=== PATIENT | female | born 1955 | race Caucasian/White ===

== ENCOUNTER 2017-06-20 11:37 | Inpatient (IN) | payer MEDICARE ==
[2017-06-20 12:04] LABS: ADD MAN DIFF? NO
[2017-06-20] MEDS: IPRATRPIUM/ALBUTEROL 0.5/2.5MG 3 ML NEBU. NEB ×3 (12:04→19:29)
[2017-06-20 12:08] LABS: BASO % 0 % (0-3); EOS # 0.1 x10^3/uL (0.0-0.7); EOS % 1 % (0-3); HEMATOCRIT 50.3 % (36.0-47.0); HEMOGLOBIN 17.3 g/dL (12.0-15.5); LYMPH # 1.6 x10^3/uL (1.0-4.8); LYMPH % 15 % (24-48); MEAN CORPUSCULAR HEMOGLOBIN 33 pg (25-35); MEAN CORPUSCULAR HGB CONC 35 g/dL (31-37); MEAN CORPUSCULAR VOLUME 95 fL (79-100); MONO # 0.4 x10^3/uL (0.0-1.1); MONO % 3 % (0-9); NEUT # 9.1 x10^3uL (1.8-7.7); NEUT % 81 % (31-73); PLATELET COUNT 303 x10^3/uL (140-400); RED BLOOD COUNT 5.32 x10^6/uL (3.50-5.40); RED CELL DISTRIBUTION WIDTH 13.4 % (11.5-14.5); WHITE BLOOD COUNT 11.2 x10^3/uL (4.0-11.0)
[2017-06-20 12:16] LABS: INR 1.1 (0.8-1.1); PROTHROMBIN TIME PATIENT 13.2 SEC (11.7-14.0)
[2017-06-20 12:18] LABS: ANION GAP 14 (6-14); BLOOD UREA NITROGEN 18 mg/dL (7-20); CALCIUM 9.8 mg/dL (8.5-10.1); CARBON DIOXIDE 23 mmol/L (21-32); CHLORIDE 98 mmol/L (98-107); CREATININE 0.9 mg/dL (0.6-1.0); GFR 63.9; GLUCOSE 394 mg/dL (70-99); POTASSIUM 4.7 mmol/L (3.5-5.1); SODIUM 135 mmol/L (136-145)
[2017-06-20 12:24] LABS: TROPONINI < 0.017 ng/mL (0.000-0.055)
[2017-06-20 12:32] LABS: ALK PHOS 90 U/L (46-116); ALT (SGPT) 21 U/L (14-59); AST (SGOT) 18 U/L (15-37); DIRECT BILIRUBIN 0.2 mg/dL (0.0-0.2); LIPASE 76 U/L (73-393); MAGNESIUM 1.4 mg/dL (1.8-2.4); TOTAL BILIRUBIN 0.6 mg/dL (0.2-1.0)
[2017-06-20 12:35] LABS: CKMB MASS 1.2 ng/mL (0.0-3.6); CREATINE KINASE 36 U/L (26-192)
[2017-06-20 12:35] LABS: NT-PRO BNP 3966 pg/mL (0-124)
[2017-06-20 12:41] LABS: LACTIC ACID 2.3 mmol/L (0.4-2.0)
[2017-06-20 12:55] LABS: BASE EXCESS ABG -6 mmol/L (-3-3); HCO3 ABG 17 mmol/L (21-28); PCO2 ABG 30 mmHg (35-46); PH ABG 7.38 (7.35-7.45); PO2 ABG 91 mmHg (65-108); SAT O2 ABG 97 % (92-99)
[2017-06-20 13:04] LABS: FIO2 ABG 40
[2017-06-20] MEDS: FUROSEMIDE 40 MG/4 ML VIAL. IVP (13:40)
[2017-06-20] MEDS ORDERED: CONTRAST GIVEN MC (13:45)
[2017-06-20] MEDS: IOHEXOL 300 MG/ML 100ML VIAL. IV (13:51)
[2017-06-20] MEDS ORDERED: ONDANSETRON PF 4 MG/2 ML VIAL. IV (14:30)
[2017-06-20 14:32] LABS: BILIRUBIN,URINE NEGATIVE (NEG); CLARITY,URINE CLEAR; COLOR,URINE YELLOW; GLUCOSE,URINE >=1000 mg/dL (NEG); NITRITE,URINE NEGATIVE (NEG); PH,URINE 5.5; PROTEIN,URINE NEGATIVE (NEG-TRACE); UROBILINOGEN,URINE 0.2 mg/dL (0.2 mg/dL)
[2017-06-20 14:35] LABS: BARBITURATES NEG (NEG); BENZODIAZEPINES NEG (NEG); CANNABINOIDS NEG (NEG); COCAINE NEG (NEG); METHADONE NEG (NEG); OPIATES NEG (NEG); PHENCYCLIDINE NEG (NEG)
[2017-06-20 14:37] LABS: AMPHETAMINE/METHAMPHETAMINE NEG (NEG); ETHANOL, URINE NEG (NEG)
[2017-06-20 14:58] LABS: BACTERIA,URINE 0 /HPF (0-FEW); RBC,URINE 0 /HPF (0-2)
[2017-06-20 14:59] LABS: HYALINE CASTS, URINE OCCASIONAL /HPF; SQUAMOUS EPITHELIAL CELL,UR OCC /LPF
[2017-06-20] MEDS: ALBUTEROL SULFATE 2.5 MG/3 ML NEBU. NEB (14:59)
[2017-06-20] MEDS ORDERED: hydrALAZINE 20 MG/ML VIAL. IVP (16:45)
[2017-06-20] MEDS: FUROSEMIDE 20 MG/2 ML VIAL. IVP (17:40)
[2017-06-20] MEDS: MAGNESIUM SULFATE 2GM 50 ML IV (17:41)
[2017-06-20] MEDS: CARVEDILOL 3.125 MG TABLET. PO (17:41)
[2017-06-20] MEDS ORDERED: DEXTROSE 50% 25 GM / 50ML DISP.SYRIN. IV (20:00)
[2017-06-20 20:25] LABS: POC GLUCOSE 243 mg/dL (70-99)
[2017-06-20] MEDS: ATORVASTATIN CALCIUM 40 MG TABLET. PO (20:33)
[2017-06-20] MEDS: RANOLAZINE 500 MG TAB.ER.12H PO (20:33)
[2017-06-20] MEDS: oxyCODONE/APAP 5/325 1 TAB TABLET PO (20:33)
[2017-06-20] MEDS: ZOLPIDEM 5 MG TABLET. PO (21:27)
[2017-06-20 21:44] LABS: TROPONINI 3.043 ng/mL (0.000-0.055)
[2017-06-21 03:00] LABS: ADD MAN DIFF? NO
[2017-06-21 03:04] LABS: BASO % 1 % (0-3); EOS # 0.1 x10^3/uL (0.0-0.7); EOS % 2 % (0-3); HEMATOCRIT 45.6 % (36.0-47.0); HEMOGLOBIN 15.9 g/dL (12.0-15.5); LYMPH # 2.9 x10^3/uL (1.0-4.8); LYMPH % 36 % (24-48); MEAN CORPUSCULAR HEMOGLOBIN 32 pg (25-35); MEAN CORPUSCULAR HGB CONC 35 g/dL (31-37); MEAN CORPUSCULAR VOLUME 93 fL (79-100); MONO # 0.6 x10^3/uL (0.0-1.1); MONO % 8 % (0-9); NEUT # 4.3 x10^3uL (1.8-7.7); NEUT % 54 % (31-73); PLATELET COUNT 265 x10^3/uL (140-400); RED BLOOD COUNT 4.91 x10^6/uL (3.50-5.40)
[2017-06-21 03:36] LABS: ANION GAP 8 (6-14); BLOOD UREA NITROGEN 19 mg/dL (7-20); CALCIUM 9.9 mg/dL (8.5-10.1); CARBON DIOXIDE 29 mmol/L (21-32); CHLORIDE 101 mmol/L (98-107); CHOLESTEROL 143 mg/dL (0-200); CREATININE 0.9 mg/dL (0.6-1.0); GFR 63.9; GLUCOSE 293 mg/dL (70-99); HDLC 38 mg/dL (40-60); LDLC 54 mg/dL (0-100); MAGNESIUM 1.8 mg/dL (1.8-2.4); NON-HDL CHOLESTEROL 105 mg/dL (0-129); POTASSIUM 3.7 mmol/L (3.5-5.1); SODIUM 138 mmol/L (136-145); TRIGLYCERIDES 253 mg/dL (0-150); VLDLC 51 mg/dL (0-40)
[2017-06-21 03:40] LABS: TROPONINI 2.577 ng/mL (0.000-0.055)
[2017-06-21 03:45] LABS: CHOLESTEROL/HDL RATIO 3.8
[2017-06-21 07:59] LABS: POC GLUCOSE 280 mg/dL (70-99)
[2017-06-21] MEDS ORDERED: FUROSEMIDE 40 MG/4 ML VIAL. IVP (09:00)
[2017-06-21] MEDS: INSULIN ASPART 300 UNITS/3 ML INSULN.PEN SQ ×3 (09:04→17:15)
[2017-06-21] MEDS: IPRATRPIUM/ALBUTEROL 0.5/2.5MG 3 ML NEBU. NEB ×4 (09:16→19:51)
[2017-06-21 11:42] LABS: POC GLUCOSE 246 mg/dL (70-99)
[2017-06-21] MEDS: RANOLAZINE 500 MG TAB.ER.12H PO ×2 (12:08→20:36)
[2017-06-21] MEDS: FUROSEMIDE 40 MG TABLET. PO (12:08)
[2017-06-21] MEDS: ASPIRIN ENTERIC COATED 325 MG TABLET.DR. PO (12:08)
[2017-06-21] MEDS: LISINOPRIL 5 MG TABLET. PO (12:09)
[2017-06-21] MEDS: POTASSIUM CHLORIDE 20 MEQ TABLET.ER. PO (12:09)
[2017-06-21] MEDS: CARVEDILOL 3.125 MG TABLET. PO ×2 (12:09→17:07)
[2017-06-21 17:34] LABS: POC GLUCOSE 268 mg/dL (70-99)
[2017-06-21] MEDS: ATORVASTATIN CALCIUM 40 MG TABLET. PO (20:36)
[2017-06-21] MEDS: oxyCODONE/APAP 5/325 1 TAB TABLET PO (20:38)
[2017-06-21 20:52] LABS: POC GLUCOSE 296 mg/dL (70-99)
[2017-06-21] MEDS: ZOLPIDEM 5 MG TABLET. PO (23:46)
[2017-06-22] MEDS: IPRATRPIUM/ALBUTEROL 0.5/2.5MG 3 ML NEBU. NEB ×4 (08:00→21:03)
[2017-06-22] MEDS: ASPIRIN ENTERIC COATED 325 MG TABLET.DR. PO (08:47)
[2017-06-22] MEDS: LISINOPRIL 5 MG TABLET. PO (08:47)
[2017-06-22] MEDS: POTASSIUM CHLORIDE 20 MEQ TABLET.ER. PO (08:47)
[2017-06-22] MEDS: RANOLAZINE 500 MG TAB.ER.12H PO ×2 (08:48→20:19)
[2017-06-22] MEDS: CARVEDILOL 3.125 MG TABLET. PO ×2 (08:48→18:04)
[2017-06-22] MEDS: FUROSEMIDE 40 MG TABLET. PO (08:48)
[2017-06-22] MEDS: INSULIN ASPART 300 UNITS/3 ML INSULN.PEN SQ ×6 (08:53→18:10)
[2017-06-22 11:30] LABS: POC GLUCOSE 368 mg/dL (70-99)
[2017-06-22 17:18] LABS: POC GLUCOSE 152 mg/dL (70-99)
[2017-06-22] MEDS: MULTIVITAMIN with MINERAL TABLET. PO (18:03)
[2017-06-22] MEDS: ASCORBIC ACID 500 MG TABLET PO (18:03)
[2017-06-22] MEDS: ZOLPIDEM 5 MG TABLET. PO (20:19)
[2017-06-22] MEDS: ATORVASTATIN CALCIUM 40 MG TABLET. PO (20:19)
[2017-06-22] MEDS: INSULIN DETEMIR 300 UNITS/3 ML INSULN.PEN. SQ (20:25)
[2017-06-22 20:26] LABS: POC GLUCOSE 245 mg/dL (70-99)
[2017-06-22 21:08] LABS: POC GLUCOSE 256 mg/dL (70-99)
[2017-06-23 05:18] LABS: ADD MAN DIFF? NO
[2017-06-23 05:46] LABS: BASO % 0 % (0-3); EOS # 0.2 x10^3/uL (0.0-0.7); EOS % 2 % (0-3); HEMATOCRIT 48.4 % (36.0-47.0); HEMOGLOBIN 16.9 g/dL (12.0-15.5); LYMPH # 3.1 x10^3/uL (1.0-4.8); LYMPH % 36 % (24-48); MEAN CORPUSCULAR HEMOGLOBIN 33 pg (25-35); MEAN CORPUSCULAR HGB CONC 35 g/dL (31-37); MEAN CORPUSCULAR VOLUME 94 fL (79-100); MONO # 0.7 x10^3/uL (0.0-1.1); MONO % 8 % (0-9); NEUT # 4.5 x10^3uL (1.8-7.7); NEUT % 53 % (31-73); PLATELET COUNT 269 x10^3/uL (140-400); RED BLOOD COUNT 5.15 x10^6/uL (3.50-5.40); RED CELL DISTRIBUTION WIDTH 13.1 % (11.5-14.5); WHITE BLOOD COUNT 8.4 x10^3/uL (4.0-11.0)
[2017-06-23 06:20] LABS: ALBUMIN 3.6 g/dL (3.4-5.0); ALK PHOS 74 U/L (46-116); ALT (SGPT) 16 U/L (14-59); ANION GAP 9 (6-14); AST (SGOT) 14 U/L (15-37); BLOOD UREA NITROGEN 26 mg/dL (7-20); BUN/CREATININE RATIO 29 (6-20); CALCIUM 9.6 mg/dL (8.5-10.1); CARBON DIOXIDE 29 mmol/L (21-32); CHLORIDE 100 mmol/L (98-107); CREATININE 0.9 mg/dL (0.6-1.0); GFR 63.9; GLUCOSE 185 mg/dL (70-99); SODIUM 138 mmol/L (136-145); TOTAL BILIRUBIN 0.5 mg/dL (0.2-1.0); TOTAL PROTEIN 7.1 g/dL (6.4-8.2)
[2017-06-23] MEDS: IPRATRPIUM/ALBUTEROL 0.5/2.5MG 3 ML NEBU. NEB ×3 (07:50→16:01)
[2017-06-23 08:15] LABS: POC GLUCOSE 220 mg/dL (70-99)
[2017-06-23] MEDS: ASCORBIC ACID 500 MG TABLET PO (08:47)
[2017-06-23] MEDS: POTASSIUM CHLORIDE 20 MEQ TABLET.ER. PO (08:47)
[2017-06-23] MEDS: MULTIVITAMIN with MINERAL TABLET. PO (08:47)
[2017-06-23] MEDS: ASPIRIN ENTERIC COATED 325 MG TABLET.DR. PO (08:47)
[2017-06-23] MEDS: FUROSEMIDE 40 MG TABLET. PO (08:48)
[2017-06-23] MEDS: RANOLAZINE 500 MG TAB.ER.12H PO (08:48)
[2017-06-23] MEDS: LISINOPRIL 5 MG TABLET. PO (08:48)
[2017-06-23] MEDS: CARVEDILOL 3.125 MG TABLET. PO (08:49)
[2017-06-23] MEDS: INSULIN ASPART 300 UNITS/3 ML INSULN.PEN SQ ×4 (08:55→12:37)
[2017-06-23 14:37] LABS: POC GLUCOSE 282 mg/dL (70-99)
== END 2017-06-23 16:31 | disposition home or self-care (01) | DRG 291 ==
LOC: ER 11:37 → 2 SOUTH 13:45
PROC: 5A09357 Assistance with Respiratory Ventilation, Less than 24 Consecutive Hours, Continuous Positive Airway Pressure (ICD-10-PCS; principal; 2017-06-20)
DX: I11.0 Hypertensive heart disease with heart failure (principal); J96.01 Acute respiratory failure with hypoxia; E11.51 Type 2 diabetes mellitus with diabetic peripheral angiopathy without gangrene; E83.42 Hypomagnesemia; I25.82 Chronic total occlusion of coronary artery; E11.621 Type 2 diabetes mellitus with foot ulcer; I50.33 Acute on chronic diastolic (congestive) heart failure; I42.9 Cardiomyopathy, unspecified; E78.00 Pure hypercholesterolemia, unspecified; E78.5 Hyperlipidemia, unspecified; I25.118 Atherosclerotic heart disease of native coronary artery with other forms of angina pectoris; I35.1 Nonrheumatic aortic (valve) insufficiency; J44.9 Chronic obstructive pulmonary disease, unspecified; K21.9 Gastro-esophageal reflux disease without esophagitis; F32.9 Major depressive disorder, single episode, unspecified; Z79.84 Long term (current) use of oral hypoglycemic drugs; Z82.49 Family history of ischemic heart disease and other diseases of the circulatory system; Z86.711 Personal history of pulmonary embolism; Z86.73 Personal history of transient ischemic attack (TIA), and cerebral infarction without residual deficits; Z87.891 Personal history of nicotine dependence; Z90.49 Acquired absence of other specified parts of digestive tract; Z90.710 Acquired absence of both cervix and uterus; Z95.1 Presence of aortocoronary bypass graft; Z89.421 Acquired absence of other right toe(s); Z88.8 Allergy status to other drugs, medicaments and biological substances
CPT/HCPCS: 36415; 36600; 71045; 71275; 80048; 80053; 80061; 80076; 80307; 81001; 82553; 82805; 82962; 83605; 83690; 83735; 83880; 84484; 85025; 85610; 87040; 87086; 87186; 93005; 93306; 94640; 94660; 94760; 96374; 99285; 99285-25; J1815; J1940; J7060; J7613; J7620; Q9967

== ENCOUNTER 2017-12-25 10:15 | Inpatient (IN) | payer MEDICARE ==
[~2017-12-25] VITALS: Ht 167.6 cm; Wt 66.7 kg
[~2017-12-25 10:15] MED LIST changes: -ASPI-612 PO; -BIOT5000 PO; -CARV3.122 PO; -GABA-585 PO
--- NOTE | 2017-12-25 11:25 | PDOC1 ---
History and Physical Date of Admission Date of Admission DATE: 12/25/17 TIME: 11:24 Identification/Chief Complaint Chief Complaint LEFT DIABETIC FOOT WOUND History of Present Illness History of Present Illness s/p rt 5th toe and left 1st toe amputation ssen in wound clinic today with cellulitis involving left distal, lateral foot, direct admit this AM Past Medical History Past Medical History Past Medical History Cardiovascular: CAD, HTN, Hyperlipidemia Pulmonary: Pulmonary embolus CENTRAL NERVOUS SYSTEM: CVA, Periperal neuropathy GI: GERD Hepatobiliary: No pertinent hx Psych: Depression Renal/: UTI Endocrine: Diabetes Past Surgical History Past Surgical History: CABG, Tonsillectomy, Hysterectomy, Other Family History Family History: Coronary Artery Disease Social History Smoke: No ALCOHOL: none Drugs: None Cardiovascular: CAD, HTN, Hyperlipidemia Pulmonary: Pulmonary embolus CENTRAL NERVOUS SYSTEM: CVA, Periperal neuropathy GI: GERD Hepatobiliary: No pertinent hx Psych: Depression Musculoskeletal: low back pain, Osteoarthritis Renal/: UTI Endocrine: Diabetes Past Surgical History Past Surgical History: CABG, Tonsillectomy, Hysterectomy, Other (RIGHT FEM-POP BYPASS REMOTE) Family History Family History: Coronary Artery Disease Social History Smoke: Quit ALCOHOL: none Drugs: None Current Medications Current Medications Active Scripts Active Hydrocodone-Apap 5-325 (Hydrocodone Bit/Acetaminophen) 1 Each Tablet 1 Tab PO PRN Q4HRS PRN Amoxicillin 875 Mg Tablet 875 Mg PO BID Lasix (Furosemide) 40 Mg Tablet 1 Tab PO DAILY Ranexa (Ranolazine) 500 Mg Tab.er.12h 1 Tab PO BID Coreg (Carvedilol) 3.125 Mg Tablet 1 Tab PO BID Levemir Flextouch (Insulin Detemir) 100 Unit/1 Ml Insuln.pen 15 Units SQ QHS Lipitor (Atorvastatin Calcium) 40 Mg Tablet 40 Mg PO QHS Ecotrin (Aspirin) 325 Mg Tablet. 325 Mg PO DAILYWBKFT Reported Oxycodone-Acetaminophen 5-325 (Oxycodone Hcl/Acetaminophen) 1 Each Tablet 1 Tab PO PRN DAILY PRN Omeprazole 40 Mg Capsule.dr 40 Mg PO PRN DAILY PRN Fenofibrate (Fenofibrate,Micronized) 134 Mg Capsule 134 Mg PO HS Multivitamins (Multivitamin) 1 Each Tablet 1 Tab PO DAILY Lisinopril 5 Mg Tablet 1 Tab PO HS Potassium Chloride 20 Meq Tablet.er 20 Meq PO DAILY Zolpidem Tartrate 5 Mg Tablet 5 Mg PO PRN QHS PRN Vitamin D (Cholecalciferol (Vitamin D3)) 1,000 Unit Capsule 1,000 Unit PO Metformin Hcl 1,000 Mg Tablet 1 Tab PO BID Fish Oil 1,000 Mg Softgel ([place]-3/Dha/Epa/Fish Oil) 1 Each Capsule 1 Each PO BID Gabapentin 300 Mg Capsule 600 Mg PO TID Next dose: 12/06 at bedtime Allergies Allergies: Coded Allergies: propoxyphene (Verified Allergy, Intermediate, Anxiety, 08/14/17) I S O L A T I O N *CONTACT* (Verified Allergy, Unknown, 08/14/17) mrsa ROS Review of System 14 PT ROS OTHERWISE NEG General: No: Chills, Night Sweats, Fatigue, Malaise, Appetite, Other PSYCHOLOGICAL ROS: No: Anxiety, Behavioral Disorder, Concentration difficultie , Decreased libido, Depression, Disorientation, Hallucinations, Hostility, Irritablity, Memory difficulties, Mood Swings, Obsessive thoughts, Physical abuse, Sexual abuse, Sleep disturbances, Suicidal ideation, Other HEENT: No: Heacaches, Visual Changes, Hearing change, Nasal congestion, Nasal discharge, Oral lesions, Sinus pain, Sore Throat, Epistaxis, Sneezing, Snoring, Tinnitus, Vertigo, Vocal changes, Other Hematological and Lymphatic: No: Bleeding Problems, Blood Clots, Blood Transfusions, Brusing, Night Sweats, Pallor, Swollen Lymph Nodes, Other ENDOCRINE: No: Breast Changes, Galactorrhea, Hair Pattern Changes, Hot Flashes , Malaise/lethargy, Mood Swings, Palpitations, Polydipsia/polyuria, Skin Changes , Temperature Intolerance, Unexpected Weight Changes, Other Cardiovascular: No Chest Pain, No Palpitations, No Orthopnea, No Paroxysmal Noc. Dyspnea, No Edema, No Lt Headedness, No Other Musculoskeletal: Yes Joint Swelling Skin: Yes Skin Lesion Changes Physical Exam Physical Exam Physical Exam GEN.: No apparent distress. Alert and oriented. HEENT: Head is normocephalic, atraumatic NECK: Supple. LUNGS: Clear to auscultation. HEART: RRR, S1, S2 present. Peripheral pulses intact ABDOMEN: Soft, nontender. Positive bowel sounds. EXTREMITIES: Without any cyanosis. NEUROLOGIC: Normal speech, normal tone PSYCHIATRIC: Normal affect, normal mood. SKIN: rt sole has a 2cm non healing ulcer with some drainage left 4th toe mild swelling, tip is black , no obvious discharge. General: Alert, Oriented X3 Extremities: No clubbing, No cyanosis Neuro: Normal speech, Cranial nerves 3-12 NL Psych/Mental Status: Mental status NL, Mood NL VTE Prophylaxis Ordered VTE Prophylaxis Devices: No VTE Pharmacological Prophylaxi: Yes Assessment/Plan Assessment/Plan left 4th toe osteo SUSPECTED h/o CAD s/p CABG stable diastolic CHF with EF 65% htn hld dm2 h/o CVA PAD s/p bl fem pop bypass s/p rt 5th toe and left 1st toe amputation HLD rt foot chronic non healing sole ulcer plan vasc surgery consult ID CONSULT ESR WOUND CARE NURSE TO SEE SQ LOVENOX DVT PROPHYLAXIS IV VANC PHARMACY TO DOSE JUANA MOTT MD Dec 25, 2017 11:25
[2017-12-25] MEDS ORDERED: BIOT5000 PO (12:09)
[2017-12-25] MEDS ORDERED: ASPI-612 PO (12:09)
[2017-12-25] MEDS ORDERED: GABA-585 PO (12:09)
[2017-12-25] MEDS ORDERED: VANCOMYCIN 1GM IVPB FOR OMNI 250 ML IV ONE (13:30)
[2017-12-25] MEDS: HYDROcodone/APAP 5/325MG 1 TAB TABLET PO PRN ×2 (13:38→20:41)
[2017-12-25] MEDS ORDERED: CARV3.122 PO (14:06)
[2017-12-25 14:18] LABS: BASO # 0.2 x10^3/uL (0.0-0.2); BASO % 1 % (0-3); EOS # 0.1 x10^3/uL (0.0-0.7); EOS % 0 % (0-3); HEMATOCRIT 33.9 % (36.0-47.0); HEMOGLOBIN 11.8 g/dL (12.0-15.5); LYMPH # 1.7 x10^3/uL (1.0-4.8); LYMPH % 11 % (24-48); MEAN CORPUSCULAR HEMOGLOBIN 31 pg (25-35); MEAN CORPUSCULAR HGB CONC 35 g/dL (31-37); MEAN CORPUSCULAR VOLUME 89 fL (79-100); MONO # 0.8 x10^3/uL (0.0-1.1); MONO % 5 % (0-9); NEUT # 13.2 x10^3uL (1.8-7.7); NEUT % 83 % (31-73); PLATELET COUNT 593 x10^3/uL (140-400); RED BLOOD COUNT 3.83 x10^6/uL (3.50-5.40); RED CELL DISTRIBUTION WIDTH 12.2 % (11.5-14.5); WHITE BLOOD COUNT 15.9 x10^3/uL (4.0-11.0)
[2017-12-25 14:29] LABS: ALBUMIN 2.8 g/dL (3.4-5.0); ALBUMIN/GLOBULIN RATIO 0.5 (1.0-1.7); CALCIUM 10.2 mg/dL (8.5-10.1); CREATININE 0.9 mg/dL (0.6-1.0); GFR 63.7; POTASSIUM 4.7 mmol/L (3.5-5.1); TOTAL BILIRUBIN 0.5 mg/dL (0.2-1.0); TOTAL PROTEIN 8.8 g/dL (6.4-8.2)
[2017-12-25 15:00] VITALS: BP 136/65
[2017-12-25] MEDS ORDERED: VANCOMYCIN 1.75 GM in IV NORMAL SALINE 500ML BAG 500 ML IV ONE (15:00)
[2017-12-25] MEDS ORDERED: DEXTROSE 50% 25 GM / 50ML DISP.SYRIN. IV PRN (15:00)
[2017-12-25 15:14] LABS: % BANDS 2 % (0-9); % LYMPHS 19 % (24-48); % METAS 1 % (0-0); % MONOS 2 % (0-10); % SEGS 76 % (35-66); PLT ESTIMATE INCREASED (ADEQUATE)
[2017-12-25 15:15] LABS: TOXIC GRANULATION SLIGHT
[2017-12-25] MEDS: ASPIRIN ENTERIC COATED 81 MG TABLET.DR. PO SCH (15:33)
[2017-12-25] MEDS: VANCOMYCIN PER PHARMACY MC PRN (15:53)
[2017-12-25] MEDS: CHOLECALCIFEROL (VITAMIN D3) 1,000 UNIT TABLET PO SCH (16:00)
[2017-12-25] MEDS: FUROSEMIDE 40 MG TABLET. PO SCH (16:00)
[2017-12-25] MEDS ORDERED: INSULIN LISPRO 300 UNITS/3 ML INSULN.PEN. SQ ONE ×2 (16:00→21:30)
--- NOTE | 2017-12-25 16:40 | RAD ---
EXAM: AP and lateral views of the left foot DATE: 12/25/2017 1:05 PM INDICATION: OPEN WOUND
HX OF DIABETES COMPARISON: 07/14/2015, 08/12/2017 FINDINGS: Marked soft tissue irregularity is seen about the proximal phalanx of the second toe at the site of amputation. Associated focal osteopenia and periostitis of the proximal phalanx with small erosions is seen. Changes of transverse first metatarsal amputation are again seen. Chronic/healed fracture of the second metatarsal shaft is also stable with apex plantar angulation resulting in a prominent spicule projecting into the plantar soft tissues. IMPRESSION: 1. Soft tissue irregularity at the site of fourth toe amputation with subjacent osseous erosive change with osteopenia and mild periostitis, radiographically represents osteomyelitis. 2. Chronic/healed fracture of the second metatarsal shaft is also stable with apex plantar angulation resulting in a prominent spicule projecting into the plantar soft tissues. Electronically signed by: Elmer Haas MD (12/25/2017 4:35 PM) [facility]
[2017-12-25] MEDS: CARVEDILOL 3.125 MG TABLET. PO SCH (17:04)
[2017-12-25] MEDS: INSULIN LISPRO 300 UNITS/3 ML INSULN.PEN. SQ SCH (17:07)
[2017-12-25 19:00] VITALS: BP 163/61
[2017-12-25] MEDS: RANOLAZINE 500 MG TAB.ER.12H PO SCH (20:39)
[2017-12-25] MEDS: LISINOPRIL 5 MG TABLET. PO SCH (20:40)
[2017-12-25] MEDS: ATORVASTATIN CALCIUM 40 MG TABLET. PO SCH (20:40)
[2017-12-25] MEDS: ZOLPIDEM 5 MG TABLET. PO PRN (20:40)
[2017-12-25] MEDS: GABAPENTIN 300 MG CAPSULE. PO SCH (20:40)
[2017-12-25 23:00] VITALS: BP 101/75
[2017-12-25] MEDS ORDERED: INSU100I13 SQ (23:08)
[2017-12-26] VITALS (12 sets, daily range): BP systolic 106–140; BP diastolic 66–79
[2017-12-26 01:17] LABS: HEMOGLOBIN A1C 10.7 % (4.8-5.6)
[2017-12-26] MEDS: VANCOMYCIN 1 GM in IV NORMAL SALINE 250ML 250 ML IV SCH ×2 (03:51→16:15)
[2017-12-26] MEDS: HYDROcodone/APAP 5/325MG 1 TAB TABLET PO PRN ×5 (03:52→20:28)
[2017-12-26 04:22] LABS: BASO # 0.1 x10^3/uL (0.0-0.2); BASO % 1 % (0-3); EOS # 0.2 x10^3/uL (0.0-0.7); EOS % 2 % (0-3); HEMATOCRIT 28.9 % (36.0-47.0); HEMOGLOBIN 10.3 g/dL (12.0-15.5); LYMPH # 2.3 x10^3/uL (1.0-4.8); LYMPH % 18 % (24-48); MEAN CORPUSCULAR HEMOGLOBIN 32 pg (25-35); MEAN CORPUSCULAR HGB CONC 36 g/dL (31-37); MEAN CORPUSCULAR VOLUME 89 fL (79-100); MONO # 1.1 x10^3/uL (0.0-1.1); MONO % 8 % (0-9); NEUT # 9.6 x10^3uL (1.8-7.7); NEUT % 72 % (31-73); PLATELET COUNT 521 x10^3/uL (140-400); RED BLOOD COUNT 3.25 x10^6/uL (3.50-5.40); RED CELL DISTRIBUTION WIDTH 12.2 % (11.5-14.5); WHITE BLOOD COUNT 13.3 x10^3/uL (4.0-11.0)
[2017-12-26 04:34] LABS: CALCIUM 9.3 mg/dL (8.5-10.1); CREATININE 0.8 mg/dL (0.6-1.0); GFR 72.9; POTASSIUM 3.9 mmol/L (3.5-5.1)
[2017-12-26] MEDS: CARVEDILOL 3.125 MG TABLET. PO SCH ×2 (07:30→16:15)
[2017-12-26] MEDS ORDERED: PANTOPRAZOLE 40 MG TABLET.DR. PO PRN (07:30)
[2017-12-26] MEDS: ASPIRIN ENTERIC COATED 81 MG TABLET.DR. PO SCH (07:36)
[2017-12-26] MEDS: OMEGA-3 FATTY ACIDS/FISH OIL 1,000 MG CAPSULE. PO SCH (07:36)
[2017-12-26] MEDS: GABAPENTIN 300 MG CAPSULE. PO SCH ×3 (08:18→20:30)
[2017-12-26] MEDS: CHOLECALCIFEROL (VITAMIN D3) 1,000 UNIT TABLET PO SCH (08:18)
[2017-12-26] MEDS: FUROSEMIDE 40 MG TABLET. PO SCH (08:21)
[2017-12-26] MEDS: RANOLAZINE 500 MG TAB.ER.12H PO SCH ×2 (08:22→20:26)
[2017-12-26] MEDS: INSULIN LISPRO 300 UNITS/3 ML INSULN.PEN. SQ SCH ×3 (08:36→17:22)
[2017-12-26] MEDS ORDERED: NON FORMULARY ITEM (Biotin 5,000 MCG) PO SCH (09:00)
[2017-12-26] MEDS ORDERED: SURGICEL FIBRILLAR 1X2 EACH. ONE (09:16)
[2017-12-26] MEDS ORDERED: LIDOCAINE 1% PF 30 ML VIAL. ONE (09:16)
[2017-12-26] MEDS ORDERED: IV RINGERS,LACTATED 1000ML 1,000 ML IV SCH (09:57)
[2017-12-26] MEDS ORDERED: LIDOCAINE 1% PF 2 ML VIAL. ID PRN (10:00)
[2017-12-26] MEDS ORDERED: ONDANSETRON PF 4 MG/2 ML VIAL. IV PRN (10:00)
[2017-12-26] MEDS ORDERED: fentaNYL PF VIAL 100 MCG/2 ML VIAL IV PRN ×2 (10:00)
[2017-12-26] MEDS ORDERED: INSULIN ASPART 100 UNIT/ML 10ML VIAL. SQ ONE (10:00)
[2017-12-26] MEDS ORDERED: MORPHINE SULFATE 2 MG/ML VIAL. IV PRN ×2 (10:00→11:15)
[2017-12-26] MEDS ORDERED: PROCHLORPERAZINE 10 MG/2 ML VIAL. IV PRN (10:00)
[2017-12-26] MEDS ORDERED: PROPOFOL 0 ML IV ONE (10:00)
[2017-12-26] MEDS ORDERED: DEXAMETHASONE SOD PHOS 20 MG/5 ML VIAL. ONE (10:01)
[2017-12-26] MEDS ORDERED: PROPOFOL 20 ML IV ONE (10:01)
[2017-12-26] MEDS ORDERED: LIDOCAINE 2% PF Vial for OR 5 ML VIAL. ONE (10:01)
[2017-12-26] MEDS ORDERED: FAMOTIDINE 20 MG/2 ML VIAL ONE (10:01)
[2017-12-26] MEDS ORDERED: SUCCINYLCHOLINE 200 MG/10 ML VIAL. ONE (10:02)
[2017-12-26] MEDS ORDERED: fentaNYL PF VIAL 100 MCG/2 ML VIAL ONE (10:05)
[2017-12-26] MEDS ORDERED: ONDANSETRON PF 4 MG/2 ML VIAL. ONE (10:06)
[2017-12-26] MEDS ORDERED: ePHEDrine PF IN SALINE 50 MG/5 ML DISP.SYRIN IV ONE (10:41)
--- NOTE | 2017-12-26 11:06 | PDOC4 ---
Operative Note Operative Note Operative Report Dictated Pre-op: left 4th residual toe and 5th toe severe infected gangrene with purulent drainage and cellulitis Post-op: same Operation: Left 4th and 5th toe open amputation Surgeon: Dr. Anna Young Anesthesia: general Blood loss: 5ml ANNA YOUNG MD Dec 26, 2017 11:06
[2017-12-26] MEDS ORDERED: hydrALAZINE 20 MG/ML VIAL. IVP PRN (11:15)
--- NOTE | 2017-12-26 12:03 | PDOC ---
Infectious Disease Note Vital Sign Vital Signs Vital Signs Date Time Temp Pulse Resp B/P (MAP) Pulse Ox O2 Delivery O2 Flow Rate FiO2 12/26/17 11:47 76 20 124/87 97 Room Air 12/26/17 11:02 10 12/26/17 11:02 97.4 97.4 Labs Lab Laboratory Tests Test 12/25/17 13:55 12/25/17 14:00 12/25/17 15:48 12/25/17 16:00 Erythrocyte Sedimentation Rate 127 (0-25) Sodium Level 129 mmol/L (136-145) Potassium Level 4.7 mmol/L (3.5-5.1) Chloride Level 92 mmol/L (98-107) Carbon Dioxide Level 30 mmol/L (21-32) Anion Gap 7 (6-14) Blood Urea Nitrogen 16 mg/dL (7-20) Creatinine 0.9 mg/dL (0.6-1.0) Estimated GFR (Cockcroft-Gault) 63.7 BUN/Creatinine Ratio 18 (6-20) Glucose Level 411 mg/dL (70-99) Calcium Level 10.2 mg/dL (8.5-10.1) Total Bilirubin 0.5 mg/dL (0.2-1.0) Aspartate Amino Transf (AST/SGOT) 11 U/L (15-37) Alanine Aminotransferase (ALT/SGPT) 15 U/L (14-59) Alkaline Phosphatase 90 U/L (46-116) Total Protein 8.8 g/dL (6.4-8.2) Albumin 2.8 g/dL (3.4-5.0) Albumin/Globulin Ratio 0.5 (1.0-1.7) White Blood Count 15.9 x10^3/uL (4.0-11.0) Red Blood Count 3.83 x10^6/uL (3.50-5.40) Hemoglobin 11.8 g/dL (12.0-15.5) Hematocrit 33.9 % (36.0-47.0) Mean Corpuscular Volume 89 fL (79-100) Mean Corpuscular Hemoglobin 31 pg (25-35) Mean Corpuscular Hemoglobin Concent 35 g/dL (31-37) Red Cell Distribution Width 12.2 % (11.5-14.5) Platelet Count 593 x10^3/uL (140-400) Neutrophils (%) (Auto) 83 % (31-73) Lymphocytes (%) (Auto) 11 % (24-48) Monocytes (%) (Auto) 5 % (0-9) Eosinophils (%) (Auto) 0 % (0-3) Basophils (%) (Auto) 1 % (0-3) Neutrophils # (Auto) 13.2 x10^3uL (1.8-7.7) Lymphocytes # (Auto) 1.7 x10^3/uL (1.0-4.8) Monocytes # (Auto) 0.8 x10^3/uL (0.0-1.1) Eosinophils # (Auto) 0.1 x10^3/uL (0.0-0.7) Basophils # (Auto) 0.2 x10^3/uL (0.0-0.2) Segmented Neutrophils % 76 % (35-66) Band Neutrophils % 2 % (0-9) Lymphocytes % 19 % (24-48) Monocytes % 2 % (0-10) Metamyelocytes % 1 % (0-0) Toxic Granulation Slight Platelet Estimate Increased (ADEQUATE) Hemoglobin A1c 10.7 % (4.8-5.6) Glucose (Fingerstick) 457 mg/dL (70-99) Lactic Acid Level 1.2 mmol/L (0.4-2.0) Test 12/25/17 21:02 12/26/17 03:35 12/26/17 07:25 12/26/17 09:33 Glucose (Fingerstick) 320 mg/dL (70-99) 339 mg/dL (70-99) 333 mg/dL (70-99) White Blood Count 13.3 x10^3/uL (4.0-11.0) Red Blood Count 3.25 x10^6/uL (3.50-5.40) Hemoglobin 10.3 g/dL (12.0-15.5) Hematocrit 28.9 % (36.0-47.0) Mean Corpuscular Volume 89 fL (79-100) Mean Corpuscular Hemoglobin 32 pg (25-35) Mean Corpuscular Hemoglobin Concent 36 g/dL (31-37) Red Cell Distribution Width 12.2 % (11.5-14.5) Platelet Count 521 x10^3/uL (140-400) Neutrophils (%) (Auto) 72 % (31-73) Lymphocytes (%) (Auto) 18 % (24-48) Monocytes (%) (Auto) 8 % (0-9) Eosinophils (%) (Auto) 2 % (0-3) Basophils (%) (Auto) 1 % (0-3) Neutrophils # (Auto) 9.6 x10^3uL (1.8-7.7) Lymphocytes # (Auto) 2.3 x10^3/uL (1.0-4.8) Monocytes # (Auto) 1.1 x10^3/uL (0.0-1.1) Eosinophils # (Auto) 0.2 x10^3/uL (0.0-0.7) Basophils # (Auto) 0.1 x10^3/uL (0.0-0.2) Sodium Level 132 mmol/L (136-145) Potassium Level 3.9 mmol/L (3.5-5.1) Chloride Level 97 mmol/L (98-107) Carbon Dioxide Level 30 mmol/L (21-32) Anion Gap 5 (6-14) Blood Urea Nitrogen 16 mg/dL (7-20) Creatinine 0.8 mg/dL (0.6-1.0) Estimated GFR (Cockcroft-Gault) 72.9 Glucose Level 327 mg/dL (70-99) Calcium Level 9.3 mg/dL (8.5-10.1) Test 12/26/17 11:09 Glucose (Fingerstick) 232 mg/dL (70-99) Objective Assessment Left foot gangrene with infection s/p amputation of 4 th or 5 th toe DM Non compliance HTN Fever Leukocytosis Plan Plan of Care corinna and zosyn d/w Dr Young will check cultures supportive care MICH MARK MD Dec 26, 2017 12:03
[2017-12-26 12:18] LABS: PROTHROMBIN TIME PATIENT 15.5 SEC (11.7-14.0)
[2017-12-26] MEDS: PIPERACILLIN/TAZOBACTAM 3.375 GM in IV NORMAL SALINE 50ML 50 ML IV SCH ×2 (12:24→17:24)
--- NOTE | 2017-12-26 12:42 | PDOC ---
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 She only has about 6 digits left total in her feet Blood sugars are 300s ESR is elevated at 127 WBC 13, no fevers Duplex is pending but there plans of aortogram with runoff of bilateral lower ext by vascular surgery tomorrow Plan: Insulin, diabetes education and compliance emphasized today Could not be over emphasized with this patient, lots of target organ damage from uncontrolled diabetes Adjust sliding scale insulin, high-dose, Start glyburide 5 by mouth twice a day with meals Start Lantus or Levemir 30 units daily at bedtime Hemoglobin A1c still pending Local wound care Appreciate vasc surgery and ID Aortogram with Runoff tomorrow, nothing by mouth post midnight for the above tests.? Vitals Vitals Vital Signs Date Time Temp Pulse Resp B/P (MAP) Pulse Ox O2 Delivery O2 Flow Rate FiO2 12/26/17 11:47 76 20 124/87 97 Room Air 12/26/17 11:02 10 12/26/17 11:02 97.4 97.4 Physical Exam General: Alert, Oriented X3 Heart: Regular rate, Normal S1, Normal S2 Lungs: Clear Abdomen: Normal bowel sounds, Soft Extremities: No clubbing, No cyanosis, Other (dressing on bilateral feet) Labs LABS Laboratory Tests Test 12/25/17 13:55 12/25/17 14:00 12/25/17 15:48 12/25/17 16:00 Erythrocyte Sedimentation Rate 127 (0-25) Sodium Level 129 mmol/L (136-145) Potassium Level 4.7 mmol/L (3.5-5.1) Chloride Level 92 mmol/L (98-107) Carbon Dioxide Level 30 mmol/L (21-32) Anion Gap 7 (6-14) Blood Urea Nitrogen 16 mg/dL (7-20) Creatinine 0.9 mg/dL (0.6-1.0) Estimated GFR (Cockcroft-Gault) 63.7 BUN/Creatinine Ratio 18 (6-20) Glucose Level 411 mg/dL (70-99) Calcium Level 10.2 mg/dL (8.5-10.1) Total Bilirubin 0.5 mg/dL (0.2-1.0) Aspartate Amino Transf (AST/SGOT) 11 U/L (15-37) Alanine Aminotransferase (ALT/SGPT) 15 U/L (14-59) Alkaline Phosphatase 90 U/L (46-116) Total Protein 8.8 g/dL (6.4-8.2) Albumin 2.8 g/dL (3.4-5.0) Albumin/Globulin Ratio 0.5 (1.0-1.7) White Blood Count 15.9 x10^3/uL (4.0-11.0) Red Blood Count 3.83 x10^6/uL (3.50-5.40) Hemoglobin 11.8 g/dL (12.0-15.5) Hematocrit 33.9 % (36.0-47.0) Mean Corpuscular Volume 89 fL (79-100) Mean Corpuscular Hemoglobin 31 pg (25-35) Mean Corpuscular Hemoglobin Concent 35 g/dL (31-37) Red Cell Distribution Width 12.2 % (11.5-14.5) Platelet Count 593 x10^3/uL (140-400) Neutrophils (%) (Auto) 83 % (31-73) Lymphocytes (%) (Auto) 11 % (24-48) Monocytes (%) (Auto) 5 % (0-9) Eosinophils (%) (Auto) 0 % (0-3) Basophils (%) (Auto) 1 % (0-3) Neutrophils # (Auto) 13.2 x10^3uL (1.8-7.7) Lymphocytes # (Auto) 1.7 x10^3/uL (1.0-4.8) Monocytes # (Auto) 0.8 x10^3/uL (0.0-1.1) Eosinophils # (Auto) 0.1 x10^3/uL (0.0-0.7) Basophils # (Auto) 0.2 x10^3/uL (0.0-0.2) Segmented Neutrophils % 76 % (35-66) Band Neutrophils % 2 % (0-9) Lymphocytes % 19 % (24-48) Monocytes % 2 % (0-10) Metamyelocytes % 1 % (0-0) Toxic Granulation Slight Platelet Estimate Increased (ADEQUATE) Hemoglobin A1c 10.7 % (4.8-5.6) Glucose (Fingerstick) 457 mg/dL (70-99) Lactic Acid Level 1.2 mmol/L (0.4-2.0) Test 12/25/17 21:02 12/26/17 03:35 12/26/17 07:25 12/26/17 09:33 Glucose (Fingerstick) 320 mg/dL (70-99) 339 mg/dL (70-99) 333 mg/dL (70-99) White Blood Count 13.3 x10^3/uL (4.0-11.0) Red Blood Count 3.25 x10^6/uL (3.50-5.40) Hemoglobin 10.3 g/dL (12.0-15.5) Hematocrit 28.9 % (36.0-47.0) Mean Corpuscular Volume 89 fL (79-100) Mean Corpuscular Hemoglobin 32 pg (25-35) Mean Corpuscular Hemoglobin Concent 36 g/dL (31-37) Red Cell Distribution Width 12.2 % (11.5-14.5) Platelet Count 521 x10^3/uL (140-400) Neutrophils (%) (Auto) 72 % (31-73) Lymphocytes (%) (Auto) 18 % (24-48) Monocytes (%) (Auto) 8 % (0-9) Eosinophils (%) (Auto) 2 % (0-3) Basophils (%) (Auto) 1 % (0-3) Neutrophils # (Auto) 9.6 x10^3uL (1.8-7.7) Lymphocytes # (Auto) 2.3 x10^3/uL (1.0-4.8) Monocytes # (Auto) 1.1 x10^3/uL (0.0-1.1) Eosinophils # (Auto) 0.2 x10^3/uL (0.0-0.7) Basophils # (Auto) 0.1 x10^3/uL (0.0-0.2) Sodium Level 132 mmol/L (136-145) Potassium Level 3.9 mmol/L (3.5-5.1) Chloride Level 97 mmol/L (98-107) Carbon Dioxide Level 30 mmol/L (21-32) Anion Gap 5 (6-14) Blood Urea Nitrogen 16 mg/dL (7-20) Creatinine 0.8 mg/dL (0.6-1.0) Estimated GFR (Cockcroft-Gault) 72.9 Glucose Level 327 mg/dL (70-99) Calcium Level 9.3 mg/dL (8.5-10.1) Test 12/26/17 11:09 12/26/17 11:50 Glucose (Fingerstick) 232 mg/dL (70-99) Prothrombin Time 15.5 SEC (11.7-14.0) Prothromb Time International Ratio 1.3 (0.8-1.1) Activated Partial Thromboplast Time 31 SEC (24-38) Review of Systems Review of Systems A 14 point ROS was completed with the following noted as positive: Other systems reviewed and negative. \CONSTITUTIONAL: No fever or chills EYES: No recent changes SKIN: No rash or itching CARDIOVASCULAR: No chest pain, syncope, palpitations, or edema RESPIRATORY: No SOB or cough GASTROINTESTINAL: No nausea, vomiting or abdominal pain NEUROLOGICAL: No headaches or weakness ENDOCRINE: No cold or heat intolerance GENITOURINARY: No urgency or frequency of urination MUSCULOSKELETAL: No back pain or joint pain LYMPHATICS: No enlarged lymph nodes PSYCHIATRIC: No anxiety or depression Comment Review of Relevant I have reviewed the following items johan (where applicable) has been applied. Labs Laboratory Tests Test 12/25/17 13:55 12/25/17 14:00 12/25/17 15:48 12/25/17 16:00 Erythrocyte Sedimentation Rate 127 (0-25) Sodium Level 129 mmol/L (136-145) Potassium Level 4.7 mmol/L (3.5-5.1) Chloride Level 92 mmol/L (98-107) Carbon Dioxide Level 30 mmol/L (21-32) Anion Gap 7 (6-14) Blood Urea Nitrogen 16 mg/dL (7-20) Creatinine 0.9 mg/dL (0.6-1.0) Estimated GFR (Cockcroft-Gault) 63.7 BUN/Creatinine Ratio 18 (6-20) Glucose Level 411 mg/dL (70-99) Calcium Level 10.2 mg/dL (8.5-10.1) Total Bilirubin 0.5 mg/dL (0.2-1.0) Aspartate Amino Transf (AST/SGOT) 11 U/L (15-37) Alanine Aminotransferase (ALT/SGPT) 15 U/L (14-59) Alkaline Phosphatase 90 U/L (46-116) Total Protein 8.8 g/dL (6.4-8.2) Albumin 2.8 g/dL (3.4-5.0) Albumin/Globulin Ratio 0.5 (1.0-1.7) White Blood Count 15.9 x10^3/uL (4.0-11.0) Red Blood Count 3.83 x10^6/uL (3.50-5.40) Hemoglobin 11.8 g/dL (12.0-15.5) Hematocrit 33.9 % (36.0-47.0) Mean Corpuscular Volume 89 fL (79-100) Mean Corpuscular Hemoglobin 31 pg (25-35) Mean Corpuscular Hemoglobin Concent 35 g/dL (31-37) Red Cell Distribution Width 12.2 % (11.5-14.5) Platelet Count 593 x10^3/uL (140-400) Neutrophils (%) (Auto) 83 % (31-73) Lymphocytes (%) (Auto) 11 % (24-48) Monocytes (%) (Auto) 5 % (0-9) Eosinophils (%) (Auto) 0 % (0-3) Basophils (%) (Auto) 1 % (0-3) Neutrophils # (Auto) 13.2 x10^3uL (1.8-7.7) Lymphocytes # (Auto) 1.7 x10^3/uL (1.0-4.8) Monocytes # (Auto) 0.8 x10^3/uL (0.0-1.1) Eosinophils # (Auto) 0.1 x10^3/uL (0.0-0.7) Basophils # (Auto) 0.2 x10^3/uL (0.0-0.2) Segmented Neutrophils % 76 % (35-66) Band Neutrophils % 2 % (0-9) Lymphocytes % 19 % (24-48) Monocytes % 2 % (0-10) Metamyelocytes % 1 % (0-0) Toxic Granulation Slight Platelet Estimate Increased (ADEQUATE) Hemoglobin A1c 10.7 % (4.8-5.6) Glucose (Fingerstick) 457 mg/dL (70-99) Lactic Acid Level 1.2 mmol/L (0.4-2.0) Test 12/25/17 21:02 12/26/17 03:35 12/26/17 07:25 12/26/17 09:33 Glucose (Fingerstick) 320 mg/dL (70-99) 339 mg/dL (70-99) 333 mg/dL (70-99) White Blood Count 13.3 x10^3/uL (4.0-11.0) Red Blood Count 3.25 x10^6/uL (3.50-5.40) Hemoglobin 10.3 g/dL (12.0-15.5) Hematocrit 28.9 % (36.0-47.0) Mean Corpuscular Volume 89 fL (79-100) Mean Corpuscular Hemoglobin 32 pg (25-35) Mean Corpuscular Hemoglobin Concent 36 g/dL (31-37) Red Cell Distribution Width 12.2 % (11.5-14.5) Platelet Count 521 x10^3/uL (140-400) Neutrophils (%) (Auto) 72 % (31-73) Lymphocytes (%) (Auto) 18 % (24-48) Monocytes (%) (Auto) 8 % (0-9) Eosinophils (%) (Auto) 2 % (0-3) Basophils (%) (Auto) 1 % (0-3) Neutrophils # (Auto) 9.6 x10^3uL (1.8-7.7) Lymphocytes # (Auto) 2.3 x10^3/uL (1.0-4.8) Monocytes # (Auto) 1.1 x10^3/uL (0.0-1.1) Eosinophils # (Auto) 0.2 x10^3/uL (0.0-0.7) Basophils # (Auto) 0.1 x10^3/uL (0.0-0.2) Sodium Level 132 mmol/L (136-145) Potassium Level 3.9 mmol/L (3.5-5.1) Chloride Level 97 mmol/L (98-107) Carbon Dioxide Level 30 mmol/L (21-32) Anion Gap 5 (6-14) Blood Urea Nitrogen 16 mg/dL (7-20) Creatinine 0.8 mg/dL (0.6-1.0) Estimated GFR (Cockcroft-Gault) 72.9 Glucose Level 327 mg/dL (70-99) Calcium Level 9.3 mg/dL (8.5-10.1) Test 12/26/17 11:09 12/26/17 11:50 Glucose (Fingerstick) 232 mg/dL (70-99) Prothrombin Time 15.5 SEC (11.7-14.0) Prothromb Time International Ratio 1.3 (0.8-1.1) Activated Partial Thromboplast Time 31 SEC (24-38) Laboratory Tests Test 12/25/17 13:55 12/25/17 14:00 12/25/17 15:48 12/25/17 16:00 Erythrocyte Sedimentation Rate 127 (0-25) Sodium Level 129 mmol/L (136-145) Potassium Level 4.7 mmol/L (3.5-5.1) Chloride Level 92 mmol/L (98-107) Carbon Dioxide Level 30 mmol/L (21-32) Anion Gap 7 (6-14) Blood Urea Nitrogen 16 mg/dL (7-20) Creatinine 0.9 mg/dL (0.6-1.0) Estimated GFR (Cockcroft-Gault) 63.7 BUN/Creatinine Ratio 18 (6-20) Glucose Level 411 mg/dL (70-99) Calcium Level 10.2 mg/dL (8.5-10.1) Total Bilirubin 0.5 mg/dL (0.2-1.0) Aspartate Amino Transf (AST/SGOT) 11 U/L (15-37) Alanine Aminotransferase (ALT/SGPT) 15 U/L (14-59) Alkaline Phosphatase 90 U/L (46-116) Total Protein 8.8 g/dL (6.4-8.2) Albumin 2.8 g/dL (3.4-5.0) Albumin/Globulin Ratio 0.5 (1.0-1.7) White Blood Count 15.9 x10^3/uL (4.0-11.0) Red Blood Count 3.83 x10^6/uL (3.50-5.40) Hemoglobin 11.8 g/dL (12.0-15.5) Hematocrit 33.9 % (36.0-47.0) Mean Corpuscular Volume 89 fL (79-100) Mean Corpuscular Hemoglobin 31 pg (25-35) Mean Corpuscular Hemoglobin Concent 35 g/dL (31-37) Red Cell Distribution Width 12.2 % (11.5-14.5) Platelet Count 593 x10^3/uL (140-400) Neutrophils (%) (Auto) 83 % (31-73) Lymphocytes (%) (Auto) 11 % (24-48) Monocytes (%) (Auto) 5 % (0-9) Eosinophils (%) (Auto) 0 % (0-3) Basophils (%) (Auto) 1 % (0-3) Neutrophils # (Auto) 13.2 x10^3uL (1.8-7.7) Lymphocytes # (Auto) 1.7 x10^3/uL (1.0-4.8) Monocytes # (Auto) 0.8 x10^3/uL (0.0-1.1) Eosinophils # (Auto) 0.1 x10^3/uL (0.0-0.7) Basophils # (Auto) 0.2 x10^3/uL (0.0-0.2) Segmented Neutrophils % 76 % (35-66) Band Neutrophils % 2 % (0-9) Lymphocytes % 19 % (24-48) Monocytes % 2 % (0-10) Metamyelocytes % 1 % (0-0) Toxic Granulation Slight Platelet Estimate Increased (ADEQUATE) Hemoglobin A1c 10.7 % (4.8-5.6) Glucose (Fingerstick) 457 mg/dL (70-99) Lactic Acid Level 1.2 mmol/L (0.4-2.0) Test 12/25/17 21:02 12/26/17 03:35 12/26/17 07:25 12/26/17 09:33 Glucose (Fingerstick) 320 mg/dL (70-99) 339 mg/dL (70-99) 333 mg/dL (70-99) White Blood Count 13.3 x10^3/uL (4.0-11.0) Red Blood Count 3.25 x10^6/uL (3.50-5.40) Hemoglobin 10.3 g/dL (12.0-15.5) Hematocrit 28.9 % (36.0-47.0) Mean Corpuscular Volume 89 fL (79-100) Mean Corpuscular Hemoglobin 32 pg (25-35) Mean Corpuscular Hemoglobin Concent 36 g/dL (31-37) Red Cell Distribution Width 12.2 % (11.5-14.5) Platelet Count 521 x10^3/uL (140-400) Neutrophils (%) (Auto) 72 % (31-73) Lymphocytes (%) (Auto) 18 % (24-48) Monocytes (%) (Auto) 8 % (0-9) Eosinophils (%) (Auto) 2 % (0-3) Basophils (%) (Auto) 1 % (0-3) Neutrophils # (Auto) 9.6 x10^3uL (1.8-7.7) Lymphocytes # (Auto) 2.3 x10^3/uL (1.0-4.8) Monocytes # (Auto) 1.1 x10^3/uL (0.0-1.1) Eosinophils # (Auto) 0.2 x10^3/uL (0.0-0.7) Basophils # (Auto) 0.1 x10^3/uL (0.0-0.2) Sodium Level 132 mmol/L (136-145) Potassium Level 3.9 mmol/L (3.5-5.1) Chloride Level 97 mmol/L (98-107) Carbon Dioxide Level 30 mmol/L (21-32) Anion Gap 5 (6-14) Blood Urea Nitrogen 16 mg/dL (7-20) Creatinine 0.8 mg/dL (0.6-1.0) Estimated GFR (Cockcroft-Gault) 72.9 Glucose Level 327 mg/dL (70-99) Calcium Level 9.3 mg/dL (8.5-10.1) Test 12/26/17 11:09 12/26/17 11:50 Glucose (Fingerstick) 232 mg/dL (70-99) Prothrombin Time 15.5 SEC (11.7-14.0) Prothromb Time International Ratio 1.3 (0.8-1.1) Activated Partial Thromboplast Time 31 SEC (24-38) Medications Current Medications Acetaminophen/ Hydrocodone Bitart (Lortab 5/325) 1 tab PRN Q4HRS PRN PO PAIN Last administered on 12/26/17 08:21; Start 12/25/17 at 13:15; Stop 12/26/17 at 10:01; Status DC Vancomycin HCl (Vanco Per Pharmacy) 1 each PRN DAILY PRN MC SEE COMMENTS Last administered on 12/25/17at 15:53; Start 12/25/17 at 13:30 Vancomycin HCl 250 ml @ 250 mls/hr 1X ONCE IV ; Start 12/25/17 at 13:30; Stop 12/25/17 at 14:29; Status UNV Vancomycin HCl 1.75 gm/Sodium Chloride 500 ml @ 250 mls/hr 1X ONCE IV Last administered on 12/25/17at 15:28; Start 12/25/17 at 15:00; Stop 12/25/17 at 16:59 ; Status DC Aspirin (Ecotrin) 81 mg DAILY PO ; Start 12/25/17 at 16:00 Atorvastatin Calcium (Lipitor) 40 mg QHS PO Last administered on 12/25/17 20: 40; Start 12/25/17 at 21:00 Carvedilol (Coreg) 3.125 mg BIDAC PO Last administered on 12/25/17at 17:04; Start 12/25/17 at 16:30 Furosemide (Lasix) 40 mg DAILY PO Last administered on 12/26/17 08:21; Start 12/25/17 at 16:00 Gabapentin (Neurontin) 600 mg TID PO Last administered on 12/26/17at 12:24; Start 12/25/17 at 21:00 Acetaminophen/ Hydrocodone Bitart (Lortab 5/325) 1 tab PRN Q4HRS PRN PO MODERATE PAIN Last administered on 12/26/17at 12:24; Start 12/25/17 at 15:00 Ranolazine (Ranexa) 500 mg BID PO Last administered on 12/26/17at 08:22; Start 12/25/17 at 21:00 Zolpidem Tartrate (Ambien) 5 mg PRN QHS PRN PO INSOMNIA Last administered on at 20:40; Start 12/25/17 at 15:00 Non-Formulary Medication (Biotin ) 5,000 mcg DAILY PO ; Start 12/26/17 at 09:00 ; Status UNV Fenofibrate (Lofibra) 134 mg QHS PO ; Start 12/26/17 at 21:00 Lisinopril (Prinivil) 5 mg QHS PO Last administered on 12/25/17at 20:40; Start 12/25/17 at 21:00 Metformin HCl (Glucophage) 1,000 mg BIDWMEALS PO Last administered on at 08:21; Start 12/25/17 at 17:00 Fish Oil (Fish Oil) 1,000 mg DAILY PO ; Start 12/26/17 at 09:00 Pantoprazole Sodium (Protonix) 40 mg PRN DAILY PRN PO HEARTBURN / GAS; Start at 07:30 Vitamin D (Vitamin D3) 1,000 unit DAILY PO ; Start 12/25/17 at 16:00 Insulin Human Lispro (HumaLOG) 0-5 UNITS TIDWMEALS SQ Last administered on 12/26at 12:32; Start 12/25/17 at 17:00 Dextrose (Dextrose 50%-Water Syringe) 12.5 gm PRN Q15MIN PRN IV SEE COMMENTS; Start 12/25/17 at 15:00 Vancomycin HCl 1 gm/Sodium Chloride 250 ml @ 250 mls/hr Q12H IV Last administered on 12/26/17at 03:51; Start 12/26/17 at 03:30 Vancomycin HCl (Vancomycin Trough Level) 1 each 1X ONCE MC ; Start 12/27/17 at 03:00; Stop 12/27/17 at 03:01 Insulin Human Lispro (HumaLOG) 5 units 1X ONCE SQ Last administered on at 17:07; Start 12/25/17 at 16:00; Stop 12/25/17 at 16:03; Status DC Insulin Human Lispro (HumaLOG) 3 units 1X ONCE SQ Last administered on at 21:39; Start 12/25/17 at 21:30; Stop 12/25/17 at 21:31; Status DC Acetaminophen (Tylenol) 650 mg PRN Q6HRS PRN PO FEVER; Start 12/25/17 at 23:00 Enoxaparin Sodium (Lovenox 40mg Syringe) 40 mg Q24H SQ ; Start 12/26/17 at 17:00 Cefazolin Sodium 1 gm/Sodium Chloride 500 ml @ 500 mls/hr 1X ONCE IRR Last administered on 12/26/17at 11:11; Start 12/26/17 at 10:00; Stop 12/26/17 at 10:59 ; Status DC Insulin Aspart (NovoLOG VIAL) 5 unit 1X ONCE SQ Last administered on at 10:08; Start 12/26/17 at 10:00; Stop 12/26/17 at 10:06; Status DC Ondansetron HCl (Zofran) 4 mg PRN Q6HRS PRN IV NAUSEA/VOMITING; Start 12/26/17 at 10:00; Stop 12/27/17 at 09:59 Fentanyl Citrate (Fentanyl 2ml Vial) 25 mcg PRN Q5MIN PRN IV MILD PAIN; Start 12/26/17 at 10:00; Stop 12/27/17 at 09:59 Fentanyl Citrate (Fentanyl 2ml Vial) 50 mcg PRN Q5MIN PRN IV MODERATE TO SEVERE PAIN; Start 12/26/17 at 10:00; Stop 12/27/17 at 09:59 Morphine Sulfate (Morphine Sulfate) 1 mg PRN Q10MIN PRN IV SEVERE PAIN; Start 12/26/17 at 10:00; Stop 12/27/17 at 09:59 Ringer's Solution 1,000 ml @ 30 mls/hr Q24H IV Last administered on 12/26/17at 10:01; Start 12/26/17 at 09:57; Stop 12/26/17 at 21:56 Lidocaine HCl (Xylocaine-Mpf 1% 2ml Vial) 2 ml PRN 1X PRN ID PRIOR TO IV START ; Start 12/26/17 at 10:00; Stop 12/27/17 at 09:59 Prochlorperazine Edisylate (Compazine) 5 mg PACU PRN PRN IV NAUSEA, MRX1; Start 12/26/17 at 10:00; Stop 12/27/17 at 09:59 Propofol 0 ml @ As Directed STK-MED ONCE IV ; Start 12/26/17 at 10:00; Stop at 10:01; Status DC Famotidine (Pepcid Vial) 20 mg STK-MED ONCE .ROUTE ; Start 12/26/17 at 10:01; Stop 12/26/17 at 10:02; Status DC Dexamethasone Sodium Phosphate (Decadron) 20 mg STK-MED ONCE .ROUTE ; Start at 10:01; Stop 12/26/17 at 10:02; Status DC Propofol 20 ml @ As Directed STK-MED ONCE IV ; Start 12/26/17 at 10:01; Stop at 10:02; Status DC Lidocaine HCl (Lidocaine Pf 2% Vial) 5 ml STK-MED ONCE .ROUTE ; Start 12/26/17 at 10:01; Stop 12/26/17 at 10:03; Status DC Succinylcholine Chloride (Anectine) 200 mg STK-MED ONCE .ROUTE ; Start 12/26/17 at 10:02; Stop 12/26/17 at 10:04; Status DC Fentanyl Citrate (Fentanyl 2ml Vial) 100 mcg STK-MED ONCE .ROUTE ; Start at 10:05; Stop 12/26/17 at 10:06; Status DC Ondansetron HCl (Zofran) 4 mg STK-MED ONCE .ROUTE ; Start 12/26/17 at 10:06; Stop 12/26/17 at 10:07; Status DC Cellulose (Surgicel Fibrillar 1x2) 1 each STK-MED ONCE .ROUTE ; Start 12/26/17 at 09:16; Stop 12/26/17 at 10:18; Status DC Lidocaine HCl (Xylocaine 1% Pf 30ml Vial) 30 ml STK-MED ONCE .ROUTE ; Start at 09:16; Stop 12/26/17 at 10:18; Status DC Ephedrine Sulfate (ePHEDrine PF IN SALINE SYRINGE) 50 mg STK-MED ONCE IV ; Start 12/26/17 at 10:41; Stop 12/26/17 at 10:42; Status DC Hydralazine HCl (Apresoline Inj) 10 mg PRN Q4HRS PRN IVP ELEVATED BP, SEE COMMENTS; Start 12/26/17 at 11:15 Morphine Sulfate (Morphine Sulfate) 2 mg PRN Q2HR PRN IV PAIN; Start 12/26/17 at 11:15 Piperacillin Sod/ Tazobactam Sod 3.375 gm/Sodium Chloride 50 ml @ 100 mls/hr Q6HRS IV Last administered on 12/26/17at 12:24; Start 12/26/17 at 13:00 Active Scripts Active Hydrocodone-Apap 5-325 (Hydrocodone Bit/Acetaminophen) 1 Each Tablet 1 Tab PO PRN Q4HRS PRN Amoxicillin 875 Mg Tablet 875 Mg PO BID Lasix (Furosemide) 40 Mg Tablet 1 Tab PO DAILY Ranexa (Ranolazine) 500 Mg Tab.er.12h 1 Tab PO BID Lipitor (Atorvastatin Calcium) 40 Mg Tablet 40 Mg PO QHS Reported Lantus Solostar (Insulin Glargine,Hum.rec.anlog) 100 Unit/1 Ml Insuln.pen 25 Unit SQ QHS Carvedilol 3.125 Mg Tablet 1 Tab PO BID Gabapentin 100 Mg Capsule 180 Mg PO TID Aspirin Ec (Aspirin) 81 Mg Tablet.dr 1 Tab PO DAILY Biotin 5,000 Mcg Tab.rapdis 5,000 Mcg PO DAILY Omeprazole 40 Mg Capsule.dr 40 Mg PO PRN DAILY PRN Fenofibrate (Fenofibrate,Micronized) 134 Mg Capsule 134 Mg PO HS Lisinopril 5 Mg Tablet 1 Tab PO HS Zolpidem Tartrate 5 Mg Tablet 5 Mg PO PRN QHS PRN Vitamin D (Cholecalciferol (Vitamin D3)) 1,000 Unit Capsule 1,000 Unit PO Metformin Hcl 1,000 Mg Tablet 1 Tab PO BID Fish Oil 1,000 Mg Softgel ([place]-3/Dha/Epa/Fish Oil) 1 Each Capsule 1 Each PO DAILY Vitals/I & O Vital Sign - Last 24 Hours 12/25/17 12/25/17 12/25/17 12/25/17 13:38 15:00 17:04 19:00 Temp 98.8 99.5 98.8 99.5 Pulse 78 78 86 Resp 20 16 B/P (MAP) 136/65 (88) 136/65 163/61 (95) Pulse Ox 98 99 O2 Delivery Room Air 12/25/17 12/25/17 12/25/17 12/25/17 20:00 20:39 20:40 20:41 Pulse 86 86 B/P (MAP) 163/61 163/61 Pulse Ox 99 O2 Delivery Room Air Room Air 12/25/17 12/26/17 12/26/17 12/26/17 23:00 03:00 03:52 04:52 Temp 100.4 98.1 100.4 98.1 Pulse 89 88 Resp 16 16 B/P (MAP) 101/75 (84) 122/77 (92) Pulse Ox 97 97 O2 Delivery Room Air Room Air 12/26/17 12/26/17 12/26/17 12/26/17 07:15 07:30 08:00 08:22 Temp 98.5 98.5 Pulse 81 81 81 Resp 18 B/P (MAP) 131/79 (96) 115/73 115/73 Pulse Ox 97 O2 Delivery Room Air 12/26/17 12/26/17 12/26/17 12/26/17 09:41 11:02 11:02 11:17 Temp 97.4 97.4 97.4 97.4 Pulse 71 67 68 Resp 20 20 20 B/P (MAP) 165/74 159/75 152/69 Pulse Ox 98 100 100 O2 Delivery Room Air Simple Mask Mask Room Air O2 Flow Rate 10 10 12/26/17 12/26/17 11:32 11:47 Pulse 72 76 Resp 20 20 B/P (MAP) 139/68 124/87 Pulse Ox 99 97 O2 Delivery Room Air Room Air Intake and Output 12/25/17 12/25/17 12/26/17 15:00 23:00 07:00 Intake Total 500 ml Balance 500 ml DOLLY SALAMANCA MD Dec 26, 2017 12:42
[2017-12-26] MEDS ORDERED: DEXTROSE 50% 25 GM / 50ML DISP.SYRIN. IV PRN (12:45)
--- NOTE | 2017-12-26 13:06 | OP ---
DATE OF SURGERY: 12/26/2017 SURGEON: Gris Young M.D. ANESTHESIA USED: General anesthesia. PREOPERATIVE DIAGNOSES: Severe left residual fourth toe and fifth toe infection with infected gangrene, open wound with purulent drainage and severe cellulitis. POSTOPERATIVE DIAGNOSES: Severe left residual fourth toe and fifth toe infection with infected gangrene, open wound with purulent drainage and severe cellulitis. OPERATION PERFORMED: Left fourth and fifth open ray amputation. ESTIMATED BLOOD LOSS: Approximately 5-10 mL. INDICATIONS: The patient is a 62-year-old female with a history of diabetes mellitus and peripheral arterial disease, who has previously undergone a left fourth toe amputation. She states she injured her left foot and since that time, has had breakdown of the skin over the fourth toe amputation, which has progressed to drainage with foul odor, gangrene of the area and redness of the foot. She was admitted to the hospital with IV antibiotics. On examination, she has a large open wound between the left residual fourth toe and fifth toe with wet gangrene, purulent drainage and exposed fifth metatarsal bone. X-rays also show osteomyelitis of the residual fourth toe bone. I recommended open amputation of the residual fourth and fifth toe, removing the metatarsal heads and leaving the wound open. She will need long-term wound care with the wound VAC. She may need further surgical debridements or further amputation in the future if this severe infection does not clear. DESCRIPTION OF PROCEDURE: The patient was brought to the operating room and placed on the table in supine position. She received general anesthesia and monitored throughout the case by the anesthesiologist. Her left leg was prepped and draped by normal sterile fashion. I began by making an elliptical incision around the base of the residual fourth toe, extending it on to the lateral foot around the fifth toe. There was copious amounts of gangrenous tissue and purulent drainage which was sent for culture. I continued dissection down, transecting the necrotic tissue down to the bone and transected the fifth metatarsal bone below the metatarsal head and removed the metatarsal head from the fourth toe bone. I brought the bones back within the wound with a rongeur. I excised further necrotic subcutaneous tissue and tendon throughout the wound bed. The debridement was continued until there was no further residual necrotic tissue. There was no protruding bone. It was brought back within the wound and all tendons were removed. This infection is very close to her third metatarsal bone. It was not involving the third toe at this point. Therefore, I did not amputate the third toe at this point, but if it does not clear infection, she may need further amputation in the future. We irrigated the open wound with copious amounts of antibiotic solution. Hemostasis was gained with electrocautery. I packed the wound with antibiotic-soaked gauze, covered it with ABD gauze and ABD pad and wrapped with a Kerlix and an Efe bandage. She tolerated the surgery well, with no immediate complications. GRIS YOUNG MD DR: [email or web address] JOB#: [id number] / [id number]
[2017-12-26] MEDS: VANCOMYCIN PER PHARMACY MC PRN (13:12)
[2017-12-26] MEDS: glyBURIDE 5 MG TABLET PO SCH (16:15)
[2017-12-26] MEDS: ENOXAPARIN 40 MG/0.4 ML SYRINGE. SQ SCH (16:15)
[2017-12-26] MEDS ORDERED: INSULIN LISPRO 300 UNITS/3 ML INSULN.PEN. SQ ONE ×2 (17:15→20:30)
--- NOTE | 2017-12-26 17:43 | RAD ---
Examination: Ultrasound bilateral lower extremity arterial system HISTORY: History of bilateral nonhealing wound left greater than right COMPARISON: 08/20/2015 TECHNIQUE: Grayscale, color Doppler 2-D, spectral waveforms of the bilateral lower extremity arterial system were performed FINDINGS: Right lower extremity: The right common femoral artery velocities 136 cm/s, triphasic. The right deep femoral artery velocity is 164 cm/s, biphasic. The velocity in the right proximal superficial femoral artery is 140 cm/s, mid superficial femoral artery 115 cm/s, distal superficial femoral artery 155 cm/s, biphasic. The right popliteal artery is occluded. The proximal [employer] REMOV[employer] SUPERVISOR on the right is a 95 cm/s, triphasic Distal [employer]OV[employer] SUPERVISOR 90 cm/s, triphasic Peroneal artery 58 cm/s, biphasic Anterior tibialis artery 90 cm/s Dorsalis pedis artery 101 cm/s, monophasic. The right lower extremity graft from distal superficial femoral artery to posterior tibialis artery appears patent. Left lower extremity: Left M[employer]SE OPERATOR 75 cm/s, triphasic Left DFA 87 cm/s, triphasic Proximal SFA 138 cm/s Mid SFA 122 cm/s The distal SFA, popliteal artery are occluded. Proximal SN[employer] REMOVAL SUPERVISOR is 231 cm/s, monophasic. Distal SN[employer] REMOVAL SUPERVISOR 185 cm/s,monophasic. Peroneal artery 36 cm/s, monophasic. Anterior tibialis artery 282 cm/s, monophasic. Dorsal pedis artery 71 cm/s, monophasic. Graft identified from left proximal thigh to distal SN[employer] REMOVAL SUPERVISOR is patent. IMPRESSION: 1. Bilateral lower extremity grafts are patent which bypass the occluded arteries as described above. Consider bilateral lower extremity CTA runoff study. 2. Mild velocities in the left lower extremity distal arteries. Electronically signed by: Zev Ricketts MD (12/26/2017 5:39 PM) [id number]
[2017-12-26] MEDS: ATORVASTATIN CALCIUM 40 MG TABLET. PO SCH (20:26)
[2017-12-26] MEDS: LISINOPRIL 5 MG TABLET. PO SCH (20:26)
[2017-12-26] MEDS: ZOLPIDEM 5 MG TABLET. PO PRN (20:26)
[2017-12-26] MEDS: FENOFIBRATE,MICRONIZED 134 MG CAPSULE PO SCH (20:27)
[2017-12-26] MEDS: INSULIN GLARGINE 300 UNITS/3 ML INSULN.PEN. SQ SCH (20:36)
[2017-12-27] VITALS (13 sets, daily range): BP systolic 113–155; BP diastolic 57–76
[2017-12-27] MEDS: HYDROcodone/APAP 5/325MG 1 TAB TABLET PO PRN ×4 (00:30→21:43)
[2017-12-27] MEDS: PIPERACILLIN/TAZOBACTAM 3.375 GM in IV NORMAL SALINE 50ML 50 ML IV SCH ×5 (00:31→23:38)
--- NOTE | 2017-12-27 03:51 | CONS ---
DATE OF CONSULTATION: 12/26/2017 REQUESTING PHYSICIAN: Dr. Jose Hilton. REASON FOR CONSULTATION: Extensive diabetic foot infection. HISTORY OF PRESENT ILLNESS: This is a 62-year-old female with a history of diabetes, peripheral neuropathy, hypertension who has been struggling with foot infection and some amputations in the past. The patient has had fifth toe and first ray amputation done in the past. [facility] with extensive gangrene and infection. The patient was admitted for further management. The patient did have fever. The patient had leukocytosis. The patient was taken to the OR and amputation of the fifth toe and residual fourth toe amputation done with open amputation. There is still extensive infection as my communication with Dr. Young. The patient is on vancomycin. I have added vancomycin and Zosyn. The patient denies any nausea, vomiting, diarrhea, chest pain, shortness of breath, abdominal pain, urinary symptoms or bowel symptoms. PAST MEDICAL HISTORY: Positive for diabetes, hypertension, coronary artery disease, neuropathy, pulmonary embolism, hyperlipidemia, CVA, gastroesophageal reflux disease, coronary artery bypass grafting, tonsillectomy, hysterectomy and noncompliance. SOCIAL HISTORY: Negative for smoking, alcohol, illicit drug use. ALLERGIES: No known drug allergies. CURRENT MEDICATIONS: Reviewed. The patient is on vancomycin. REVIEW OF SYSTEMS: As per HPI, all other systems reviewed are negative. PHYSICAL EXAMINATION: GENERAL: Alert and oriented female, not in distress. VITAL SIGNS: Stable with a T-max 100.4. HEENT: anicteric. NECK: Supple, no JVP, no lymphadenopathy. LUNGS: Clear. HEART: S1, S2 regular. ABDOMEN: Benign. EXTREMITIES: The patient has post-surgical dressing on, still not open. Rt foot with ulcer on plantar surface with some callous NEUROLOGIC: Intact. LABORATORY DATA: White count is 13.3, BUN and creatinine is normal. X-ray showed osteomyelitis of the fourth toe amputated site. IMPRESSION: 1. Extensive diabetic foot infection with gangrenous changes and osteomyelitis, status post open amputation of the remaining fourth toe and the fifth toe . 2. Fever. 3. Leukocytosis. 4. Diabetes. 5. Hypertension. 6. Coronary artery disease. 7. Noncompliance, hemoglobin A1c 10.7. PLAN: Recommend continuing vancomycin, add Zosyn. Supportive care. We will check the culture and adjust. The patient is going to need long-term antibiotics. Discussion with Dr. Young done. BC control discussed. Off load discussed. Thank you very much, Dr. Hilton, for giving me the opportunity to participate in this patient's care. MICH MARK MD DR: KAYE/jamin JOB#: [id number] / [id number] FELICITY
[2017-12-27 04:07] LABS: BASO % 0 % (0-3); EOS % 0 % (0-3); HEMATOCRIT 30.3 % (36.0-47.0); HEMOGLOBIN 10.6 g/dL (12.0-15.5); LYMPH # 1.6 x10^3/uL (1.0-4.8); LYMPH % 13 % (24-48); MEAN CORPUSCULAR HEMOGLOBIN 31 pg (25-35); MEAN CORPUSCULAR HGB CONC 35 g/dL (31-37); MEAN CORPUSCULAR VOLUME 89 fL (79-100); MONO # 0.7 x10^3/uL (0.0-1.1); MONO % 5 % (0-9); NEUT # 10.3 x10^3uL (1.8-7.7); NEUT % 82 % (31-73); PLATELET COUNT 543 x10^3/uL (140-400); RED BLOOD COUNT 3.39 x10^6/uL (3.50-5.40); RED CELL DISTRIBUTION WIDTH 12.4 % (11.5-14.5); WHITE BLOOD COUNT 12.6 x10^3/uL (4.0-11.0)
--- NOTE | 2017-12-27 04:14 | CONS ---
DATE OF CONSULTATION: 12/26/2017 CHIEF COMPLAINT: Left foot severe infection. HISTORY OF PRESENT ILLNESS: The patient is a 62-year-old female who has a history of diabetes mellitus and peripheral arterial disease. She has previously undergone a left fourth toe amputation. She injured her foot and after that started developing breakdown of the wound, eventual redness and purulent drainage from the fourth toe. She reports some pain in her left foot. She has also in the past undergone left first toe amputation and right fifth toe amputation. She has open wound on the plantar surface of her right foot, which is clean and it has been followed weekly at [facility]. She has been admitted to the hospital and she is currently being treated with IV antibiotics. She does have a history of peripheral arterial disease with a left leg bypass and arterial duplex scan is pending. REVIEW OF SYSTEMS: A 10-point review of systems was performed, which was otherwise negative besides what is mentioned in the history of present illness. PAST MEDICAL HISTORY: Includes: 1. Diabetes mellitus. 2. Coronary artery disease. 3. Hypertension. 4. Hyperlipidemia. 5. Pulmonary embolus. 6. History of stroke. 7. Peripheral neuropathy. 8. Depression. PAST SURGICAL HISTORY: Includes: 1. Coronary artery bypass graft. 2. Tonsillectomy. 3. Hysterectomy. 4. Left fourth and first toe amputation along with right fifth toe amputation in the past. 5. Bilateral lower extremity bypass surgeries. SOCIAL HISTORY: The patient does not smoke or drink alcohol. FAMILY HISTORY: Significant for coronary artery disease. PHYSICAL EXAMINATION: GENERAL: The patient is awake and alert, currently in no apparent distress. VITAL SIGNS: She is afebrile. Her blood pressure is 165/74, pulse of 71, respirations 20. She is 98% on room air. NECK: Supple with no carotid bruits. HEART: Regular rate and rhythm with no murmurs. ABDOMEN: Soft, nondistended, nontender. LUNGS: She has bilateral breath sounds to auscultation. EXTREMITIES: Her bilateral upper extremities are warm without edema. Her left lower extremity is warm with no edema. She has erythema of the forefoot. Her fourth toe amputation incision is breaking down. There is an open wound between the stump of the fourth toe and the fifth toe with exposed fifth toe and fourth toe bone and purulent drainage along with wet gangrene. There are no other areas of breakdown in her left foot. She has a palpable left bypass graft pulse. I do not palpate a pulse in her left foot. Her right lower extremity is warm without edema. There is no erythema of the right foot. There is an open plantar wound on the base of her foot with good pink granulation tissue and no necrotic tissue or breakdown. Her amputation site of her toe is healed. NEUROLOGIC: She is awake and alert, oriented x 3, moving all 4 extremities with normal strength, normal speech. No gross neurologic deficits. LABORATORY STUDIES: Her white blood cell count when she came in was 15.9, it is now 13. Creatinine is 0.8. IMPRESSION: 1. Severe infection of the left fourth toe amputation site and fifth toe with an open wound between the toes, wet gangrene, purulent drainage and exposed residual fourth and fifth toe bone. 2. Diabetes mellitus. 3. Peripheral arterial disease. 4. Right plantar foot ulcer. PLAN: For the severe infection in her left foot, I recommend open amputation of the left fifth toe and further amputation of the fourth toe, removing the metatarsal head bone. The wound will need to be left open because of the severe infection and she will need to be treated with a wound VAC for long-term wound care. She is currently on IV antibiotics. An arterial duplex scan of the left leg has been performed and results are pending. She will be taken to surgery today for surgical debridement and amputation. ANNA GUZMAN MD DR: JORGE/jamin JOB#: [id number] / [id number]
[2017-12-27 04:22] LABS: CALCIUM 9.9 mg/dL (8.5-10.1); CREATININE 0.9 mg/dL (0.6-1.0); GFR 63.7; POTASSIUM 4.7 mmol/L (3.5-5.1)
[2017-12-27 04:26] LABS: VANC TR 14.2 mcg/mL (10.0-20.0)
[2017-12-27] MEDS: VANCOMYCIN PER PHARMACY MC PRN ×2 (04:50→15:19)
[2017-12-27] MEDS: VANCOMYCIN 1.25 GM in IV NORMAL SALINE 250ML 250 ML IV SCH ×2 (04:53→16:48)
[2017-12-27] MEDS: glyBURIDE 5 MG TABLET PO SCH (07:53)
[2017-12-27] MEDS: CARVEDILOL 3.125 MG TABLET. PO SCH ×2 (07:54→17:26)
[2017-12-27] MEDS: INSULIN LISPRO 300 UNITS/3 ML INSULN.PEN. SQ SCH ×5 (08:00→17:00)
[2017-12-27] MEDS: GABAPENTIN 300 MG CAPSULE. PO SCH ×3 (09:00→21:42)
[2017-12-27] MEDS: ASPIRIN ENTERIC COATED 81 MG TABLET.DR. PO SCH (09:00)
[2017-12-27] MEDS ORDERED: IODIXANOL 320 MG/ML 100 ML VIAL. ONE (09:21)
[2017-12-27] MEDS ORDERED: LIDOCAINE WITH 8.4% SOD BICARB 3 ML DISP.SYRIN. ONE ×2 (09:22→09:29)
[2017-12-27] MEDS ORDERED: MIDAZOLAM HCL/PF 2 MG/2 ML VIAL. ONE ×2 (09:22→10:25)
[2017-12-27] MEDS ORDERED: IODIXANOL 320MG/ML 50ML VIAL. ONE (09:22)
[2017-12-27] MEDS ORDERED: HEPARIN for IV BOLUS 10,000 UNIT/10 ML VIAL. ONE (09:22)
[2017-12-27] MEDS ORDERED: fentaNYL PF VIAL 100 MCG/2 ML VIAL ONE ×2 (09:22→11:05)
--- NOTE | 2017-12-27 09:39 | PDOC ---
Infectious Disease Note Subjective Subjective feeling ok ROS ROS no n/v/d/fever/sob/pain Vital Sign Vital Signs Vital Signs Date Time Temp Pulse Resp B/P (MAP) Pulse Ox O2 Delivery O2 Flow Rate FiO2 12/27/17 07:54 66 151/74 12/27/17 07:15 97.6 18 97 Room Air 97.6 12/26/17 11:02 10 Physical Exam PHYSICAL EXAM GENERAL: Alert and oriented female, not in distress. VITAL SIGNS: Stable with a T-max 100.4. HEENT: anicteric. NECK: Supple, no JVP, no lymphadenopathy. LUNGS: Clear. HEART: S1, S2 regular. ABDOMEN: Benign. EXTREMITIES: the left foot wound seen, no healthy tissue yet NEUROLOGIC: Intact. Labs Lab Laboratory Tests Test 12/26/17 11:09 12/26/17 11:50 12/26/17 12:20 12/26/17 16:50 Glucose (Fingerstick) 232 mg/dL (70-99) 352 mg/dL (70-99) Prothrombin Time 15.5 SEC (11.7-14.0) Prothromb Time International Ratio 1.3 (0.8-1.1) Activated Partial Thromboplast Time 31 SEC (24-38) Nasal Screen MRSA (PCR) Negative (Negative) Test 12/26/17 19:57 12/27/17 03:05 12/27/17 07:35 Glucose (Fingerstick) 299 mg/dL (70-99) 215 mg/dL (70-99) White Blood Count 12.6 x10^3/uL (4.0-11.0) Red Blood Count 3.39 x10^6/uL (3.50-5.40) Hemoglobin 10.6 g/dL (12.0-15.5) Hematocrit 30.3 % (36.0-47.0) Mean Corpuscular Volume 89 fL (79-100) Mean Corpuscular Hemoglobin 31 pg (25-35) Mean Corpuscular Hemoglobin Concent 35 g/dL (31-37) Red Cell Distribution Width 12.4 % (11.5-14.5) Platelet Count 543 x10^3/uL (140-400) Neutrophils (%) (Auto) 82 % (31-73) Lymphocytes (%) (Auto) 13 % (24-48) Monocytes (%) (Auto) 5 % (0-9) Eosinophils (%) (Auto) 0 % (0-3) Basophils (%) (Auto) 0 % (0-3) Neutrophils # (Auto) 10.3 x10^3uL (1.8-7.7) Lymphocytes # (Auto) 1.6 x10^3/uL (1.0-4.8) Monocytes # (Auto) 0.7 x10^3/uL (0.0-1.1) Eosinophils # (Auto) 0.0 x10^3/uL (0.0-0.7) Basophils # (Auto) 0.0 x10^3/uL (0.0-0.2) Sodium Level 135 mmol/L (136-145) Potassium Level 4.7 mmol/L (3.5-5.1) Chloride Level 99 mmol/L (98-107) Carbon Dioxide Level 32 mmol/L (21-32) Anion Gap 4 (6-14) Blood Urea Nitrogen 15 mg/dL (7-20) Creatinine 0.9 mg/dL (0.6-1.0) Estimated GFR (Cockcroft-Gault) 63.7 Glucose Level 253 mg/dL (70-99) Calcium Level 9.9 mg/dL (8.5-10.1) Vancomycin Level Trough 14.2 mcg/mL (10.0-20.0) Vancomycin Last Dose Date 12/26/17 Vancomycin Last Dose Time 1530 Micro culture pending Objective Assessment Left foot gangrene with infection s/p amputation of 4 th or 5 th toe DM Non compliance HTN Fever Leukocytosis Plan Plan of Care vanc and zosyn will check cultures supportive care angio today MICH MARK MD Dec 27, 2017 09:39
[2017-12-27] MEDS ORDERED: fentaNYL PF VIAL 100 MCG/2 ML VIAL IV ONE (09:45)
[2017-12-27] MEDS ORDERED: IODIXANOL 320 MG/ML 100 ML VIAL. IART ONE (09:45)
[2017-12-27] MEDS ORDERED: MIDAZOLAM HCL/PF 2 MG/2 ML VIAL. IV ONE (09:45)
[2017-12-27] MEDS ORDERED: LIDOCAINE WITH 8.4% SOD BICARB 3 ML DISP.SYRIN. IJ ONE (09:45)
[2017-12-27] MEDS ORDERED: CONTRAST GIVEN. MC PRN (09:45)
--- NOTE | 2017-12-27 10:28 | PDOC ---
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 -blood sugars are high, I do not think OHA will touch her blood sugars Start NovoLog 10 3 times a day with meals Keep sliding-scale insulin Keep long-acting at night Local wound care DM education done again today Abd aortogram today IV abx per ID Vitals Vitals Vital Signs Date Time Temp Pulse Resp B/P (MAP) Pulse Ox O2 Delivery O2 Flow Rate FiO2 12/27/17 07:54 66 151/74 12/27/17 07:15 97.6 18 97 Room Air 97.6 12/26/17 11:02 10 Physical Exam Physical Exam GENERAL: Alert and oriented female, not in distress. VITAL SIGNS: Stable with a T-max 100.4. HEENT: anicteric. NECK: Supple, no JVP, no lymphadenopathy. LUNGS: Clear. HEART: S1, S2 regular. ABDOMEN: Benign. EXTREMITIES: the left foot wound seen, no healthy tissue yet NEUROLOGIC: Intact. General: Alert, Oriented X3 Heart: Regular rate, Normal S1, Normal S2 Lungs: Clear Abdomen: Normal bowel sounds, Soft Extremities: No clubbing, No cyanosis, Other (dressing on bilateral feet) Labs LABS Laboratory Tests Test 12/26/17 11:09 12/26/17 11:50 12/26/17 12:20 12/26/17 16:50 Glucose (Fingerstick) 232 mg/dL (70-99) 352 mg/dL (70-99) Prothrombin Time 15.5 SEC (11.7-14.0) Prothromb Time International Ratio 1.3 (0.8-1.1) Activated Partial Thromboplast Time 31 SEC (24-38) Nasal Screen MRSA (PCR) Negative (Negative) Test 12/26/17 19:57 12/27/17 03:05 12/27/17 07:35 Glucose (Fingerstick) 299 mg/dL (70-99) 215 mg/dL (70-99) White Blood Count 12.6 x10^3/uL (4.0-11.0) Red Blood Count 3.39 x10^6/uL (3.50-5.40) Hemoglobin 10.6 g/dL (12.0-15.5) Hematocrit 30.3 % (36.0-47.0) Mean Corpuscular Volume 89 fL (79-100) Mean Corpuscular Hemoglobin 31 pg (25-35) Mean Corpuscular Hemoglobin Concent 35 g/dL (31-37) Red Cell Distribution Width 12.4 % (11.5-14.5) Platelet Count 543 x10^3/uL (140-400) Neutrophils (%) (Auto) 82 % (31-73) Lymphocytes (%) (Auto) 13 % (24-48) Monocytes (%) (Auto) 5 % (0-9) Eosinophils (%) (Auto) 0 % (0-3) Basophils (%) (Auto) 0 % (0-3) Neutrophils # (Auto) 10.3 x10^3uL (1.8-7.7) Lymphocytes # (Auto) 1.6 x10^3/uL (1.0-4.8) Monocytes # (Auto) 0.7 x10^3/uL (0.0-1.1) Eosinophils # (Auto) 0.0 x10^3/uL (0.0-0.7) Basophils # (Auto) 0.0 x10^3/uL (0.0-0.2) Sodium Level 135 mmol/L (136-145) Potassium Level 4.7 mmol/L (3.5-5.1) Chloride Level 99 mmol/L (98-107) Carbon Dioxide Level 32 mmol/L (21-32) Anion Gap 4 (6-14) Blood Urea Nitrogen 15 mg/dL (7-20) Creatinine 0.9 mg/dL (0.6-1.0) Estimated GFR (Cockcroft-Gault) 63.7 Glucose Level 253 mg/dL (70-99) Calcium Level 9.9 mg/dL (8.5-10.1) Vancomycin Level Trough 14.2 mcg/mL (10.0-20.0) Vancomycin Last Dose Date 12/26/17 Vancomycin Last Dose Time 1530 Review of Systems Review of Systems A 14 point ROS was completed with the following noted as positive: Other systems reviewed and negative. \CONSTITUTIONAL: No fever or chills EYES: No recent changes SKIN: No rash or itching CARDIOVASCULAR: No chest pain, syncope, palpitations, or edema RESPIRATORY: No SOB or cough GASTROINTESTINAL: No nausea, vomiting or abdominal pain NEUROLOGICAL: No headaches or weakness ENDOCRINE: No cold or heat intolerance GENITOURINARY: No urgency or frequency of urination MUSCULOSKELETAL: No back pain or joint pain LYMPHATICS: No enlarged lymph nodes PSYCHIATRIC: No anxiety or depression Comment Review of Relevant I have reviewed the following items johan (where applicable) has been applied. Labs Laboratory Tests Test 12/25/17 13:55 12/25/17 14:00 12/25/17 15:48 12/25/17 16:00 Erythrocyte Sedimentation Rate 127 (0-25) Sodium Level 129 mmol/L (136-145) Potassium Level 4.7 mmol/L (3.5-5.1) Chloride Level 92 mmol/L (98-107) Carbon Dioxide Level 30 mmol/L (21-32) Anion Gap 7 (6-14) Blood Urea Nitrogen 16 mg/dL (7-20) Creatinine 0.9 mg/dL (0.6-1.0) Estimated GFR (Cockcroft-Gault) 63.7 BUN/Creatinine Ratio 18 (6-20) Glucose Level 411 mg/dL (70-99) Calcium Level 10.2 mg/dL (8.5-10.1) Total Bilirubin 0.5 mg/dL (0.2-1.0) Aspartate Amino Transf (AST/SGOT) 11 U/L (15-37) Alanine Aminotransferase (ALT/SGPT) 15 U/L (14-59) Alkaline Phosphatase 90 U/L (46-116) Total Protein 8.8 g/dL (6.4-8.2) Albumin 2.8 g/dL (3.4-5.0) Albumin/Globulin Ratio 0.5 (1.0-1.7) White Blood Count 15.9 x10^3/uL (4.0-11.0) Red Blood Count 3.83 x10^6/uL (3.50-5.40) Hemoglobin 11.8 g/dL (12.0-15.5) Hematocrit 33.9 % (36.0-47.0) Mean Corpuscular Volume 89 fL (79-100) Mean Corpuscular Hemoglobin 31 pg (25-35) Mean Corpuscular Hemoglobin Concent 35 g/dL (31-37) Red Cell Distribution Width 12.2 % (11.5-14.5) Platelet Count 593 x10^3/uL (140-400) Neutrophils (%) (Auto) 83 % (31-73) Lymphocytes (%) (Auto) 11 % (24-48) Monocytes (%) (Auto) 5 % (0-9) Eosinophils (%) (Auto) 0 % (0-3) Basophils (%) (Auto) 1 % (0-3) Neutrophils # (Auto) 13.2 x10^3uL (1.8-7.7) Lymphocytes # (Auto) 1.7 x10^3/uL (1.0-4.8) Monocytes # (Auto) 0.8 x10^3/uL (0.0-1.1) Eosinophils # (Auto) 0.1 x10^3/uL (0.0-0.7) Basophils # (Auto) 0.2 x10^3/uL (0.0-0.2) Segmented Neutrophils % 76 % (35-66) Band Neutrophils % 2 % (0-9) Lymphocytes % 19 % (24-48) Monocytes % 2 % (0-10) Metamyelocytes % 1 % (0-0) Toxic Granulation Slight Platelet Estimate Increased (ADEQUATE) Hemoglobin A1c 10.7 % (4.8-5.6) Glucose (Fingerstick) 457 mg/dL (70-99) Lactic Acid Level 1.2 mmol/L (0.4-2.0) Test 12/25/17 21:02 12/26/17 03:35 12/26/17 07:25 12/26/17 09:33 Glucose (Fingerstick) 320 mg/dL (70-99) 339 mg/dL (70-99) 333 mg/dL (70-99) White Blood Count 13.3 x10^3/uL (4.0-11.0) Red Blood Count 3.25 x10^6/uL (3.50-5.40) Hemoglobin 10.3 g/dL (12.0-15.5) Hematocrit 28.9 % (36.0-47.0) Mean Corpuscular Volume 89 fL (79-100) Mean Corpuscular Hemoglobin 32 pg (25-35) Mean Corpuscular Hemoglobin Concent 36 g/dL (31-37) Red Cell Distribution Width 12.2 % (11.5-14.5) Platelet Count 521 x10^3/uL (140-400) Neutrophils (%) (Auto) 72 % (31-73) Lymphocytes (%) (Auto) 18 % (24-48) Monocytes (%) (Auto) 8 % (0-9) Eosinophils (%) (Auto) 2 % (0-3) Basophils (%) (Auto) 1 % (0-3) Neutrophils # (Auto) 9.6 x10^3uL (1.8-7.7) Lymphocytes # (Auto) 2.3 x10^3/uL (1.0-4.8) Monocytes # (Auto) 1.1 x10^3/uL (0.0-1.1) Eosinophils # (Auto) 0.2 x10^3/uL (0.0-0.7) Basophils # (Auto) 0.1 x10^3/uL (0.0-0.2) Sodium Level 132 mmol/L (136-145) Potassium Level 3.9 mmol/L (3.5-5.1) Chloride Level 97 mmol/L (98-107) Carbon Dioxide Level 30 mmol/L (21-32) Anion Gap 5 (6-14) Blood Urea Nitrogen 16 mg/dL (7-20) Creatinine 0.8 mg/dL (0.6-1.0) Estimated GFR (Cockcroft-Gault) 72.9 Glucose Level 327 mg/dL (70-99) Calcium Level 9.3 mg/dL (8.5-10.1) Test 12/26/17 11:09 12/26/17 11:50 12/26/17 12:20 12/26/17 16:50 Glucose (Fingerstick) 232 mg/dL (70-99) 352 mg/dL (70-99) Prothrombin Time 15.5 SEC (11.7-14.0) Prothromb Time International Ratio 1.3 (0.8-1.1) Activated Partial Thromboplast Time 31 SEC (24-38) Nasal Screen MRSA (PCR) Negative (Negative) Test 12/26/17 19:57 12/27/17 03:05 12/27/17 07:35 Glucose (Fingerstick) 299 mg/dL (70-99) 215 mg/dL (70-99) White Blood Count 12.6 x10^3/uL (4.0-11.0) Red Blood Count 3.39 x10^6/uL (3.50-5.40) Hemoglobin 10.6 g/dL (12.0-15.5) Hematocrit 30.3 % (36.0-47.0) Mean Corpuscular Volume 89 fL (79-100) Mean Corpuscular Hemoglobin 31 pg (25-35) Mean Corpuscular Hemoglobin Concent 35 g/dL (31-37) Red Cell Distribution Width 12.4 % (11.5-14.5) Platelet Count 543 x10^3/uL (140-400) Neutrophils (%) (Auto) 82 % (31-73) Lymphocytes (%) (Auto) 13 % (24-48) Monocytes (%) (Auto) 5 % (0-9) Eosinophils (%) (Auto) 0 % (0-3) Basophils (%) (Auto) 0 % (0-3) Neutrophils # (Auto) 10.3 x10^3uL (1.8-7.7) Lymphocytes # (Auto) 1.6 x10^3/uL (1.0-4.8) Monocytes # (Auto) 0.7 x10^3/uL (0.0-1.1) Eosinophils # (Auto) 0.0 x10^3/uL (0.0-0.7) Basophils # (Auto) 0.0 x10^3/uL (0.0-0.2) Sodium Level 135 mmol/L (136-145) Potassium Level 4.7 mmol/L (3.5-5.1) Chloride Level 99 mmol/L (98-107) Carbon Dioxide Level 32 mmol/L (21-32) Anion Gap 4 (6-14) Blood Urea Nitrogen 15 mg/dL (7-20) Creatinine 0.9 mg/dL (0.6-1.0) Estimated GFR (Cockcroft-Gault) 63.7 Glucose Level 253 mg/dL (70-99) Calcium Level 9.9 mg/dL (8.5-10.1) Vancomycin Level Trough 14.2 mcg/mL (10.0-20.0) Vancomycin Last Dose Date 12/26/17 Vancomycin Last Dose Time 1530 Laboratory Tests Test 12/26/17 11:09 12/26/17 11:50 12/26/17 12:20 12/26/17 16:50 Glucose (Fingerstick) 232 mg/dL (70-99) 352 mg/dL (70-99) Prothrombin Time 15.5 SEC (11.7-14.0) Prothromb Time International Ratio 1.3 (0.8-1.1) Activated Partial Thromboplast Time 31 SEC (24-38) Nasal Screen MRSA (PCR) Negative (Negative) Test 12/26/17 19:57 12/27/17 03:05 12/27/17 07:35 Glucose (Fingerstick) 299 mg/dL (70-99) 215 mg/dL (70-99) White Blood Count 12.6 x10^3/uL (4.0-11.0) Red Blood Count 3.39 x10^6/uL (3.50-5.40) Hemoglobin 10.6 g/dL (12.0-15.5) Hematocrit 30.3 % (36.0-47.0) Mean Corpuscular Volume 89 fL (79-100) Mean Corpuscular Hemoglobin 31 pg (25-35) Mean Corpuscular Hemoglobin Concent 35 g/dL (31-37) Red Cell Distribution Width 12.4 % (11.5-14.5) Platelet Count 543 x10^3/uL (140-400) Neutrophils (%) (Auto) 82 % (31-73) Lymphocytes (%) (Auto) 13 % (24-48) Monocytes (%) (Auto) 5 % (0-9) Eosinophils (%) (Auto) 0 % (0-3) Basophils (%) (Auto) 0 % (0-3) Neutrophils # (Auto) 10.3 x10^3uL (1.8-7.7) Lymphocytes # (Auto) 1.6 x10^3/uL (1.0-4.8) Monocytes # (Auto) 0.7 x10^3/uL (0.0-1.1) Eosinophils # (Auto) 0.0 x10^3/uL (0.0-0.7) Basophils # (Auto) 0.0 x10^3/uL (0.0-0.2) Sodium Level 135 mmol/L (136-145) Potassium Level 4.7 mmol/L (3.5-5.1) Chloride Level 99 mmol/L (98-107) Carbon Dioxide Level 32 mmol/L (21-32) Anion Gap 4 (6-14) Blood Urea Nitrogen 15 mg/dL (7-20) Creatinine 0.9 mg/dL (0.6-1.0) Estimated GFR (Cockcroft-Gault) 63.7 Glucose Level 253 mg/dL (70-99) Calcium Level 9.9 mg/dL (8.5-10.1) Vancomycin Level Trough 14.2 mcg/mL (10.0-20.0) Vancomycin Last Dose Date 12/26/17 Vancomycin Last Dose Time 1530 Medications Current Medications Acetaminophen/ Hydrocodone Bitart (Lortab 5/325) 1 tab PRN Q4HRS PRN PO PAIN Last administered on 12/26/17at 08:21; Start 12/25/17 at 13:15; Stop 12/26/17 at 10:01; Status DC Vancomycin HCl (Vanco Per Pharmacy) 1 each PRN DAILY PRN MC SEE COMMENTS Last administered on 12/27/17at 04:50; Start 12/25/17 at 13:30 Vancomycin HCl 250 ml @ 250 mls/hr 1X ONCE IV ; Start 12/25/17 at 13:30; Stop 12/25/17 at 14:29; Status UNV Vancomycin HCl 1.75 gm/Sodium Chloride 500 ml @ 250 mls/hr 1X ONCE IV Last administered on 12/25/17at 15:28; Start 12/25/17 at 15:00; Stop 12/25/17 at 16:59 ; Status DC Aspirin (Ecotrin) 81 mg DAILY PO ; Start 12/25/17 at 16:00 Atorvastatin Calcium (Lipitor) 40 mg QHS PO Last administered on 12/26/17at 20: 26; Start 12/25/17 at 21:00 Carvedilol (Coreg) 3.125 mg BIDAC PO Last administered on 12/27/17 07:54; Start 12/25/17 at 16:30 Furosemide (Lasix) 40 mg DAILY PO Last administered on 12/26/17 08:21; Start 12/25/17 at 16:00 Gabapentin (Neurontin) 600 mg TID PO Last administered on 12/26/17 20:30; Start 12/25/17 at 21:00 Acetaminophen/ Hydrocodone Bitart (Lortab 5/325) 1 tab PRN Q4HRS PRN PO MODERATE-SEVERE PAIN Last administered on 12/27/17 00:30; Start 12/25/17 at 15: 00 Ranolazine (Ranexa) 500 mg BID PO Last administered on 12/26/17 20:26; Start 12/25/17 at 21:00 Zolpidem Tartrate (Ambien) 5 mg PRN QHS PRN PO INSOMNIA Last administered on 20:26; Start 12/25/17 at 15:00 Non-Formulary Medication (Biotin ) 5,000 mcg DAILY PO ; Start 12/26/17 at 09:00 ; Status UNV Fenofibrate (Lofibra) 134 mg QHS PO Last administered on 12/26/17 20:27; Start 12/26/17 at 21:00 Lisinopril (Prinivil) 5 mg QHS PO Last administered on 12/26/17 20:26; Start 12/25/17 at 21:00 Metformin HCl (Glucophage) 1,000 mg BIDWMEALS PO Last administered on 07:53; Start 12/25/17 at 17:00 Fish Oil (Fish Oil) 1,000 mg DAILY PO ; Start 12/26/17 at 09:00 Pantoprazole Sodium (Protonix) 40 mg PRN DAILY PRN PO HEARTBURN / GAS Last administered on 12/27/17 03:35; Start 12/26/17 at 07:30 Vitamin D (Vitamin D3) 1,000 unit DAILY PO ; Start 12/25/17 at 16:00 Insulin Human Lispro (HumaLOG) 0-5 UNITS TIDWMEALS SQ Last administered on 8/14 /18at 12:32; Start 12/25/17 at 17:00; Stop 12/26/17 at 12:42; Status DC Dextrose (Dextrose 50%-Water Syringe) 12.5 gm PRN Q15MIN PRN IV SEE COMMENTS; Start 12/25/17 at 15:00; Stop 12/26/17 at 12:50; Status DC Vancomycin HCl 1 gm/Sodium Chloride 250 ml @ 250 mls/hr Q12H IV Last administered on 12/26/17at 16:15; Start 12/26/17 at 03:30; Stop 12/27/17 at 04:42 ; Status DC Vancomycin HCl (Vancomycin Trough Level) 1 each 1X ONCE MC Last administered on 12/27/17at 03:00; Start 12/27/17 at 03:00; Stop 12/27/17 at 03:01; Status DC Insulin Human Lispro (HumaLOG) 5 units 1X ONCE SQ Last administered on at 17:07; Start 12/25/17 at 16:00; Stop 12/25/17 at 16:03; Status DC Insulin Human Lispro (HumaLOG) 3 units 1X ONCE SQ Last administered on at 21:39; Start 12/25/17 at 21:30; Stop 12/25/17 at 21:31; Status DC Acetaminophen (Tylenol) 650 mg PRN Q6HRS PRN PO FEVER; Start 12/25/17 at 23:00 Enoxaparin Sodium (Lovenox 40mg Syringe) 40 mg Q24H SQ ; Start 12/26/17 at 17:00 Cefazolin Sodium 1 gm/Sodium Chloride 500 ml @ 500 mls/hr 1X ONCE IRR Last administered on 12/26/17at 11:11; Start 12/26/17 at 10:00; Stop 12/26/17 at 10:59 ; Status DC Insulin Aspart (NovoLOG VIAL) 5 unit 1X ONCE SQ Last administered on at 10:08; Start 12/26/17 at 10:00; Stop 12/26/17 at 10:06; Status DC Ondansetron HCl (Zofran) 4 mg PRN Q6HRS PRN IV NAUSEA/VOMITING; Start 12/26/17 at 10:00; Stop 12/27/17 at 09:59; Status DC Fentanyl Citrate (Fentanyl 2ml Vial) 25 mcg PRN Q5MIN PRN IV MILD PAIN; Start 12/26/17 at 10:00; Stop 12/27/17 at 09:59; Status DC Fentanyl Citrate (Fentanyl 2ml Vial) 50 mcg PRN Q5MIN PRN IV MODERATE TO SEVERE PAIN; Start 12/26/17 at 10:00; Stop 12/27/17 at 09:59; Status DC Morphine Sulfate (Morphine Sulfate) 1 mg PRN Q10MIN PRN IV SEVERE PAIN; Start 12/26/17 at 10:00; Stop 12/27/17 at 09:59; Status DC Ringer's Solution 1,000 ml @ 30 mls/hr Q24H IV Last administered on 12/26/17at 10:01; Start 12/26/17 at 09:57; Stop 12/26/17 at 21:56; Status DC Lidocaine HCl (Xylocaine-Mpf 1% 2ml Vial) 2 ml PRN 1X PRN ID PRIOR TO IV START ; Start 12/26/17 at 10:00; Stop 12/27/17 at 09:59; Status DC Prochlorperazine Edisylate (Compazine) 5 mg PACU PRN PRN IV NAUSEA, MRX1; Start 12/26/17 at 10:00; Stop 12/27/17 at 09:59; Status DC Propofol 0 ml @ As Directed STK-MED ONCE IV ; Start 12/26/17 at 10:00; Stop at 10:01; Status DC Famotidine (Pepcid Vial) 20 mg STK-MED ONCE .ROUTE ; Start 12/26/17 at 10:01; Stop 12/26/17 at 10:02; Status DC Dexamethasone Sodium Phosphate (Decadron) 20 mg STK-MED ONCE .ROUTE ; Start at 10:01; Stop 12/26/17 at 10:02; Status DC Propofol 20 ml @ As Directed STK-MED ONCE IV ; Start 12/26/17 at 10:01; Stop at 10:02; Status DC Lidocaine HCl (Lidocaine Pf 2% Vial) 5 ml STK-MED ONCE .ROUTE ; Start 12/26/17 at 10:01; Stop 12/26/17 at 10:03; Status DC Succinylcholine Chloride (Anectine) 200 mg STK-MED ONCE .ROUTE ; Start 12/26/17 at 10:02; Stop 12/26/17 at 10:04; Status DC Fentanyl Citrate (Fentanyl 2ml Vial) 100 mcg STK-MED ONCE .ROUTE ; Start at 10:05; Stop 12/26/17 at 10:06; Status DC Ondansetron HCl (Zofran) 4 mg STK-MED ONCE .ROUTE ; Start 12/26/17 at 10:06; Stop 12/26/17 at 10:07; Status DC Cellulose (Surgicel Fibrillar 1x2) 1 each STK-MED ONCE .ROUTE ; Start 12/26/17 at 09:16; Stop 12/26/17 at 10:18; Status DC Lidocaine HCl (Xylocaine 1% Pf 30ml Vial) 30 ml STK-MED ONCE .ROUTE ; Start at 09:16; Stop 12/26/17 at 10:18; Status DC Ephedrine Sulfate (ePHEDrine PF IN SALINE SYRINGE) 50 mg STK-MED ONCE IV ; Start 12/26/17 at 10:41; Stop 12/26/17 at 10:42; Status DC Hydralazine HCl (Apresoline Inj) 10 mg PRN Q4HRS PRN IVP ELEVATED BP, SEE COMMENTS; Start 12/26/17 at 11:15 Morphine Sulfate (Morphine Sulfate) 2 mg PRN Q2HR PRN IV PAIN; Start 12/26/17 at 11:15 Piperacillin Sod/ Tazobactam Sod 3.375 gm/Sodium Chloride 50 ml @ 100 mls/hr Q6HRS IV Last administered on 12/27/17at 06:28; Start 12/26/17 at 13:00 Insulin Human Lispro (HumaLOG) 0-9 UNITS TIDWMEALS SQ Last administered on 12/26at 17:22; Start 12/26/17 at 17:00 Dextrose (Dextrose 50%-Water Syringe) 12.5 gm PRN Q15MIN PRN IV SEE COMMENTS; Start 12/26/17 at 12:45 Glyburide (Diabeta) 5 mg BIDWMEALS PO Last administered on 12/27/17at 07:53; Start 12/26/17 at 17:00; Stop 12/27/17 at 08:48; Status DC Insulin Glargine (Lantus) 30 units QHS SQ Last administered on 12/26/17at 20:36 ; Start 12/26/17 at 21:00 Insulin Human Lispro (HumaLOG) 3 units 1X ONCE SQ ; Start 12/26/17 at 17:15; Stop 12/26/17 at 17:27; Status DC Insulin Human Lispro (HumaLOG) 4 units 1X ONCE SQ Last administered on at 20:36; Start 12/26/17 at 20:30; Stop 12/26/17 at 20:31; Status DC Vancomycin HCl 1.25 gm/Sodium Chloride 250 ml @ 167 mls/hr Q12H IV Last administered on 12/27/17at 04:53; Start 12/27/17 at 05:00 Vancomycin HCl (Vancomycin Trough Level) 1 each 1X ONCE MC ; Start 12/28/17 at 16:30; Stop 12/28/17 at 16:31 Insulin Human Lispro (HumaLOG) 10 units TIDWMEALS SQ ; Start 12/27/17 at 12:00 Iodixanol (Visipaque 320) 100 ml STK-MED ONCE .ROUTE ; Start 12/27/17 at 09:21; Stop 12/27/17 at 09:22; Status DC Lidocaine/Sodium Bicarbonate (Buffered Lidocaine 1%) 3 ml STK-MED ONCE .ROUTE ; Start 12/27/17 at 09:22; Stop 12/27/17 at 09:23; Status DC Midazolam HCl (Versed) 2 mg STK-MED ONCE .ROUTE ; Start 12/27/17 at 09:22; Stop 12/27/17 at 09:23; Status DC Fentanyl Citrate (Fentanyl 2ml Vial) 100 mcg STK-MED ONCE .ROUTE ; Start at 09:22; Stop 12/27/17 at 09:24; Status DC Heparin Sodium (Porcine) (Heparin Sodium) 10,000 unit STK-MED ONCE .ROUTE ; Start 12/27/17 at 09:22; Stop 12/27/17 at 09:24; Status DC Iodixanol (Visipaque 320) 50 ml STK-MED ONCE .ROUTE ; Start 12/27/17 at 09:22; Stop 12/27/17 at 09:24; Status DC Heparin Sodium/ Sodium Chloride 500 ml @ As Directed STK-MED ONCE .ROUTE ; Start 12/27/17 at 09:23; Stop 12/27/17 at 09:24; Status DC Heparin Sodium/ Sodium Chloride 1,000 ml @ As Directed STK-MED ONCE .ROUTE ; Start 12/27/17 at 09:23; Stop 12/27/17 at 09:25; Status DC Lidocaine/Sodium Bicarbonate (Buffered Lidocaine 1%) 3 ml STK-MED ONCE .ROUTE ; Start 12/27/17 at 09:29; Stop 12/27/17 at 09:30; Status DC Heparin Sodium/ Sodium Chloride (HEPARIN for ARTERIAL LINE FLUSH) 1,000 unit 1X ONCE IART ; Start 12/27/17 at 09:45; Stop 12/27/17 at 09:46; Status DC Heparin Sodium/ Sodium Chloride (HEPARIN for ARTERIAL LINE FLUSH) 1,000 unit 1X ONCE IART ; Start 12/27/17 at 09:45; Stop 12/27/17 at 09:46; Status DC Lidocaine/Sodium Bicarbonate (Buffered Lidocaine 1%) 3 ml 1X ONCE IJ ; Start at 09:45; Stop 12/27/17 at 09:46; Status DC Midazolam HCl (Versed) 2 mg 1X ONCE IV ; Start 12/27/17 at 09:45; Stop at 09:46; Status DC Fentanyl Citrate (Fentanyl 2ml Vial) 100 mcg 1X ONCE IV ; Start 12/27/17 at 09: 45; Stop 12/27/17 at 09:46; Status DC Iodixanol (Visipaque 320) 100 ml 1X ONCE IART ; Start 12/27/17 at 09:45; Stop 12/27/17 at 09:46; Status DC Info (CONTRAST GIVEN -- Rx MONITORING) 1 each PRN DAILY PRN MC SEE COMMENTS; Start 12/27/17 at 09:45; Stop 12/29/17 at 09:44 Active Scripts Active Hydrocodone-Apap 5-325 (Hydrocodone Bit/Acetaminophen) 1 Each Tablet 1 Tab PO PRN Q4HRS PRN Amoxicillin 875 Mg Tablet 875 Mg PO BID Lasix (Furosemide) 40 Mg Tablet 1 Tab PO DAILY Ranexa (Ranolazine) 500 Mg Tab.er.12h 1 Tab PO BID Lipitor (Atorvastatin Calcium) 40 Mg Tablet 40 Mg PO QHS Reported Lantus Solostar (Insulin Glargine,Hum.rec.anlog) 100 Unit/1 Ml Insuln.pen 25 Unit SQ QHS Carvedilol 3.125 Mg Tablet 1 Tab PO BID Gabapentin 100 Mg Capsule 180 Mg PO TID Aspirin Ec (Aspirin) 81 Mg Tablet.dr 1 Tab PO DAILY Biotin 5,000 Mcg Tab.rapdis 5,000 Mcg PO DAILY Omeprazole 40 Mg Capsule.dr 40 Mg PO PRN DAILY PRN Fenofibrate (Fenofibrate,Micronized) 134 Mg Capsule 134 Mg PO HS Lisinopril 5 Mg Tablet 1 Tab PO HS Zolpidem Tartrate 5 Mg Tablet 5 Mg PO PRN QHS PRN Vitamin D (Cholecalciferol (Vitamin D3)) 1,000 Unit Capsule 1,000 Unit PO Metformin Hcl 1,000 Mg Tablet 1 Tab PO BID Fish Oil 1,000 Mg Softgel ([place]-3/Dha/Epa/Fish Oil) 1 Each Capsule 1 Each PO DAILY Vitals/I & O Vital Sign - Last 24 Hours 12/26/17 12/26/17 12/26/17 12/26/17 11:02 11:02 11:17 11:32 Temp 97.4 97.4 Pulse 67 68 72 Resp 20 20 20 B/P (MAP) 159/75 152/69 139/68 Pulse Ox 100 100 99 O2 Delivery Simple Mask Mask Room Air Room Air O2 Flow Rate 10 10 12/26/17 12/26/17 12/26/17 12/26/17 11:47 12:00 12:15 12:30 Temp 97.3 97.3 Pulse 76 77 Resp 20 20 B/P (MAP) 124/87 140/75 (96) 136/71 (92) 140/70 (93) Pulse Ox 97 98 O2 Delivery Room Air Room Air 12/26/17 12/26/17 12/26/17 12/26/17 12:45 13:15 13:45 14:15 Temp 98.0 98.0 98.0 98.0 Pulse 81 77 66 Resp 18 18 B/P (MAP) 136/73 (94) 133/71 (91) 140/66 (90) 130/71 (90) Pulse Ox 98 97 O2 Delivery Room Air Room Air Room Air 12/26/17 12/26/17 12/26/17 12/26/17 15:15 16:15 19:00 20:00 Temp 97.3 98.2 97.3 98.2 Pulse 71 71 79 Resp 18 18 B/P (MAP) 128/76 (93) 128/76 136/70 (92) Pulse Ox 97 99 O2 Delivery Room Air Room Air Room Air 12/26/17 12/26/17 12/26/17 12/26/17 20:26 20:26 20:28 23:00 Temp 97.5 97.5 Pulse 79 79 73 Resp 18 B/P (MAP) 136/70 136/70 106/70 (82) Pulse Ox 100 O2 Delivery Room Air Room Air 12/27/17 12/27/17 12/27/17 12/27/17 00:30 01:30 02:57 07:15 Temp 98.3 97.6 98.3 97.6 Pulse 73 66 Resp 16 18 B/P (MAP) 141/76 (97) 151/74 (99) Pulse Ox 97 97 O2 Delivery Room Air Room Air Room Air Room Air 12/27/17 07:54 Pulse 66 B/P (MAP) 151/74 Intake and Output 12/26/17 12/26/17 12/27/17 15:00 23:00 07:00 Intake Total 1310 ml Output Total 105 ml 200 ml Balance 1205 ml -200 ml DOLLY SALAMANCA MD Dec 27, 2017 10:28
[2017-12-27] MEDS ORDERED: hydrALAZINE 20 MG/ML VIAL. ONE (10:44)
[2017-12-27] MEDS ORDERED: HEPARIN for IV BOLUS 10,000 UNIT/10 ML VIAL. IV ONE (11:15)
[2017-12-27] MEDS ORDERED: hydrALAZINE 20 MG/ML VIAL. IVP ONE (11:15)
--- NOTE | 2017-12-27 11:55 | PDOC ---
MODERATE SEDATION ASSESSMENT RISKS/ALTERNATIVES Risks/Alternatives Risks and alternatives of this type of sedation and procedure discussed with: RISK/ALTERNATIVES: Patient H & P ON CHART H & P H & P on chart and reviewed for co-morbid conditions and appropriate labs. H&P ON CHART: Yes STATUS PREG STATUS ASSESSED: Yes MEDS/ALLERGIES REVIEWED Meds/Allergies Reviewed Medications and Allergies including time and route of recently administered narcotics and sedatives. MEDS/ALLERGIES REVIEWED: Yes ASA RATING ASA RATING: II AIRWAY ASSESSMENT Airway Assessment Airway patency, oral function limitations, presence of caps, crowns, dentures, partials, and ability to extend neck assessed. AIRWAY ASSESSMENT: Yes MALLAMPATI SCORE MALLAMPATI SCORE: II PRE-SEDATION ASSESSMENT PRE-SEDATION ASSESSMENT: Yes GRAYSON JOSÉ MD Dec 27, 2017 11:55
[2017-12-27] MEDS: OMEGA-3 FATTY ACIDS/FISH OIL 1,000 MG CAPSULE. PO SCH (12:13)
[2017-12-27] MEDS: RANOLAZINE 500 MG TAB.ER.12H PO SCH ×2 (12:15→21:42)
[2017-12-27] MEDS: CHOLECALCIFEROL (VITAMIN D3) 1,000 UNIT TABLET PO SCH (12:15)
[2017-12-27] MEDS: FUROSEMIDE 40 MG TABLET. PO SCH (12:26)
--- NOTE | 2017-12-27 15:15 | PDOC ---
Provider Note Provider Note Vascular S: Patient resting in bed, AARO complete, wound care team present O: Alert VSS, afebrile Right groin dressing dry and intact Left foot with Biphasic Doppler PT, palpable bypass graft, dressing removed wound bed clean. A/P: Severe left residual fourth toe and fifth toe infection with infected gangrene, open wound with purulent drainage and severe cellulitis. POD #1 Left fourth and fifth open ray amputation. Patient is s/p AARO with left leg PT angioplasty, bypass graft patent without stenosis. Recommend wound vac and antibiotic therapy. Recommend dual antiplatelet therapy with ASA and Plavix. Patient will need f/u KRISTEN/office visit. 01/18/2018 9:10 MALA JAMISON STRAW BALER Dec 27, 2017 15:15
[2017-12-27] MEDS: ENOXAPARIN 40 MG/0.4 ML SYRINGE. SQ SCH (17:27)
[2017-12-27] MEDS: LACTOBACILLUS RHAMNOSUS GG 1 CAPSULE. PO SCH (21:41)
[2017-12-27] MEDS: FENOFIBRATE,MICRONIZED 134 MG CAPSULE PO SCH (21:42)
[2017-12-27] MEDS: LISINOPRIL 5 MG TABLET. PO SCH (21:42)
[2017-12-27] MEDS: ATORVASTATIN CALCIUM 40 MG TABLET. PO SCH (21:42)
[2017-12-27] MEDS: ZOLPIDEM 5 MG TABLET. PO PRN (21:42)
[2017-12-27] MEDS: INSULIN GLARGINE 300 UNITS/3 ML INSULN.PEN. SQ SCH (21:45)
[2017-12-28] VITALS (7 sets, daily range): BP systolic 112–162; BP diastolic 60–78
[2017-12-28] MEDS: VANCOMYCIN 1.25 GM in IV NORMAL SALINE 250ML 250 ML IV SCH (04:56)
[2017-12-28] MEDS: PIPERACILLIN/TAZOBACTAM 3.375 GM in IV NORMAL SALINE 50ML 50 ML IV SCH ×4 (04:57→23:47)
[2017-12-28] MEDS: HYDROcodone/APAP 5/325MG 1 TAB TABLET PO PRN ×3 (05:17→20:55)
[2017-12-28] MEDS: CLOPIDOGREL BISULFATE 75 MG TABLET PO SCH (08:13)
[2017-12-28] MEDS: CARVEDILOL 3.125 MG TABLET. PO SCH ×2 (08:14→17:05)
[2017-12-28] MEDS: INSULIN LISPRO 300 UNITS/3 ML INSULN.PEN. SQ SCH ×4 (08:15→17:13)
--- NOTE | 2017-12-28 09:12 | PDOC ---
Infectious Disease Note Subjective Subjective feeling ok ROS ROS no n/v/d/sob Vital Sign Vital Signs Vital Signs Date Time Temp Pulse Resp B/P (MAP) Pulse Ox O2 Delivery O2 Flow Rate FiO2 12/28/17 08:14 84 131/70 12/28/17 07:00 97.8 20 100 Room Air 97.8 Physical Exam PHYSICAL EXAM GENERAL: Alert and oriented female, not in distress. VITAL SIGNS: Stable with a T-max 100.4. HEENT: anicteric. NECK: Supple, no JVP, no lymphadenopathy. LUNGS: Clear. HEART: S1, S2 regular. ABDOMEN: Benign. EXTREMITIES: the left foot wound seen, no healthy tissue yet, vac in place NEUROLOGIC: Intact. Labs Lab Laboratory Tests Test 12/27/17 12:06 12/27/17 16:47 12/27/17 17:22 12/27/17 18:30 Glucose (Fingerstick) 157 mg/dL (70-99) 68 mg/dL (70-99) 73 mg/dL (70-99) 77 mg/dL (70-99) Test 12/27/17 20:26 12/27/17 21:18 12/27/17 21:37 12/28/17 05:12 Glucose (Fingerstick) 75 mg/dL (70-99) 77 mg/dL (70-99) 128 mg/dL (70-99) 82 mg/dL (70-99) Test 12/28/17 06:01 12/28/17 08:11 Glucose (Fingerstick) 98 mg/dL (70-99) 128 mg/dL (70-99) Micro ANAEROBIC-AEROBIC CULTURE PENDING ANAEROBIC RES 1 PENDING AEROBIC CULT PENDING AEROBIC RES 1 PENDING GRAM STAIN Final Final report GRAM STAIN RES 1 Final Comment Rare white blood cells. GRAM STAIN RES 2 Final Comment Many gram negative rods. 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
[2017-12-28] MEDS: LACTOBACILLUS RHAMNOSUS GG 1 CAPSULE. PO SCH ×2 (09:35→20:01)
[2017-12-28] MEDS: OMEGA-3 FATTY ACIDS/FISH OIL 1,000 MG CAPSULE. PO SCH (09:35)
[2017-12-28] MEDS: GABAPENTIN 300 MG CAPSULE. PO SCH ×3 (09:35→19:59)
[2017-12-28] MEDS: MULTIVITAMIN with MINERAL TABLET. PO SCH (09:36)
[2017-12-28] MEDS: ASCORBIC ACID 500 MG TABLET PO SCH (09:36)
[2017-12-28] MEDS: CHOLECALCIFEROL (VITAMIN D3) 1,000 UNIT TABLET PO SCH (09:36)
[2017-12-28] MEDS: FUROSEMIDE 40 MG TABLET. PO SCH (09:38)
[2017-12-28] MEDS: RANOLAZINE 500 MG TAB.ER.12H PO SCH ×2 (09:38→20:01)
[2017-12-28] MEDS: ASPIRIN ENTERIC COATED 81 MG TABLET.DR. PO SCH (09:39)
--- NOTE | 2017-12-28 09:42 | RAD ---
12/27/2017 1. Abdominal aortogram 2. Pelvic angiography 3. Left lower extremity angiography 4. Angioplasty of the left posterior tibial artery 5. Right lower extremity angiography 6. Right upper extremity PICC line placement Indication: Right foot osteomyelitis, status post amputation with poorly healing wound, and soft tissue infection. Discussion: The risks and benefits of the procedure were discussed the patient. Informed consent was obtained. Timeout procedure was performed. The patient was placed in the supine position. PICC line placement: The right upper extremity was prepped and draped using sterile barrier technique. All elements of maximal sterile barrier technique including the use of a cap, mask, sterile gown, sterile gloves, large sterile sheet, appropriate hand hygiene, and 2% chlorhexidine for cutaneous antisepsis (or acceptable alternative antiseptic per current guidelines) were followed for this procedure. Real-time ultrasound demonstrated a patent right basilic vein which was prepped and draped in usual sterile fashion. 1% lidocaine used for local anesthesia. Using real-time ultrasound guidance the access needle percutaneously punctured the selected right basilic vein. Reference ultrasound images were saved to the medical record. A guidewire was advanced through the needle to the cavoatrial junction, and a peel-away sheath placed. The catheter was cut to length and inserted through the peel-away sheath such that its tip is at the cavoatrial junction. The wire and sheath were removed, and the catheter secured in place, and a sterile dressing was applied. Catheter was found to flush and aspirate normally. No immediate complications are identified. Angiography and intervention: The right groin was prepped and draped using sterile barrier technique. All elements of maximal sterile barrier technique including the use of a cap, mask, sterile gown, sterile gloves, large sterile sheet, appropriate hand hygiene, and 2% chlorhexidine for cutaneous antisepsis (or acceptable alternative antiseptic per current guidelines) were followed for this procedure. Ultrasound evaluation demonstrates the right common femoral artery be patent. Reference ultrasound images were saved the medical record. Ultrasound and fluoroscopic guidance were used to access the right common femoral artery using micropuncture technique. A 5 Maltese vascular sheath was placed. A guidewire was advanced of the abdominal aorta. An Omni flush catheter was advanced into the abdominal aorta. Abdominal aortogram was obtained demonstrating no evidence of aneurysm or dissection. Visualized abdominal aortic major vessels appear to be grossly patent. Tortuosity of the distal abdominal aorta is seen. Pelvic angiography was then performed demonstrating patent common and external iliac arteries. The right internal iliac artery is patent. Mild narrowing of the proximal left internal iliac artery is seen, likely not clinically relevant. The common femoral arteries are patent. The aortic bifurcation was crossed and an Omni flush catheter advanced into the left common femoral artery. Angiography of the left lower extremity was performed. The left profunda artery is patent. Proximal left SFA is patent. There is a bypass graft originating in the mid thigh. Just beyond this the pala superficial femoral artery is completely occluded. A bypass graft is widely patent and extends to the anastomosis below the knee with the posterior tibial artery. The anastomosis appears to be widely patent. Multiple collaterals are seen distally on the bypass retrograde filling and anterior tibial artery which extends to the mid leg were numerous other collaterals arise ultimately supplying blood to the foot. The posterior tibial artery is patent proximally but then is occluded in the mid leg. There is reconstituted by numerous collaterals. Posterior tibial artery is patent to several centimeters above the ankle where it terminates in multiple small collateral vessels. No significant target for recanalization below the ankle was identified from a posterior tibial approach. The lateral plantar artery is not visualized. The dorsalis pedis artery is not visualized. Multiple collateral vessels are seen in the midfoot. Given in-line flow from the bypass graft to the proximal posterior tibial artery, the mid posterior tibial artery occlusion was crossed and angioplasty performed throughout the visualized posterior tibial artery, and a host this with increased blood flow to the more distal foot via the aforementioned collaterals.. Angioplasty significantly improved morphology and flow through the prior occlusion. The sheath was retracted and right lower extremity angiography was performed. The right profunda artery is patent. The right superficial femoral artery demonstrates diffuse irregularity with multiple nonflow limiting mild stenoses. There is vein bypass graft extending from the distal right SFA to the tibial origin of the anterior tibial artery and tibial peroneal trunk.. The proximal anterior tibial artery is patent approximately 5 cm above the ankle the continuation of the anterior tibial artery becomes significantly tortuous suggesting possible occlusion with collateral formation. The posterior tibial artery appears to remain patent to the level of the ankle. Lateral plantar artery is not visualized on the right. Reconstitution of the proximal dorsalis pedis artery appears to be present. The procedures performed under conscious sedation including continuous cardiopulmonary monitoring via a dedicated sedation nurse. [id number] sedation time: 60 minutes Fluoroscopy time: 17.7 Minutes Dose area product: 159 Gycm2 Impression: 1. No significant aortoiliac stenosis 2. Patent left femoral to posterior tibial bypass. Occlusion of the posterior tibial artery in the mid leg was successfully treated with balloon angioplasty. The distal posterior tibial artery however is occluded. Lateral plantar artery is not visualized. Distal anterior tibial artery is occluded, with nonvisualization of the dorsalis pedis artery. Flow beyond the ankle is comprised of multiple small collateral vessels. 3. Multiple irregular nonflow limiting stenoses of the proximal right SFA. Distal right SFA to tibial peroneal trunk bypass is patent. Similar occlusions of the distal posterior tibial and anterior to the arteries is seen on the right.
[2017-12-28] MEDS: glyBURIDE 5 MG TABLET PO SCH ×2 (09:58→17:04)
--- NOTE | 2017-12-28 11:08 | PDOC ---
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 DM Non compliance HTN Fever Leukocytosis History of Present Illness History of Present Illness Hypoglycemia last night Right groin inspected, no hematoma post abdominal aortogram Patient relays to me s/p balloon or revascularizion of lef arteries?-We'll await vasc surgery note ESR 127, no fevers Now has right indwelling PICC Plan for outpatient antibiotics or antibiotics care of [facility] on discharge with home health possibly because of the wound VAC Plan: Decrease lantus 25 units daily at bedtime DC NovoLog altogether and restart glyburide 5 by mouth twice a day because of the hypoglycemia Plan for discharge tomorrow, home health with wound VAC and [facility] antibiotics per ID. Social work on board. Discussed with patient, agrees with plan of care Await vasc surgery operative note Vitals Vitals Vital Signs Date Time Temp Pulse Resp B/P (MAP) Pulse Ox O2 Delivery O2 Flow Rate FiO2 12/28/17 09:38 72 131/70 12/28/17 07:00 97.8 20 100 Room Air 97.8 Physical Exam Physical Exam GENERAL: Alert and oriented female, not in distress. VITAL SIGNS: Stable with a T-max 100.4. HEENT: anicteric. NECK: Supple, no JVP, no lymphadenopathy. LUNGS: Clear. HEART: S1, S2 regular. ABDOMEN: Benign. EXTREMITIES: the left foot wound seen, no healthy tissue yet, vac in place NEUROLOGIC: Intact. General: Alert, Oriented X3 Heart: Regular rate, Normal S1, Normal S2 Lungs: Clear Abdomen: Normal bowel sounds, Soft Extremities: No clubbing, No cyanosis, Other (dressing on bilateral feet) Labs LABS Laboratory Tests Test 12/27/17 12:06 12/27/17 16:47 12/27/17 17:22 12/27/17 18:30 Glucose (Fingerstick) 157 mg/dL (70-99) 68 mg/dL (70-99) 73 mg/dL (70-99) 77 mg/dL (70-99) Test 12/27/17 20:26 12/27/17 21:18 12/27/17 21:37 12/28/17 05:12 Glucose (Fingerstick) 75 mg/dL (70-99) 77 mg/dL (70-99) 128 mg/dL (70-99) 82 mg/dL (70-99) Test 12/28/17 06:01 12/28/17 08:11 Glucose (Fingerstick) 98 mg/dL (70-99) 128 mg/dL (70-99) Review of Systems Review of Systems A 14 point ROS was completed with the following noted as positive: Other systems reviewed and negative. \CONSTITUTIONAL: No fever or chills EYES: No recent changes SKIN: No rash or itching CARDIOVASCULAR: No chest pain, syncope, palpitations, or edema RESPIRATORY: No SOB or cough GASTROINTESTINAL: No nausea, vomiting or abdominal pain NEUROLOGICAL: No headaches or weakness ENDOCRINE: No cold or heat intolerance GENITOURINARY: No urgency or frequency of urination MUSCULOSKELETAL: No back pain or joint pain LYMPHATICS: No enlarged lymph nodes PSYCHIATRIC: No anxiety or depression Comment Review of Relevant I have reviewed the following items johan (where applicable) has been applied. Labs Laboratory Tests Test 12/26/17 11:09 12/26/17 11:50 12/26/17 12:20 12/26/17 16:50 Glucose (Fingerstick) 232 mg/dL (70-99) 352 mg/dL (70-99) Prothrombin Time 15.5 SEC (11.7-14.0) Prothromb Time International Ratio 1.3 (0.8-1.1) Activated Partial Thromboplast Time 31 SEC (24-38) Nasal Screen MRSA (PCR) Negative (Negative) Test 12/26/17 19:57 12/27/17 03:05 12/27/17 07:35 12/27/17 12:06 Glucose (Fingerstick) 299 mg/dL (70-99) 215 mg/dL (70-99) 157 mg/dL (70-99) White Blood Count 12.6 x10^3/uL (4.0-11.0) Red Blood Count 3.39 x10^6/uL (3.50-5.40) Hemoglobin 10.6 g/dL (12.0-15.5) Hematocrit 30.3 % (36.0-47.0) Mean Corpuscular Volume 89 fL (79-100) Mean Corpuscular Hemoglobin 31 pg (25-35) Mean Corpuscular Hemoglobin Concent 35 g/dL (31-37) Red Cell Distribution Width 12.4 % (11.5-14.5) Platelet Count 543 x10^3/uL (140-400) Neutrophils (%) (Auto) 82 % (31-73) Lymphocytes (%) (Auto) 13 % (24-48) Monocytes (%) (Auto) 5 % (0-9) Eosinophils (%) (Auto) 0 % (0-3) Basophils (%) (Auto) 0 % (0-3) Neutrophils # (Auto) 10.3 x10^3uL (1.8-7.7) Lymphocytes # (Auto) 1.6 x10^3/uL (1.0-4.8) Monocytes # (Auto) 0.7 x10^3/uL (0.0-1.1) Eosinophils # (Auto) 0.0 x10^3/uL (0.0-0.7) Basophils # (Auto) 0.0 x10^3/uL (0.0-0.2) Sodium Level 135 mmol/L (136-145) Potassium Level 4.7 mmol/L (3.5-5.1) Chloride Level 99 mmol/L (98-107) Carbon Dioxide Level 32 mmol/L (21-32) Anion Gap 4 (6-14) Blood Urea Nitrogen 15 mg/dL (7-20) Creatinine 0.9 mg/dL (0.6-1.0) Estimated GFR (Cockcroft-Gault) 63.7 Glucose Level 253 mg/dL (70-99) Calcium Level 9.9 mg/dL (8.5-10.1) Vancomycin Level Trough 14.2 mcg/mL (10.0-20.0) Vancomycin Last Dose Date 12/26/17 Vancomycin Last Dose Time 1530 Test 12/27/17 16:47 12/27/17 17:22 12/27/17 18:30 12/27/17 20:26 Glucose (Fingerstick) 68 mg/dL (70-99) 73 mg/dL (70-99) 77 mg/dL (70-99) 75 mg/dL (70-99) Test 12/27/17 21:18 12/27/17 21:37 12/28/17 05:12 12/28/17 06:01 Glucose (Fingerstick) 77 mg/dL (70-99) 128 mg/dL (70-99) 82 mg/dL (70-99) 98 mg/dL (70-99) Test 12/28/17 08:11 Glucose (Fingerstick) 128 mg/dL (70-99) Laboratory Tests Test 12/27/17 12:06 12/27/17 16:47 12/27/17 17:22 12/27/17 18:30 Glucose (Fingerstick) 157 mg/dL (70-99) 68 mg/dL (70-99) 73 mg/dL (70-99) 77 mg/dL (70-99) Test 12/27/17 20:26 12/27/17 21:18 12/27/17 21:37 12/28/17 05:12 Glucose (Fingerstick) 75 mg/dL (70-99) 77 mg/dL (70-99) 128 mg/dL (70-99) 82 mg/dL (70-99) Test 12/28/17 06:01 12/28/17 08:11 Glucose (Fingerstick) 98 mg/dL (70-99) 128 mg/dL (70-99) Microbiology 12/26/17 Anaerobic/Aerobic Culture, Resulted Pending 12/26/17 Anaerobic Culture Result 1 (JUANA), Resulted Pending 12/26/17 Aerobic Culture, Resulted Pending 12/26/17 Aerobic Culture Result 1 (JUANA), Resulted Pending 12/26/17 Gram Stain - Final, Resulted 12/26/17 Gram Stain Result 1 (JUANA) - Final, Resulted 12/26/17 Gram Stain Result 2 (JUANA) - Final, Resulted 12/26/17 Gram Stain Result 3 (JUANA) - Final, Resulted Medications Current Medications Acetaminophen/ Hydrocodone Bitart (Lortab 5/325) 1 tab PRN Q4HRS PRN PO PAIN Last administered on 12/26/17at 08:21; Start 12/25/17 at 13:15; Stop 12/26/17 at 10:01; Status DC Vancomycin HCl (Vanco Per Pharmacy) 1 each PRN DAILY PRN MC SEE COMMENTS Last administered on 12/27/17at 15:19; Start 12/25/17 at 13:30 Vancomycin HCl 250 ml @ 250 mls/hr 1X ONCE IV ; Start 12/25/17 at 13:30; Stop 12/25/17 at 14:29; Status UNV Vancomycin HCl 1.75 gm/Sodium Chloride 500 ml @ 250 mls/hr 1X ONCE IV Last administered on 12/25/17 15:28; Start 12/25/17 at 15:00; Stop 12/25/17 at 16:59 ; Status DC Aspirin (Ecotrin) 81 mg DAILY PO Last administered on 12/28/17 09:39; Start at 16:00 Atorvastatin Calcium (Lipitor) 40 mg QHS PO Last administered on 12/27/17 21: 42; Start 12/25/17 at 21:00 Carvedilol (Coreg) 3.125 mg BIDAC PO Last administered on 12/28/17 08:14; Start 12/25/17 at 16:30 Furosemide (Lasix) 40 mg DAILY PO Last administered on 12/28/17 09:38; Start 12/25/17 at 16:00 Gabapentin (Neurontin) 600 mg TID PO Last administered on 12/28/17 09:35; Start 12/25/17 at 21:00 Acetaminophen/ Hydrocodone Bitart (Lortab 5/325) 1 tab PRN Q4HRS PRN PO MODERATE-SEVERE PAIN Last administered on 12/28/17 05:17; Start 12/25/17 at 15: 00 Ranolazine (Ranexa) 500 mg BID PO Last administered on 12/28/17 09:38; Start 12/25/17 at 21:00 Zolpidem Tartrate (Ambien) 5 mg PRN QHS PRN PO INSOMNIA Last administered on 21:42; Start 12/25/17 at 15:00 Non-Formulary Medication (Biotin ) 5,000 mcg DAILY PO ; Start 12/26/17 at 09:00 ; Status UNV Fenofibrate (Lofibra) 134 mg QHS PO Last administered on 12/27/17 21:42; Start 12/26/17 at 21:00 Lisinopril (Prinivil) 5 mg QHS PO Last administered on 12/27/17 21:42; Start 12/25/17 at 21:00 Metformin HCl (Glucophage) 1,000 mg BIDWMEALS PO Last administered on 08:13; Start 12/25/17 at 17:00 Fish Oil (Fish Oil) 1,000 mg DAILY PO Last administered on 12/28/17at 09:35; Start 12/26/17 at 09:00 Pantoprazole Sodium (Protonix) 40 mg PRN DAILY PRN PO HEARTBURN / GAS Last administered on 12/27/17at 03:35; Start 12/26/17 at 07:30 Vitamin D (Vitamin D3) 1,000 unit DAILY PO Last administered on 12/28/17at 09:36 ; Start 12/25/17 at 16:00 Insulin Human Lispro (HumaLOG) 0-5 UNITS TIDWMEALS SQ Last administered on 12/26at 12:32; Start 12/25/17 at 17:00; Stop 12/26/17 at 12:42; Status DC Dextrose (Dextrose 50%-Water Syringe) 12.5 gm PRN Q15MIN PRN IV SEE COMMENTS; Start 12/25/17 at 15:00; Stop 12/26/17 at 12:50; Status DC Vancomycin HCl 1 gm/Sodium Chloride 250 ml @ 250 mls/hr Q12H IV Last administered on 12/26/17at 16:15; Start 12/26/17 at 03:30; Stop 12/27/17 at 04:42 ; Status DC Vancomycin HCl (Vancomycin Trough Level) 1 each 1X ONCE MC Last administered on 12/27/17at 03:00; Start 12/27/17 at 03:00; Stop 12/27/17 at 03:01; Status DC Insulin Human Lispro (HumaLOG) 5 units 1X ONCE SQ Last administered on at 17:07; Start 12/25/17 at 16:00; Stop 12/25/17 at 16:03; Status DC Insulin Human Lispro (HumaLOG) 3 units 1X ONCE SQ Last administered on at 21:39; Start 12/25/17 at 21:30; Stop 12/25/17 at 21:31; Status DC Acetaminophen (Tylenol) 650 mg PRN Q6HRS PRN PO FEVER; Start 12/25/17 at 23:00 Enoxaparin Sodium (Lovenox 40mg Syringe) 40 mg Q24H SQ Last administered on at 17:27; Start 12/26/17 at 17:00 Cefazolin Sodium 1 gm/Sodium Chloride 500 ml @ 500 mls/hr 1X ONCE IRR Last administered on 12/26/17at 11:11; Start 12/26/17 at 10:00; Stop 12/26/17 at 10:59 ; Status DC Insulin Aspart (NovoLOG VIAL) 5 unit 1X ONCE SQ Last administered on at 10:08; Start 12/26/17 at 10:00; Stop 12/26/17 at 10:06; Status DC Ondansetron HCl (Zofran) 4 mg PRN Q6HRS PRN IV NAUSEA/VOMITING; Start 12/26/17 at 10:00; Stop 12/27/17 at 09:59; Status DC Fentanyl Citrate (Fentanyl 2ml Vial) 25 mcg PRN Q5MIN PRN IV MILD PAIN; Start 12/26/17 at 10:00; Stop 12/27/17 at 09:59; Status DC Fentanyl Citrate (Fentanyl 2ml Vial) 50 mcg PRN Q5MIN PRN IV MODERATE TO SEVERE PAIN; Start 12/26/17 at 10:00; Stop 12/27/17 at 09:59; Status DC Morphine Sulfate (Morphine Sulfate) 1 mg PRN Q10MIN PRN IV SEVERE PAIN; Start 12/26/17 at 10:00; Stop 12/27/17 at 09:59; Status DC Ringer's Solution 1,000 ml @ 30 mls/hr Q24H IV Last administered on 12/26/17at 10:01; Start 12/26/17 at 09:57; Stop 12/26/17 at 21:56; Status DC Lidocaine HCl (Xylocaine-Mpf 1% 2ml Vial) 2 ml PRN 1X PRN ID PRIOR TO IV START ; Start 12/26/17 at 10:00; Stop 12/27/17 at 09:59; Status DC Prochlorperazine Edisylate (Compazine) 5 mg PACU PRN PRN IV NAUSEA, MRX1; Start 12/26/17 at 10:00; Stop 12/27/17 at 09:59; Status DC Propofol 0 ml @ As Directed STK-MED ONCE IV ; Start 12/26/17 at 10:00; Stop at 10:01; Status DC Famotidine (Pepcid Vial) 20 mg STK-MED ONCE .ROUTE ; Start 12/26/17 at 10:01; Stop 12/26/17 at 10:02; Status DC Dexamethasone Sodium Phosphate (Decadron) 20 mg STK-MED ONCE .ROUTE ; Start at 10:01; Stop 12/26/17 at 10:02; Status DC Propofol 20 ml @ As Directed STK-MED ONCE IV ; Start 12/26/17 at 10:01; Stop at 10:02; Status DC Lidocaine HCl (Lidocaine Pf 2% Vial) 5 ml STK-MED ONCE .ROUTE ; Start 12/26/17 at 10:01; Stop 12/26/17 at 10:03; Status DC Succinylcholine Chloride (Anectine) 200 mg STK-MED ONCE .ROUTE ; Start 12/26/17 at 10:02; Stop 12/26/17 at 10:04; Status DC Fentanyl Citrate (Fentanyl 2ml Vial) 100 mcg STK-MED ONCE .ROUTE ; Start at 10:05; Stop 12/26/17 at 10:06; Status DC Ondansetron HCl (Zofran) 4 mg STK-MED ONCE .ROUTE ; Start 12/26/17 at 10:06; Stop 12/26/17 at 10:07; Status DC Cellulose (Surgicel Fibrillar 1x2) 1 each STK-MED ONCE .ROUTE ; Start 12/26/17 at 09:16; Stop 12/26/17 at 10:18; Status DC Lidocaine HCl (Xylocaine 1% Pf 30ml Vial) 30 ml STK-MED ONCE .ROUTE ; Start at 09:16; Stop 12/26/17 at 10:18; Status DC Ephedrine Sulfate (ePHEDrine PF IN SALINE SYRINGE) 50 mg STK-MED ONCE IV ; Start 12/26/17 at 10:41; Stop 12/26/17 at 10:42; Status DC Hydralazine HCl (Apresoline Inj) 10 mg PRN Q4HRS PRN IVP ELEVATED BP, SEE COMMENTS; Start 12/26/17 at 11:15 Morphine Sulfate (Morphine Sulfate) 2 mg PRN Q2HR PRN IV PAIN; Start 12/26/17 at 11:15 Piperacillin Sod/ Tazobactam Sod 3.375 gm/Sodium Chloride 50 ml @ 100 mls/hr Q6HRS IV Last administered on 12/28/17at 04:57; Start 12/26/17 at 13:00 Insulin Human Lispro (HumaLOG) 0-9 UNITS TIDWMEALS SQ Last administered on 12/27at 12:24; Start 12/26/17 at 17:00 Dextrose (Dextrose 50%-Water Syringe) 12.5 gm PRN Q15MIN PRN IV SEE COMMENTS Last administered on 12/27/17at 21:22; Start 12/26/17 at 12:45 Glyburide (Diabeta) 5 mg BIDWMEALS PO Last administered on 12/27/17at 07:53; Start 12/26/17 at 17:00; Stop 12/27/17 at 08:48; Status DC Insulin Glargine (Lantus) 30 units QHS SQ Last administered on 12/26/17at 20:36 ; Start 12/26/17 at 21:00; Stop 12/28/17 at 08:47; Status DC Insulin Human Lispro (HumaLOG) 3 units 1X ONCE SQ ; Start 12/26/17 at 17:15; Stop 12/26/17 at 17:27; Status DC Insulin Human Lispro (HumaLOG) 4 units 1X ONCE SQ Last administered on at 20:36; Start 12/26/17 at 20:30; Stop 12/26/17 at 20:31; Status DC Vancomycin HCl 1.25 gm/Sodium Chloride 250 ml @ 167 mls/hr Q12H IV Last administered on 12/28/17at 04:56; Start 12/27/17 at 05:00 Vancomycin HCl (Vancomycin Trough Level) 1 each 1X ONCE MC ; Start 12/28/17 at 16:30; Stop 12/28/17 at 16:31 Insulin Human Lispro (HumaLOG) 10 units TIDWMEALS SQ Last administered on at 12:23; Start 12/27/17 at 12:00; Stop 12/28/17 at 08:47; Status DC Iodixanol (Visipaque 320) 100 ml STK-MED ONCE .ROUTE ; Start 12/27/17 at 09:21; Stop 12/27/17 at 09:22; Status DC Lidocaine/Sodium Bicarbonate (Buffered Lidocaine 1%) 3 ml STK-MED ONCE .ROUTE ; Start 12/27/17 at 09:22; Stop 12/27/17 at 09:23; Status DC Midazolam HCl (Versed) 2 mg STK-MED ONCE .ROUTE ; Start 12/27/17 at 09:22; Stop 12/27/17 at 09:23; Status DC Fentanyl Citrate (Fentanyl 2ml Vial) 100 mcg STK-MED ONCE .ROUTE ; Start at 09:22; Stop 12/27/17 at 09:24; Status DC Heparin Sodium (Porcine) (Heparin Sodium) 10,000 unit STK-MED ONCE .ROUTE ; Start 12/27/17 at 09:22; Stop 12/27/17 at 09:24; Status DC Iodixanol (Visipaque 320) 50 ml STK-MED ONCE .ROUTE ; Start 12/27/17 at 09:22; Stop 12/27/17 at 09:24; Status DC Heparin Sodium/ Sodium Chloride 500 ml @ As Directed STK-MED ONCE .ROUTE ; Start 12/27/17 at 09:23; Stop 12/27/17 at 09:24; Status DC Heparin Sodium/ Sodium Chloride 1,000 ml @ As Directed STK-MED ONCE .ROUTE ; Start 12/27/17 at 09:23; Stop 12/27/17 at 09:25; Status DC Lidocaine/Sodium Bicarbonate (Buffered Lidocaine 1%) 3 ml STK-MED ONCE .ROUTE ; Start 12/27/17 at 09:29; Stop 12/27/17 at 09:30; Status DC Heparin Sodium/ Sodium Chloride (HEPARIN for ARTERIAL LINE FLUSH) 1,000 unit 1X ONCE IART Last administered on 12/27/17at 09:45; Start 12/27/17 at 09:45; Stop 12/27/17 at 09:46; Status DC Heparin Sodium/ Sodium Chloride (HEPARIN for ARTERIAL LINE FLUSH) 1,000 unit 1X ONCE IART Last administered on 12/27/17at 09:45; Start 12/27/17 at 09:45; Stop 12/27/17 at 09:46; Status DC Lidocaine/Sodium Bicarbonate (Buffered Lidocaine 1%) 3 ml 1X ONCE IJ Last administered on 12/27/17at 09:45; Start 12/27/17 at 09:45; Stop 12/27/17 at 09:46 ; Status DC Midazolam HCl (Versed) 2 mg 1X ONCE IV Last administered on 12/27/17at 09:45; Start 12/27/17 at 09:45; Stop 12/27/17 at 09:46; Status DC Fentanyl Citrate (Fentanyl 2ml Vial) 100 mcg 1X ONCE IV Last administered on at 09:45; Start 12/27/17 at 09:45; Stop 12/27/17 at 09:46; Status DC Iodixanol (Visipaque 320) 100 ml 1X ONCE IART Last administered on 12/27/17at 09:45; Start 12/27/17 at 09:45; Stop 12/27/17 at 09:46; Status DC Info (CONTRAST GIVEN -- Rx MONITORING) 1 each PRN DAILY PRN MC SEE COMMENTS; Start 12/27/17 at 09:45; Stop 12/29/17 at 09:44 Midazolam HCl (Versed) 2 mg STK-MED ONCE .ROUTE ; Start 12/27/17 at 10:25; Stop 12/27/17 at 10:27; Status DC Hydralazine HCl (Apresoline Inj) 20 mg STK-MED ONCE .ROUTE ; Start 12/27/17 at 10:44; Stop 12/27/17 at 10:45; Status DC Fentanyl Citrate (Fentanyl 2ml Vial) 100 mcg STK-MED ONCE .ROUTE ; Start at 11:05; Stop 12/27/17 at 11:06; Status DC Heparin Sodium (Porcine) (Heparin Sodium) 4,000 unit 1X ONCE IV Last administered on 12/27/17at 11:15; Start 12/27/17 at 11:15; Stop 12/27/17 at 11:16 ; Status DC Hydralazine HCl (Apresoline Inj) 5 mg 1X ONCE IVP Last administered on at 11:15; Start 12/27/17 at 11:15; Stop 12/27/17 at 11:16; Status DC Clopidogrel Bisulfate (Plavix) 75 mg DAILYWBKFT PO Last administered on at 08:13; Start 12/28/17 at 08:00 Multivitamins (Thera M Plus) 1 tab DAILY PO Last administered on 12/28/17at 09: 36; Start 12/28/17 at 09:00 Ascorbic Acid (Vitamin C) 500 mg DAILY PO Last administered on 12/28/17at 09:36 ; Start 12/28/17 at 09:00 Lactobacillus Rhamnosus (Culturelle) 1 cap BID PO Last administered on at 09:35; Start 12/27/17 at 21:00 Insulin Glargine (Lantus) 25 units QHS SQ ; Start 12/28/17 at 21:00 Glyburide (Diabeta) 5 mg BIDWMEALS PO Last administered on 12/28/17at 09:58; Start 12/28/17 at 09:00 Active Scripts Active Hydrocodone-Apap 5-325 (Hydrocodone Bit/Acetaminophen) 1 Each Tablet 1 Tab PO PRN Q4HRS PRN Amoxicillin 875 Mg Tablet 875 Mg PO BID Lasix (Furosemide) 40 Mg Tablet 1 Tab PO DAILY Ranexa (Ranolazine) 500 Mg Tab.er.12h 1 Tab PO BID Lipitor (Atorvastatin Calcium) 40 Mg Tablet 40 Mg PO QHS Reported Lantus Solostar (Insulin Glargine,Hum.rec.anlog) 100 Unit/1 Ml Insuln.pen 25 Unit SQ QHS Carvedilol 3.125 Mg Tablet 1 Tab PO BID Gabapentin 100 Mg Capsule 180 Mg PO TID Aspirin Ec (Aspirin) 81 Mg Tablet.dr 1 Tab PO DAILY Biotin 5,000 Mcg Tab.rapdis 5,000 Mcg PO DAILY Omeprazole 40 Mg Capsule.dr 40 Mg PO PRN DAILY PRN Fenofibrate (Fenofibrate,Micronized) 134 Mg Capsule 134 Mg PO HS Lisinopril 5 Mg Tablet 1 Tab PO HS Zolpidem Tartrate 5 Mg Tablet 5 Mg PO PRN QHS PRN Vitamin D (Cholecalciferol (Vitamin D3)) 1,000 Unit Capsule 1,000 Unit PO Metformin Hcl 1,000 Mg Tablet 1 Tab PO BID Fish Oil 1,000 Mg Softgel ([place]-3/Dha/Epa/Fish Oil) 1 Each Capsule 1 Each PO DAILY Vitals/I & O Vital Sign - Last 24 Hours 12/27/17 12/27/17 12/27/17 12/27/17 11:03 11:15 11:50 12:15 Temp 97.8 97.8 Pulse 65 73 73 70 Resp 20 22 B/P (MAP) 117/68 (84) 117/41 Pulse Ox 96 95 O2 Delivery Room Air Room Air 12/27/17 12/27/17 12/27/17 12/27/17 12:15 12:27 12:30 12:45 Temp 98.5 98.5 Pulse 75 Resp 18 18 B/P (MAP) 142/67 (92) 132/57 (82) 113/61 (78) Pulse Ox 96 O2 Delivery Room Air Room Air 12/27/17 12/27/17 12/27/17 12/27/17 13:00 13:30 14:00 14:30 Temp 97.3 97.6 97.3 97.6 Pulse 72 73 Resp 18 20 B/P (MAP) 119/63 (81) 114/70 (85) 124/72 (89) 117/63 (81) Pulse Ox 97 96 O2 Delivery Room Air Room Air 12/27/17 12/27/17 12/27/17 12/27/17 17:26 17:49 18:50 19:00 Temp 98.1 98.1 Pulse 73 75 Resp 18 16 20 B/P (MAP) 117/63 118/64 (82) Pulse Ox 92 O2 Delivery Room Air Room Air 12/27/17 12/27/17 12/27/17 12/27/17 19:33 20:00 21:42 21:42 Pulse 75 75 B/P (MAP) 118/64 118/64 Pulse Ox 96 O2 Delivery Room Air Room Air 12/27/17 12/27/17 12/27/17 12/28/17 21:43 22:43 23:00 03:00 Temp 98.6 98.2 98.6 98.2 Pulse 81 73 Resp 20 20 B/P (MAP) 118/63 (81) 162/73 (102) Pulse Ox 96 96 98 97 O2 Delivery Room Air Room Air Room Air 12/28/17 12/28/17 12/28/17 12/28/17 03:48 05:17 06:18 07:00 Temp 97.8 97.8 Pulse 78 88 Resp 20 B/P (MAP) 145/60 (88) 131/70 (90) Pulse Ox 97 100 O2 Delivery Room Air Room Air Room Air 12/28/17 12/28/17 08:14 09:38 Pulse 84 72 B/P (MAP) 131/70 131/70 Intake and Output 12/27/17 12/27/17 12/28/17 15:00 23:00 07:00 Intake Total 240 ml 300 ml 340 ml Output Total 400 ml 500 ml Balance 240 ml -100 ml -160 ml DOLLY SALAMANCA MD Dec 28, 2017 11:08
[2017-12-28] MEDS: VANCOMYCIN PER PHARMACY MC PRN ×2 (13:07→18:26)
[2017-12-28] MEDS: ENOXAPARIN 40 MG/0.4 ML SYRINGE. SQ SCH (17:06)
[2017-12-28 17:30] LABS: VANC TR 20.4 mcg/mL (10.0-20.0)
[2017-12-28] MEDS: ATORVASTATIN CALCIUM 40 MG TABLET. PO SCH (19:58)
[2017-12-28] MEDS: FENOFIBRATE,MICRONIZED 134 MG CAPSULE PO SCH (19:59)
[2017-12-28] MEDS: ZOLPIDEM 5 MG TABLET. PO PRN (20:55)
[2017-12-28] MEDS: INSULIN GLARGINE 300 UNITS/3 ML INSULN.PEN. SQ SCH (21:00)
[2017-12-28] MEDS: LISINOPRIL 5 MG TABLET. PO SCH (21:00)
[2017-12-29 03:00] VITALS: BP 117/58
[2017-12-29] MEDS ORDERED: VANCOMYCIN 1 GM in IV NORMAL SALINE 250ML 250 ML IV SCH (05:00)
[2017-12-29] MEDS: CARVEDILOL 3.125 MG TABLET. PO SCH ×2 (06:17→08:38)
[2017-12-29 06:34] LABS: BASO # 0.1 x10^3/uL (0.0-0.2); BASO % 1 % (0-3); EOS # 0.2 x10^3/uL (0.0-0.7); EOS % 3 % (0-3); HEMATOCRIT 30.1 % (36.0-47.0); HEMOGLOBIN 10.6 g/dL (12.0-15.5); LYMPH # 2.2 x10^3/uL (1.0-4.8); LYMPH % 24 % (24-48); MEAN CORPUSCULAR HEMOGLOBIN 31 pg (25-35); MEAN CORPUSCULAR HGB CONC 35 g/dL (31-37); MEAN CORPUSCULAR VOLUME 89 fL (79-100); MONO # 0.7 x10^3/uL (0.0-1.1); MONO % 8 % (0-9); NEUT # 5.8 x10^3uL (1.8-7.7); NEUT % 65 % (31-73); PLATELET COUNT 502 x10^3/uL (140-400); RED BLOOD COUNT 3.38 x10^6/uL (3.50-5.40); RED CELL DISTRIBUTION WIDTH 12.5 % (11.5-14.5)
[2017-12-29 06:38] LABS: CALCIUM 9.4 mg/dL (8.5-10.1); CREATININE 0.9 mg/dL (0.6-1.0); GFR 63.7; POTASSIUM 3.7 mmol/L (3.5-5.1)
[2017-12-29 07:00] VITALS: BP 113/61
[2017-12-29] MEDS: PIPERACILLIN/TAZOBACTAM 3.375 GM in IV NORMAL SALINE 50ML 50 ML IV SCH ×3 (07:21→18:40)
[2017-12-29] MEDS: INSULIN LISPRO 300 UNITS/3 ML INSULN.PEN. SQ SCH ×3 (08:00→17:08)
--- NOTE | 2017-12-29 08:26 | PDOC ---
Infectious Disease Note Subjective Subjective feeling ok still having low blood sugar ROS ROS no n/v/d/sob Vital Sign Vital Signs Vital Signs Date Time Temp Pulse Resp B/P (MAP) Pulse Ox O2 Delivery O2 Flow Rate FiO2 12/29/17 06:17 133/77 12/29/17 03:00 98.6 79 18 96 Room Air 98.6 Physical Exam PHYSICAL EXAM GENERAL: Alert and oriented female, not in distress. VITAL SIGNS: Stable with a T-max 100.4. HEENT: anicteric. NECK: Supple, no JVP, no lymphadenopathy. LUNGS: Clear. HEART: S1, S2 regular. ABDOMEN: Benign. EXTREMITIES: the left foot wound seen, no healthy tissue yet, vac in place NEUROLOGIC: Intact. Labs Lab Laboratory Tests Test 12/28/17 11:24 12/28/17 16:24 12/28/17 16:50 12/28/17 20:32 Glucose (Fingerstick) 273 mg/dL (70-99) 151 mg/dL (70-99) 232 mg/dL (70-99) Vancomycin Level Trough 20.4 mcg/mL (10.0-20.0) Vancomycin Last Dose Date Unknown Vancomycin Last Dose Time Unknown Test 12/29/17 06:15 White Blood Count 9.0 x10^3/uL (4.0-11.0) Red Blood Count 3.38 x10^6/uL (3.50-5.40) Hemoglobin 10.6 g/dL (12.0-15.5) Hematocrit 30.1 % (36.0-47.0) Mean Corpuscular Volume 89 fL (79-100) Mean Corpuscular Hemoglobin 31 pg (25-35) Mean Corpuscular Hemoglobin Concent 35 g/dL (31-37) Red Cell Distribution Width 12.5 % (11.5-14.5) Platelet Count 502 x10^3/uL (140-400) Neutrophils (%) (Auto) 65 % (31-73) Lymphocytes (%) (Auto) 24 % (24-48) Monocytes (%) (Auto) 8 % (0-9) Eosinophils (%) (Auto) 3 % (0-3) Basophils (%) (Auto) 1 % (0-3) Neutrophils # (Auto) 5.8 x10^3uL (1.8-7.7) Lymphocytes # (Auto) 2.2 x10^3/uL (1.0-4.8) Monocytes # (Auto) 0.7 x10^3/uL (0.0-1.1) Eosinophils # (Auto) 0.2 x10^3/uL (0.0-0.7) Basophils # (Auto) 0.1 x10^3/uL (0.0-0.2) Erythrocyte Sedimentation Rate 104 (0-25) Sodium Level 139 mmol/L (136-145) Potassium Level 3.7 mmol/L (3.5-5.1) Chloride Level 104 mmol/L (98-107) Carbon Dioxide Level 30 mmol/L (21-32) Anion Gap 5 (6-14) Blood Urea Nitrogen 18 mg/dL (7-20) Creatinine 0.9 mg/dL (0.6-1.0) Estimated GFR (Cockcroft-Gault) 63.7 Glucose Level 75 mg/dL (70-99) Calcium Level 9.4 mg/dL (8.5-10.1) Micro ANAEROBIC-AEROBIC CULTURE PENDING ANAEROBIC RES 1 PENDING AEROBIC CULT PENDING AEROBIC RES 1 PENDING GRAM STAIN Final Final report GRAM STAIN RES 1 Final Comment Rare white blood cells. GRAM STAIN RES 2 Final Comment Many gram negative rods. 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
[2017-12-29] MEDS: CLOPIDOGREL BISULFATE 75 MG TABLET PO SCH (08:37)
[2017-12-29] MEDS: GABAPENTIN 300 MG CAPSULE. PO SCH ×3 (08:37→21:28)
[2017-12-29] MEDS: ASPIRIN ENTERIC COATED 81 MG TABLET.DR. PO SCH (08:37)
[2017-12-29] MEDS: ASCORBIC ACID 500 MG TABLET PO SCH (08:37)
[2017-12-29] MEDS: CHOLECALCIFEROL (VITAMIN D3) 1,000 UNIT TABLET PO SCH (08:37)
[2017-12-29] MEDS: OMEGA-3 FATTY ACIDS/FISH OIL 1,000 MG CAPSULE. PO SCH (08:37)
[2017-12-29] MEDS: glyBURIDE 5 MG TABLET PO SCH ×2 (08:38→17:03)
[2017-12-29] MEDS: MULTIVITAMIN with MINERAL TABLET. PO SCH (08:38)
[2017-12-29] MEDS: FUROSEMIDE 40 MG TABLET. PO SCH (08:39)
[2017-12-29] MEDS: RANOLAZINE 500 MG TAB.ER.12H PO SCH ×2 (08:39→21:28)
[2017-12-29] MEDS: LACTOBACILLUS RHAMNOSUS GG 1 CAPSULE. PO SCH ×2 (10:51→21:28)
[2017-12-29 11:00] VITALS: BP 130/78
--- NOTE | 2017-12-29 12:04 | PDOC ---
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 DM Non compliance HTN Fever Leukocytosis History of Present Illness History of Present Illness pt seen and examined wound vac intact pt states she is feeling better today VSS Vitals Vitals Vital Signs Date Time Temp Pulse Resp B/P (MAP) Pulse Ox O2 Delivery O2 Flow Rate FiO2 12/29/17 08:39 80 113/61 12/29/17 08:00 Room Air 12/29/17 07:00 98.7 20 98 98.7 Physical Exam General: Alert, Oriented X3 Heart: Regular rate, Normal S1, Normal S2 Lungs: Clear Abdomen: Normal bowel sounds, Soft Extremities: No clubbing, No cyanosis, Other (dressing on bilateral feet) Skin: No rashes Labs LABS Laboratory Tests Test 12/28/17 16:24 12/28/17 16:50 12/28/17 20:32 12/29/17 06:15 Glucose (Fingerstick) 151 mg/dL (70-99) 232 mg/dL (70-99) Vancomycin Level Trough 20.4 mcg/mL (10.0-20.0) Vancomycin Last Dose Date Unknown Vancomycin Last Dose Time Unknown White Blood Count 9.0 x10^3/uL (4.0-11.0) Red Blood Count 3.38 x10^6/uL (3.50-5.40) Hemoglobin 10.6 g/dL (12.0-15.5) Hematocrit 30.1 % (36.0-47.0) Mean Corpuscular Volume 89 fL (79-100) Mean Corpuscular Hemoglobin 31 pg (25-35) Mean Corpuscular Hemoglobin Concent 35 g/dL (31-37) Red Cell Distribution Width 12.5 % (11.5-14.5) Platelet Count 502 x10^3/uL (140-400) Neutrophils (%) (Auto) 65 % (31-73) Lymphocytes (%) (Auto) 24 % (24-48) Monocytes (%) (Auto) 8 % (0-9) Eosinophils (%) (Auto) 3 % (0-3) Basophils (%) (Auto) 1 % (0-3) Neutrophils # (Auto) 5.8 x10^3uL (1.8-7.7) Lymphocytes # (Auto) 2.2 x10^3/uL (1.0-4.8) Monocytes # (Auto) 0.7 x10^3/uL (0.0-1.1) Eosinophils # (Auto) 0.2 x10^3/uL (0.0-0.7) Basophils # (Auto) 0.1 x10^3/uL (0.0-0.2) Erythrocyte Sedimentation Rate 104 (0-25) Sodium Level 139 mmol/L (136-145) Potassium Level 3.7 mmol/L (3.5-5.1) Chloride Level 104 mmol/L (98-107) Carbon Dioxide Level 30 mmol/L (21-32) Anion Gap 5 (6-14) Blood Urea Nitrogen 18 mg/dL (7-20) Creatinine 0.9 mg/dL (0.6-1.0) Estimated GFR (Cockcroft-Gault) 63.7 Glucose Level 75 mg/dL (70-99) Calcium Level 9.4 mg/dL (8.5-10.1) Test 12/29/17 07:58 Glucose (Fingerstick) 79 mg/dL (70-99) Review of Systems Review of Systems co b/l foot pain no co nausea no co SOW Assessment and Plan Assessmemt and Plan Assessment: Left foot gangrene with infection s/p 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 Labs Laboratory Tests Test 12/27/17 12:06 12/27/17 16:47 12/27/17 17:22 12/27/17 18:30 Glucose (Fingerstick) 157 mg/dL (70-99) 68 mg/dL (70-99) 73 mg/dL (70-99) 77 mg/dL (70-99) Test 12/27/17 20:26 12/27/17 21:18 12/27/17 21:37 12/28/17 05:12 Glucose (Fingerstick) 75 mg/dL (70-99) 77 mg/dL (70-99) 128 mg/dL (70-99) 82 mg/dL (70-99) Test 12/28/17 06:01 12/28/17 08:11 12/28/17 11:24 12/28/17 16:24 Glucose (Fingerstick) 98 mg/dL (70-99) 128 mg/dL (70-99) 273 mg/dL (70-99) 151 mg/dL (70-99) Test 12/28/17 16:50 12/28/17 20:32 12/29/17 06:15 12/29/17 07:58 Vancomycin Level Trough 20.4 mcg/mL (10.0-20.0) Vancomycin Last Dose Date Unknown Vancomycin Last Dose Time Unknown Glucose (Fingerstick) 232 mg/dL (70-99) 79 mg/dL (70-99) White Blood Count 9.0 x10^3/uL (4.0-11.0) Red Blood Count 3.38 x10^6/uL (3.50-5.40) Hemoglobin 10.6 g/dL (12.0-15.5) Hematocrit 30.1 % (36.0-47.0) Mean Corpuscular Volume 89 fL (79-100) Mean Corpuscular Hemoglobin 31 pg (25-35) Mean Corpuscular Hemoglobin Concent 35 g/dL (31-37) Red Cell Distribution Width 12.5 % (11.5-14.5) Platelet Count 502 x10^3/uL (140-400) Neutrophils (%) (Auto) 65 % (31-73) Lymphocytes (%) (Auto) 24 % (24-48) Monocytes (%) (Auto) 8 % (0-9) Eosinophils (%) (Auto) 3 % (0-3) Basophils (%) (Auto) 1 % (0-3) Neutrophils # (Auto) 5.8 x10^3uL (1.8-7.7) Lymphocytes # (Auto) 2.2 x10^3/uL (1.0-4.8) Monocytes # (Auto) 0.7 x10^3/uL (0.0-1.1) Eosinophils # (Auto) 0.2 x10^3/uL (0.0-0.7) Basophils # (Auto) 0.1 x10^3/uL (0.0-0.2) Erythrocyte Sedimentation Rate 104 (0-25) Sodium Level 139 mmol/L (136-145) Potassium Level 3.7 mmol/L (3.5-5.1) Chloride Level 104 mmol/L (98-107) Carbon Dioxide Level 30 mmol/L (21-32) Anion Gap 5 (6-14) Blood Urea Nitrogen 18 mg/dL (7-20) Creatinine 0.9 mg/dL (0.6-1.0) Estimated GFR (Cockcroft-Gault) 63.7 Glucose Level 75 mg/dL (70-99) Calcium Level 9.4 mg/dL (8.5-10.1) Laboratory Tests Test 12/28/17 16:24 12/28/17 16:50 12/28/17 20:32 12/29/17 06:15 Glucose (Fingerstick) 151 mg/dL (70-99) 232 mg/dL (70-99) Vancomycin Level Trough 20.4 mcg/mL (10.0-20.0) Vancomycin Last Dose Date Unknown Vancomycin Last Dose Time Unknown White Blood Count 9.0 x10^3/uL (4.0-11.0) Red Blood Count 3.38 x10^6/uL (3.50-5.40) Hemoglobin 10.6 g/dL (12.0-15.5) Hematocrit 30.1 % (36.0-47.0) Mean Corpuscular Volume 89 fL (79-100) Mean Corpuscular Hemoglobin 31 pg (25-35) Mean Corpuscular Hemoglobin Concent 35 g/dL (31-37) Red Cell Distribution Width 12.5 % (11.5-14.5) Platelet Count 502 x10^3/uL (140-400) Neutrophils (%) (Auto) 65 % (31-73) Lymphocytes (%) (Auto) 24 % (24-48) Monocytes (%) (Auto) 8 % (0-9) Eosinophils (%) (Auto) 3 % (0-3) Basophils (%) (Auto) 1 % (0-3) Neutrophils # (Auto) 5.8 x10^3uL (1.8-7.7) Lymphocytes # (Auto) 2.2 x10^3/uL (1.0-4.8) Monocytes # (Auto) 0.7 x10^3/uL (0.0-1.1) Eosinophils # (Auto) 0.2 x10^3/uL (0.0-0.7) Basophils # (Auto) 0.1 x10^3/uL (0.0-0.2) Erythrocyte Sedimentation Rate 104 (0-25) Sodium Level 139 mmol/L (136-145) Potassium Level 3.7 mmol/L (3.5-5.1) Chloride Level 104 mmol/L (98-107) Carbon Dioxide Level 30 mmol/L (21-32) Anion Gap 5 (6-14) Blood Urea Nitrogen 18 mg/dL (7-20) Creatinine 0.9 mg/dL (0.6-1.0) Estimated GFR (Cockcroft-Gault) 63.7 Glucose Level 75 mg/dL (70-99) Calcium Level 9.4 mg/dL (8.5-10.1) Test 12/29/17 07:58 Glucose (Fingerstick) 79 mg/dL (70-99) Microbiology 12/26/17 Anaerobic/Aerobic Culture - Preliminary, Resulted 12/26/17 Anaerobic Culture Result 1 (JUANA) - Preliminary, Resulted 12/26/17 Aerobic Culture - Preliminary, Resulted 12/26/17 Aerobic Culture Result 1 (JUANA) - Preliminary, Resulted 12/26/17 Aerobic Culture Result 2 (JUANA) - Preliminary, Resulted 12/26/17 Gram Stain - Final, Resulted 12/26/17 Gram Stain Result 1 (JUANA) - Final, Resulted 12/26/17 Gram Stain Result 2 (JUANA) - Final, Resulted 12/26/17 Gram Stain Result 3 (JUANA) - Final, Resulted Medications Current Medications Acetaminophen/ Hydrocodone Bitart (Lortab 5/325) 1 tab PRN Q4HRS PRN PO PAIN Last administered on 12/26/17at 08:21; Start 12/25/17 at 13:15; Stop 12/26/17 at 10:01; Status DC Vancomycin HCl (Vanco Per Pharmacy) 1 each PRN DAILY PRN MC SEE COMMENTS Last administered on 12/28/17at 18:26; Start 12/25/17 at 13:30; Stop 12/29/17 at 10:48 ; Status DC Vancomycin HCl 250 ml @ 250 mls/hr 1X ONCE IV ; Start 12/25/17 at 13:30; Stop 12/25/17 at 14:29; Status UNV Vancomycin HCl 1.75 gm/Sodium Chloride 500 ml @ 250 mls/hr 1X ONCE IV Last administered on 12/25/17 15:28; Start 12/25/17 at 15:00; Stop 12/25/17 at 16:59 ; Status DC Aspirin (Ecotrin) 81 mg DAILY PO Last administered on 12/29/17 08:37; Start at 16:00 Atorvastatin Calcium (Lipitor) 40 mg QHS PO Last administered on 12/28/17 19: 58; Start 12/25/17 at 21:00 Carvedilol (Coreg) 3.125 mg BIDAC PO Last administered on 12/29/17 08:38; Start 12/25/17 at 16:30 Furosemide (Lasix) 40 mg DAILY PO Last administered on 12/29/17 08:39; Start 12/25/17 at 16:00 Gabapentin (Neurontin) 600 mg TID PO Last administered on 12/29/17 08:37; Start 12/25/17 at 21:00 Acetaminophen/ Hydrocodone Bitart (Lortab 5/325) 1 tab PRN Q4HRS PRN PO MODERATE-SEVERE PAIN Last administered on 12/28/17 20:55; Start 12/25/17 at 15: 00 Ranolazine (Ranexa) 500 mg BID PO Last administered on 12/29/17 08:39; Start 12/25/17 at 21:00 Zolpidem Tartrate (Ambien) 5 mg PRN QHS PRN PO INSOMNIA Last administered on 20:55; Start 12/25/17 at 15:00 Non-Formulary Medication (Biotin ) 5,000 mcg DAILY PO ; Start 12/26/17 at 09:00 ; Status UNV Fenofibrate (Lofibra) 134 mg QHS PO Last administered on 12/28/17 19:59; Start 12/26/17 at 21:00 Lisinopril (Prinivil) 5 mg QHS PO Last administered on 12/27/17 21:42; Start 12/25/17 at 21:00 Metformin HCl (Glucophage) 1,000 mg BIDWMEALS PO Last administered on 08:37; Start 12/25/17 at 17:00 Fish Oil (Fish Oil) 1,000 mg DAILY PO Last administered on 12/29/17at 08:37; Start 12/26/17 at 09:00 Pantoprazole Sodium (Protonix) 40 mg PRN DAILY PRN PO HEARTBURN / GAS Last administered on 12/27/17at 03:35; Start 12/26/17 at 07:30 Vitamin D (Vitamin D3) 1,000 unit DAILY PO Last administered on 12/29/17at 08:37 ; Start 12/25/17 at 16:00 Insulin Human Lispro (HumaLOG) 0-5 UNITS TIDWMEALS SQ Last administered on 12/26at 12:32; Start 12/25/17 at 17:00; Stop 12/26/17 at 12:42; Status DC Dextrose (Dextrose 50%-Water Syringe) 12.5 gm PRN Q15MIN PRN IV SEE COMMENTS; Start 12/25/17 at 15:00; Stop 12/26/17 at 12:50; Status DC Vancomycin HCl 1 gm/Sodium Chloride 250 ml @ 250 mls/hr Q12H IV Last administered on 12/26/17at 16:15; Start 12/26/17 at 03:30; Stop 12/27/17 at 04:42 ; Status DC Vancomycin HCl (Vancomycin Trough Level) 1 each 1X ONCE MC Last administered on 12/27/17at 03:00; Start 12/27/17 at 03:00; Stop 12/27/17 at 03:01; Status DC Insulin Human Lispro (HumaLOG) 5 units 1X ONCE SQ Last administered on at 17:07; Start 12/25/17 at 16:00; Stop 12/25/17 at 16:03; Status DC Insulin Human Lispro (HumaLOG) 3 units 1X ONCE SQ Last administered on at 21:39; Start 12/25/17 at 21:30; Stop 12/25/17 at 21:31; Status DC Acetaminophen (Tylenol) 650 mg PRN Q6HRS PRN PO FEVER; Start 12/25/17 at 23:00 Enoxaparin Sodium (Lovenox 40mg Syringe) 40 mg Q24H SQ Last administered on at 17:06; Start 12/26/17 at 17:00 Cefazolin Sodium 1 gm/Sodium Chloride 500 ml @ 500 mls/hr 1X ONCE IRR Last administered on 12/26/17at 11:11; Start 12/26/17 at 10:00; Stop 12/26/17 at 10:59 ; Status DC Insulin Aspart (NovoLOG VIAL) 5 unit 1X ONCE SQ Last administered on at 10:08; Start 12/26/17 at 10:00; Stop 12/26/17 at 10:06; Status DC Ondansetron HCl (Zofran) 4 mg PRN Q6HRS PRN IV NAUSEA/VOMITING; Start 12/26/17 at 10:00; Stop 12/27/17 at 09:59; Status DC Fentanyl Citrate (Fentanyl 2ml Vial) 25 mcg PRN Q5MIN PRN IV MILD PAIN; Start 12/26/17 at 10:00; Stop 12/27/17 at 09:59; Status DC Fentanyl Citrate (Fentanyl 2ml Vial) 50 mcg PRN Q5MIN PRN IV MODERATE TO SEVERE PAIN; Start 12/26/17 at 10:00; Stop 12/27/17 at 09:59; Status DC Morphine Sulfate (Morphine Sulfate) 1 mg PRN Q10MIN PRN IV SEVERE PAIN; Start 12/26/17 at 10:00; Stop 12/27/17 at 09:59; Status DC Ringer's Solution 1,000 ml @ 30 mls/hr Q24H IV Last administered on 12/26/17at 10:01; Start 12/26/17 at 09:57; Stop 12/26/17 at 21:56; Status DC Lidocaine HCl (Xylocaine-Mpf 1% 2ml Vial) 2 ml PRN 1X PRN ID PRIOR TO IV START ; Start 12/26/17 at 10:00; Stop 12/27/17 at 09:59; Status DC Prochlorperazine Edisylate (Compazine) 5 mg PACU PRN PRN IV NAUSEA, MRX1; Start 12/26/17 at 10:00; Stop 12/27/17 at 09:59; Status DC Propofol 0 ml @ As Directed STK-MED ONCE IV ; Start 12/26/17 at 10:00; Stop at 10:01; Status DC Famotidine (Pepcid Vial) 20 mg STK-MED ONCE .ROUTE ; Start 12/26/17 at 10:01; Stop 12/26/17 at 10:02; Status DC Dexamethasone Sodium Phosphate (Decadron) 20 mg STK-MED ONCE .ROUTE ; Start at 10:01; Stop 12/26/17 at 10:02; Status DC Propofol 20 ml @ As Directed STK-MED ONCE IV ; Start 12/26/17 at 10:01; Stop at 10:02; Status DC Lidocaine HCl (Lidocaine Pf 2% Vial) 5 ml STK-MED ONCE .ROUTE ; Start 12/26/17 at 10:01; Stop 12/26/17 at 10:03; Status DC Succinylcholine Chloride (Anectine) 200 mg STK-MED ONCE .ROUTE ; Start 12/26/17 at 10:02; Stop 12/26/17 at 10:04; Status DC Fentanyl Citrate (Fentanyl 2ml Vial) 100 mcg STK-MED ONCE .ROUTE ; Start at 10:05; Stop 12/26/17 at 10:06; Status DC Ondansetron HCl (Zofran) 4 mg STK-MED ONCE .ROUTE ; Start 12/26/17 at 10:06; Stop 12/26/17 at 10:07; Status DC Cellulose (Surgicel Fibrillar 1x2) 1 each STK-MED ONCE .ROUTE ; Start 12/26/17 at 09:16; Stop 12/26/17 at 10:18; Status DC Lidocaine HCl (Xylocaine 1% Pf 30ml Vial) 30 ml STK-MED ONCE .ROUTE ; Start at 09:16; Stop 12/26/17 at 10:18; Status DC Ephedrine Sulfate (ePHEDrine PF IN SALINE SYRINGE) 50 mg STK-MED ONCE IV ; Start 12/26/17 at 10:41; Stop 12/26/17 at 10:42; Status DC Hydralazine HCl (Apresoline Inj) 10 mg PRN Q4HRS PRN IVP ELEVATED BP, SEE COMMENTS; Start 12/26/17 at 11:15 Morphine Sulfate (Morphine Sulfate) 2 mg PRN Q2HR PRN IV PAIN; Start 12/26/17 at 11:15 Piperacillin Sod/ Tazobactam Sod 3.375 gm/Sodium Chloride 50 ml @ 100 mls/hr Q6HRS IV Last administered on 12/29/17at 07:21; Start 12/26/17 at 13:00 Insulin Human Lispro (HumaLOG) 0-9 UNITS TIDWMEALS SQ Last administered on 12/28at 17:13; Start 12/26/17 at 17:00 Dextrose (Dextrose 50%-Water Syringe) 12.5 gm PRN Q15MIN PRN IV SEE COMMENTS Last administered on 12/27/17at 21:22; Start 12/26/17 at 12:45 Glyburide (Diabeta) 5 mg BIDWMEALS PO Last administered on 12/27/17at 07:53; Start 12/26/17 at 17:00; Stop 12/27/17 at 08:48; Status DC Insulin Glargine (Lantus) 30 units QHS SQ Last administered on 12/26/17at 20:36 ; Start 12/26/17 at 21:00; Stop 12/28/17 at 08:47; Status DC Insulin Human Lispro (HumaLOG) 3 units 1X ONCE SQ ; Start 12/26/17 at 17:15; Stop 12/26/17 at 17:27; Status DC Insulin Human Lispro (HumaLOG) 4 units 1X ONCE SQ Last administered on at 20:36; Start 12/26/17 at 20:30; Stop 12/26/17 at 20:31; Status DC Vancomycin HCl 1.25 gm/Sodium Chloride 250 ml @ 167 mls/hr Q12H IV Last administered on 12/28/17at 04:56; Start 12/27/17 at 05:00; Stop 12/28/17 at 17:34 ; Status DC Vancomycin HCl (Vancomycin Trough Level) 1 each 1X ONCE MC Last administered on 12/28/17at 16:30; Start 12/28/17 at 16:30; Stop 12/28/17 at 16:31; Status DC Insulin Human Lispro (HumaLOG) 10 units TIDWMEALS SQ Last administered on at 12:23; Start 12/27/17 at 12:00; Stop 12/28/17 at 08:47; Status DC Iodixanol (Visipaque 320) 100 ml STK-MED ONCE .ROUTE ; Start 12/27/17 at 09:21; Stop 12/27/17 at 09:22; Status DC Lidocaine/Sodium Bicarbonate (Buffered Lidocaine 1%) 3 ml STK-MED ONCE .ROUTE ; Start 12/27/17 at 09:22; Stop 12/27/17 at 09:23; Status DC Midazolam HCl (Versed) 2 mg STK-MED ONCE .ROUTE ; Start 12/27/17 at 09:22; Stop 12/27/17 at 09:23; Status DC Fentanyl Citrate (Fentanyl 2ml Vial) 100 mcg STK-MED ONCE .ROUTE ; Start at 09:22; Stop 12/27/17 at 09:24; Status DC Heparin Sodium (Porcine) (Heparin Sodium) 10,000 unit STK-MED ONCE .ROUTE ; Start 12/27/17 at 09:22; Stop 12/27/17 at 09:24; Status DC Iodixanol (Visipaque 320) 50 ml STK-MED ONCE .ROUTE ; Start 12/27/17 at 09:22; Stop 12/27/17 at 09:24; Status DC Heparin Sodium/ Sodium Chloride 500 ml @ As Directed STK-MED ONCE .ROUTE ; Start 12/27/17 at 09:23; Stop 12/27/17 at 09:24; Status DC Heparin Sodium/ Sodium Chloride 1,000 ml @ As Directed STK-MED ONCE .ROUTE ; Start 12/27/17 at 09:23; Stop 12/27/17 at 09:25; Status DC Lidocaine/Sodium Bicarbonate (Buffered Lidocaine 1%) 3 ml STK-MED ONCE .ROUTE ; Start 12/27/17 at 09:29; Stop 12/27/17 at 09:30; Status DC Heparin Sodium/ Sodium Chloride (HEPARIN for ARTERIAL LINE FLUSH) 1,000 unit 1X ONCE IART Last administered on 12/27/17at 09:45; Start 12/27/17 at 09:45; Stop 12/27/17 at 09:46; Status DC Heparin Sodium/ Sodium Chloride (HEPARIN for ARTERIAL LINE FLUSH) 1,000 unit 1X ONCE IART Last administered on 12/27/17at 09:45; Start 12/27/17 at 09:45; Stop 12/27/17 at 09:46; Status DC Lidocaine/Sodium Bicarbonate (Buffered Lidocaine 1%) 3 ml 1X ONCE IJ Last administered on 12/27/17at 09:45; Start 12/27/17 at 09:45; Stop 12/27/17 at 09:46 ; Status DC Midazolam HCl (Versed) 2 mg 1X ONCE IV Last administered on 12/27/17at 09:45; Start 12/27/17 at 09:45; Stop 12/27/17 at 09:46; Status DC Fentanyl Citrate (Fentanyl 2ml Vial) 100 mcg 1X ONCE IV Last administered on at 09:45; Start 12/27/17 at 09:45; Stop 12/27/17 at 09:46; Status DC Iodixanol (Visipaque 320) 100 ml 1X ONCE IART Last administered on 12/27/17at 09:45; Start 12/27/17 at 09:45; Stop 12/27/17 at 09:46; Status DC Info (CONTRAST GIVEN -- Rx MONITORING) 1 each PRN DAILY PRN MC SEE COMMENTS; Start 12/27/17 at 09:45; Stop 12/29/17 at 09:44; Status DC Midazolam HCl (Versed) 2 mg STK-MED ONCE .ROUTE ; Start 12/27/17 at 10:25; Stop 12/27/17 at 10:27; Status DC Hydralazine HCl (Apresoline Inj) 20 mg STK-MED ONCE .ROUTE ; Start 12/27/17 at 10:44; Stop 12/27/17 at 10:45; Status DC Fentanyl Citrate (Fentanyl 2ml Vial) 100 mcg STK-MED ONCE .ROUTE ; Start at 11:05; Stop 12/27/17 at 11:06; Status DC Heparin Sodium (Porcine) (Heparin Sodium) 4,000 unit 1X ONCE IV Last administered on 12/27/17at 11:15; Start 12/27/17 at 11:15; Stop 12/27/17 at 11:16 ; Status DC Hydralazine HCl (Apresoline Inj) 5 mg 1X ONCE IVP Last administered on at 11:15; Start 12/27/17 at 11:15; Stop 12/27/17 at 11:16; Status DC Clopidogrel Bisulfate (Plavix) 75 mg DAILYWBKFT PO Last administered on at 08:37; Start 12/28/17 at 08:00 Multivitamins (Thera M Plus) 1 tab DAILY PO Last administered on 12/29/17at 08: 38; Start 12/28/17 at 09:00 Ascorbic Acid (Vitamin C) 500 mg DAILY PO Last administered on 12/29/17at 08:37 ; Start 12/28/17 at 09:00 Lactobacillus Rhamnosus (Culturelle) 1 cap BID PO Last administered on at 10:51; Start 12/27/17 at 21:00 Insulin Glargine (Lantus) 25 units QHS SQ Last administered on 12/28/17at 21:00 ; Start 12/28/17 at 21:00 Glyburide (Diabeta) 5 mg BIDWMEALS PO Last administered on 12/29/17at 08:38; Start 12/28/17 at 09:00 Vancomycin HCl 1 gm/Sodium Chloride 250 ml @ 250 mls/hr Q12H IV Last administered on 12/29/17at 04:36; Start 12/29/17 at 05:00; Stop 12/29/17 at 10:48 ; Status DC Active Scripts Active Hydrocodone-Apap 5-325 (Hydrocodone Bit/Acetaminophen) 1 Each Tablet 1 Tab PO PRN Q4HRS PRN Amoxicillin 875 Mg Tablet 875 Mg PO BID Lasix (Furosemide) 40 Mg Tablet 1 Tab PO DAILY Ranexa (Ranolazine) 500 Mg Tab.er.12h 1 Tab PO BID Lipitor (Atorvastatin Calcium) 40 Mg Tablet 40 Mg PO QHS Reported Lantus Solostar (Insulin Glargine,Hum.rec.anlog) 100 Unit/1 Ml Insuln.pen 25 Unit SQ QHS Carvedilol 3.125 Mg Tablet 1 Tab PO BID Gabapentin 100 Mg Capsule 180 Mg PO TID Aspirin Ec (Aspirin) 81 Mg Tablet.dr 1 Tab PO DAILY Biotin 5,000 Mcg Tab.rapdis 5,000 Mcg PO DAILY Omeprazole 40 Mg Capsule.dr 40 Mg PO PRN DAILY PRN Fenofibrate (Fenofibrate,Micronized) 134 Mg Capsule 134 Mg PO HS Lisinopril 5 Mg Tablet 1 Tab PO HS Zolpidem Tartrate 5 Mg Tablet 5 Mg PO PRN QHS PRN Vitamin D (Cholecalciferol (Vitamin D3)) 1,000 Unit Capsule 1,000 Unit PO Metformin Hcl 1,000 Mg Tablet 1 Tab PO BID Fish Oil 1,000 Mg Softgel ([place]-3/Dha/Epa/Fish Oil) 1 Each Capsule 1 Each PO DAILY Vitals/I & O Vital Sign - Last 24 Hours 12/28/17 12/28/17 12/28/17 12/28/17 14:59 15:00 17:05 19:00 Temp 98.8 99.0 98.8 99.0 Pulse 87 87 88 Resp 16 20 18 B/P (MAP) 156/75 (102) 156/75 112/64 (80) Pulse Ox 99 97 O2 Delivery Room Air Room Air Room Air 12/28/17 12/28/17 12/28/17 12/28/17 20:00 20:01 20:55 21:00 Pulse 87 88 Resp 16 B/P (MAP) 156/75 112/64 O2 Delivery Room Air Room Air 12/28/17 12/28/17 12/29/17 12/29/17 21:55 23:00 03:00 06:17 Temp 98.6 98.6 98.6 98.6 Pulse 83 79 Resp 18 18 B/P (MAP) 117/63 (81) 117/58 (77) 133/77 Pulse Ox 96 96 O2 Delivery Room Air Room Air Room Air 12/29/17 12/29/17 12/29/17 12/29/17 07:00 08:00 08:38 08:39 Temp 98.7 98.7 Pulse 80 80 80 Resp 20 B/P (MAP) 113/61 (78) 113/61 113/61 Pulse Ox 98 O2 Delivery Room Air Room Air Intake and Output 12/28/17 12/28/17 12/29/17 15:00 23:00 07:00 Intake Total 640 ml 920 ml Output Total 800 ml Balance 640 ml 120 ml MIGUE HOOD III DO Dec 29, 2017 12:04
[2017-12-29] MEDS: HYDROcodone/APAP 5/325MG 1 TAB TABLET PO PRN ×2 (12:28→21:28)
[2017-12-29 15:00] VITALS: BP 123/62
--- NOTE | 2017-12-29 15:27 | PDOC ---
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 Patient is s/p AARO with left leg PT angioplasty, bypass graft patent without stenosis. Recommend wound vac and antibiotic therapy. Recommend dual antiplatelet therapy with ASA and Plavix. Recommend front off loading 1/2 shoe left foot. Patient will need f/u KRISTEN/office visit. 01/18/2018 9:10 MALA JAMISON LEASING AGENT Dec 29, 2017 15:27
[2017-12-29] MEDS: ENOXAPARIN 40 MG/0.4 ML SYRINGE. SQ SCH (18:40)
[2017-12-29 19:50] VITALS: BP 106/67
[2017-12-29] MEDS: FENOFIBRATE,MICRONIZED 134 MG CAPSULE PO SCH (21:28)
[2017-12-29] MEDS: ATORVASTATIN CALCIUM 40 MG TABLET. PO SCH (21:28)
[2017-12-29] MEDS: LISINOPRIL 5 MG TABLET. PO SCH (21:33)
[2017-12-29] MEDS: ZOLPIDEM 5 MG TABLET. PO PRN (21:33)
[2017-12-29] MEDS: INSULIN GLARGINE 300 UNITS/3 ML INSULN.PEN. SQ SCH (21:38)
[2017-12-29 23:00] VITALS: BP 106/67
[2017-12-30] MEDS: PIPERACILLIN/TAZOBACTAM 3.375 GM in IV NORMAL SALINE 50ML 50 ML IV SCH ×5 (00:06→22:44)
[2017-12-30] MEDS: ACETAMINOPHEN 325 MG TABLET. PO PRN (00:06)
[2017-12-30 03:00] VITALS: BP 108/59
[2017-12-30 06:06] LABS: CALCIUM 9.6 mg/dL (8.5-10.1); CREATININE 0.9 mg/dL (0.6-1.0); GFR 63.7; POTASSIUM 4.3 mmol/L (3.5-5.1)
[2017-12-30 06:17] LABS: BASO # 0.1 x10^3/uL (0.0-0.2); BASO % 1 % (0-3); EOS # 0.3 x10^3/uL (0.0-0.7); EOS % 3 % (0-3); HEMATOCRIT 28.7 % (36.0-47.0); LYMPH # 2.6 x10^3/uL (1.0-4.8); LYMPH % 29 % (24-48); MEAN CORPUSCULAR HEMOGLOBIN 31 pg (25-35); MEAN CORPUSCULAR HGB CONC 35 g/dL (31-37); MEAN CORPUSCULAR VOLUME 90 fL (79-100); MONO # 0.7 x10^3/uL (0.0-1.1); MONO % 8 % (0-9); NEUT # 5.5 x10^3uL (1.8-7.7); NEUT % 59 % (31-73); PLATELET COUNT 490 x10^3/uL (140-400); RED BLOOD COUNT 3.19 x10^6/uL (3.50-5.40); RED CELL DISTRIBUTION WIDTH 12.4 % (11.5-14.5); WHITE BLOOD COUNT 9.2 x10^3/uL (4.0-11.0)
[2017-12-30 07:00] VITALS: BP 118/63
[2017-12-30] MEDS: CARVEDILOL 3.125 MG TABLET. PO SCH ×3 (07:30→17:41)
[2017-12-30] MEDS: INSULIN LISPRO 300 UNITS/3 ML INSULN.PEN. SQ SCH ×3 (08:00→17:53)
[2017-12-30] MEDS: glyBURIDE 5 MG TABLET PO SCH ×2 (09:54→17:40)
[2017-12-30] MEDS: ASCORBIC ACID 500 MG TABLET PO SCH (09:54)
[2017-12-30] MEDS: CLOPIDOGREL BISULFATE 75 MG TABLET PO SCH (09:55)
[2017-12-30] MEDS: MULTIVITAMIN with MINERAL TABLET. PO SCH (09:55)
[2017-12-30] MEDS: FUROSEMIDE 40 MG TABLET. PO SCH (09:55)
[2017-12-30] MEDS: OMEGA-3 FATTY ACIDS/FISH OIL 1,000 MG CAPSULE. PO SCH (09:56)
[2017-12-30] MEDS: LACTOBACILLUS RHAMNOSUS GG 1 CAPSULE. PO SCH ×2 (09:56→22:00)
[2017-12-30] MEDS: GABAPENTIN 300 MG CAPSULE. PO SCH ×3 (09:56→21:59)
[2017-12-30] MEDS: RANOLAZINE 500 MG TAB.ER.12H PO SCH ×2 (09:59→21:59)
[2017-12-30] MEDS: CHOLECALCIFEROL (VITAMIN D3) 1,000 UNIT TABLET PO SCH (09:59)
[2017-12-30] MEDS: ASPIRIN ENTERIC COATED 81 MG TABLET.DR. PO SCH (10:21)
[2017-12-30 11:00] VITALS: BP 140/70
--- NOTE | 2017-12-30 11:56 | PDOC ---
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 DM Non compliance HTN Fever Leukocytosis History of Present Illness History of Present Illness pt seen and examined wound vac running pt states she had an upset stomach after eating VSS Vitals Vitals Vital Signs Date Time Temp Pulse Resp B/P (MAP) Pulse Ox O2 Delivery O2 Flow Rate FiO2 12/30/17 11:00 98.5 18 18 140/70 (93) 97 Room Air 98.5 Physical Exam General: Alert, Oriented X3 Heart: Regular rate, Normal S1, Normal S2 Lungs: Clear Abdomen: Normal bowel sounds, Soft Extremities: No clubbing, No cyanosis, Other (dressing on bilateral feet) Skin: No rashes Labs LABS Laboratory Tests Test 12/29/17 12:03 12/29/17 16:25 12/29/17 21:23 12/29/17 23:24 Glucose (Fingerstick) 212 mg/dL (70-99) 181 mg/dL (70-99) 93 mg/dL (70-99) 98 mg/dL (70-99) Test 12/30/17 00:07 12/30/17 05:10 12/30/17 07:26 Glucose (Fingerstick) 117 mg/dL (70-99) 195 mg/dL (70-99) White Blood Count 9.2 x10^3/uL (4.0-11.0) Red Blood Count 3.19 x10^6/uL (3.50-5.40) Hemoglobin 10.0 g/dL (12.0-15.5) Hematocrit 28.7 % (36.0-47.0) Mean Corpuscular Volume 90 fL (79-100) Mean Corpuscular Hemoglobin 31 pg (25-35) Mean Corpuscular Hemoglobin Concent 35 g/dL (31-37) Red Cell Distribution Width 12.4 % (11.5-14.5) Platelet Count 490 x10^3/uL (140-400) Neutrophils (%) (Auto) 59 % (31-73) Lymphocytes (%) (Auto) 29 % (24-48) Monocytes (%) (Auto) 8 % (0-9) Eosinophils (%) (Auto) 3 % (0-3) Basophils (%) (Auto) 1 % (0-3) Neutrophils # (Auto) 5.5 x10^3uL (1.8-7.7) Lymphocytes # (Auto) 2.6 x10^3/uL (1.0-4.8) Monocytes # (Auto) 0.7 x10^3/uL (0.0-1.1) Eosinophils # (Auto) 0.3 x10^3/uL (0.0-0.7) Basophils # (Auto) 0.1 x10^3/uL (0.0-0.2) Sodium Level 141 mmol/L (136-145) Potassium Level 4.3 mmol/L (3.5-5.1) Chloride Level 105 mmol/L (98-107) Carbon Dioxide Level 29 mmol/L (21-32) Anion Gap 7 (6-14) Blood Urea Nitrogen 20 mg/dL (7-20) Creatinine 0.9 mg/dL (0.6-1.0) Estimated GFR (Cockcroft-Gault) 63.7 Glucose Level 167 mg/dL (70-99) Calcium Level 9.6 mg/dL (8.5-10.1) Review of Systems Review of Systems co mild abd pain no V/D no fever no SOW no SOB Assessment and Plan Assessmemt and Plan Assessment: 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 Labs Laboratory Tests Test 12/28/17 16:24 12/28/17 16:50 12/28/17 20:32 12/29/17 06:15 Glucose (Fingerstick) 151 mg/dL (70-99) 232 mg/dL (70-99) Vancomycin Level Trough 20.4 mcg/mL (10.0-20.0) Vancomycin Last Dose Date Unknown Vancomycin Last Dose Time Unknown White Blood Count 9.0 x10^3/uL (4.0-11.0) Red Blood Count 3.38 x10^6/uL (3.50-5.40) Hemoglobin 10.6 g/dL (12.0-15.5) Hematocrit 30.1 % (36.0-47.0) Mean Corpuscular Volume 89 fL (79-100) Mean Corpuscular Hemoglobin 31 pg (25-35) Mean Corpuscular Hemoglobin Concent 35 g/dL (31-37) Red Cell Distribution Width 12.5 % (11.5-14.5) Platelet Count 502 x10^3/uL (140-400) Neutrophils (%) (Auto) 65 % (31-73) Lymphocytes (%) (Auto) 24 % (24-48) Monocytes (%) (Auto) 8 % (0-9) Eosinophils (%) (Auto) 3 % (0-3) Basophils (%) (Auto) 1 % (0-3) Neutrophils # (Auto) 5.8 x10^3uL (1.8-7.7) Lymphocytes # (Auto) 2.2 x10^3/uL (1.0-4.8) Monocytes # (Auto) 0.7 x10^3/uL (0.0-1.1) Eosinophils # (Auto) 0.2 x10^3/uL (0.0-0.7) Basophils # (Auto) 0.1 x10^3/uL (0.0-0.2) Erythrocyte Sedimentation Rate 104 (0-25) Sodium Level 139 mmol/L (136-145) Potassium Level 3.7 mmol/L (3.5-5.1) Chloride Level 104 mmol/L (98-107) Carbon Dioxide Level 30 mmol/L (21-32) Anion Gap 5 (6-14) Blood Urea Nitrogen 18 mg/dL (7-20) Creatinine 0.9 mg/dL (0.6-1.0) Estimated GFR (Cockcroft-Gault) 63.7 Glucose Level 75 mg/dL (70-99) Calcium Level 9.4 mg/dL (8.5-10.1) Test 12/29/17 07:58 12/29/17 12:03 12/29/17 16:25 12/29/17 21:23 Glucose (Fingerstick) 79 mg/dL (70-99) 212 mg/dL (70-99) 181 mg/dL (70-99) 93 mg/dL (70-99) Test 12/29/17 23:24 12/30/17 00:07 12/30/17 05:10 12/30/17 07:26 Glucose (Fingerstick) 98 mg/dL (70-99) 117 mg/dL (70-99) 195 mg/dL (70-99) White Blood Count 9.2 x10^3/uL (4.0-11.0) Red Blood Count 3.19 x10^6/uL (3.50-5.40) Hemoglobin 10.0 g/dL (12.0-15.5) Hematocrit 28.7 % (36.0-47.0) Mean Corpuscular Volume 90 fL (79-100) Mean Corpuscular Hemoglobin 31 pg (25-35) Mean Corpuscular Hemoglobin Concent 35 g/dL (31-37) Red Cell Distribution Width 12.4 % (11.5-14.5) Platelet Count 490 x10^3/uL (140-400) Neutrophils (%) (Auto) 59 % (31-73) Lymphocytes (%) (Auto) 29 % (24-48) Monocytes (%) (Auto) 8 % (0-9) Eosinophils (%) (Auto) 3 % (0-3) Basophils (%) (Auto) 1 % (0-3) Neutrophils # (Auto) 5.5 x10^3uL (1.8-7.7) Lymphocytes # (Auto) 2.6 x10^3/uL (1.0-4.8) Monocytes # (Auto) 0.7 x10^3/uL (0.0-1.1) Eosinophils # (Auto) 0.3 x10^3/uL (0.0-0.7) Basophils # (Auto) 0.1 x10^3/uL (0.0-0.2) Sodium Level 141 mmol/L (136-145) Potassium Level 4.3 mmol/L (3.5-5.1) Chloride Level 105 mmol/L (98-107) Carbon Dioxide Level 29 mmol/L (21-32) Anion Gap 7 (6-14) Blood Urea Nitrogen 20 mg/dL (7-20) Creatinine 0.9 mg/dL (0.6-1.0) Estimated GFR (Cockcroft-Gault) 63.7 Glucose Level 167 mg/dL (70-99) Calcium Level 9.6 mg/dL (8.5-10.1) Laboratory Tests Test 12/29/17 12:03 12/29/17 16:25 12/29/17 21:23 12/29/17 23:24 Glucose (Fingerstick) 212 mg/dL (70-99) 181 mg/dL (70-99) 93 mg/dL (70-99) 98 mg/dL (70-99) Test 12/30/17 00:07 12/30/17 05:10 12/30/17 07:26 Glucose (Fingerstick) 117 mg/dL (70-99) 195 mg/dL (70-99) White Blood Count 9.2 x10^3/uL (4.0-11.0) Red Blood Count 3.19 x10^6/uL (3.50-5.40) Hemoglobin 10.0 g/dL (12.0-15.5) Hematocrit 28.7 % (36.0-47.0) Mean Corpuscular Volume 90 fL (79-100) Mean Corpuscular Hemoglobin 31 pg (25-35) Mean Corpuscular Hemoglobin Concent 35 g/dL (31-37) Red Cell Distribution Width 12.4 % (11.5-14.5) Platelet Count 490 x10^3/uL (140-400) Neutrophils (%) (Auto) 59 % (31-73) Lymphocytes (%) (Auto) 29 % (24-48) Monocytes (%) (Auto) 8 % (0-9) Eosinophils (%) (Auto) 3 % (0-3) Basophils (%) (Auto) 1 % (0-3) Neutrophils # (Auto) 5.5 x10^3uL (1.8-7.7) Lymphocytes # (Auto) 2.6 x10^3/uL (1.0-4.8) Monocytes # (Auto) 0.7 x10^3/uL (0.0-1.1) Eosinophils # (Auto) 0.3 x10^3/uL (0.0-0.7) Basophils # (Auto) 0.1 x10^3/uL (0.0-0.2) Sodium Level 141 mmol/L (136-145) Potassium Level 4.3 mmol/L (3.5-5.1) Chloride Level 105 mmol/L (98-107) Carbon Dioxide Level 29 mmol/L (21-32) Anion Gap 7 (6-14) Blood Urea Nitrogen 20 mg/dL (7-20) Creatinine 0.9 mg/dL (0.6-1.0) Estimated GFR (Cockcroft-Gault) 63.7 Glucose Level 167 mg/dL (70-99) Calcium Level 9.6 mg/dL (8.5-10.1) Microbiology 12/26/17 Anaerobic/Aerobic Culture - Preliminary, Resulted 12/26/17 Anaerobic Culture Result 1 (JUANA) - Preliminary, Resulted 12/26/17 Aerobic Culture - Preliminary, Resulted 12/26/17 Aerobic Culture Result 1 (JUANA) - Preliminary, Resulted 12/26/17 Aerobic Culture Result 2 (JUANA) - Preliminary, Resulted 12/26/17 Aerobic Culture Result 3 (JUANA) - Preliminary, Resulted 12/26/17 Antimicrobic Susceptibility - Preliminary, Resulted 12/26/17 Gram Stain - Final, Resulted 12/26/17 Gram Stain Result 1 (JUANA) - Final, Resulted 12/26/17 Gram Stain Result 2 (JUANA) - Final, Resulted 12/26/17 Gram Stain Result 3 (JUANA) - Final, Resulted Medications Current Medications Acetaminophen/ Hydrocodone Bitart (Lortab 5/325) 1 tab PRN Q4HRS PRN PO PAIN Last administered on 12/26/17at 08:21; Start 12/25/17 at 13:15; Stop 12/26/17 at 10:01; Status DC Vancomycin HCl (Vanco Per Pharmacy) 1 each PRN DAILY PRN MC SEE COMMENTS Last administered on 12/28/17at 18:26; Start 12/25/17 at 13:30; Stop 12/29/17 at 10:48 ; Status DC Vancomycin HCl 250 ml @ 250 mls/hr 1X ONCE IV ; Start 12/25/17 at 13:30; Stop 12/25/17 at 14:29; Status UNV Vancomycin HCl 1.75 gm/Sodium Chloride 500 ml @ 250 mls/hr 1X ONCE IV Last administered on 12/25/17at 15:28; Start 12/25/17 at 15:00; Stop 12/25/17 at 16:59 ; Status DC Aspirin (Ecotrin) 81 mg DAILY PO Last administered on 12/30/17at 10:21; Start at 16:00 Atorvastatin Calcium (Lipitor) 40 mg QHS PO Last administered on 12/29/17 21: 28; Start 12/25/17 at 21:00 Carvedilol (Coreg) 3.125 mg BIDAC PO Last administered on 12/29/17 08:38; Start 12/25/17 at 16:30 Furosemide (Lasix) 40 mg DAILY PO Last administered on 12/30/17 09:55; Start 12/25/17 at 16:00 Gabapentin (Neurontin) 600 mg TID PO Last administered on 12/30/17 09:56; Start 12/25/17 at 21:00 Acetaminophen/ Hydrocodone Bitart (Lortab 5/325) 1 tab PRN Q4HRS PRN PO MODERATE-SEVERE PAIN Last administered on 12/29/17 21:28; Start 12/25/17 at 15: 00 Ranolazine (Ranexa) 500 mg BID PO Last administered on 12/30/17 09:59; Start 12/25/17 at 21:00 Zolpidem Tartrate (Ambien) 5 mg PRN QHS PRN PO INSOMNIA Last administered on 21:33; Start 12/25/17 at 15:00 Non-Formulary Medication (Biotin ) 5,000 mcg DAILY PO ; Start 12/26/17 at 09:00 ; Status UNV Fenofibrate (Lofibra) 134 mg QHS PO Last administered on 12/29/17 21:28; Start 12/26/17 at 21:00 Lisinopril (Prinivil) 5 mg QHS PO Last administered on 12/27/17 21:42; Start 12/25/17 at 21:00 Metformin HCl (Glucophage) 1,000 mg BIDWMEALS PO Last administered on 09:55; Start 12/25/17 at 17:00 Fish Oil (Fish Oil) 1,000 mg DAILY PO Last administered on 12/30/17 09:56; Start 12/26/17 at 09:00 Pantoprazole Sodium (Protonix) 40 mg PRN DAILY PRN PO HEARTBURN / GAS Last administered on 12/27/17 03:35; Start 12/26/17 at 07:30 Vitamin D (Vitamin D3) 1,000 unit DAILY PO Last administered on 12/30/17at 09:59 ; Start 12/25/17 at 16:00 Insulin Human Lispro (HumaLOG) 0-5 UNITS TIDWMEALS SQ Last administered on 12/26at 12:32; Start 12/25/17 at 17:00; Stop 12/26/17 at 12:42; Status DC Dextrose (Dextrose 50%-Water Syringe) 12.5 gm PRN Q15MIN PRN IV SEE COMMENTS; Start 12/25/17 at 15:00; Stop 12/26/17 at 12:50; Status DC Vancomycin HCl 1 gm/Sodium Chloride 250 ml @ 250 mls/hr Q12H IV Last administered on 12/26/17at 16:15; Start 12/26/17 at 03:30; Stop 12/27/17 at 04:42 ; Status DC Vancomycin HCl (Vancomycin Trough Level) 1 each 1X ONCE MC Last administered on 12/27/17at 03:00; Start 12/27/17 at 03:00; Stop 12/27/17 at 03:01; Status DC Insulin Human Lispro (HumaLOG) 5 units 1X ONCE SQ Last administered on at 17:07; Start 12/25/17 at 16:00; Stop 12/25/17 at 16:03; Status DC Insulin Human Lispro (HumaLOG) 3 units 1X ONCE SQ Last administered on at 21:39; Start 12/25/17 at 21:30; Stop 12/25/17 at 21:31; Status DC Acetaminophen (Tylenol) 650 mg PRN Q6HRS PRN PO FEVER Last administered on 12/30at 00:06; Start 12/25/17 at 23:00 Enoxaparin Sodium (Lovenox 40mg Syringe) 40 mg Q24H SQ Last administered on at 18:40; Start 12/26/17 at 17:00 Cefazolin Sodium 1 gm/Sodium Chloride 500 ml @ 500 mls/hr 1X ONCE IRR Last administered on 12/26/17at 11:11; Start 12/26/17 at 10:00; Stop 12/26/17 at 10:59 ; Status DC Insulin Aspart (NovoLOG VIAL) 5 unit 1X ONCE SQ Last administered on at 10:08; Start 12/26/17 at 10:00; Stop 12/26/17 at 10:06; Status DC Ondansetron HCl (Zofran) 4 mg PRN Q6HRS PRN IV NAUSEA/VOMITING; Start 12/26/17 at 10:00; Stop 12/27/17 at 09:59; Status DC Fentanyl Citrate (Fentanyl 2ml Vial) 25 mcg PRN Q5MIN PRN IV MILD PAIN; Start 12/26/17 at 10:00; Stop 12/27/17 at 09:59; Status DC Fentanyl Citrate (Fentanyl 2ml Vial) 50 mcg PRN Q5MIN PRN IV MODERATE TO SEVERE PAIN; Start 12/26/17 at 10:00; Stop 12/27/17 at 09:59; Status DC Morphine Sulfate (Morphine Sulfate) 1 mg PRN Q10MIN PRN IV SEVERE PAIN; Start 12/26/17 at 10:00; Stop 12/27/17 at 09:59; Status DC Ringer's Solution 1,000 ml @ 30 mls/hr Q24H IV Last administered on 12/26/17at 10:01; Start 12/26/17 at 09:57; Stop 12/26/17 at 21:56; Status DC Lidocaine HCl (Xylocaine-Mpf 1% 2ml Vial) 2 ml PRN 1X PRN ID PRIOR TO IV START ; Start 12/26/17 at 10:00; Stop 12/27/17 at 09:59; Status DC Prochlorperazine Edisylate (Compazine) 5 mg PACU PRN PRN IV NAUSEA, MRX1; Start 12/26/17 at 10:00; Stop 12/27/17 at 09:59; Status DC Propofol 0 ml @ As Directed STK-MED ONCE IV ; Start 12/26/17 at 10:00; Stop at 10:01; Status DC Famotidine (Pepcid Vial) 20 mg STK-MED ONCE .ROUTE ; Start 12/26/17 at 10:01; Stop 12/26/17 at 10:02; Status DC Dexamethasone Sodium Phosphate (Decadron) 20 mg STK-MED ONCE .ROUTE ; Start at 10:01; Stop 12/26/17 at 10:02; Status DC Propofol 20 ml @ As Directed STK-MED ONCE IV ; Start 12/26/17 at 10:01; Stop at 10:02; Status DC Lidocaine HCl (Lidocaine Pf 2% Vial) 5 ml STK-MED ONCE .ROUTE ; Start 12/26/17 at 10:01; Stop 12/26/17 at 10:03; Status DC Succinylcholine Chloride (Anectine) 200 mg STK-MED ONCE .ROUTE ; Start 12/26/17 at 10:02; Stop 12/26/17 at 10:04; Status DC Fentanyl Citrate (Fentanyl 2ml Vial) 100 mcg STK-MED ONCE .ROUTE ; Start at 10:05; Stop 12/26/17 at 10:06; Status DC Ondansetron HCl (Zofran) 4 mg STK-MED ONCE .ROUTE ; Start 12/26/17 at 10:06; Stop 12/26/17 at 10:07; Status DC Cellulose (Surgicel Fibrillar 1x2) 1 each STK-MED ONCE .ROUTE ; Start 12/26/17 at 09:16; Stop 12/26/17 at 10:18; Status DC Lidocaine HCl (Xylocaine 1% Pf 30ml Vial) 30 ml STK-MED ONCE .ROUTE ; Start at 09:16; Stop 12/26/17 at 10:18; Status DC Ephedrine Sulfate (ePHEDrine PF IN SALINE SYRINGE) 50 mg STK-MED ONCE IV ; Start 12/26/17 at 10:41; Stop 12/26/17 at 10:42; Status DC Hydralazine HCl (Apresoline Inj) 10 mg PRN Q4HRS PRN IVP ELEVATED BP, SEE COMMENTS; Start 12/26/17 at 11:15 Morphine Sulfate (Morphine Sulfate) 2 mg PRN Q2HR PRN IV PAIN; Start 12/26/17 at 11:15 Piperacillin Sod/ Tazobactam Sod 3.375 gm/Sodium Chloride 50 ml @ 100 mls/hr Q6HRS IV Last administered on 12/30/17at 05:05; Start 12/26/17 at 13:00 Insulin Human Lispro (HumaLOG) 0-9 UNITS TIDWMEALS SQ Last administered on 12/29at 17:08; Start 12/26/17 at 17:00 Dextrose (Dextrose 50%-Water Syringe) 12.5 gm PRN Q15MIN PRN IV SEE COMMENTS Last administered on 12/27/17at 21:22; Start 12/26/17 at 12:45 Glyburide (Diabeta) 5 mg BIDWMEALS PO Last administered on 12/27/17at 07:53; Start 12/26/17 at 17:00; Stop 12/27/17 at 08:48; Status DC Insulin Glargine (Lantus) 30 units QHS SQ Last administered on 12/26/17at 20:36 ; Start 12/26/17 at 21:00; Stop 12/28/17 at 08:47; Status DC Insulin Human Lispro (HumaLOG) 3 units 1X ONCE SQ ; Start 12/26/17 at 17:15; Stop 12/26/17 at 17:27; Status DC Insulin Human Lispro (HumaLOG) 4 units 1X ONCE SQ Last administered on at 20:36; Start 12/26/17 at 20:30; Stop 12/26/17 at 20:31; Status DC Vancomycin HCl 1.25 gm/Sodium Chloride 250 ml @ 167 mls/hr Q12H IV Last administered on 12/28/17at 04:56; Start 12/27/17 at 05:00; Stop 12/28/17 at 17:34 ; Status DC Vancomycin HCl (Vancomycin Trough Level) 1 each 1X ONCE MC Last administered on 12/28/17at 16:30; Start 12/28/17 at 16:30; Stop 12/28/17 at 16:31; Status DC Insulin Human Lispro (HumaLOG) 10 units TIDWMEALS SQ Last administered on at 12:23; Start 12/27/17 at 12:00; Stop 12/28/17 at 08:47; Status DC Iodixanol (Visipaque 320) 100 ml STK-MED ONCE .ROUTE ; Start 12/27/17 at 09:21; Stop 12/27/17 at 09:22; Status DC Lidocaine/Sodium Bicarbonate (Buffered Lidocaine 1%) 3 ml STK-MED ONCE .ROUTE ; Start 12/27/17 at 09:22; Stop 12/27/17 at 09:23; Status DC Midazolam HCl (Versed) 2 mg STK-MED ONCE .ROUTE ; Start 12/27/17 at 09:22; Stop 12/27/17 at 09:23; Status DC Fentanyl Citrate (Fentanyl 2ml Vial) 100 mcg STK-MED ONCE .ROUTE ; Start at 09:22; Stop 12/27/17 at 09:24; Status DC Heparin Sodium (Porcine) (Heparin Sodium) 10,000 unit STK-MED ONCE .ROUTE ; Start 12/27/17 at 09:22; Stop 12/27/17 at 09:24; Status DC Iodixanol (Visipaque 320) 50 ml STK-MED ONCE .ROUTE ; Start 12/27/17 at 09:22; Stop 12/27/17 at 09:24; Status DC Heparin Sodium/ Sodium Chloride 500 ml @ As Directed STK-MED ONCE .ROUTE ; Start 12/27/17 at 09:23; Stop 12/27/17 at 09:24; Status DC Heparin Sodium/ Sodium Chloride 1,000 ml @ As Directed STK-MED ONCE .ROUTE ; Start 12/27/17 at 09:23; Stop 12/27/17 at 09:25; Status DC Lidocaine/Sodium Bicarbonate (Buffered Lidocaine 1%) 3 ml STK-MED ONCE .ROUTE ; Start 12/27/17 at 09:29; Stop 12/27/17 at 09:30; Status DC Heparin Sodium/ Sodium Chloride (HEPARIN for ARTERIAL LINE FLUSH) 1,000 unit 1X ONCE IART Last administered on 12/27/17at 09:45; Start 12/27/17 at 09:45; Stop 12/27/17 at 09:46; Status DC Heparin Sodium/ Sodium Chloride (HEPARIN for ARTERIAL LINE FLUSH) 1,000 unit 1X ONCE IART Last administered on 12/27/17at 09:45; Start 12/27/17 at 09:45; Stop 12/27/17 at 09:46; Status DC Lidocaine/Sodium Bicarbonate (Buffered Lidocaine 1%) 3 ml 1X ONCE IJ Last administered on 12/27/17at 09:45; Start 12/27/17 at 09:45; Stop 12/27/17 at 09:46 ; Status DC Midazolam HCl (Versed) 2 mg 1X ONCE IV Last administered on 12/27/17at 09:45; Start 12/27/17 at 09:45; Stop 12/27/17 at 09:46; Status DC Fentanyl Citrate (Fentanyl 2ml Vial) 100 mcg 1X ONCE IV Last administered on at 09:45; Start 12/27/17 at 09:45; Stop 12/27/17 at 09:46; Status DC Iodixanol (Visipaque 320) 100 ml 1X ONCE IART Last administered on 12/27/17at 09:45; Start 12/27/17 at 09:45; Stop 12/27/17 at 09:46; Status DC Info (CONTRAST GIVEN -- Rx MONITORING) 1 each PRN DAILY PRN MC SEE COMMENTS; Start 12/27/17 at 09:45; Stop 12/29/17 at 09:44; Status DC Midazolam HCl (Versed) 2 mg STK-MED ONCE .ROUTE ; Start 12/27/17 at 10:25; Stop 12/27/17 at 10:27; Status DC Hydralazine HCl (Apresoline Inj) 20 mg STK-MED ONCE .ROUTE ; Start 12/27/17 at 10:44; Stop 12/27/17 at 10:45; Status DC Fentanyl Citrate (Fentanyl 2ml Vial) 100 mcg STK-MED ONCE .ROUTE ; Start at 11:05; Stop 12/27/17 at 11:06; Status DC Heparin Sodium (Porcine) (Heparin Sodium) 4,000 unit 1X ONCE IV Last administered on 12/27/17at 11:15; Start 12/27/17 at 11:15; Stop 12/27/17 at 11:16 ; Status DC Hydralazine HCl (Apresoline Inj) 5 mg 1X ONCE IVP Last administered on at 11:15; Start 12/27/17 at 11:15; Stop 12/27/17 at 11:16; Status DC Clopidogrel Bisulfate (Plavix) 75 mg DAILYWBKFT PO Last administered on at 09:55; Start 12/28/17 at 08:00 Multivitamins (Thera M Plus) 1 tab DAILY PO Last administered on 12/30/17at 09: 55; Start 12/28/17 at 09:00 Ascorbic Acid (Vitamin C) 500 mg DAILY PO Last administered on 12/30/17at 09:54 ; Start 12/28/17 at 09:00 Lactobacillus Rhamnosus (Culturelle) 1 cap BID PO Last administered on at 09:56; Start 12/27/17 at 21:00 Insulin Glargine (Lantus) 25 units QHS SQ Last administered on 12/28/17at 21:00 ; Start 12/28/17 at 21:00 Glyburide (Diabeta) 5 mg BIDWMEALS PO Last administered on 12/30/17at 09:54; Start 12/28/17 at 09:00 Vancomycin HCl 1 gm/Sodium Chloride 250 ml @ 250 mls/hr Q12H IV Last administered on 12/29/17at 04:36; Start 12/29/17 at 05:00; Stop 12/29/17 at 10:48 ; Status DC Active Scripts Active Hydrocodone-Apap 5-325 (Hydrocodone Bit/Acetaminophen) 1 Each Tablet 1 Tab PO PRN Q4HRS PRN Amoxicillin 875 Mg Tablet 875 Mg PO BID Lasix (Furosemide) 40 Mg Tablet 1 Tab PO DAILY Ranexa (Ranolazine) 500 Mg Tab.er.12h 1 Tab PO BID Lipitor (Atorvastatin Calcium) 40 Mg Tablet 40 Mg PO QHS Reported Lantus Solostar (Insulin Glargine,Hum.rec.anlog) 100 Unit/1 Ml Insuln.pen 25 Unit SQ QHS Carvedilol 3.125 Mg Tablet 1 Tab PO BID Gabapentin 100 Mg Capsule 180 Mg PO TID Aspirin Ec (Aspirin) 81 Mg Tablet.dr 1 Tab PO DAILY Biotin 5,000 Mcg Tab.rapdis 5,000 Mcg PO DAILY Omeprazole 40 Mg Capsule.dr 40 Mg PO PRN DAILY PRN Fenofibrate (Fenofibrate,Micronized) 134 Mg Capsule 134 Mg PO HS Lisinopril 5 Mg Tablet 1 Tab PO HS Zolpidem Tartrate 5 Mg Tablet 5 Mg PO PRN QHS PRN Vitamin D (Cholecalciferol (Vitamin D3)) 1,000 Unit Capsule 1,000 Unit PO Metformin Hcl 1,000 Mg Tablet 1 Tab PO BID Fish Oil 1,000 Mg Softgel ([place]-3/Dha/Epa/Fish Oil) 1 Each Capsule 1 Each PO DAILY Vitals/I & O Vital Sign - Last 24 Hours 12/29/17 12/29/17 12/29/17 12/29/17 12:28 13:30 15:00 19:50 Temp 99.1 98.2 99.1 98.2 Pulse 83 82 Resp 16 16 20 20 B/P (MAP) 123/62 (82) 106/67 (80) Pulse Ox 97 98 O2 Delivery Room Air Room Air Room Air 12/29/17 12/29/17 12/29/17 12/29/17 20:00 21:28 21:28 21:33 Pulse 82 82 B/P (MAP) 106/67 106/67 O2 Delivery Room Air Room Air 12/29/17 12/29/17 12/30/17 12/30/17 23:00 23:43 03:00 07:00 Temp 99.0 98.4 97.5 99.0 98.4 97.5 Pulse 91 79 81 Resp 20 16 18 B/P (MAP) 106/67 (80) 108/59 (75) 118/63 (81) Pulse Ox 96 96 99 O2 Delivery Room Air Room Air Room Air Room Air 12/30/17 12/30/17 12/30/17 12/30/17 07:30 08:00 09:59 11:00 Temp 98.5 98.5 Pulse 81 81 18 Resp 18 B/P (MAP) 118/63 118/63 140/70 (93) Pulse Ox 97 O2 Delivery Room Air Room Air Intake and Output 12/29/17 12/29/17 12/30/17 15:00 23:00 07:00 Intake Total 600 ml 2120 ml 0 ml Balance 600 ml 2120 ml 0 ml MIGUE HOOD III DO Dec 30, 2017 11:56
--- NOTE | 2017-12-30 13:57 | PDOC ---
Infectious Disease Note Subjective Subjective Hoping to go home soon Denies pain/F/C/S/N/V/D ROS ROS per HPI otherwise neg Vital Sign Vital Signs Vital Signs Date Time Temp Pulse Resp B/P (MAP) Pulse Ox O2 Delivery O2 Flow Rate FiO2 12/30/17 11:00 98.5 18 18 140/70 (93) 97 Room Air 98.5 Physical Exam PHYSICAL EXAM GENERAL: Prpped up in bed, alert, NAD LUNGS: Clear CV: S1 S2 ABD: Soft, NT EXT: No gross edema or cyanosis. Left foot wound vac in place, no area redness SKIN: warm without russell PIPE LAYER: Alert and oriented x 3 RUE-PICC clean Labs Lab Laboratory Tests Test 12/29/17 16:25 12/29/17 21:23 12/29/17 23:24 12/30/17 00:07 Glucose (Fingerstick) 181 mg/dL (70-99) 93 mg/dL (70-99) 98 mg/dL (70-99) 117 mg/dL (70-99) Test 12/30/17 05:10 12/30/17 07:26 12/30/17 11:41 White Blood Count 9.2 x10^3/uL (4.0-11.0) Red Blood Count 3.19 x10^6/uL (3.50-5.40) Hemoglobin 10.0 g/dL (12.0-15.5) Hematocrit 28.7 % (36.0-47.0) Mean Corpuscular Volume 90 fL (79-100) Mean Corpuscular Hemoglobin 31 pg (25-35) Mean Corpuscular Hemoglobin Concent 35 g/dL (31-37) Red Cell Distribution Width 12.4 % (11.5-14.5) Platelet Count 490 x10^3/uL (140-400) Neutrophils (%) (Auto) 59 % (31-73) Lymphocytes (%) (Auto) 29 % (24-48) Monocytes (%) (Auto) 8 % (0-9) Eosinophils (%) (Auto) 3 % (0-3) Basophils (%) (Auto) 1 % (0-3) Neutrophils # (Auto) 5.5 x10^3uL (1.8-7.7) Lymphocytes # (Auto) 2.6 x10^3/uL (1.0-4.8) Monocytes # (Auto) 0.7 x10^3/uL (0.0-1.1) Eosinophils # (Auto) 0.3 x10^3/uL (0.0-0.7) Basophils # (Auto) 0.1 x10^3/uL (0.0-0.2) Sodium Level 141 mmol/L (136-145) Potassium Level 4.3 mmol/L (3.5-5.1) Chloride Level 105 mmol/L (98-107) Carbon Dioxide Level 29 mmol/L (21-32) Anion Gap 7 (6-14) Blood Urea Nitrogen 20 mg/dL (7-20) Creatinine 0.9 mg/dL (0.6-1.0) Estimated GFR (Cockcroft-Gault) 63.7 Glucose Level 167 mg/dL (70-99) Calcium Level 9.6 mg/dL (8.5-10.1) Glucose (Fingerstick) 195 mg/dL (70-99) 336 mg/dL (70-99) Micro Left foot ANAEROBIC RES 1 Preliminary No anaerobes recovered in 24 hours. AEROBIC CULT Final Final report AEROBIC RES 1 Final Escherichia coli AEROBIC RES 2 Final Beta hemolytic Streptococcus, group B AEROBIC RES 3 Final Methicillin - resistant Staphylococcus aureus MICS are expressed in micrograms per mL Antibiotic RSLT#1 RSLT#2 RSLT#3 RSLT#4 Amoxicillin/Clavulanic Acid S =4 Ampicillin S =8 Cefepime S<=0.12 Ceftriaxone S<=0.25 Cefuroxime S =4 Ciprofloxacin S<=0.25 S<=0.5 Clindamycin I =1 Ertapenem S<=0.12 Erythromycin R>=8 Gentamicin S<=1 S<=0.5 Imipenem S<=0.25 Levofloxacin S<=0.12 S =0.25 Linezolid S =2 Meropenem S<=0.25 Oxacillin R>=4 Penicillin R>=0.5 Piperacillin/Tazobactam S<=4 Rifampin S<=0.5 Tetracycline S<=1 R>=16 Tobramycin S<=1 Trimethoprim/Sulfa S<=20 S<=10 Vancomycin S<=0.5 GRAM STAIN Final Final report GRAM STAIN RES 1 Final Comment Rare white blood cells. 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 Group B strep, E. coli & MRSA DM Non compliance HTN Fever - resolved Leukocytosis - resolved Plan Plan of Care Restart vancomycin Continue Zosyn Local wound care Monitor labs/renal function closely Contact isolation Patient refuses to go to SNF and she doesn't have home IV coverage. Thus the plan will be for her to do IV abx at [facility] pending insurance approval Patient seen and examined. Chart reviewed in detail. Case discussed with [employer]. Agree with above plan. HIMA TORRE APRN Dec 30, 2017 13:57 EMILIANO BOSE MD Dec 30, 2017 19:39
[2017-12-30 15:00] VITALS: BP 144/78
[2017-12-30] MEDS ORDERED: VANCOMYCIN 1.5 GM in IV NORMAL SALINE 500ML BAG 500 ML IV ONE (15:00)
[2017-12-30] MEDS: ENOXAPARIN 40 MG/0.4 ML SYRINGE. SQ SCH (17:56)
[2017-12-30] MEDS: HYDROcodone/APAP 5/325MG 1 TAB TABLET PO PRN ×2 (17:57→22:00)
[2017-12-30] MEDS: VANCOMYCIN PER PHARMACY MC PRN (18:11)
[2017-12-30 19:30] VITALS: BP 128/81
[2017-12-30] MEDS: FENOFIBRATE,MICRONIZED 134 MG CAPSULE PO SCH (21:59)
[2017-12-30] MEDS: ATORVASTATIN CALCIUM 40 MG TABLET. PO SCH (22:00)
[2017-12-30] MEDS: LISINOPRIL 5 MG TABLET. PO SCH (22:00)
[2017-12-30] MEDS: ZOLPIDEM 5 MG TABLET. PO PRN (22:00)
[2017-12-30 22:36] VITALS: BP 123/55
[2017-12-30] MEDS: INSULIN GLARGINE 300 UNITS/3 ML INSULN.PEN. SQ SCH (22:49)
[2017-12-31 03:00] VITALS: BP 106/56
[2017-12-31] MEDS: PIPERACILLIN/TAZOBACTAM 3.375 GM in IV NORMAL SALINE 50ML 50 ML IV SCH ×3 (05:53→17:13)
[2017-12-31] MEDS: VANCOMYCIN 1 GM in IV NORMAL SALINE 250ML 250 ML IV SCH ×2 (05:53→17:13)
[2017-12-31] MEDS: HYDROcodone/APAP 5/325MG 1 TAB TABLET PO PRN ×3 (06:06→20:19)
[2017-12-31 06:13] LABS: BASO # 0.1 x10^3/uL (0.0-0.2); BASO % 1 % (0-3); EOS # 0.3 x10^3/uL (0.0-0.7); EOS % 3 % (0-3); HEMATOCRIT 27.8 % (36.0-47.0); HEMOGLOBIN 9.8 g/dL (12.0-15.5); LYMPH # 2.3 x10^3/uL (1.0-4.8); LYMPH % 23 % (24-48); MEAN CORPUSCULAR HEMOGLOBIN 32 pg (25-35); MEAN CORPUSCULAR HGB CONC 35 g/dL (31-37); MEAN CORPUSCULAR VOLUME 90 fL (79-100); MONO # 0.9 x10^3/uL (0.0-1.1); MONO % 8 % (0-9); NEUT # 6.6 x10^3uL (1.8-7.7); NEUT % 65 % (31-73); PLATELET COUNT 433 x10^3/uL (140-400); RED BLOOD COUNT 3.09 x10^6/uL (3.50-5.40); RED CELL DISTRIBUTION WIDTH 12.3 % (11.5-14.5); WHITE BLOOD COUNT 10.1 x10^3/uL (4.0-11.0)
[2017-12-31 06:30] LABS: CALCIUM 9.2 mg/dL (8.5-10.1); CREATININE 0.9 mg/dL (0.6-1.0); GFR 63.7; POTASSIUM 4.1 mmol/L (3.5-5.1)
[2017-12-31 07:00] VITALS: BP 121/73
[2017-12-31] MEDS: INSULIN LISPRO 300 UNITS/3 ML INSULN.PEN. SQ SCH ×3 (08:00→17:00)
[2017-12-31] MEDS: glyBURIDE 5 MG TABLET PO SCH ×2 (08:16→17:11)
[2017-12-31] MEDS: GABAPENTIN 300 MG CAPSULE. PO SCH ×3 (08:16→20:18)
[2017-12-31] MEDS: OMEGA-3 FATTY ACIDS/FISH OIL 1,000 MG CAPSULE. PO SCH (08:17)
[2017-12-31] MEDS: CHOLECALCIFEROL (VITAMIN D3) 1,000 UNIT TABLET PO SCH (08:18)
[2017-12-31] MEDS: CARVEDILOL 3.125 MG TABLET. PO SCH ×2 (08:19→17:11)
[2017-12-31] MEDS: FUROSEMIDE 40 MG TABLET. PO SCH (08:19)
[2017-12-31] MEDS: CLOPIDOGREL BISULFATE 75 MG TABLET PO SCH (08:20)
[2017-12-31] MEDS: LACTOBACILLUS RHAMNOSUS GG 1 CAPSULE. PO SCH ×2 (08:20→20:18)
[2017-12-31] MEDS: MULTIVITAMIN with MINERAL TABLET. PO SCH (08:20)
[2017-12-31] MEDS: ASCORBIC ACID 500 MG TABLET PO SCH (08:20)
[2017-12-31] MEDS: ASPIRIN ENTERIC COATED 81 MG TABLET.DR. PO SCH (09:02)
[2017-12-31] MEDS: RANOLAZINE 500 MG TAB.ER.12H PO SCH ×2 (09:02→20:18)
[2017-12-31 11:00] VITALS: BP 119/70
[2017-12-31] MEDS: VANCOMYCIN PER PHARMACY MC PRN (12:49)
--- NOTE | 2017-12-31 14:14 | PDOC ---
Infectious Disease Note Subjective Subjective Lokking forward to going home Pain controlled Denies F/C/S/N/V/D ROS ROS per HPI otherwise neg Vital Sign Vital Signs Vital Signs Date Time Temp Pulse Resp B/P (MAP) Pulse Ox O2 Delivery O2 Flow Rate FiO2 12/31/17 13:52 Room Air 12/31/17 11:00 98.3 78 18 119/70 (86) 99 98.3 Physical Exam PHYSICAL EXAM GENERAL: Prpped up in bed, alert, NAD LUNGS: Clear CV: S1 S2 ABD: Soft, NT EXT: No gross edema or cyanosis. Left foot wound vac in place, no area redness Right foot plantar ulcer. SKIN: warm without rash INPATIENT AUDITOR: Alert and oriented x 3 RUE-PICC clean Labs Lab Laboratory Tests Test 12/30/17 16:39 12/30/17 20:56 12/31/17 06:00 12/31/17 07:47 Glucose (Fingerstick) 228 mg/dL (70-99) 207 mg/dL (70-99) 134 mg/dL (70-99) White Blood Count 10.1 x10^3/uL (4.0-11.0) Red Blood Count 3.09 x10^6/uL (3.50-5.40) Hemoglobin 9.8 g/dL (12.0-15.5) Hematocrit 27.8 % (36.0-47.0) Mean Corpuscular Volume 90 fL (79-100) Mean Corpuscular Hemoglobin 32 pg (25-35) Mean Corpuscular Hemoglobin Concent 35 g/dL (31-37) Red Cell Distribution Width 12.3 % (11.5-14.5) Platelet Count 433 x10^3/uL (140-400) Neutrophils (%) (Auto) 65 % (31-73) Lymphocytes (%) (Auto) 23 % (24-48) Monocytes (%) (Auto) 8 % (0-9) Eosinophils (%) (Auto) 3 % (0-3) Basophils (%) (Auto) 1 % (0-3) Neutrophils # (Auto) 6.6 x10^3uL (1.8-7.7) Lymphocytes # (Auto) 2.3 x10^3/uL (1.0-4.8) Monocytes # (Auto) 0.9 x10^3/uL (0.0-1.1) Eosinophils # (Auto) 0.3 x10^3/uL (0.0-0.7) Basophils # (Auto) 0.1 x10^3/uL (0.0-0.2) Sodium Level 141 mmol/L (136-145) Potassium Level 4.1 mmol/L (3.5-5.1) Chloride Level 106 mmol/L (98-107) Carbon Dioxide Level 29 mmol/L (21-32) Anion Gap 6 (6-14) Blood Urea Nitrogen 20 mg/dL (7-20) Creatinine 0.9 mg/dL (0.6-1.0) Estimated GFR (Cockcroft-Gault) 63.7 Glucose Level 127 mg/dL (70-99) Calcium Level 9.2 mg/dL (8.5-10.1) Test 12/31/17 11:49 Glucose (Fingerstick) 137 mg/dL (70-99) Micro Left foot ANAEROBIC RES 1 Preliminary No anaerobes recovered in 24 hours. AEROBIC CULT Final Final report AEROBIC RES 1 Final Escherichia coli AEROBIC RES 2 Final Beta hemolytic Streptococcus, group B AEROBIC RES 3 Final Methicillin - resistant Staphylococcus aureus MICS are expressed in micrograms per mL Antibiotic RSLT#1 RSLT#2 RSLT#3 RSLT#4 Amoxicillin/Clavulanic Acid S =4 Ampicillin S =8 Cefepime S<=0.12 Ceftriaxone S<=0.25 Cefuroxime S =4 Ciprofloxacin S<=0.25 S<=0.5 Clindamycin I =1 Ertapenem S<=0.12 Erythromycin R>=8 Gentamicin S<=1 S<=0.5 Imipenem S<=0.25 Levofloxacin S<=0.12 S =0.25 Linezolid S =2 Meropenem S<=0.25 Oxacillin R>=4 Penicillin R>=0.5 Piperacillin/Tazobactam S<=4 Rifampin S<=0.5 Tetracycline S<=1 R>=16 Tobramycin S<=1 Trimethoprim/Sulfa S<=20 S<=10 Vancomycin S<=0.5 GRAM STAIN Final Final report GRAM STAIN RES 1 Final Comment Rare white blood cells. 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 Group B strep, E. coli & MRSA Diabetic ulcer right foot DM Non compliance HTN Fever - resolved Leukocytosis - resolved Plan Plan of Care vancomycin and Zosyn Will adjust abx further for outpatient therapy when closer to discharge Local wound care Monitor labs/renal function closely Contact isolation Patient refuses to go to SNF and she doesn't have home IV coverage. Thus the plan will be for her to do IV abx [facility] pending insurance approval Patient seen and examined. Chart reviewed in detail. Case discussed with SLICING MACHINE OPERATOR. Agree with above plan. HIMA TORRE APRN Dec 31, 2017 14:14 EMILIANO BOSE MD Dec 31, 2017 21:17
--- NOTE | 2017-12-31 14:15 | PDOC ---
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 seen & examined -NAD -DW pt. current plan of action Vitals Vitals Vital Signs Date Time Temp Pulse Resp B/P (MAP) Pulse Ox O2 Delivery O2 Flow Rate FiO2 12/31/17 13:52 Room Air 12/31/17 11:00 98.3 78 18 119/70 (86) 99 98.3 Physical Exam General: Alert, Oriented X3, Cooperative, No acute distress Heart: Regular rate, Normal S1, Normal S2, No murmurs Lungs: Clear, Other Abdomen: Normal bowel sounds, Soft, No tenderness Extremities: No clubbing, No cyanosis, Other (dressing on bilateral feet) Skin: No rashes, Other Labs LABS Laboratory Tests Test 12/30/17 16:39 12/30/17 20:56 12/31/17 06:00 12/31/17 07:47 Glucose (Fingerstick) 228 mg/dL (70-99) 207 mg/dL (70-99) 134 mg/dL (70-99) White Blood Count 10.1 x10^3/uL (4.0-11.0) Red Blood Count 3.09 x10^6/uL (3.50-5.40) Hemoglobin 9.8 g/dL (12.0-15.5) Hematocrit 27.8 % (36.0-47.0) Mean Corpuscular Volume 90 fL (79-100) Mean Corpuscular Hemoglobin 32 pg (25-35) Mean Corpuscular Hemoglobin Concent 35 g/dL (31-37) Red Cell Distribution Width 12.3 % (11.5-14.5) Platelet Count 433 x10^3/uL (140-400) Neutrophils (%) (Auto) 65 % (31-73) Lymphocytes (%) (Auto) 23 % (24-48) Monocytes (%) (Auto) 8 % (0-9) Eosinophils (%) (Auto) 3 % (0-3) Basophils (%) (Auto) 1 % (0-3) Neutrophils # (Auto) 6.6 x10^3uL (1.8-7.7) Lymphocytes # (Auto) 2.3 x10^3/uL (1.0-4.8) Monocytes # (Auto) 0.9 x10^3/uL (0.0-1.1) Eosinophils # (Auto) 0.3 x10^3/uL (0.0-0.7) Basophils # (Auto) 0.1 x10^3/uL (0.0-0.2) Sodium Level 141 mmol/L (136-145) Potassium Level 4.1 mmol/L (3.5-5.1) Chloride Level 106 mmol/L (98-107) Carbon Dioxide Level 29 mmol/L (21-32) Anion Gap 6 (6-14) Blood Urea Nitrogen 20 mg/dL (7-20) Creatinine 0.9 mg/dL (0.6-1.0) Estimated GFR (Cockcroft-Gault) 63.7 Glucose Level 127 mg/dL (70-99) Calcium Level 9.2 mg/dL (8.5-10.1) Test 12/31/17 11:49 Glucose (Fingerstick) 137 mg/dL (70-99) Review of Systems Review of Systems -No SOW -No N/V Assessment and Plan Assessmemt and Plan Medical Problems: -Left Footoot Polymicrobial Infection -S/P amputation of 1st/4th/5th toes -DM -HTN -Fever -Leukocytosis Plan: -ABX -Wound Care -Labs -PT/OT -Possible DC tomorrow once outpatient ABX regimen is determined Comment Review of Relevant I have reviewed the following items johan (where applicable) has been applied. Labs Laboratory Tests Test 12/29/17 16:25 12/29/17 21:23 12/29/17 23:24 12/30/17 00:07 Glucose (Fingerstick) 181 mg/dL (70-99) 93 mg/dL (70-99) 98 mg/dL (70-99) 117 mg/dL (70-99) Test 12/30/17 05:10 12/30/17 07:26 12/30/17 11:41 12/30/17 16:39 White Blood Count 9.2 x10^3/uL (4.0-11.0) Red Blood Count 3.19 x10^6/uL (3.50-5.40) Hemoglobin 10.0 g/dL (12.0-15.5) Hematocrit 28.7 % (36.0-47.0) Mean Corpuscular Volume 90 fL (79-100) Mean Corpuscular Hemoglobin 31 pg (25-35) Mean Corpuscular Hemoglobin Concent 35 g/dL (31-37) Red Cell Distribution Width 12.4 % (11.5-14.5) Platelet Count 490 x10^3/uL (140-400) Neutrophils (%) (Auto) 59 % (31-73) Lymphocytes (%) (Auto) 29 % (24-48) Monocytes (%) (Auto) 8 % (0-9) Eosinophils (%) (Auto) 3 % (0-3) Basophils (%) (Auto) 1 % (0-3) Neutrophils # (Auto) 5.5 x10^3uL (1.8-7.7) Lymphocytes # (Auto) 2.6 x10^3/uL (1.0-4.8) Monocytes # (Auto) 0.7 x10^3/uL (0.0-1.1) Eosinophils # (Auto) 0.3 x10^3/uL (0.0-0.7) Basophils # (Auto) 0.1 x10^3/uL (0.0-0.2) Sodium Level 141 mmol/L (136-145) Potassium Level 4.3 mmol/L (3.5-5.1) Chloride Level 105 mmol/L (98-107) Carbon Dioxide Level 29 mmol/L (21-32) Anion Gap 7 (6-14) Blood Urea Nitrogen 20 mg/dL (7-20) Creatinine 0.9 mg/dL (0.6-1.0) Estimated GFR (Cockcroft-Gault) 63.7 Glucose Level 167 mg/dL (70-99) Calcium Level 9.6 mg/dL (8.5-10.1) Glucose (Fingerstick) 195 mg/dL (70-99) 336 mg/dL (70-99) 228 mg/dL (70-99) Test 12/30/17 20:56 12/31/17 06:00 12/31/17 07:47 12/31/17 11:49 Glucose (Fingerstick) 207 mg/dL (70-99) 134 mg/dL (70-99) 137 mg/dL (70-99) White Blood Count 10.1 x10^3/uL (4.0-11.0) Red Blood Count 3.09 x10^6/uL (3.50-5.40) Hemoglobin 9.8 g/dL (12.0-15.5) Hematocrit 27.8 % (36.0-47.0) Mean Corpuscular Volume 90 fL (79-100) Mean Corpuscular Hemoglobin 32 pg (25-35) Mean Corpuscular Hemoglobin Concent 35 g/dL (31-37) Red Cell Distribution Width 12.3 % (11.5-14.5) Platelet Count 433 x10^3/uL (140-400) Neutrophils (%) (Auto) 65 % (31-73) Lymphocytes (%) (Auto) 23 % (24-48) Monocytes (%) (Auto) 8 % (0-9) Eosinophils (%) (Auto) 3 % (0-3) Basophils (%) (Auto) 1 % (0-3) Neutrophils # (Auto) 6.6 x10^3uL (1.8-7.7) Lymphocytes # (Auto) 2.3 x10^3/uL (1.0-4.8) Monocytes # (Auto) 0.9 x10^3/uL (0.0-1.1) Eosinophils # (Auto) 0.3 x10^3/uL (0.0-0.7) Basophils # (Auto) 0.1 x10^3/uL (0.0-0.2) Sodium Level 141 mmol/L (136-145) Potassium Level 4.1 mmol/L (3.5-5.1) Chloride Level 106 mmol/L (98-107) Carbon Dioxide Level 29 mmol/L (21-32) Anion Gap 6 (6-14) Blood Urea Nitrogen 20 mg/dL (7-20) Creatinine 0.9 mg/dL (0.6-1.0) Estimated GFR (Cockcroft-Gault) 63.7 Glucose Level 127 mg/dL (70-99) Calcium Level 9.2 mg/dL (8.5-10.1) Laboratory Tests Test 12/30/17 16:39 12/30/17 20:56 12/31/17 06:00 12/31/17 07:47 Glucose (Fingerstick) 228 mg/dL (70-99) 207 mg/dL (70-99) 134 mg/dL (70-99) White Blood Count 10.1 x10^3/uL (4.0-11.0) Red Blood Count 3.09 x10^6/uL (3.50-5.40) Hemoglobin 9.8 g/dL (12.0-15.5) Hematocrit 27.8 % (36.0-47.0) Mean Corpuscular Volume 90 fL (79-100) Mean Corpuscular Hemoglobin 32 pg (25-35) Mean Corpuscular Hemoglobin Concent 35 g/dL (31-37) Red Cell Distribution Width 12.3 % (11.5-14.5) Platelet Count 433 x10^3/uL (140-400) Neutrophils (%) (Auto) 65 % (31-73) Lymphocytes (%) (Auto) 23 % (24-48) Monocytes (%) (Auto) 8 % (0-9) Eosinophils (%) (Auto) 3 % (0-3) Basophils (%) (Auto) 1 % (0-3) Neutrophils # (Auto) 6.6 x10^3uL (1.8-7.7) Lymphocytes # (Auto) 2.3 x10^3/uL (1.0-4.8) Monocytes # (Auto) 0.9 x10^3/uL (0.0-1.1) Eosinophils # (Auto) 0.3 x10^3/uL (0.0-0.7) Basophils # (Auto) 0.1 x10^3/uL (0.0-0.2) Sodium Level 141 mmol/L (136-145) Potassium Level 4.1 mmol/L (3.5-5.1) Chloride Level 106 mmol/L (98-107) Carbon Dioxide Level 29 mmol/L (21-32) Anion Gap 6 (6-14) Blood Urea Nitrogen 20 mg/dL (7-20) Creatinine 0.9 mg/dL (0.6-1.0) Estimated GFR (Cockcroft-Gault) 63.7 Glucose Level 127 mg/dL (70-99) Calcium Level 9.2 mg/dL (8.5-10.1) Test 12/31/17 11:49 Glucose (Fingerstick) 137 mg/dL (70-99) Microbiology 12/26/17 Anaerobic/Aerobic Culture - Preliminary, Resulted 12/26/17 Anaerobic Culture Result 1 (JUANA) - Preliminary, Resulted 12/26/17 Aerobic Culture - Final, Resulted 12/26/17 Aerobic Culture Result 1 (JUANA) - Final, Resulted 12/26/17 Aerobic Culture Result 2 (JUANA) - Final, Resulted 12/26/17 Aerobic Culture Result 3 (JUANA) - Final, Resulted 12/26/17 Antimicrobic Susceptibility - Final, Resulted 12/26/17 Gram Stain - Final, Resulted 12/26/17 Gram Stain Result 1 (JUANA) - Final, Resulted 12/26/17 Gram Stain Result 2 (JUANA) - Final, Resulted 12/26/17 Gram Stain Result 3 (JUANA) - Final, Resulted Medications Current Medications Acetaminophen/ Hydrocodone Bitart (Lortab 5/325) 1 tab PRN Q4HRS PRN PO PAIN Last administered on 12/26/17at 08:21; Start 12/25/17 at 13:15; Stop 12/26/17 at 10:01; Status DC Vancomycin HCl (Vanco Per Pharmacy) 1 each PRN DAILY PRN MC SEE COMMENTS Last administered on 12/28/17at 18:26; Start 12/25/17 at 13:30; Stop 12/29/17 at 10:48 ; Status DC Vancomycin HCl 250 ml @ 250 mls/hr 1X ONCE IV ; Start 12/25/17 at 13:30; Stop 12/25/17 at 14:29; Status UNV Vancomycin HCl 1.75 gm/Sodium Chloride 500 ml @ 250 mls/hr 1X ONCE IV Last administered on 12/25/17at 15:28; Start 12/25/17 at 15:00; Stop 12/25/17 at 16:59 ; Status DC Aspirin (Ecotrin) 81 mg DAILY PO Last administered on 12/31/17at 09:02; Start at 16:00 Atorvastatin Calcium (Lipitor) 40 mg QHS PO Last administered on 12/30/17at 22: 00; Start 12/25/17 at 21:00 Carvedilol (Coreg) 3.125 mg BIDAC PO Last administered on 12/31/17at 08:19; Start 12/25/17 at 16:30 Furosemide (Lasix) 40 mg DAILY PO Last administered on 12/31/17 08:19; Start 12/25/17 at 16:00 Gabapentin (Neurontin) 600 mg TID PO Last administered on 12/31/17 13:50; Start 12/25/17 at 21:00 Acetaminophen/ Hydrocodone Bitart (Lortab 5/325) 1 tab PRN Q4HRS PRN PO MODERATE-SEVERE PAIN Last administered on 12/31/17 13:52; Start 12/25/17 at 15: 00 Ranolazine (Ranexa) 500 mg BID PO Last administered on 12/31/17 09:02; Start 12/25/17 at 21:00 Zolpidem Tartrate (Ambien) 5 mg PRN QHS PRN PO INSOMNIA Last administered on 22:00; Start 12/25/17 at 15:00 Non-Formulary Medication (Biotin ) 5,000 mcg DAILY PO ; Start 12/26/17 at 09:00 ; Status UNV Fenofibrate (Lofibra) 134 mg QHS PO Last administered on 12/30/17 21:59; Start 12/26/17 at 21:00 Lisinopril (Prinivil) 5 mg QHS PO Last administered on 12/30/17 22:00; Start 12/25/17 at 21:00 Metformin HCl (Glucophage) 1,000 mg BIDWMEALS PO Last administered on 08:16; Start 12/25/17 at 17:00 Fish Oil (Fish Oil) 1,000 mg DAILY PO Last administered on 12/31/17 08:17; Start 12/26/17 at 09:00 Pantoprazole Sodium (Protonix) 40 mg PRN DAILY PRN PO HEARTBURN / GAS Last administered on 12/27/17 03:35; Start 12/26/17 at 07:30 Vitamin D (Vitamin D3) 1,000 unit DAILY PO Last administered on 12/31/17 08:18 ; Start 12/25/17 at 16:00 Insulin Human Lispro (HumaLOG) 0-5 UNITS TIDWMEALS SQ Last administered on 12/26 12:32; Start 12/25/17 at 17:00; Stop 12/26/17 at 12:42; Status DC Dextrose (Dextrose 50%-Water Syringe) 12.5 gm PRN Q15MIN PRN IV SEE COMMENTS; Start 12/25/17 at 15:00; Stop 12/26/17 at 12:50; Status DC Vancomycin HCl 1 gm/Sodium Chloride 250 ml @ 250 mls/hr Q12H IV Last administered on 12/26/17at 16:15; Start 12/26/17 at 03:30; Stop 12/27/17 at 04:42 ; Status DC Vancomycin HCl (Vancomycin Trough Level) 1 each 1X ONCE MC Last administered on 12/27/17at 03:00; Start 12/27/17 at 03:00; Stop 12/27/17 at 03:01; Status DC Insulin Human Lispro (HumaLOG) 5 units 1X ONCE SQ Last administered on at 17:07; Start 12/25/17 at 16:00; Stop 12/25/17 at 16:03; Status DC Insulin Human Lispro (HumaLOG) 3 units 1X ONCE SQ Last administered on at 21:39; Start 12/25/17 at 21:30; Stop 12/25/17 at 21:31; Status DC Acetaminophen (Tylenol) 650 mg PRN Q6HRS PRN PO FEVER Last administered on 12/30at 00:06; Start 12/25/17 at 23:00 Enoxaparin Sodium (Lovenox 40mg Syringe) 40 mg Q24H SQ Last administered on at 17:56; Start 12/26/17 at 17:00 Cefazolin Sodium 1 gm/Sodium Chloride 500 ml @ 500 mls/hr 1X ONCE IRR Last administered on 12/26/17at 11:11; Start 12/26/17 at 10:00; Stop 12/26/17 at 10:59 ; Status DC Insulin Aspart (NovoLOG VIAL) 5 unit 1X ONCE SQ Last administered on at 10:08; Start 12/26/17 at 10:00; Stop 12/26/17 at 10:06; Status DC Ondansetron HCl (Zofran) 4 mg PRN Q6HRS PRN IV NAUSEA/VOMITING; Start 12/26/17 at 10:00; Stop 12/27/17 at 09:59; Status DC Fentanyl Citrate (Fentanyl 2ml Vial) 25 mcg PRN Q5MIN PRN IV MILD PAIN; Start 12/26/17 at 10:00; Stop 12/27/17 at 09:59; Status DC Fentanyl Citrate (Fentanyl 2ml Vial) 50 mcg PRN Q5MIN PRN IV MODERATE TO SEVERE PAIN; Start 12/26/17 at 10:00; Stop 12/27/17 at 09:59; Status DC Morphine Sulfate (Morphine Sulfate) 1 mg PRN Q10MIN PRN IV SEVERE PAIN; Start 12/26/17 at 10:00; Stop 12/27/17 at 09:59; Status DC Ringer's Solution 1,000 ml @ 30 mls/hr Q24H IV Last administered on 12/26/17at 10:01; Start 12/26/17 at 09:57; Stop 12/26/17 at 21:56; Status DC Lidocaine HCl (Xylocaine-Mpf 1% 2ml Vial) 2 ml PRN 1X PRN ID PRIOR TO IV START ; Start 12/26/17 at 10:00; Stop 12/27/17 at 09:59; Status DC Prochlorperazine Edisylate (Compazine) 5 mg PACU PRN PRN IV NAUSEA, MRX1; Start 12/26/17 at 10:00; Stop 12/27/17 at 09:59; Status DC Propofol 0 ml @ As Directed STK-MED ONCE IV ; Start 12/26/17 at 10:00; Stop at 10:01; Status DC Famotidine (Pepcid Vial) 20 mg STK-MED ONCE .ROUTE ; Start 12/26/17 at 10:01; Stop 12/26/17 at 10:02; Status DC Dexamethasone Sodium Phosphate (Decadron) 20 mg STK-MED ONCE .ROUTE ; Start at 10:01; Stop 12/26/17 at 10:02; Status DC Propofol 20 ml @ As Directed STK-MED ONCE IV ; Start 12/26/17 at 10:01; Stop at 10:02; Status DC Lidocaine HCl (Lidocaine Pf 2% Vial) 5 ml STK-MED ONCE .ROUTE ; Start 12/26/17 at 10:01; Stop 12/26/17 at 10:03; Status DC Succinylcholine Chloride (Anectine) 200 mg STK-MED ONCE .ROUTE ; Start 12/26/17 at 10:02; Stop 12/26/17 at 10:04; Status DC Fentanyl Citrate (Fentanyl 2ml Vial) 100 mcg STK-MED ONCE .ROUTE ; Start at 10:05; Stop 12/26/17 at 10:06; Status DC Ondansetron HCl (Zofran) 4 mg STK-MED ONCE .ROUTE ; Start 12/26/17 at 10:06; Stop 12/26/17 at 10:07; Status DC Cellulose (Surgicel Fibrillar 1x2) 1 each STK-MED ONCE .ROUTE ; Start 12/26/17 at 09:16; Stop 12/26/17 at 10:18; Status DC Lidocaine HCl (Xylocaine 1% Pf 30ml Vial) 30 ml STK-MED ONCE .ROUTE ; Start at 09:16; Stop 12/26/17 at 10:18; Status DC Ephedrine Sulfate (ePHEDrine PF IN SALINE SYRINGE) 50 mg STK-MED ONCE IV ; Start 12/26/17 at 10:41; Stop 12/26/17 at 10:42; Status DC Hydralazine HCl (Apresoline Inj) 10 mg PRN Q4HRS PRN IVP ELEVATED BP, SEE COMMENTS; Start 12/26/17 at 11:15 Morphine Sulfate (Morphine Sulfate) 2 mg PRN Q2HR PRN IV PAIN; Start 12/26/17 at 11:15 Piperacillin Sod/ Tazobactam Sod 3.375 gm/Sodium Chloride 50 ml @ 100 mls/hr Q6HRS IV Last administered on 12/31/17at 13:49; Start 12/26/17 at 13:00 Insulin Human Lispro (HumaLOG) 0-9 UNITS TIDWMEALS SQ Last administered on 12/30at 17:53; Start 12/26/17 at 17:00 Dextrose (Dextrose 50%-Water Syringe) 12.5 gm PRN Q15MIN PRN IV SEE COMMENTS Last administered on 12/27/17at 21:22; Start 12/26/17 at 12:45 Glyburide (Diabeta) 5 mg BIDWMEALS PO Last administered on 12/27/17at 07:53; Start 12/26/17 at 17:00; Stop 12/27/17 at 08:48; Status DC Insulin Glargine (Lantus) 30 units QHS SQ Last administered on 12/26/17at 20:36 ; Start 12/26/17 at 21:00; Stop 12/28/17 at 08:47; Status DC Insulin Human Lispro (HumaLOG) 3 units 1X ONCE SQ ; Start 12/26/17 at 17:15; Stop 12/26/17 at 17:27; Status DC Insulin Human Lispro (HumaLOG) 4 units 1X ONCE SQ Last administered on at 20:36; Start 12/26/17 at 20:30; Stop 12/26/17 at 20:31; Status DC Vancomycin HCl 1.25 gm/Sodium Chloride 250 ml @ 167 mls/hr Q12H IV Last administered on 12/28/17at 04:56; Start 12/27/17 at 05:00; Stop 12/28/17 at 17:34 ; Status DC Vancomycin HCl (Vancomycin Trough Level) 1 each 1X ONCE MC Last administered on 12/28/17at 16:30; Start 12/28/17 at 16:30; Stop 12/28/17 at 16:31; Status DC Insulin Human Lispro (HumaLOG) 10 units TIDWMEALS SQ Last administered on at 12:23; Start 12/27/17 at 12:00; Stop 12/28/17 at 08:47; Status DC Iodixanol (Visipaque 320) 100 ml STK-MED ONCE .ROUTE ; Start 12/27/17 at 09:21; Stop 12/27/17 at 09:22; Status DC Lidocaine/Sodium Bicarbonate (Buffered Lidocaine 1%) 3 ml STK-MED ONCE .ROUTE ; Start 12/27/17 at 09:22; Stop 12/27/17 at 09:23; Status DC Midazolam HCl (Versed) 2 mg STK-MED ONCE .ROUTE ; Start 12/27/17 at 09:22; Stop 12/27/17 at 09:23; Status DC Fentanyl Citrate (Fentanyl 2ml Vial) 100 mcg STK-MED ONCE .ROUTE ; Start at 09:22; Stop 12/27/17 at 09:24; Status DC Heparin Sodium (Porcine) (Heparin Sodium) 10,000 unit STK-MED ONCE .ROUTE ; Start 12/27/17 at 09:22; Stop 12/27/17 at 09:24; Status DC Iodixanol (Visipaque 320) 50 ml STK-MED ONCE .ROUTE ; Start 12/27/17 at 09:22; Stop 12/27/17 at 09:24; Status DC Heparin Sodium/ Sodium Chloride 500 ml @ As Directed STK-MED ONCE .ROUTE ; Start 12/27/17 at 09:23; Stop 12/27/17 at 09:24; Status DC Heparin Sodium/ Sodium Chloride 1,000 ml @ As Directed STK-MED ONCE .ROUTE ; Start 12/27/17 at 09:23; Stop 12/27/17 at 09:25; Status DC Lidocaine/Sodium Bicarbonate (Buffered Lidocaine 1%) 3 ml STK-MED ONCE .ROUTE ; Start 12/27/17 at 09:29; Stop 12/27/17 at 09:30; Status DC Heparin Sodium/ Sodium Chloride (HEPARIN for ARTERIAL LINE FLUSH) 1,000 unit 1X ONCE IART Last administered on 12/27/17at 09:45; Start 12/27/17 at 09:45; Stop 12/27/17 at 09:46; Status DC Heparin Sodium/ Sodium Chloride (HEPARIN for ARTERIAL LINE FLUSH) 1,000 unit 1X ONCE IART Last administered on 12/27/17at 09:45; Start 12/27/17 at 09:45; Stop 12/27/17 at 09:46; Status DC Lidocaine/Sodium Bicarbonate (Buffered Lidocaine 1%) 3 ml 1X ONCE IJ Last administered on 12/27/17at 09:45; Start 12/27/17 at 09:45; Stop 12/27/17 at 09:46 ; Status DC Midazolam HCl (Versed) 2 mg 1X ONCE IV Last administered on 12/27/17at 09:45; Start 12/27/17 at 09:45; Stop 12/27/17 at 09:46; Status DC Fentanyl Citrate (Fentanyl 2ml Vial) 100 mcg 1X ONCE IV Last administered on at 09:45; Start 12/27/17 at 09:45; Stop 12/27/17 at 09:46; Status DC Iodixanol (Visipaque 320) 100 ml 1X ONCE IART Last administered on 12/27/17at 09:45; Start 12/27/17 at 09:45; Stop 12/27/17 at 09:46; Status DC Info (CONTRAST GIVEN -- Rx MONITORING) 1 each PRN DAILY PRN MC SEE COMMENTS; Start 12/27/17 at 09:45; Stop 12/29/17 at 09:44; Status DC Midazolam HCl (Versed) 2 mg STK-MED ONCE .ROUTE ; Start 12/27/17 at 10:25; Stop 12/27/17 at 10:27; Status DC Hydralazine HCl (Apresoline Inj) 20 mg STK-MED ONCE .ROUTE ; Start 12/27/17 at 10:44; Stop 12/27/17 at 10:45; Status DC Fentanyl Citrate (Fentanyl 2ml Vial) 100 mcg STK-MED ONCE .ROUTE ; Start at 11:05; Stop 12/27/17 at 11:06; Status DC Heparin Sodium (Porcine) (Heparin Sodium) 4,000 unit 1X ONCE IV Last administered on 12/27/17at 11:15; Start 12/27/17 at 11:15; Stop 12/27/17 at 11:16 ; Status DC Hydralazine HCl (Apresoline Inj) 5 mg 1X ONCE IVP Last administered on at 11:15; Start 12/27/17 at 11:15; Stop 12/27/17 at 11:16; Status DC Clopidogrel Bisulfate (Plavix) 75 mg DAILYWBKFT PO Last administered on at 08:20; Start 12/28/17 at 08:00 Multivitamins (Thera M Plus) 1 tab DAILY PO Last administered on 12/31/17at 08: 20; Start 12/28/17 at 09:00 Ascorbic Acid (Vitamin C) 500 mg DAILY PO Last administered on 12/31/17at 08:20 ; Start 12/28/17 at 09:00 Lactobacillus Rhamnosus (Culturelle) 1 cap BID PO Last administered on at 08:20; Start 12/27/17 at 21:00 Insulin Glargine (Lantus) 25 units QHS SQ Last administered on 12/30/17at 22:49 ; Start 12/28/17 at 21:00 Glyburide (Diabeta) 5 mg BIDWMEALS PO Last administered on 12/31/17at 08:16; Start 12/28/17 at 09:00 Vancomycin HCl 1 gm/Sodium Chloride 250 ml @ 250 mls/hr Q12H IV Last administered on 12/29/17at 04:36; Start 12/29/17 at 05:00; Stop 12/29/17 at 10:48 ; Status DC Vancomycin HCl (Vanco Per Pharmacy) 1 each PRN DAILY PRN MC SEE COMMENTS Last administered on 12/31/17at 12:49; Start 12/30/17 at 14:15 Vancomycin HCl 1.5 gm/Sodium Chloride 500 ml @ 250 mls/hr 1X ONCE IV Last administered on 12/30/17at 17:39; Start 12/30/17 at 15:00; Stop 12/30/17 at 16:59 ; Status DC Vancomycin HCl 1 gm/Sodium Chloride 250 ml @ 250 mls/hr Q12H IV Last administered on 12/31/17at 05:53; Start 12/31/17 at 06:00 Vancomycin HCl (Vancomycin Trough Level) 1 each 1X ONCE MC ; Start 01/01/18 at 05:30; Stop 01/01/18 at 05:31 Active Scripts Active Hydrocodone-Apap 5-325 (Hydrocodone Bit/Acetaminophen) 1 Each Tablet 1 Tab PO PRN Q4HRS PRN Amoxicillin 875 Mg Tablet 875 Mg PO BID Lasix (Furosemide) 40 Mg Tablet 1 Tab PO DAILY Ranexa (Ranolazine) 500 Mg Tab.er.12h 1 Tab PO BID Lipitor (Atorvastatin Calcium) 40 Mg Tablet 40 Mg PO QHS Reported Lantus Solostar (Insulin Glargine,Hum.rec.anlog) 100 Unit/1 Ml Insuln.pen 25 Unit SQ QHS Carvedilol 3.125 Mg Tablet 1 Tab PO BID Gabapentin 100 Mg Capsule 180 Mg PO TID Aspirin Ec (Aspirin) 81 Mg Tablet.dr 1 Tab PO DAILY Biotin 5,000 Mcg Tab.rapdis 5,000 Mcg PO DAILY Omeprazole 40 Mg Capsule.dr 40 Mg PO PRN DAILY PRN Fenofibrate (Fenofibrate,Micronized) 134 Mg Capsule 134 Mg PO HS Lisinopril 5 Mg Tablet 1 Tab PO HS Zolpidem Tartrate 5 Mg Tablet 5 Mg PO PRN QHS PRN Vitamin D (Cholecalciferol (Vitamin D3)) 1,000 Unit Capsule 1,000 Unit PO Metformin Hcl 1,000 Mg Tablet 1 Tab PO BID Fish Oil 1,000 Mg Softgel ([place]-3/Dha/Epa/Fish Oil) 1 Each Capsule 1 Each PO DAILY Vitals/I & O Vital Sign - Last 24 Hours 12/30/17 12/30/17 12/30/17 12/30/17 15:00 17:41 17:57 19:30 Temp 98.5 97.9 98.5 97.9 Pulse 83 83 89 Resp 18 16 B/P (MAP) 144/78 (100) 144/78 128/81 (97) Pulse Ox 99 100 O2 Delivery Room Air Room Air Room Air 12/30/17 12/30/17 12/30/17 12/30/17 20:00 21:59 22:00 22:00 Pulse 89 89 Resp 20 B/P (MAP) 128/81 128/81 Pulse Ox 100 O2 Delivery Room Air Room Air 12/30/17 12/30/17 12/31/17 12/31/17 22:36 23:00 03:00 06:06 Temp 97.9 97.8 97.9 97.8 Pulse 87 79 Resp 18 20 18 20 B/P (MAP) 123/55 (77) 106/56 (73) Pulse Ox 98 98 97 97 O2 Delivery Room Air Room Air Room Air 12/31/17 12/31/17 12/31/17 12/31/17 07:00 07:21 08:19 09:02 Temp 98.0 98.0 Pulse 76 76 76 Resp 18 B/P (MAP) 121/73 (89) 121/73 121/73 Pulse Ox 99 O2 Delivery Room Air Room Air 12/31/17 12/31/17 11:00 13:52 Temp 98.3 98.3 Pulse 78 Resp 18 B/P (MAP) 119/70 (86) Pulse Ox 99 O2 Delivery Room Air Room Air Intake and Output 12/30/17 12/30/17 12/31/17 15:00 23:00 07:00 Intake Total 122 ml 100 ml Output Total 600 ml Balance 122 ml -500 ml MIGUE HOOD III DO Dec 31, 2017 14:15
[2017-12-31 15:00] VITALS: BP 130/67
--- NOTE | 2017-12-31 16:07 | PATHOLOGY ---
[facility] Accession Number: [id number] . 01 Material submitted: . LEFT FIFTH TOE . 01 Clinical history: . None provided . 02 Diagnosis: Toe, left fifth, amputation: - Skin of toe with focal areas of ulceration and superficial necrosis. - Viable skin and subcutaneous tissue present at margins of specimen. - Underlying bone with acute osteomyelitis. (SKM:stevenson; 12/28/2017) QMS/12/28/2017 . 02 Electronically signed: . Tomasz Mills MD, Pathologist NPI- [id number] . 01 Gross description: . The specimen is received in formalin, labeled "Jessica Marks, and left fifth toe", is a disarticulated distal portion of digit with a handy-white male and horvath-white skin measuring 5.0 cm in length and up to 2.0 cm in width. The dorsal skin has a 0.5 x 0.2 cm possible ulcer that is 0.6 cm from the closest proximal skin resection margin. The bone resection margin is composed of a dome-shaped bone measuring 1.5 x 1.0 x 0.6 cm. At the distal tip beneath the nail, there is a 0.7 x 0.4 cm possible healing ulcer. Sectioning of this ulcer shows a grossly unremarkable soft tissue and bone. Photographs are taken. . [employer] sections are submitted as follows: A1 Margin, skin to dorsal ulcer (longitudinal section) A2 Margin, dome-shaped bone after decalcification A3 Soft tissue and underlying bone adjacent to bone margin after decalcification A4 Distal tip ulcer beneath nail, longitudinal section after decalcification . . (SWS; 12/27/2017) SHS/SHS . 02 Pathologist provided ICD-10: M86.172, L97.529, I96 . 02 CPT . 052409, [id number] Performed at: 01 [facility] [address] [id number] MD Waqar Marcelo MD Phone: [phone] Performed at: 02 [facility] [address] [id number] MD Jeff Brock MD Phone: [phone]
[2017-12-31] MEDS: ENOXAPARIN 40 MG/0.4 ML SYRINGE. SQ SCH (17:00)
[2017-12-31 19:00] VITALS: BP 153/72
[2017-12-31] MEDS: FENOFIBRATE,MICRONIZED 134 MG CAPSULE PO SCH (20:17)
[2017-12-31] MEDS: LISINOPRIL 5 MG TABLET. PO SCH (20:18)
[2017-12-31] MEDS: ZOLPIDEM 5 MG TABLET. PO PRN (20:18)
[2017-12-31] MEDS: ATORVASTATIN CALCIUM 40 MG TABLET. PO SCH (20:18)
[2017-12-31] MEDS: INSULIN GLARGINE 300 UNITS/3 ML INSULN.PEN. SQ SCH (20:34)
[2017-12-31 23:30] VITALS: BP 124/59
[2018-01-01] MEDS: PIPERACILLIN/TAZOBACTAM 3.375 GM in IV NORMAL SALINE 50ML 50 ML IV SCH ×2 (00:01→05:47)
[2018-01-01 03:00] VITALS: BP 140/82
[2018-01-01 06:10] LABS: BASO # 0.1 x10^3/uL (0.0-0.2); BASO % 1 % (0-3); EOS # 0.3 x10^3/uL (0.0-0.7); EOS % 3 % (0-3); HEMATOCRIT 27.6 % (36.0-47.0); HEMOGLOBIN 9.6 g/dL (12.0-15.5); LYMPH # 2.2 x10^3/uL (1.0-4.8); LYMPH % 22 % (24-48); MEAN CORPUSCULAR HEMOGLOBIN 32 pg (25-35); MEAN CORPUSCULAR HGB CONC 35 g/dL (31-37); MEAN CORPUSCULAR VOLUME 91 fL (79-100); MONO # 0.9 x10^3/uL (0.0-1.1); MONO % 9 % (0-9); NEUT # 6.5 x10^3uL (1.8-7.7); NEUT % 65 % (31-73); PLATELET COUNT 426 x10^3/uL (140-400); RED BLOOD COUNT 3.04 x10^6/uL (3.50-5.40); RED CELL DISTRIBUTION WIDTH 12.8 % (11.5-14.5)
[2018-01-01 06:21] LABS: CALCIUM 9.3 mg/dL (8.5-10.1); GFR 56.4
[2018-01-01 06:27] LABS: VANC TR 18.5 mcg/mL (10.0-20.0)
[2018-01-01] MEDS: VANCOMYCIN PER PHARMACY MC PRN (06:35)
[2018-01-01] MEDS: VANCOMYCIN 1 GM in IV NORMAL SALINE 250ML 250 ML IV SCH (06:38)
[2018-01-01 07:00] VITALS: BP 123/64
[2018-01-01] MEDS: INSULIN LISPRO 300 UNITS/3 ML INSULN.PEN. SQ SCH ×3 (07:58→13:12)
--- NOTE | 2018-01-01 09:00 | PDOC ---
Infectious Disease Note Subjective Subjective Lokking forward to going home Pain controlled Denies F/C/S/N/V/D Vital Sign Vital Signs Vital Signs Date Time Temp Pulse Resp B/P (MAP) Pulse Ox O2 Delivery O2 Flow Rate FiO2 01/01/18 07:00 98.1 75 20 123/64 (83) 95 Room Air 98.1 Physical Exam PHYSICAL EXAM GENERAL: Prpped up in bed, alert, NAD LUNGS: Clear CV: S1 S2 ABD: Soft, NT EXT: No gross edema or cyanosis. Left foot wound vac in place, no area redness Right foot plantar ulcer. SKIN: warm without rash,, BIOMEDICAL SCIENTIST: Alert and oriented x 3 RUE-PICC clean Labs Lab Laboratory Tests Test 12/31/17 11:49 12/31/17 16:56 12/31/17 20:16 01/01/18 05:00 Glucose (Fingerstick) 137 mg/dL (70-99) 102 mg/dL (70-99) 107 mg/dL (70-99) Sodium Level 140 mmol/L (136-145) Potassium Level 4.0 mmol/L (3.5-5.1) Chloride Level 106 mmol/L (98-107) Carbon Dioxide Level 25 mmol/L (21-32) Anion Gap 9 (6-14) Blood Urea Nitrogen 18 mg/dL (7-20) Creatinine 1.0 mg/dL (0.6-1.0) Estimated GFR (Cockcroft-Gault) 56.4 Glucose Level 143 mg/dL (70-99) Calcium Level 9.3 mg/dL (8.5-10.1) Vancomycin Level Trough 18.5 mcg/mL (10.0-20.0) Vancomycin Last Dose Date 12/31/17 Vancomycin Last Dose Time 1800 Test 01/01/18 06:00 01/01/18 07:10 White Blood Count 10.0 x10^3/uL (4.0-11.0) Red Blood Count 3.04 x10^6/uL (3.50-5.40) Hemoglobin 9.6 g/dL (12.0-15.5) Hematocrit 27.6 % (36.0-47.0) Mean Corpuscular Volume 91 fL (79-100) Mean Corpuscular Hemoglobin 32 pg (25-35) Mean Corpuscular Hemoglobin Concent 35 g/dL (31-37) Red Cell Distribution Width 12.8 % (11.5-14.5) Platelet Count 426 x10^3/uL (140-400) Neutrophils (%) (Auto) 65 % (31-73) Lymphocytes (%) (Auto) 22 % (24-48) Monocytes (%) (Auto) 9 % (0-9) Eosinophils (%) (Auto) 3 % (0-3) Basophils (%) (Auto) 1 % (0-3) Neutrophils # (Auto) 6.5 x10^3uL (1.8-7.7) Lymphocytes # (Auto) 2.2 x10^3/uL (1.0-4.8) Monocytes # (Auto) 0.9 x10^3/uL (0.0-1.1) Eosinophils # (Auto) 0.3 x10^3/uL (0.0-0.7) Basophils # (Auto) 0.1 x10^3/uL (0.0-0.2) Glucose (Fingerstick) 153 mg/dL (70-99) Micro ANAEROBIC RES 1 Preliminary Comment No anaerobes recovered in 24 hours. AEROBIC CULT Final Final report AEROBIC RES 1 Final Escherichia coli 4+ AEROBIC RES 2 Final Comment Beta hemolytic Streptococcus, group B 4+ Penicillin and ampicillin are drugs of choice for treatment of beta-hemolytic streptococcal infections. Susceptibility testing of penicillins and other beta-lactam agents approved by the FDA for treatment of beta-hemolytic streptococcal infections need not be performed routinely because nonsusceptible isolates are extremely rare in any beta-hemolytic streptococcus and have not been reported for Streptococcus pyogenes (group A). (CLSI) AEROBIC RES 3 Final Comment Methicillin - resistant Staphylococcus aureus 2+ Based on resistance to oxacillin this isolate would be resistant to all currently available beta-lactam antimicrobial agents, with the exception of the newer CONTINUED ON NEXT PAGE RUN DATE: 12/30/17 PAGE 2 RUN TIME: 1317 [facility] [address] [place] [address] Kamar Deras M.D., Elementary Reading Specialist SPEC: [id number] PATIENT: ALEXANDRA AKERS [id number] ( Continued) Procedure Result AEROBIC RES 3 Final (continued) cephalosporins with anti-MRSA activity, such as Ceftaroline ANTIMICROBIAL SUSCEPTIBILITY Final Comment S = Susceptible; I = Intermediate; R = Resistant P = Positive; N = Negative MICS are expressed in micrograms per mL Antibiotic RSLT#1 RSLT#2 RSLT#3 RSLT#4 Amoxicillin/Clavulanic Acid S =4 Ampicillin S =8 Cefepime S<=0.12 Ceftriaxone S<=0.25 Cefuroxime S =4 Ciprofloxacin S<=0.25 S<=0.5 Clindamycin I =1 Ertapenem S<=0.12 Erythromycin R>=8 Gentamicin S<=1 S<=0.5 Imipenem S<=0.25 Levofloxacin S<=0.12 S =0.25 Linezolid S =2 Meropenem S<=0.25 Oxacillin R>=4 Penicillin R>=0.5 Piperacillin/Tazobactam S<=4 Rifampin S<=0.5 Tetracycline S<=1 R>=16 Tobramycin S<=1 Trimethoprim/Sulfa S<=20 S<=10 Vancomycin S<=0.5 GRAM STAIN Final Final report GRAM STAIN RES 1 Final Comment Rare white blood cells. GRAM STAIN RES 2 Final Comment CONTINUED ON NEXT PAGE RUN DATE: 12/30/17 PAGE 3 RUN TIME: 1317 [facility] [address] [place] [address] Kamar Deras M.D., Elementary Reading Specialist SPEC: [id number] PATIENT: ALEXANDRA AKERS [id number] ( Continued) Procedure Result GRAM STAIN RES 2 Final (continued) Many gram negative rods. GRAM STAIN RES 3 Final Comment Few gram positive cocci in pairs Performed at: - [facility] [address] [facility] [address], [place], [place] [id number] Product Marketing Executive: [id number] Soler MD, Phone: [phone] END OF REPORT Objective Assessment Left foot gangrene with infection s/p amputation of 4 th or 5 th toe 12/26/17 DM Non compliance HTN Fever Leukocytosis Plan Plan of Care vancomycin and Zosyn Will adjust abx further for outpatient therapy when closer to discharge Local wound care Monitor labs/renal function closely Contact isolation Patient refuses to go to SNF and she doesn't have home IV coverage. Thus the plan will be for her to do IV abx at [facility] pending insurance approval will have to change to dapto and invanz for her to be able to do at [place] once a day f/u with me in 2 wks wkly cbc, bun/cr, sed rate, cpk MICH MARK MD Jan 01, 2018 09:00
[2018-01-01] MEDS ORDERED: ERTAPENEM 0.5 GM in IV NORMAL SALINE 50ML 50 ML IV ONE (09:30)
[2018-01-01] MEDS ORDERED: DAPTOMYCIN IV SCH (10:00)
[2018-01-01] MEDS ORDERED: NORMAL SALINE IV SCH (10:00)
[2018-01-01] MEDS: CLOPIDOGREL BISULFATE 75 MG TABLET PO SCH (10:42)
[2018-01-01] MEDS: MULTIVITAMIN with MINERAL TABLET. PO SCH (10:42)
[2018-01-01] MEDS: ASPIRIN ENTERIC COATED 81 MG TABLET.DR. PO SCH (10:42)
[2018-01-01] MEDS: ACETAMINOPHEN 325 MG TABLET. PO PRN (10:42)
[2018-01-01] MEDS: ASCORBIC ACID 500 MG TABLET PO SCH (10:42)
[2018-01-01] MEDS: LACTOBACILLUS RHAMNOSUS GG 1 CAPSULE. PO SCH (10:42)
[2018-01-01] MEDS: GABAPENTIN 300 MG CAPSULE. PO SCH ×2 (10:43→13:08)
[2018-01-01] MEDS: OMEGA-3 FATTY ACIDS/FISH OIL 1,000 MG CAPSULE. PO SCH (10:43)
[2018-01-01] MEDS: CARVEDILOL 3.125 MG TABLET. PO SCH (10:43)
[2018-01-01] MEDS: FUROSEMIDE 40 MG TABLET. PO SCH (10:43)
[2018-01-01] MEDS: CHOLECALCIFEROL (VITAMIN D3) 1,000 UNIT TABLET PO SCH (10:43)
[2018-01-01] MEDS: glyBURIDE 5 MG TABLET PO SCH (10:44)
[2018-01-01] MEDS: RANOLAZINE 500 MG TAB.ER.12H PO SCH (10:44)
[2018-01-01 11:00] VITALS: BP 128/72
--- NOTE | 2018-01-01 11:23 | PDOC ---
Provider Note Provider Note Vascular S: Patient dressed, states she is going home soon O: Alert and Ox3 VSS, afebrile Vac in place left foot A/P: POD #6 Left fourth and fifth open ray amputation. Patient is s/p AARO with left leg PT angioplasty, bypass graft patent without stenosis. Recommend wound vac and antibiotic therapy. Recommend dual antiplatelet therapy with ASA and Plavix. Recommend front off loading 1/2 shoe left foot. Patient will need f/u KRISTEN/office visit. 01/18/2018 9:10 MALA JAMISON SEWING MACHINE REPAIRER Jan 01, 2018 11:23
--- NOTE | 2018-01-01 14:31 | PDOC3 ---
Discharge Summary Visit Information Date of Admission: Dec 25, 2017 Date of Discharge: Jan 01, 2018 Admitting Diagnosis: foot pain, infection Final Diagnosis Left foot gangrene with infection s/p open amputation of 4 th & 5 th toe, . Group B strep, E. coli & MRSA Diabetic ulcer right foot DM 2 Non compliance meds HTN Fever - Leukocytosis - r Brief Hospital Course Allergies Allergies Coded Allergies Type Severity Reaction Last Updated Verified propoxyphene Allergy Intermediate Anxiety 08/14/17 Yes I S O L A T I O N *CONTACT* Allergy Unknown 08/14/17 Yes Vital Signs Vital Signs Date Time Temp Pulse Resp B/P (MAP) Pulse Ox O2 Delivery O2 Flow Rate FiO2 01/01/18 11:00 98.5 72 20 128/72 (90) 97 Room Air 98.5 Lab Results Laboratory Tests Test 12/30/17 16:39 12/30/17 20:56 12/31/17 06:00 12/31/17 07:47 Glucose (Fingerstick) 228 mg/dL (70-99) 207 mg/dL (70-99) 134 mg/dL (70-99) White Blood Count 10.1 x10^3/uL (4.0-11.0) Red Blood Count 3.09 x10^6/uL (3.50-5.40) Hemoglobin 9.8 g/dL (12.0-15.5) Hematocrit 27.8 % (36.0-47.0) Mean Corpuscular Volume 90 fL (79-100) Mean Corpuscular Hemoglobin 32 pg (25-35) Mean Corpuscular Hemoglobin Concent 35 g/dL (31-37) Red Cell Distribution Width 12.3 % (11.5-14.5) Platelet Count 433 x10^3/uL (140-400) Neutrophils (%) (Auto) 65 % (31-73) Lymphocytes (%) (Auto) 23 % (24-48) Monocytes (%) (Auto) 8 % (0-9) Eosinophils (%) (Auto) 3 % (0-3) Basophils (%) (Auto) 1 % (0-3) Neutrophils # (Auto) 6.6 x10^3uL (1.8-7.7) Lymphocytes # (Auto) 2.3 x10^3/uL (1.0-4.8) Monocytes # (Auto) 0.9 x10^3/uL (0.0-1.1) Eosinophils # (Auto) 0.3 x10^3/uL (0.0-0.7) Basophils # (Auto) 0.1 x10^3/uL (0.0-0.2) Sodium Level 141 mmol/L (136-145) Potassium Level 4.1 mmol/L (3.5-5.1) Chloride Level 106 mmol/L (98-107) Carbon Dioxide Level 29 mmol/L (21-32) Anion Gap 6 (6-14) Blood Urea Nitrogen 20 mg/dL (7-20) Creatinine 0.9 mg/dL (0.6-1.0) Estimated GFR (Cockcroft-Gault) 63.7 Glucose Level 127 mg/dL (70-99) Calcium Level 9.2 mg/dL (8.5-10.1) Test 12/31/17 11:49 12/31/17 16:56 12/31/17 20:16 01/01/18 05:00 Glucose (Fingerstick) 137 mg/dL (70-99) 102 mg/dL (70-99) 107 mg/dL (70-99) Sodium Level 140 mmol/L (136-145) Potassium Level 4.0 mmol/L (3.5-5.1) Chloride Level 106 mmol/L (98-107) Carbon Dioxide Level 25 mmol/L (21-32) Anion Gap 9 (6-14) Blood Urea Nitrogen 18 mg/dL (7-20) Creatinine 1.0 mg/dL (0.6-1.0) Estimated GFR (Cockcroft-Gault) 56.4 Glucose Level 143 mg/dL (70-99) Calcium Level 9.3 mg/dL (8.5-10.1) Vancomycin Level Trough 18.5 mcg/mL (10.0-20.0) Vancomycin Last Dose Date 12/31/17 Vancomycin Last Dose Time 1800 Test 01/01/18 06:00 01/01/18 07:10 01/01/18 11:18 White Blood Count 10.0 x10^3/uL (4.0-11.0) Red Blood Count 3.04 x10^6/uL (3.50-5.40) Hemoglobin 9.6 g/dL (12.0-15.5) Hematocrit 27.6 % (36.0-47.0) Mean Corpuscular Volume 91 fL (79-100) Mean Corpuscular Hemoglobin 32 pg (25-35) Mean Corpuscular Hemoglobin Concent 35 g/dL (31-37) Red Cell Distribution Width 12.8 % (11.5-14.5) Platelet Count 426 x10^3/uL (140-400) Neutrophils (%) (Auto) 65 % (31-73) Lymphocytes (%) (Auto) 22 % (24-48) Monocytes (%) (Auto) 9 % (0-9) Eosinophils (%) (Auto) 3 % (0-3) Basophils (%) (Auto) 1 % (0-3) Neutrophils # (Auto) 6.5 x10^3uL (1.8-7.7) Lymphocytes # (Auto) 2.2 x10^3/uL (1.0-4.8) Monocytes # (Auto) 0.9 x10^3/uL (0.0-1.1) Eosinophils # (Auto) 0.3 x10^3/uL (0.0-0.7) Basophils # (Auto) 0.1 x10^3/uL (0.0-0.2) Glucose (Fingerstick) 153 mg/dL (70-99) 225 mg/dL (70-99) Laboratory Tests Test 12/31/17 16:56 12/31/17 20:16 01/01/18 05:00 01/01/18 06:00 Glucose (Fingerstick) 102 mg/dL (70-99) 107 mg/dL (70-99) Sodium Level 140 mmol/L (136-145) Potassium Level 4.0 mmol/L (3.5-5.1) Chloride Level 106 mmol/L (98-107) Carbon Dioxide Level 25 mmol/L (21-32) Anion Gap 9 (6-14) Blood Urea Nitrogen 18 mg/dL (7-20) Creatinine 1.0 mg/dL (0.6-1.0) Estimated GFR (Cockcroft-Gault) 56.4 Glucose Level 143 mg/dL (70-99) Calcium Level 9.3 mg/dL (8.5-10.1) Vancomycin Level Trough 18.5 mcg/mL (10.0-20.0) Vancomycin Last Dose Date 12/31/17 Vancomycin Last Dose Time 1800 White Blood Count 10.0 x10^3/uL (4.0-11.0) Red Blood Count 3.04 x10^6/uL (3.50-5.40) Hemoglobin 9.6 g/dL (12.0-15.5) Hematocrit 27.6 % (36.0-47.0) Mean Corpuscular Volume 91 fL (79-100) Mean Corpuscular Hemoglobin 32 pg (25-35) Mean Corpuscular Hemoglobin Concent 35 g/dL (31-37) Red Cell Distribution Width 12.8 % (11.5-14.5) Platelet Count 426 x10^3/uL (140-400) Neutrophils (%) (Auto) 65 % (31-73) Lymphocytes (%) (Auto) 22 % (24-48) Monocytes (%) (Auto) 9 % (0-9) Eosinophils (%) (Auto) 3 % (0-3) Basophils (%) (Auto) 1 % (0-3) Neutrophils # (Auto) 6.5 x10^3uL (1.8-7.7) Lymphocytes # (Auto) 2.2 x10^3/uL (1.0-4.8) Monocytes # (Auto) 0.9 x10^3/uL (0.0-1.1) Eosinophils # (Auto) 0.3 x10^3/uL (0.0-0.7) Basophils # (Auto) 0.1 x10^3/uL (0.0-0.2) Test 01/01/18 07:10 01/01/18 11:18 Glucose (Fingerstick) 153 mg/dL (70-99) 225 mg/dL (70-99) Brief Hospital Course Ms. Marks is a 62 old admit with foot infection in DM2, to OR by vascular for Left fourth and fifth open ray amputation. Patient is s/p AARO with left leg PT angioplasty, bypass graft patent without stenosis. will DC on wound vac and antibiotic therapy. cont Dapto, will follow with Dr. Summer Dove in 2 weeks DC on dual antiplatelet therapy with ASA and Plavix. Discharge Information Condition at Discharge: Improved Follow Up: Weeks Disposition/Orders: D/C to Home w/ HH Scheduled Amoxicillin (Amoxicillin) 875 Mg Tablet, 875 MG PO BID, #10 Prescribed by: CHRISTOPHER BORGES on 08/16/17 1303 Last Action: HELD on 12/25/171449 by JUANA MOTT MD Aspirin (Aspirin Ec) 81 Mg Tablet.dr, 1 TAB PO DAILY, #30 Ref 3 (Reported) Entered as Reported by: TY FARIAS on 12/25/17 120 Last Action: Continued on 12/25/171449 by JUANA MOTT MD Atorvastatin Calcium (Lipitor) 40 Mg Tablet, 40 MG PO QHS, #30 Prescribed by: NARDA LLAMAS on 12/06/14 1325 Last Action: Continued on 12/25/171449 by JUANA MOTT MD Biotin (Biotin) 5,000 Mcg Tab.rapdis, 5,000 MCG PO DAILY, (Reported) Entered as Reported by: TY FARIAS on 12/25/171208 Last Action: Converted on 12/25/171449 by JUANA MOTT MD Carvedilol (Carvedilol) 3.125 Mg Tablet, 1 TAB PO BID, #60 Ref 3 (Reported) Entered as Reported by: TY FARIAS on 12/25/17 1406 Last Action: Continued on 12/25/171449 by JUANA MOTT MD Fenofibrate,Micronized (Fenofibrate) 134 Mg Capsule, 134 MG PO HS, (Reported) Entered as Reported by: TAHIRA FLOR on 08/12/17 2317 Last Action: Converted on 12/25/171449 by JUANA MOTT MD Furosemide (Lasix) 40 Mg Tablet, 1 TAB PO DAILY, #30 Ref 5 Prescribed by: CHRISTOPHER BORGES on 06/23/17 1047 Last Action: Continued on 12/25/171449 by JUANA MOTT MD Gabapentin (Gabapentin) 100 Mg Capsule, 180 MG PO TID, (Reported) Entered as Reported by: TY FARIAS on 12/25/17 120 Last Action: Continued on 12/25/171449 by JUANA MOTT MD Insulin Glargine,Hum.rec.anlog (Lantus Solostar) 100 Unit/1 Ml Insuln.pen, 25 UNIT SQ QHS, #15 Ref 5 (Reported) Entered as Reported by: BRITTANY LOVE on 12/25/172307 Last Action: New Order on 12/25/172307 by BRITTANY LOVE Lisinopril (Lisinopril) 5 Mg Tablet, 1 TAB PO HS, #30 Ref 5 (Reported) Entered as Reported by: TAHIRA FLOR on 08/12/172316 Last Action: Converted on 12/25/171449 by JUANA MOTT MD Metformin Hcl (Metformin Hcl) 1,000 Mg Tablet, 1 TAB PO BID, #60 Ref 5 (Reported ) Entered as Reported by: EVE VIZCARRA on 03/13/152112 Last Action: Converted on 12/25/171449 by JUANA MOTT MD [place]-3/Dha/Epa/Fish Oil (Fish Oil 1,000 Mg Softgel) 1 Each Capsule, 1 EACH PO DAILY, (Reported) Entered as Reported by: EVE VIZCARRA on 03/13/152112 Last Action: Converted on 12/25/171449 by JUANA MOTT MD Ranolazine (Ranexa) 500 Mg Tab.er.12h, 1 TAB PO BID, #60 Ref 3 Prescribed by: JAMES MORIN on 06/06/17 1001 Last Action: Continued on 12/25/171449 by JUANA MOTT MD Scheduled PRN Hydrocodone Bit/Acetaminophen (Hydrocodone-Apap 5-325 ) 1 Each Tablet, 1 TAB PO PRN Q4HRS PRN for PAIN, #45 Prescribed by: CHRISTOPHER BORGES on 08/16/17 1303 Last Action: Continued on 12/25/171449 by JUANA MOTT MD Omeprazole (Omeprazole) 40 Mg Capsule.dr, 40 MG PO PRN DAILY PRN for INDIGESTION , (Reported) Entered as Reported by: TAHIRA FLOR on 08/12/172316 Last Action: Converted on 12/25/171449 by JUANA MOTT MD Zolpidem Tartrate (Zolpidem Tartrate) 5 Mg Tablet, 5 MG PO PRN QHS PRN for INSOMNIA, Ref 0 (Reported) Entered as Reported by: EVE VIZCARRA on 10/30/15 2113 Last Action: Continued on 12/25/171449 by JUANA MOTT MD Miscellaneous Medications Cholecalciferol (Vitamin D3) (Vitamin D) 1,000 Unit Capsule, 1,000 UNIT PO, ( Reported) Entered as Reported by: EVE VIZCARRA on 03/13/152112 Last Action: Converted on 12/25/171449 by JUANA MOTT MD Patient Instructions Patient Instructions Recommend front off loading 1/2 shoe left foot. Patient will need f/u KRISTEN/office visit. 01/18/2018 9:10 CHRISTOPHER BORGES MD Jan 01, 2018 14:31
== END 2018-01-01 13:59 | disposition home health service (06) | DRG 853 ==
LOC: 4 NORTH 10:15
PROVIDERS: ADMIT Family Medicine; ATTEND Family Medicine
PROC: 0Y6Y0Z0 Detachment at Left 5th Toe, Complete, Open Approach (ICD-10-PCS; 2017-12-26)
PROC: 0Y6W0Z0 Detachment at Left 4th Toe, Complete, Open Approach (ICD-10-PCS; principal; 2017-12-26 10:15)
PROC: 047S3ZZ Dilation of Left Posterior Tibial Artery, Percutaneous Approach (ICD-10-PCS; 2017-12-27)
PROC: B41D1ZZ Fluoroscopy of Aorta and Bilateral Lower Extremity Arteries using Low Osmolar Contrast (ICD-10-PCS; 2017-12-27)
PROC: B41C1ZZ Fluoroscopy of Pelvic Arteries using Low Osmolar Contrast (ICD-10-PCS; 2017-12-27)
PROC: 02HV33Z Insertion of Infusion Device into Superior Vena Cava, Percutaneous Approach (ICD-10-PCS; 2017-12-27)
PROC: B548ZZA Ultrasonography of Superior Vena Cava, Guidance (ICD-10-PCS; 2017-12-27)
DX: A41.9 Sepsis, unspecified organism (principal); E43 Unspecified severe protein-calorie malnutrition; M86.9 Osteomyelitis, unspecified; E11.52 Type 2 diabetes mellitus with diabetic peripheral angiopathy with gangrene; I50.30 Unspecified diastolic (congestive) heart failure; L03.116 Cellulitis of left lower limb; E11.42 Type 2 diabetes mellitus with diabetic polyneuropathy; E11.621 Type 2 diabetes mellitus with foot ulcer; E11.628 Type 2 diabetes mellitus with other skin complications; E11.649 Type 2 diabetes mellitus with hypoglycemia without coma; E11.69 Type 2 diabetes mellitus with other specified complication; E78.5 Hyperlipidemia, unspecified; F32.9 Major depressive disorder, single episode, unspecified; I11.0 Hypertensive heart disease with heart failure; I25.10 Atherosclerotic heart disease of native coronary artery without angina pectoris; K21.9 Gastro-esophageal reflux disease without esophagitis; M19.90 Unspecified osteoarthritis, unspecified site; E11.65 Type 2 diabetes mellitus with hyperglycemia; B96.20 Unspecified Escherichia coli [E. coli] as the cause of diseases classified elsewhere; B95.62 Methicillin resistant Staphylococcus aureus infection as the cause of diseases classified elsewhere; B95.1 Streptococcus, group B, as the cause of diseases classified elsewhere; L97.519 Non-pressure chronic ulcer of other part of right foot with unspecified severity; Z87.440 Personal history of urinary (tract) infections; Z82.49 Family history of ischemic heart disease and other diseases of the circulatory system; Z86.73 Personal history of transient ischemic attack (TIA), and cerebral infarction without residual deficits; Z90.710 Acquired absence of both cervix and uterus; Z91.19 Patient's noncompliance with other medical treatment and regimen; Z95.1 Presence of aortocoronary bypass graft; Z90.89 Acquired absence of other organs; Z87.891 Personal history of nicotine dependence; Z88.8 Allergy status to other drugs, medicaments and biological substances; Z89.421 Acquired absence of other right toe(s); Z89.422 Acquired absence of other left toe(s); Z86.711 Personal history of pulmonary embolism; Z68.23 Body mass index [BMI] 23.0-23.9, adult
CPT/HCPCS: 36415; 36569; 37228; 73620; 75625; 75716; 76937; 77001; 80048; 80053; 80202; 82962; 83036; 83605; 85007; 85025; 85610; 85651; 85730; 87071; 87075; 87186; 87641; 88305; 88311; 93925; 99152; 99153; A7015; C1713; C1725; C1751; C1769; C1892; C1894; G0269; J0330; J0360; J0690; J0878; J1100; J1335; J1644; J1650; J1815; J2001; J2250; J2405; J2543; J2704; J3010; J3370; J7040; J7042; J7050; J7120; S0028; A4461; J7030

== ENCOUNTER → 2017-12-25 | Outpatient (CLI) | payer MEDICARE ==
[2017-08-16 16:22] VITALS: BP 144/73
[~2017-12-25] MED LIST: AMIT25TA PO; AMOX1TAB11 PO; AMOX875T PO; ASPI-252 PO; ASPI-612 PO; ASPI325T8 PO; ATOR20TA PO; ATOR40TA PO; BIOT5000 PO; CARV12.52 PO; CARV3.12 PO; CARV3.122 PO; CARV6.252 PO; CEPH-264 PO; CHOL100013 PO; CYCL10TA2 PO; DOXY100T PO; FENO134C PO; FURO-68 PO; GABA-585 PO; GABA-586 PO; GABA300S PO; HYDR-2758 PO; INSU100I13 SQ; INSU100I17 SQ; INSU100I27 SQ; LISI-338 PO; LISI10TA2 PO; LISI20TA PO; METF10003 PO; MULT1TAB52 PO; Metoprolol Tartrate PO; OMEG1CAP30 PO; OMEP40CA5 PO; OXYC1TAB7 PO; POTA20TA82 PO; RANO500T2 PO; VITA1CAP PO; ZOLP5TAB5 PO
== END | disposition home or self-care (01) ==
LOC: PMGWOUND 08:25
PROVIDERS: ATTEND Emergency Medicine Undersea and Hyperbaric Medicine
DX: E11.621 Type 2 diabetes mellitus with foot ulcer (principal); L97.524 Non-pressure chronic ulcer of other part of left foot with necrosis of bone; L97.512 Non-pressure chronic ulcer of other part of right foot with fat layer exposed; S80.812A Abrasion, left lower leg, initial encounter; I11.0 Hypertensive heart disease with heart failure; I50.32 Chronic diastolic (congestive) heart failure; E11.52 Type 2 diabetes mellitus with diabetic peripheral angiopathy with gangrene; I96 Gangrene, not elsewhere classified; E11.69 Type 2 diabetes mellitus with other specified complication; M86.8X7 Other osteomyelitis, ankle and foot; E11.610 Type 2 diabetes mellitus with diabetic neuropathic arthropathy; E78.4 Other hyperlipidemia; E11.21 Type 2 diabetes mellitus with diabetic nephropathy; K21.9 Gastro-esophageal reflux disease without esophagitis; F32.9 Major depressive disorder, single episode, unspecified; E11.42 Type 2 diabetes mellitus with diabetic polyneuropathy; E78.5 Hyperlipidemia, unspecified; I25.10 Atherosclerotic heart disease of native coronary artery without angina pectoris; Z86.711 Personal history of pulmonary embolism; Z87.891 Personal history of nicotine dependence; Z86.73 Personal history of transient ischemic attack (TIA), and cerebral infarction without residual deficits; Z89.432 Acquired absence of left foot; Z89.431 Acquired absence of right foot; Z90.49 Acquired absence of other specified parts of digestive tract; Z90.710 Acquired absence of both cervix and uterus; Z95.1 Presence of aortocoronary bypass graft; Z79.4 Long term (current) use of insulin; X58.XXXA Exposure to other specified factors, initial encounter; Y93.89 Activity, other specified; Y92.89 Other specified places as the place of occurrence of the external cause; Y99.8 Other external cause status
CPT/HCPCS: 97597

== ENCOUNTER → 2018-01-08 | Outpatient (CLI) | payer MEDICARE ==
[2017-12-30 09:59] VITALS: BP 118/63
[~2018-01-08] MED LIST changes: +ASPI-612 PO; +BIOT5000 PO; +CARV3.122 PO; +GABA-585 PO; -METF10003 PO; +METF10007 PO
== END | disposition home or self-care (01) ==
LOC: PMGWOUND 13:34
PROVIDERS: ATTEND Emergency Medicine Undersea and Hyperbaric Medicine
DX: E11.621 Type 2 diabetes mellitus with foot ulcer (principal); L97.524 Non-pressure chronic ulcer of other part of left foot with necrosis of bone; L97.512 Non-pressure chronic ulcer of other part of right foot with fat layer exposed; I11.0 Hypertensive heart disease with heart failure; I50.32 Chronic diastolic (congestive) heart failure; I25.10 Atherosclerotic heart disease of native coronary artery without angina pectoris; K21.9 Gastro-esophageal reflux disease without esophagitis; F32.9 Major depressive disorder, single episode, unspecified; E11.69 Type 2 diabetes mellitus with other specified complication; M86.8X7 Other osteomyelitis, ankle and foot; E11.649 Type 2 diabetes mellitus with hypoglycemia without coma; E11.52 Type 2 diabetes mellitus with diabetic peripheral angiopathy with gangrene; I96 Gangrene, not elsewhere classified; E11.610 Type 2 diabetes mellitus with diabetic neuropathic arthropathy; E11.42 Type 2 diabetes mellitus with diabetic polyneuropathy; E11.65 Type 2 diabetes mellitus with hyperglycemia; E78.4 Other hyperlipidemia; Z79.4 Long term (current) use of insulin; Z95.1 Presence of aortocoronary bypass graft; Z89.431 Acquired absence of right foot; Z89.432 Acquired absence of left foot; Z90.49 Acquired absence of other specified parts of digestive tract; Z90.710 Acquired absence of both cervix and uterus; Z90.89 Acquired absence of other organs; Z87.891 Personal history of nicotine dependence; Z86.711 Personal history of pulmonary embolism; Z86.73 Personal history of transient ischemic attack (TIA), and cerebral infarction without residual deficits; Z88.8 Allergy status to other drugs, medicaments and biological substances
CPT/HCPCS: 11042

== ENCOUNTER → 2018-02-08 | Outpatient (CLI) | payer MEDICARE ==
[2017-12-30 09:59] VITALS: BP 118/63
== END | disposition home or self-care (01) ==
LOC: PMGWOUND 10:29
PROVIDERS: ATTEND Emergency Medicine Undersea and Hyperbaric Medicine
DX: E11.621 Type 2 diabetes mellitus with foot ulcer (principal); L97.524 Non-pressure chronic ulcer of other part of left foot with necrosis of bone; L97.512 Non-pressure chronic ulcer of other part of right foot with fat layer exposed; I11.0 Hypertensive heart disease with heart failure; I50.32 Chronic diastolic (congestive) heart failure; E11.42 Type 2 diabetes mellitus with diabetic polyneuropathy; E11.618 Type 2 diabetes mellitus with other diabetic arthropathy; E11.649 Type 2 diabetes mellitus with hypoglycemia without coma; E11.65 Type 2 diabetes mellitus with hyperglycemia; E11.52 Type 2 diabetes mellitus with diabetic peripheral angiopathy with gangrene; I96 Gangrene, not elsewhere classified; E11.69 Type 2 diabetes mellitus with other specified complication; M86.8X7 Other osteomyelitis, ankle and foot; F32.9 Major depressive disorder, single episode, unspecified; E78.4 Other hyperlipidemia; K21.9 Gastro-esophageal reflux disease without esophagitis; I25.10 Atherosclerotic heart disease of native coronary artery without angina pectoris; E66.9 Obesity, unspecified; Z68.24 Body mass index [BMI] 24.0-24.9, adult; Z79.4 Long term (current) use of insulin; Z90.49 Acquired absence of other specified parts of digestive tract; Z90.710 Acquired absence of both cervix and uterus; Z86.711 Personal history of pulmonary embolism; Z86.73 Personal history of transient ischemic attack (TIA), and cerebral infarction without residual deficits; Z87.891 Personal history of nicotine dependence
CPT/HCPCS: 11042

== ENCOUNTER → 2018-03-06 | Outpatient (CLI) | payer MEDICARE ==
[2017-12-30 09:59] VITALS: BP 118/63
== END | disposition home or self-care (01) ==
LOC: PMGWOUND 10:34
PROVIDERS: ATTEND Emergency Medicine Undersea and Hyperbaric Medicine
DX: T87.89 Other complications of amputation stump (principal); E11.621 Type 2 diabetes mellitus with foot ulcer; L97.524 Non-pressure chronic ulcer of other part of left foot with necrosis of bone; L97.512 Non-pressure chronic ulcer of other part of right foot with fat layer exposed; E11.42 Type 2 diabetes mellitus with diabetic polyneuropathy; E11.65 Type 2 diabetes mellitus with hyperglycemia; E11.649 Type 2 diabetes mellitus with hypoglycemia without coma; E11.610 Type 2 diabetes mellitus with diabetic neuropathic arthropathy; E11.69 Type 2 diabetes mellitus with other specified complication; M86.8X7 Other osteomyelitis, ankle and foot; E11.52 Type 2 diabetes mellitus with diabetic peripheral angiopathy with gangrene; I96 Gangrene, not elsewhere classified; L84 Corns and callosities; F32.9 Major depressive disorder, single episode, unspecified; E78.49 Other hyperlipidemia; K21.9 Gastro-esophageal reflux disease without esophagitis; I25.10 Atherosclerotic heart disease of native coronary artery without angina pectoris; E66.9 Obesity, unspecified; Z68.24 Body mass index [BMI] 24.0-24.9, adult; Z79.4 Long term (current) use of insulin; Z86.711 Personal history of pulmonary embolism; Z87.891 Personal history of nicotine dependence; Z90.710 Acquired absence of both cervix and uterus; Z90.49 Acquired absence of other specified parts of digestive tract; Z86.73 Personal history of transient ischemic attack (TIA), and cerebral infarction without residual deficits; Y83.5 Amputation of limb(s) as the cause of abnormal reaction of the patient, or of later complication, without mention of misadventure at the time of the procedure
CPT/HCPCS: 11042; 97597

== ENCOUNTER → 2018-04-26 | Outpatient (CLI) | payer MEDICARE ==
[2017-12-30 09:59] VITALS: BP 118/63
[~2018-04-26] MED LIST changes: +CARV12.511 PO; -CARV12.52 PO; +CARV3.1210 PO; -CARV3.122 PO; +CARV6.2511 PO; -CARV6.252 PO; -GABA-586 PO; +GABA300C18 PO; -HYDR-2758 PO; +HYDR-2761 PO
== END | disposition home or self-care (01) ==
LOC: PMGWOUND 08:17
PROVIDERS: ATTEND Emergency Medicine Undersea and Hyperbaric Medicine
DX: E11.621 Type 2 diabetes mellitus with foot ulcer (principal); L97.512 Non-pressure chronic ulcer of other part of right foot with fat layer exposed; E11.610 Type 2 diabetes mellitus with diabetic neuropathic arthropathy; E11.65 Type 2 diabetes mellitus with hyperglycemia; E11.649 Type 2 diabetes mellitus with hypoglycemia without coma; E11.42 Type 2 diabetes mellitus with diabetic polyneuropathy; E11.69 Type 2 diabetes mellitus with other specified complication; M86.8X7 Other osteomyelitis, ankle and foot; E11.52 Type 2 diabetes mellitus with diabetic peripheral angiopathy with gangrene; I96 Gangrene, not elsewhere classified; L84 Corns and callosities; E78.49 Other hyperlipidemia; I25.10 Atherosclerotic heart disease of native coronary artery without angina pectoris; K21.9 Gastro-esophageal reflux disease without esophagitis; E66.9 Obesity, unspecified; Z68.24 Body mass index [BMI] 24.0-24.9, adult; Z86.711 Personal history of pulmonary embolism; Z87.891 Personal history of nicotine dependence; Z90.710 Acquired absence of both cervix and uterus; Z90.49 Acquired absence of other specified parts of digestive tract; Z86.73 Personal history of transient ischemic attack (TIA), and cerebral infarction without residual deficits
CPT/HCPCS: 11042; 11045

== ENCOUNTER → 2018-05-10 | Outpatient (CLI) | payer MEDICARE ==
[2017-12-30 09:59] VITALS: BP 118/63
== END | disposition home or self-care (01) ==
LOC: PMGWOUND 08:50
PROVIDERS: ATTEND Emergency Medicine Undersea and Hyperbaric Medicine
DX: E11.621 Type 2 diabetes mellitus with foot ulcer (principal); L97.524 Non-pressure chronic ulcer of other part of left foot with necrosis of bone; L97.512 Non-pressure chronic ulcer of other part of right foot with fat layer exposed; L84 Corns and callosities; E11.610 Type 2 diabetes mellitus with diabetic neuropathic arthropathy; E11.42 Type 2 diabetes mellitus with diabetic polyneuropathy; E11.65 Type 2 diabetes mellitus with hyperglycemia; E11.649 Type 2 diabetes mellitus with hypoglycemia without coma; E11.69 Type 2 diabetes mellitus with other specified complication; M86.8X7 Other osteomyelitis, ankle and foot; E11.52 Type 2 diabetes mellitus with diabetic peripheral angiopathy with gangrene; I96 Gangrene, not elsewhere classified; K21.9 Gastro-esophageal reflux disease without esophagitis; E78.49 Other hyperlipidemia; I25.10 Atherosclerotic heart disease of native coronary artery without angina pectoris; Z86.711 Personal history of pulmonary embolism; Z87.891 Personal history of nicotine dependence; Z90.710 Acquired absence of both cervix and uterus; Z90.49 Acquired absence of other specified parts of digestive tract; Z86.718 Personal history of other venous thrombosis and embolism; Z86.73 Personal history of transient ischemic attack (TIA), and cerebral infarction without residual deficits
CPT/HCPCS: 11042

== ENCOUNTER → 2018-05-24 | Outpatient (CLI) | payer MEDICARE ==
[2017-12-30 09:59] VITALS: BP 118/63
== END | disposition home or self-care (01) ==
LOC: PMGWOUND 08:49
PROVIDERS: ATTEND Emergency Medicine Undersea and Hyperbaric Medicine
DX: E11.621 Type 2 diabetes mellitus with foot ulcer (principal); L97.524 Non-pressure chronic ulcer of other part of left foot with necrosis of bone; L97.512 Non-pressure chronic ulcer of other part of right foot with fat layer exposed; E11.610 Type 2 diabetes mellitus with diabetic neuropathic arthropathy; E11.42 Type 2 diabetes mellitus with diabetic polyneuropathy; E11.65 Type 2 diabetes mellitus with hyperglycemia; E11.649 Type 2 diabetes mellitus with hypoglycemia without coma; E11.52 Type 2 diabetes mellitus with diabetic peripheral angiopathy with gangrene; I96 Gangrene, not elsewhere classified; E11.69 Type 2 diabetes mellitus with other specified complication; M86.8X7 Other osteomyelitis, ankle and foot; L84 Corns and callosities; K21.9 Gastro-esophageal reflux disease without esophagitis; E78.49 Other hyperlipidemia; I25.10 Atherosclerotic heart disease of native coronary artery without angina pectoris; E66.9 Obesity, unspecified; Z68.24 Body mass index [BMI] 24.0-24.9, adult; Z87.891 Personal history of nicotine dependence; Z90.49 Acquired absence of other specified parts of digestive tract; Z90.710 Acquired absence of both cervix and uterus; Z86.718 Personal history of other venous thrombosis and embolism; Z86.711 Personal history of pulmonary embolism; Z86.73 Personal history of transient ischemic attack (TIA), and cerebral infarction without residual deficits
CPT/HCPCS: 11042

== ENCOUNTER → 2018-06-25 | Outpatient (CLI) | payer MEDICARE ==
[2017-12-30 09:59] VITALS: BP 118/63
== END | disposition home or self-care (01) ==
LOC: PMGWOUND 09:26
PROVIDERS: ATTEND Emergency Medicine Undersea and Hyperbaric Medicine
DX: E11.621 Type 2 diabetes mellitus with foot ulcer (principal); L97.524 Non-pressure chronic ulcer of other part of left foot with necrosis of bone; L97.512 Non-pressure chronic ulcer of other part of right foot with fat layer exposed; E11.610 Type 2 diabetes mellitus with diabetic neuropathic arthropathy; E11.42 Type 2 diabetes mellitus with diabetic polyneuropathy; E11.65 Type 2 diabetes mellitus with hyperglycemia; E11.52 Type 2 diabetes mellitus with diabetic peripheral angiopathy with gangrene; I96 Gangrene, not elsewhere classified; E11.69 Type 2 diabetes mellitus with other specified complication; M86.8X7 Other osteomyelitis, ankle and foot; L84 Corns and callosities; I50.9 Heart failure, unspecified; E78.49 Other hyperlipidemia; K21.9 Gastro-esophageal reflux disease without esophagitis; I25.10 Atherosclerotic heart disease of native coronary artery without angina pectoris; E66.9 Obesity, unspecified; Z68.24 Body mass index [BMI] 24.0-24.9, adult; Z86.718 Personal history of other venous thrombosis and embolism; Z86.711 Personal history of pulmonary embolism; Z87.891 Personal history of nicotine dependence; Z90.710 Acquired absence of both cervix and uterus; Z90.49 Acquired absence of other specified parts of digestive tract; Z86.73 Personal history of transient ischemic attack (TIA), and cerebral infarction without residual deficits
CPT/HCPCS: 11042

== ENCOUNTER → 2018-07-18 | Outpatient (CLI) | payer MEDICARE ==
[2017-12-30 09:59] VITALS: BP 118/63
== END | disposition home or self-care (01) ==
LOC: PMGWOUND 09:49
PROVIDERS: ATTEND Preventive Medicine Undersea and Hyperbaric Medicine
DX: E11.621 Type 2 diabetes mellitus with foot ulcer (principal); L97.524 Non-pressure chronic ulcer of other part of left foot with necrosis of bone; L97.512 Non-pressure chronic ulcer of other part of right foot with fat layer exposed; E11.610 Type 2 diabetes mellitus with diabetic neuropathic arthropathy; E11.42 Type 2 diabetes mellitus with diabetic polyneuropathy; E11.65 Type 2 diabetes mellitus with hyperglycemia; E11.649 Type 2 diabetes mellitus with hypoglycemia without coma; E11.69 Type 2 diabetes mellitus with other specified complication; M86.8X7 Other osteomyelitis, ankle and foot; E11.52 Type 2 diabetes mellitus with diabetic peripheral angiopathy with gangrene; I96 Gangrene, not elsewhere classified; L84 Corns and callosities; E78.49 Other hyperlipidemia; K21.9 Gastro-esophageal reflux disease without esophagitis; I25.10 Atherosclerotic heart disease of native coronary artery without angina pectoris; E66.9 Obesity, unspecified; Z68.24 Body mass index [BMI] 24.0-24.9, adult; Z86.711 Personal history of pulmonary embolism; Z87.891 Personal history of nicotine dependence; Z90.710 Acquired absence of both cervix and uterus; Z90.49 Acquired absence of other specified parts of digestive tract; Z86.718 Personal history of other venous thrombosis and embolism
CPT/HCPCS: 11042

== ENCOUNTER → 2018-08-06 | Outpatient (CLI) | payer MEDICARE ==
[2017-12-30 09:59] VITALS: BP 118/63
== END | disposition home or self-care (01) ==
LOC: PMGWOUND 08:48
PROVIDERS: ATTEND Emergency Medicine Undersea and Hyperbaric Medicine
DX: E11.621 Type 2 diabetes mellitus with foot ulcer (principal); L97.524 Non-pressure chronic ulcer of other part of left foot with necrosis of bone; L97.512 Non-pressure chronic ulcer of other part of right foot with fat layer exposed; E11.52 Type 2 diabetes mellitus with diabetic peripheral angiopathy with gangrene; I96 Gangrene, not elsewhere classified; E11.69 Type 2 diabetes mellitus with other specified complication; M86.8X7 Other osteomyelitis, ankle and foot; E11.610 Type 2 diabetes mellitus with diabetic neuropathic arthropathy; E11.42 Type 2 diabetes mellitus with diabetic polyneuropathy; E11.65 Type 2 diabetes mellitus with hyperglycemia; E11.649 Type 2 diabetes mellitus with hypoglycemia without coma; L84 Corns and callosities; I50.9 Heart failure, unspecified; E78.49 Other hyperlipidemia; K21.9 Gastro-esophageal reflux disease without esophagitis; I25.10 Atherosclerotic heart disease of native coronary artery without angina pectoris; E66.9 Obesity, unspecified; Z68.24 Body mass index [BMI] 24.0-24.9, adult; Z86.711 Personal history of pulmonary embolism; Z87.891 Personal history of nicotine dependence; Z90.710 Acquired absence of both cervix and uterus; Z90.49 Acquired absence of other specified parts of digestive tract; Z86.718 Personal history of other venous thrombosis and embolism; Z86.73 Personal history of transient ischemic attack (TIA), and cerebral infarction without residual deficits
CPT/HCPCS: 11042

== ENCOUNTER → 2019-07-17 | Outpatient (CLI) | payer MEDICARE ==
[2017-12-30 09:59] VITALS: BP 118/63
[~2019-07-17] MED LIST changes: +OMEP40CA45 PO; -OMEP40CA5 PO; +POTA20TA4 PO; -POTA20TA82 PO
--- NOTE | 2019-07-17 12:50 | CARD ---
MR#: [id number] Date of Study: 07/17/2019 Ordering Physician: ARELI DOSS, Referring Physician: ARELI DOSS, Tech: Zita Wiggins DONNIE APPROVED REPORT EXAM: Two-dimensional and M-mode echocardiogram with Doppler and color Doppler. Other Information Quality : Good INDICATION Cardiac Disease: CAD Surgery/Intervention CABG: Date: 2015 2D DIMENSIONS RVDd3.3 (2.9-3.5cm)Left Atrium(2D)4.0 (1.6-4.0cm) IVSd2.0 (0.7-1.1cm)Aortic Root(2D)3.2 (2.0-3.7cm) LVDd3.7 (3.9-5.9cm)LVOT Diameter2.1 (1.8-2.4cm) PWd1.4 (0.7-1.1cm)LVDs2.8 (2.5-4.0cm) FS (%) 23.8 %SV27.5 ml LVEF(%)48.3 (>50%) Aortic Valve AoV Peak Jonathon.124.7cm/sAoV VTI24.0cm AO Peak GR.6.2mmHgLVOT Peak Jonathon.100.0cm/s LVOT VTI 22.91cmAO Mean GR.3mmHg AYDE (VMAX)2.24yz4XHX (VTI)3.39cm2 AI P 1/2 Kbit999op Mitral Valve MV E Zriuvawk73.9cm/sMV DECEL JUGD611mk MV A Pcugybtn687.5cm/sMV SWI73pc E/A Ratio0.9MVA (PHT)3.43cm2 TDI E/Lateral E'15.0E/Medial E'21.5 Tricuspid Valve TR P. Uesliofr224km/sRAP GKVHDKIU8lcJp TR Peak Gr.07eqMrCDTQ63uyQa Pulmonary Vein S1 Kgvoydhi54.1cm/sD2 Ehwbiiah56.9cm/s LEFT VENTRICLE The left ventricle is normal size. There is mild to moderate concentric left ventricular hypertrophy. The left ventricular systolic function is normal. The Ejection Fraction is 55-60%. Septal motion con sistent with post-operative state. Transmitral Doppler flow pattern is Grade I-abnormal relaxation pa ttern. RIGHT VENTRICLE The right ventricle is normal size. The right ventricular systolic function is normal. ATRIA The left atrium is mildly dilated. The right atrium size is normal. The interatrial septum is intact with no evidence for an atrial septal defect or patent foramen ovale as noted on 2-D or Doppler imagi ng. AORTIC VALVE The aortic valve is calcified but opens well. Doppler and Color Flow revealed mild aortic regurgitati on. There is no significant aortic valvular stenosis. MITRAL VALVE The mitral valve is calcified but opens well. Mitral annular calcification is mild. There is no evide nce of mitral valve prolapse. There is no mitral valve stenosis. Doppler and Color-flow revealed trac e to mild mitral regurgitation. TRICUSPID VALVE The tricuspid valve is normal in structure and function. Doppler and Color Flow revealed mild tricusp id regurgitation. There is mild pulmonary hypertension. The PA pressure was estimated at 37 mmHg. The re is no tricuspid valve stenosis. PULMONIC VALVE The pulmonic valve is not well visualized. Doppler and Color Flow revealed trace to mild pulmonic carson vular regurgitation. There is no pulmonic valvular stenosis. GREAT VESSELS The aortic root is normal in size. The ascending aorta is mildly dilated at 3.2 cm. The IVC is normal in size and collapses >50% with inspiration. PERICARDIAL EFFUSION There is no evidence of significant pericardial effusion. Critical Notification Critical Value: No <Conclusion> The left ventricular systolic function is normal. The Ejection Fraction is 55-60%. Transmitral Doppler flow pattern is Grade I-abnormal relaxation pattern. Mild aortic regurgitation. Trace to mild mitral regurgitation. Mild tricuspid regurgitation. The PA pressure was estimated at 37 mmHg. There is no evidence of significant pericardial effusion. Signed by : Keven Allen, Electronically Approved : 07/17/2019 12:50:19
== END | disposition home or self-care (01) ==
LOC: ECHO 12:08
PROVIDERS: ATTEND Internal Medicine Cardiovascular Disease
DX: I08.2 Rheumatic disorders of both aortic and tricuspid valves (principal); I08.0 Rheumatic disorders of both mitral and aortic valves; I25.10 Atherosclerotic heart disease of native coronary artery without angina pectoris; I27.20 Pulmonary hypertension, unspecified; I70.0 Atherosclerosis of aorta
CPT/HCPCS: 93306

== ENCOUNTER 2019-08-21 07:53 | Day surgery (SDC) | payer MEDICARE ==
[~2019-08-21 07:53] MED LIST changes: +AMOX1TAB61 PO; +ASCO500C PO; +BUPIVACAINE-EPI 0.5%-1:200000 MPF 30 ML VIAL. ONE; +GLUCAGON,HUMAN RECOMBINANT 1 MG/ML VIAL. ONE; +HYDROmorphone 2 MG/ML VIAL IV PRN; +IOHEXOL 300 MG/ML 50 ML VIAL. ONE; +IV RINGERS,LACTATED 1000ML 1,000 ML IV SCH; +LISI-130 PO; +MORPHINE SULFATE 2 MG/ML VIAL. IV PRN; +ONDANSETRON PF 4 MG/2 ML VIAL. IV PRN; +PROCHLORPERAZINE 10 MG/2 ML VIAL. IV PRN; +SURGICEL HEMOSTAT 4X8 EACH. ONE; +ceFAZolin SODIUM IV Push 1 GM VIAL. IVP ONE; +fentaNYL PF VIAL 100 MCG/2 ML VIAL IV PRN
[2019-08-21] MEDS ORDERED: DEXAMETHASONE SOD PHOS 4 MG/ML VIAL ONE (08:41)
[2019-08-21] MEDS ORDERED: ROCURONIUM 50 MG/5 ML VIAL. ONE ×2 (08:41→09:49)
[2019-08-21] MEDS ORDERED: NEOSTIGMINE METHYLSULFATE 5 MG/5 ML SYRINGE. ONE (08:41)
[2019-08-21] MEDS ORDERED: MIDAZOLAM HCL/PF 2 MG/2 ML VIAL. ONE (08:41)
[2019-08-21] MEDS ORDERED: GLYCOPYRROLATE 1 MG/5 ML VIAL. ONE (08:41)
[2019-08-21] MEDS ORDERED: fentaNYL PF VIAL 100 MCG/2 ML VIAL ONE (08:41)
[2019-08-21] MEDS ORDERED: SEVOFLURANE 61 TO 120 MINUTES. IH ONE (08:41)
[2019-08-21] MEDS ORDERED: PROPOFOL 20 ML IV ONE (08:42)
[2019-08-21] MEDS ORDERED: ONDANSETRON PF 4 MG/2 ML VIAL. ONE (08:42)
[2019-08-21] MEDS ORDERED: LIDOCAINE 2% PF 5 ML VIAL. ONE (08:42)
[2019-08-21] MEDS ORDERED: PHENYLEPHRINE in 0.9% NACL PF 1 MG/10 ML SYRINGE. IV ONE (09:03)
--- NOTE | 2019-08-21 10:11 | RAD ---
CHOLANGIOGRAM INTRAOPERATIVE History: Cholangiogram intraoperatively during cholecystectomy. Comparison: None. Technique/findings: Intraoperative cholangiogram. Contrast opacifies the common bile duct. Mildly dilated intrahepatic and extra hepatic bile ducts. Slight irregularity and narrowing of the distal common bile duct. Contrast still noted within the small bowel. See procedure note for further details. Fluoroscopy time: 0.3 minutes. Number of fluoroscopic images: 4 Impression: 1. Intraoperative cholangiogram demonstrates mildly dilated intrahepatic bile ducts and proximal common bile duct. 2. Irregularity and narrowing of the distal common bile duct, may relate to choledocholithiasis or stricture. No obstruction. MRCP or ERCP can further evaluate as clinically warranted. Electronically signed by: Cruz Ram DO (08/21/2019 10:08 AM) [id number]
[2019-08-21] MEDS ORDERED: OXYC-325 PO (10:47)
--- NOTE | 2019-08-21 10:50 | DISCH ---
DISCHARGE INSTRUCTIONS Condition on Discharge Condition on Discharge: Stable Activity After Discharge Activity Instructions for Disc: Activity as tolerated Lifting Instructions after Dis: No heavy lifting, No pulling or pushing, Do not lift >10 pounds Exercise Instruction after Dis: Walk 10 min, 3 x per day, Progress as tolerated Driving Instructions after Dis: Do not drive (3-4 days) Diet after Discharge Diet after Discharge: Diabetic No Calorie Level Diet Texture: Regular Wound Incision Care Wound/Incision Care: Ice to area for comfort Other wound/incision instructi: empty and record drain output twice a day Wound Care Equipment: Dressings Checks after Discharge Checks after discharge: Check blood sugar, ac/hs Follow-Up Follow up with: Ted 08/25 in [place] office TAMEKA MYLES MD Aug 21, 2019 10:50
--- NOTE | 2019-08-21 10:55 | PDOC ---
BRIEF OPERATIVE NOTE Date: Aug 21, 2019 Pre-Op Diagnosis symptomatic cholelithiasis Post-Op Diagnosis same, adhesions Procedure Performed l/s KELLEN chanel Surgeon Ted Plan Nurse Sophie OLGUIN Anesthesia Type: General Blood Loss 25cc IV Fluid 800cc Specimens Obtained GB Findings supple GB, omental adhesions to GB and abdominal wall Complications none TAMEKA MYLES MD Aug 21, 2019 10:55
[2019-08-21] MEDS: fentaNYL PF VIAL 100 MCG/2 ML VIAL IV PRN ×4 (11:06→11:41)
--- NOTE | 2019-08-21 11:27 | OP ---
DATE OF SURGERY: 08/21/2019 PREOPERATIVE DIAGNOSIS: Symptomatic cholelithiasis. POSTOPERATIVE DIAGNOSIS: Symptomatic cholelithiasis with omental adhesions. PROCEDURE: Laparoscopic cholecystectomy with cholangiograms, lysis of adhesions. SURGEON: Ranjeet Myles MD FLIGHT PURSER: CLAU Soler ANESTHESIA: General endotracheal. ESTIMATED BLOOD LOSS: 25 mL. INTRAVENOUS FLUIDS: 800 mL. INDICATIONS: The patient is a 63-year-old lady with persistent nausea and right upper quadrant pain and known cholelithiasis. She is brought for cholecystectomy. OPERATIVE FINDINGS: The liver was smooth and sharp. The gallbladder was supple and had omental adhesions along the inferior surface. There were omental adhesions in the abdomen from previous open appendectomy. Visual inspection of the remainder of the abdomen failed to reveal obvious abnormalities. DESCRIPTION OF PROCEDURE: The patient brought to the operating suite, given a general endotracheal anesthetic and the abdomen prepped and draped in usual sterile fashion. A supraumbilical incision was infiltrated with local anesthetic, incised and a 5 mm Visiport used to try and gain access to the abdominal cavity. Because of adhesions, this site was not cleared to allow adequate visualization. As such, we chose a second entry point in the midclavicular line and were able to safely gain access into the abdominal cavity. Pneumoperitoneum established. An epigastric port and lateral port were placed under direct vision. The LigaSure was used to take down adhesions around the initial port and this was done carefully avoiding any injury to adjacent bowel. No evidence of bowel injury was seen. Once adequate lysis of adhesions to expose the insertion site of the camera port was completed, we proceeded with the cholecystectomy. With the table in reverse Trendelenburg rolled to the left, gallbladder was retracted superolaterally and adhesions were taken down bluntly and with cautery dissection, taking care to avoid injury to the adjacent bowel. The cystic duct and cystic artery were identified. The duct was clipped on the gallbladder side. Cholangiograms were made. These showed some mild dilatation of the biliary tree with contrast into the duodenum and possible debris or stone in the distal duct. In light of these findings, the catheter was removed. The cystic duct was clipped x 3 and divided, taking care to avoid injury or compromise of the common duct. An anterior and posterior branch of the cystic artery were clipped and divided and gallbladder freed from the bed with cautery dissection and placed in an EndoCatch bag. Some venous bleeding from the fossa was controlled with cautery, Surgicel, FloSeal. Good hemostasis was present. A 19-German round Rodney drain was brought through the epigastric port out the lateral port, sewn to the skin with a silk stitch and left in the subhepatic space for postoperative drainage. Table returned to level. Gallbladder delivered through the epigastric incision, which was then closed with interrupted 0 Vicryl suture. At 6 cm intra-abdominal pressure, no bleeding from the epigastric closure or from the midclavicular port site after its removal or from the drain site. Abdomen decompressed. Camera removed, no bleeding seen. Skin incisions closed with subcuticular 4-0 Monocryl. Steri-Strips and sterile dressings applied. The patient awakened from her anesthetic and taken to the recovery room in satisfactory condition. RANJEET MYLES MD DR: TL/jamin JOB#: [id number] / [id number]
[2019-08-21] MEDS ORDERED: oxyCODONE/APAP 5/325 1 TAB TABLET PO ONE (12:00)
[2019-08-21] MEDS ORDERED: MORPHINE SULFATE 2 MG/ML VIAL. ONE (12:03)
[2019-08-21 12:47] VITALS: BP 130/61
--- NOTE | 2019-08-23 17:06 | PATHOLOGY ---
[facility] Accession Number: [id number] . 01 Material submitted: . gallbladder - GALLBLADDER AND CONTENTS . 01 Clinical history: . Cholelithiasis . 02 Diagnosis: Gallbladder, excision: - Mild chronic cholecystitis; negative for malignancy. - Lithiasis. - Cholesterol Polyp (MLK/db; 08/23/2019) LBQ 08/23/2019 1653 Local . 02 Electronically signed: . Erendira Perez MD, Pathologist NPI- [id number] . 01 Gross description: . The specimen is received in formalin, labeled "Jessica Marks, gallbladder and contents". Received is an intact gallbladder measuring 9.4 x 4.0 x 3.2 cm in greatest dimensions displaying a blue-handy serosal surface. Opening the specimen reveals a velvety, pink-horvath mucosa with a gallbladder wall thickness of 0.1 cm. A single polypoid excrescence is identified measuring 0.1 cm. Two black, stellate calculi are present. Fruit Grower sections, to include the proximal margin and polypoid excrescence, are submitted in cassette A1. (CAA; 08/21/2019) QAC/QA 08/21/2019 1454 Local . 02 Pathologist provided ICD-10: K80.10, D13.5 . 02 CPT . 430988 Specimen Comment: A courtesy copy of this report has been sent to [phone], [phone] Specimen Comment: [id number] Specimen Comment: Report sent to / DR GOODWIN Performed at: 01 [facility] [address], [place], [place] [id number] MD Waqar Marcelo MD Phone: [phone] Performed at: [address] [facility] [id number] MD Jeff Brock MD Phone: [phone]
== END 2019-08-21 13:30 | disposition home or self-care (01) ==
LOC: SURG 07:53
PROVIDERS: ATTEND Surgery
DX: K80.20 Calculus of gallbladder without cholecystitis without obstruction (principal); I25.10 Atherosclerotic heart disease of native coronary artery without angina pectoris; E11.22 Type 2 diabetes mellitus with diabetic chronic kidney disease; I13.0 Hypertensive heart and chronic kidney disease with heart failure and stage 1 through stage 4 chronic kidney disease, or unspecified chronic kidney disease; N18.9 Chronic kidney disease, unspecified; I50.9 Heart failure, unspecified; K21.9 Gastro-esophageal reflux disease without esophagitis; D64.9 Anemia, unspecified; E78.00 Pure hypercholesterolemia, unspecified; E66.9 Obesity, unspecified; Z68.27 Body mass index [BMI] 27.0-27.9, adult; Z79.899 Other long term (current) drug therapy; Z90.710 Acquired absence of both cervix and uterus; Z86.73 Personal history of transient ischemic attack (TIA), and cerebral infarction without residual deficits; Z87.01 Personal history of pneumonia (recurrent); Z87.891 Personal history of nicotine dependence; Z87.440 Personal history of urinary (tract) infections; Z98.41 Cataract extraction status, right eye; Z79.84 Long term (current) use of oral hypoglycemic drugs; Z96.1 Presence of intraocular lens
CPT/HCPCS: 47563; 74300; 82962; A7015; J0690; J1100; J2250; J2270; J2370; J2405; J2704; J2710; J3010; J3490; J7030; J7120; Q9967; J1610

== ENCOUNTER 2021-01-12 11:52 | Inpatient (IN) | payer MEDICARE ==
[~2021-01-12] VITALS: Ht 167.6 cm; Wt 78.9 kg
[~2021-01-12 11:52] MED LIST changes: +APIX5TAB PO; -ASPI-612 PO; +ASPI-886 PO; +ATOR40TA59 PO; +AZIT500T2 PO; -BUPIVACAINE-EPI 0.5%-1:200000 MPF 30 ML VIAL. ONE; +CYAN50004 PO; +FURO40TA4 PO; +FURO80TA3 PO; -GLUCAGON,HUMAN RECOMBINANT 1 MG/ML VIAL. ONE; -HYDROmorphone 2 MG/ML VIAL IV PRN; -IOHEXOL 300 MG/ML 50 ML VIAL. ONE; +ISOS30TA68 PO; -IV RINGERS,LACTATED 1000ML 1,000 ML IV SCH; -LISI-338 PO; +LISI-517 PO; +LISI10TA16 PO; -LISI10TA2 PO; +METH4TAB PO; -MORPHINE SULFATE 2 MG/ML VIAL. IV PRN; +MULT-445 PO; -MULT1TAB52 PO; -OMEP40CA45 PO; +OMEP40CA7 PO; -ONDANSETRON PF 4 MG/2 ML VIAL. IV PRN; +OXYC-325 PO; +OXYC1TAB15 PO; +OXYC1TAB19 PO; +PIPE13.5 IV; -PROCHLORPERAZINE 10 MG/2 ML VIAL. IV PRN; -SURGICEL HEMOSTAT 4X8 EACH. ONE; -ceFAZolin SODIUM IV Push 1 GM VIAL. IVP ONE; -fentaNYL PF VIAL 100 MCG/2 ML VIAL IV PRN
--- NOTE | 2021-01-12 12:15 | NUR ---
received from wound clinic. she took all her medications this am and did not eat. blood sugar was 29 and they got it up to 49. taken when here it was 73. given milk peanut butter luis alberto crackers. blood pressure was 6/39 denies being symptomatic to low sugar or pressure. started #20 insyte top left forearm and given a bolus of 300 cc ns. blood pressure as in vs. wound on the bottom of right foot was pictured and measured in wound clinic. Dr. Farr. admission history completed.
--- NOTE | 2021-01-12 12:21 | PDOC1 ---
History and Physical Date of Admission Date of Admission DATE: 01/12/21 TIME: 12:21 Identification/Chief Complaint Chief Complaint Right lateral foot wound Source Source: Chart review, Patient History of Present Illness History of Present Illness Ms Marks is a 65 yo female with PMHx RLE DVT (on eliquis), CAD s/p CABG, CVA, HTN, HLD, PAD s/p bilateral lower extremity bypass, and CKD, presents to the hospital as a direct admission from the outpatient wound clinic where she was noted to have exposed bone in her right fifth metatarsal and pain. She has been on outpatient Augmentin intermittently for the past few months. Discussed with wound care physician except for direct admission and consult infectious diseases and vascular surgery. 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 She has been trying to offload the foot but with some neuropathy has not been able to appropriately offload and has been compliant with meds and wound care follow up. Requires admission for failure of outpatient therapy. Past Medical History Cardiovascular: CAD, CHF, HTN, Hyperlipidemia, Other Pulmonary: Pulmonary embolus CENTRAL NERVOUS SYSTEM: Periperal neuropathy GI: GERD Hepatobiliary: No pertinent hx Psych: Depression Musculoskeletal: Osteoarthritis, Other Renal/: Chronic renal insuff Endocrine: Diabetes Past Surgical History Past Surgical History: CABG, Cataract Removal, Tonsillectomy, Hysterectomy, Other Family History Family History: Diabetes Social History Smoke: No ALCOHOL: none Drugs: None Current Medications Current Medications Active Scripts Active Percocet 7.5-325 Mg Tablet (Oxycodone/Acetaminophen) 1 Each Tablet 1 Tab PO QIDPRN PRN MDD 4 Tablet(s) 5 Days Carvedilol (Carvedilol) 6.25 Mg Tablet 6.25 Mg PO BIDWMEALS 90 Days Isosorbide Mononitrate Er (Isosorbide Mononitrate) 30 Mg Tab.er.24h 30 Mg PO DAILY 90 Days Hydrocodone-Apap 5-325 (Hydrocodone Bit/Acetaminophen) 1 Tab Tablet 1 Tab PO PRN BID PRN 30 Days Atorvastatin Calcium 40 Mg Tablet 40 Mg PO QHS 90 Days Ranexa (Ranolazine) 500 Mg Tab.er.12h 1 Tab PO BID Reported Augmentin 875-125 Tablet (Amoxicillin/Potassium Clav) 1 Each Tablet 1 Tab PO BID Medrol (Methylprednisolone) 4 Mg Tablet 4 Mg PO DAILY Zithromax Tri-Mitul (Azithromycin) 500 Mg Tablet 500 Mg PO DAILY Furosemide 40 Mg Tablet 40 Mg PO BIDWBKFT/NIKOLAY Vitamin B-12 (Cyanocobalamin (Vitamin B-12)) 5,000 Mcg Tab.rapdis 5,000 Mcg PO DAILY Eliquis (Apixaban) 5 Mg Tablet 5 Mg PO DAILY Lantus Solostar (Insulin Glargine,Hum.rec.anlog) 100 Unit/1 Ml Insuln.pen 26 Unit SQ QHS Vitamin C (Ascorbic Acid) 500 Mg Capsule.er 1 Cap PO DAILY 30 Days Lisinopril 40 Mg Tablet 1 Tab PO DAILY Aspirin 325 Mg Tablet 1 Tab PO DAILY Gabapentin (Gabapentin) 100 Mg Capsule 600 Mg PO TID Biotin 5,000 Mcg Tab.rapdis 5,000 Mcg PO DAILY Omeprazole 40 Mg Capsule.dr 40 Mg PO PRN DAILY PRN Zolpidem Tartrate 5 Mg Tablet 5 Mg PO PRN QHS PRN Vitamin D (Cholecalciferol (Vitamin D3)) 1,000 Unit Capsule 1,000 Unit PO Metformin Hcl 1,000 Mg Tablet 1 Tab PO BID Fish Oil 1,000 Mg Softgel ([place]-3/Dha/Epa/Fish Oil) 1 Each Capsule 1 Each PO DAILY Allergies Allergies: Coded Allergies: I S O L A T I O N *CONTACT* (Verified Allergy, Unknown, 08/19/19) mrsa propoxyphene (Verified Adverse Reaction, Intermediate, Anxiety, 06/24/20) ROS General: YES: Fatigue, Malaise; No: Chills, Night Sweats, Appetite, Other PSYCHOLOGICAL ROS: No: Anxiety, Behavioral Disorder, Concentration difficultie, Decreased libido, Depression, Disorientation, Hallucinations, Hostility, Irritablity, Memory difficulties, Mood Swings, Obsessive thoughts, Physical abuse, Sexual abuse, Sleep disturbances, Suicidal ideation, Other Eyes: No Blurry vision, No Decreased vision, No Double vision, No Dry eyes, No Excessive tearing, No Eye Pain, No Itchy Eyes, No Loss of vision, No Photophobia, No Scotomata, No Uses contacts, No Uses glasses, No Other HEENT: No: Heacaches, Visual Changes, Hearing change, Nasal congestion, Nasal discharge, Oral lesions, Sinus pain, Sore Throat, Epistaxis, Sneezing, Snoring, Tinnitus, Vertigo, Vocal changes, Other ALLERGY AND IMMUNOLOGY: No: Hives, Insect Bite Sensitivity, Itchy/Watery Eyes, Nasal Congestion, Post Nasal Drip, Seasonal Allergies, Other Hematological and Lymphatic: YES: Blood Clots; No: Bleeding Problems, Blood Transfusions, Brusing, Night Sweats, Pallor, Swollen Lymph Nodes, Other ENDOCRINE: No: Breast Changes, Galactorrhea, Hair Pattern Changes, Hot Flashes, Malaise/lethargy, Mood Swings, Palpitations, Polydipsia/polyuria, Skin Changes, Temperature Intolerance, Unexpected Weight Changes, Other Breast: No New/Changing Breast Lumps, No Nipple changes, No Nipple discharge, No Other Respiratory: No: Cough, Hemoptysis, Orthopnea, Pleuritic Pain, Shortness of breath, SOB with excertion, Sputum Changes, Stridor, Tachypnea, Wheezing, Other Cardiovascular: No Chest Pain, No Palpitations, No Orthopnea, No Paroxysmal Noc. Dyspnea, No Edema, No Lt Headedness, No Other Gastrointestinal: No Nausea, No Vomiting, No Abdominal Pain, No Diarrhea, No Constipation, No Melena, No Hematochezia, No Other Genitourinary: No Dysuria, No Frequency, No Incontinence, No Hematuria, No Retention, No Discharge, No Urgency, No Pain, No Flank Pain, No Other, No , No , No , No , No , No , No Musculoskeletal: Yes Gait Disturbance; No Joint Pain, No Joint Stiffness, No Joint Swelling, No Muscle Pain, No Muscular Weakness, No Pain In:, No Swelling In:, No Other Neurological: No Behavorial Changes, No Bowel/Bladder ControlChng, No Co nfusion, No Dizziness, No Gait Disturbance, No Headaches, No Impaired Coord/balance, No Memory Loss, No Numbness/Tingling, No Seizures, No Speech Problems, No Tremors, No Visual Changes, No Weakness, No Other Skin: Yes Rash, Yes Skin Lesion Changes; No Dry Skin, No Eczema, No Hair Changes, No Lumps, No Mole Changes, No Mottling, No Nail Changes, No Pruritus, No Other, No Acne Physical Exam General: Alert, Oriented X3, Cooperative, No acute distress HEENT: Atraumatic, PERRLA, EOMI, Mucous membr. moist/pink Lungs: Clear to auscultation, Normal air movement Heart: S1S2, RRR, no thrills, no rubs, no gallops, no murmurs Abdomen: Normal bowel sounds, Soft, No tenderness, No hepatosplenomegaly, No masses Rectal Exam: not examined Extremities: No clubbing, No cyanosis, Other (decreased pulses) Skin: Other (Right plantar ulcer with significant undermining the base of the fifth MTP joint proximally 3 x 4 cm of central 1 cm tunnel tracking none visible: Palpable bone.) Neuro: Normal speech, Strength at 5/5 X4 ext, Normal tone, Cranial nerves 3-12 NL, Reflexes 2+ Psych/Mental Status: Mental status NL, Mood NL VTE Prophylaxis Ordered VTE Prophylaxis Devices: Yes VTE Pharmacological Prophylaxi: Yes Assessment/Plan Assessment/Plan A/P: Right foot osteomyelitis of 5th metatarsal - bone visible. ID consulted for antibiotics, vascular surgery to consider debridement PAD - s/p bilateral LE bypass, patent, and H/o right 5th toe amputation Diabetes mellitus type 2 - basal bolus insulin while inpatient CAD s/p CABG - cont meds H/o DVT - on eliquis, will give lovenox weight based in anticipation of surgery in the next 48 hours Hypertension - cont home meds Dyslipidemia - statin History of CVA CKD - will monitor renal function Severe protein calorie malnutrition - likely due to osteomyelitis. Chronic diastolic CHF - cont home meds FEN - ADA diet PPX - eliquis, will hold pre operatively, transition to lovenox for now Full code Dispo - inpatient Discussed with RN and SW Disposition inpatient management as above Surrogate decision maker is the Justifications for Admission Other Justification sepsis and respiratory failure ADRIÁN PEOPLES MD Jan 12, 2021 12:21
[2021-01-12] MEDS ORDERED: DEXTROSE 50% 25 GM / 50ML DISP.SYRIN. IV PRN (12:30)
[2021-01-12 13:00] VITALS: BP 110/57
[2021-01-12 15:00] VITALS: BP 123/54
--- NOTE | 2021-01-12 15:35 | PDOC2 ---
CONSULT Date of Consult Date of Consult DATE: 01/12/21 TIME: 15:29 History of Present Illness Reason for Visit: This a very pleasant 65-year-old female who is well-known to our practice who is undergone bilateral lower extremity bypasses in the past by Dr. Ambriz. She underwent right fifth toe amputation by Dr. Young. The wound was debrided several months ago according to the patient. She has been trying to offload the foot but despite her efforts, she continues to have a mal perforans ulcer at the base of the right fifth metatarsal. The right fifth toe again has been amputated. We were asked to see her for evaluation of her right foot wound and management. Past Medical History Cardiovascular: CAD, CHF, HTN, Hyperlipidemia, Other Pulmonary: Pulmonary embolus CENTRAL NERVOUS SYSTEM: Periperal neuropathy GI: GERD Hepatobiliary: No pertinent hx Psych: Depression Musculoskeletal: Osteoarthritis, Other Renal/: Chronic renal insuff Endocrine: Diabetes Past Surgical History Past Surgical History: CABG, Cataract Removal, Tonsillectomy, Hysterectomy, Other Family History Family History: Diabetes Social History ALCOHOL: none Drugs: None Lives: with Family Current Medications Current Medications Current Medications Atorvastatin Calcium (Lipitor) 40 mg QHS PO ; Start 01/12/21 at 21:00 Carvedilol (Coreg) 6.25 mg BIDWMEALS PO ; Start 01/12/21 at 17:00 Acetaminophen/ Hydrocodone Bitart (Lortab 5/325) 1 tab PRN BID PRN PO PAIN; Start 01/12/21 at 12:30 Oxycodone/ Acetaminophen (Percocet 7.5/ 325) 1 tab QIDPRN PRN PO SEVERE PAIN; Start 01/12/21 at 12:30 Ranolazine (Ranexa) 500 mg BID PO ; Start 01/12/21 at 21:00 Insulin Glargine (Lantus Syringe) 18 unit QHS SQ ; Start 01/12/21 at 21:00 Fish Oil (Fish Oil) 1,000 mg DAILY PO ; Start 01/13/21 at 09:00 Pantoprazole Sodium (Protonix) 40 mg DAILYAC PO ; Start 01/13/21 at 07:30 Insulin Human Lispro (HumaLOG) 0-7 UNITS TIDWMEALS SQ ; Start 01/12/21 at 17:00 Dextrose (Dextrose 50%-Water Syringe) 12.5 gm PRN Q15MIN PRN IV SEE COMMENTS; Start 01/12/21 at 12:30 Active Scripts Active Percocet 7.5-325 Mg Tablet (Oxycodone/Acetaminophen) 1 Each Tablet 1 Tab PO QIDPRN PRN MDD 4 Tablet(s) 5 Days Carvedilol (Carvedilol) 6.25 Mg Tablet 6.25 Mg PO BIDWMEALS 90 Days Isosorbide Mononitrate Er (Isosorbide Mononitrate) 30 Mg Tab.er.24h 30 Mg PO DAILY 90 Days Hydrocodone-Apap 5-325 (Hydrocodone Bit/Acetaminophen) 1 Tab Tablet 1 Tab PO PRN BID PRN 30 Days Atorvastatin Calcium 40 Mg Tablet 40 Mg PO QHS 90 Days Ranexa (Ranolazine) 500 Mg Tab.er.12h 1 Tab PO BID Reported Augmentin 875-125 Tablet (Amoxicillin/Potassium Clav) 1 Each Tablet 1 Tab PO BID Furosemide 40 Mg Tablet 40 Mg PO BIDWBKFT/NIKOLAY Vitamin B-12 (Cyanocobalamin (Vitamin B-12)) 5,000 Mcg Tab.rapdis 5,000 Mcg PO DAILY Eliquis (Apixaban) 5 Mg Tablet 5 Mg PO DAILY Lantus Solostar (Insulin Glargine,Hum.rec.anlog) 100 Unit/1 Ml Insuln.pen 26 Unit SQ QHS Vitamin C (Ascorbic Acid) 500 Mg Capsule.er 1 Cap PO DAILY 30 Days Lisinopril 40 Mg Tablet 1 Tab PO DAILY Aspirin 325 Mg Tablet 1 Tab PO DAILY Gabapentin (Gabapentin) 100 Mg Capsule 600 Mg PO TID Biotin 5,000 Mcg Tab.rapdis 5,000 Mcg PO DAILY Omeprazole 40 Mg Capsule.dr 40 Mg PO PRN DAILY PRN Zolpidem Tartrate 5 Mg Tablet 5 Mg PO PRN QHS PRN Vitamin D (Cholecalciferol (Vitamin D3)) 1,000 Unit Capsule 1,000 Unit PO Metformin Hcl 1,000 Mg Tablet 1 Tab PO BID Fish Oil 1,000 Mg Softgel ([place]-3/Dha/Epa/Fish Oil) 1 Each Capsule 1 Each PO DAILY Allergies Allergies: Coded Allergies: I S O L A T I O N *CONTACT* (Verified Allergy, Unknown, 08/19/19) mrsa propoxyphene (Verified Adverse Reaction, Intermediate, Anxiety, 06/24/20) ROS Skin: Yes Skin Lesion Changes Physical Exam General: Alert, Oriented X3, Cooperative HEENT: Atraumatic, PERRLA Lungs: Clear to auscultation, Normal air movement Heart: Regular rate, Normal S1, Normal S2 Abdomen: Normal bowel sounds, Soft, Other (Obese) Extremities: No clubbing, No cyanosis, Other (Palpable bypass graft pulse on the left. Previous toe amputations on the left are well-healed. Fifth toe amputation site on the right is well-healed. She has an open granulating ulcer on the plantar surface of the right foot with palpable bone at the base from the fifth metatarsal) Skin: No rashes, Other (There is no cellulitis, there is no purulent drainage, there is no malodor) Neuro: Normal speech, Strength at 5/5 X4 ext, Cranial nerves 3-12 NL, Other (Diminished sensation to light touch and medium touch in bilateral feet) Psych/Mental Status: Mental status NL, Mood NL MUSCULOSKELETAL: Full range of motion without pain Vitals VITALS Vital Signs Date Time Temp Pulse Resp B/P (MAP) Pulse Ox O2 Delivery O2 Flow Rate FiO2 01/12/21 13:50 Room Air 01/12/21 13:00 81 16 110/57 (74) Labs Labs Laboratory Tests Test 01/12/21 12:23 Glucose (Fingerstick) 73 mg/dL (70-99) Laboratory Tests Test 01/12/21 12:23 Glucose (Fingerstick) 73 mg/dL (70-99) Assessment/Plan Assessment/Plan Osteomyelitis of the right fifth metatarsal--clinically, the patient has osteomyelitis of the fifth metatarsal as I can palpate the bone. I have ordered a right lower extremity arterial duplex to ensure that her bypass graft is patent. It is palpable proximally and therefore I suspect it is still patent. The patient will need nonurgent debridement of the right foot with possible resection of a portion of the fifth metatarsal bone. The patient is agreeable to this plan. Infectious disease has been consulted for antibiotic care. We will look for surgical time to get this done. I suspect this will not get done tomorrow. Fortunately at this time this is not an urgent operation. Recommend continued wound care and offloading to the right foot. All questions were answered to the patient satisfaction at the bedside. Clarence Jacinto DO, FACS CLARENCE JACINTO DO Jan 12, 2021 15:35
--- NOTE | 2021-01-12 16:05 | NUR ---
Wound/Ostomy Care Wound Type/Assessment: Patient was seen in the [facility] today for right plantar foot DFU. Wound is red non-granular with exposed bone in center, this is a new finding. Pt has had bone removed form this wound by Dr Young a couple months ago. Patient had a hypoglycemic episode while in clinic as well with FSBS of 27 that was increased to 49 with glucagon, ensure, orange juice and cookies. Patient was taken to ER for admission for osteo in right foot. Treatment Recommendations/Plan: apply ioplex and foam dressing, may pad with kerlix if needed. Change every other day until surgery. Education provided: pt and educated on WC POC and PU prevention Offloading surface/device: float heels Recommended Referrals/Tests: vascular surgery Discharge Recommendations for dressings: see above
[2021-01-12 16:20] LABS: PROTHROMBIN TIME PATIENT 16.3 SEC (11.7-14.0)
[2021-01-12 16:21] LABS: BASO # 0.1 x10^3/uL (0.0-0.2); BASO % 1 % (0-3); EOS % 0 % (0-3); HEMATOCRIT 21.6 % (36.0-47.0); LYMPH # 1.4 x10^3/uL (1.0-4.8); LYMPH % 12 % (24-48); MEAN CORPUSCULAR HEMOGLOBIN 28 pg (25-35); MEAN CORPUSCULAR HGB CONC 33 g/dL (31-37); MEAN CORPUSCULAR VOLUME 85 fL (79-100); MONO # 0.6 x10^3/uL (0.0-1.1); MONO % 5 % (0-9); NEUT # 9.1 x10^3/uL (1.8-7.7); NEUT % 81 % (31-73); PLATELET COUNT 414 x10^3/uL (140-400); RED BLOOD COUNT 2.55 x10^6/uL (3.50-5.40); RED CELL DISTRIBUTION WIDTH 15.8 % (11.5-14.5); WHITE BLOOD COUNT 11.1 x10^3/uL (4.0-11.0)
[2021-01-12 16:26] LABS: ALBUMIN/GLOBULIN RATIO 0.4 (1.0-1.7); CALCIUM 8.5 mg/dL (8.5-10.1); GFR 55.8; POTASSIUM 4.5 mmol/L (3.5-5.1); TOTAL BILIRUBIN 0.5 mg/dL (0.2-1.0); TOTAL PROTEIN 6.5 g/dL (6.4-8.2)
--- NOTE | 2021-01-12 18:00 | NUR ---
feeling better this evening . fluids infusing at 100 cc hr. she tolerated supper ada diet well.
[2021-01-12] MEDS: CARVEDILOL 6.25 MG TABLET. PO SCH (18:12)
[2021-01-12] MEDS: INSULIN LISPRO 300 UNITS/3 ML VIAL. SQ SCH (18:14)
[2021-01-12 19:15] VITALS: BP 121/59
[2021-01-12] MEDS: GABAPENTIN 300 MG CAPSULE. PO SCH (20:49)
[2021-01-12] MEDS: oxyCODONE/APAP 7.5/325 1 TAB TABLET PO PRN (20:50)
[2021-01-12] MEDS: ATORVASTATIN CALCIUM 40 MG TABLET. PO SCH (20:50)
[2021-01-12] MEDS: ZOLPIDEM 5 MG TABLET. PO PRN (21:36)
[2021-01-12] MEDS: INSULIN GLARGINE SYRINGE. SQ SCH (21:42)
[2021-01-12] MEDS: RANOLAZINE 500 MG TAB.ER.12H PO SCH (21:42)
[2021-01-12 23:25] VITALS: BP 120/59
[2021-01-13] VITALS (10 sets, daily range): BP systolic 119–135; BP diastolic 45–71
[2021-01-13] MEDS: oxyCODONE/APAP 7.5/325 1 TAB TABLET PO PRN ×3 (02:41→21:39)
[2021-01-13 04:59] LABS: BASO % 1 % (0-3); EOS # 0.1 x10^3/uL (0.0-0.7); EOS % 1 % (0-3); LYMPH # 1.3 x10^3/uL (1.0-4.8); LYMPH % 16 % (24-48); MEAN CORPUSCULAR HEMOGLOBIN 28 pg (25-35); MEAN CORPUSCULAR HGB CONC 33 g/dL (31-37); MEAN CORPUSCULAR VOLUME 85 fL (79-100); MONO # 0.6 x10^3/uL (0.0-1.1); MONO % 7 % (0-9); NEUT # 6.2 x10^3/uL (1.8-7.7); NEUT % 75 % (31-73); PLATELET COUNT 388 x10^3/uL (140-400); RED BLOOD COUNT 2.48 x10^6/uL (3.50-5.40); RED CELL DISTRIBUTION WIDTH 15.6 % (11.5-14.5); WHITE BLOOD COUNT 8.3 x10^3/uL (4.0-11.0)
[2021-01-13 05:03] LABS: HEMOGLOBIN 7.1 g/dL (12.0-15.5)
[2021-01-13 05:06] LABS: CALCIUM 8.6 mg/dL (8.5-10.1); CREATININE 1.2 mg/dL (0.6-1.0); GFR 45.2; POTASSIUM 4.2 mmol/L (3.5-5.1)
[2021-01-13] MEDS: INSULIN LISPRO 300 UNITS/3 ML VIAL. SQ SCH ×3 (08:00→17:00)
[2021-01-13] MEDS: OMEGA-3 FATTY ACIDS/FISH OIL 1,000 MG CAPSULE. PO SCH (09:43)
[2021-01-13] MEDS: ISOSORBIDE MONONITRATE ER 30 MG TAB.ER.24H PO SCH (09:44)
[2021-01-13] MEDS: PANTOPRAZOLE 40 MG TABLET.DR. PO SCH (09:44)
[2021-01-13] MEDS: RANOLAZINE 500 MG TAB.ER.12H PO SCH ×2 (09:44→21:39)
[2021-01-13] MEDS: GABAPENTIN 300 MG CAPSULE. PO SCH ×3 (09:44→21:39)
[2021-01-13] MEDS: CARVEDILOL 6.25 MG TABLET. PO SCH ×2 (09:44→17:44)
--- NOTE | 2021-01-13 10:07 | RAD ---
US RIGHT LOWER EXTREMITY ARTERIAL DUPLEX EVAL Indication: Reason: Right leg bypass, eval patency / Spl. Instructions: / History: . Pain Comparison: June 23, 2020. Procedure: Real-time grayscale, color flow Doppler, and Doppler spectral waveform analysis of the art erial system of the lower extremity is performed. Findings: Triphasic or biphasic waveforms within the right common femoral, deep femoral and superficial femoral arteries. Monophasic waveform within the right popliteal, posterior tibial, anterior tibial and dors bethany pedis arteries. Peroneal artery not well identified. Right lower extremity subcutaneous edema. Patent right lower extremity bypass graft. Velocity within the proximal aspect 105 cm/s, mid aspect 1 23 cm/s and distal aspect 210 cm/s. IMPRESSION: 1. Patent right lower extremity bypass graft with increased velocity distally, may indicate stenosis . 2. Peroneal artery not well identified, may relate to slow flow or occlusion. Electronically signed by: Cruz Ram DO (01/13/2021 10:04 AM) [id number]
--- NOTE | 2021-01-13 10:14 | NUR ---
SW following. Discussed with RN, pt from home with , room air, ada diet. Pt having an I&D tomorrow. Therapy recommending home health - pt has had [facility] in the past. SW will continue to follow.
--- NOTE | 2021-01-13 11:10 | PDOC ---
[employer] PROGRESS NOTE Date of Service DOS: DATE: 01/13/21 TIME: 11:08 Chief Complaint Chief Complaint A/P: Right foot osteomyelitis of 5th metatarsal - bone visible. ID consulted for antibiotics, vascular surgery to consider debridement PAD - s/p bilateral LE bypass, patent, and H/o right 5th toe amputation Diabetes mellitus type 2 - basal bolus insulin while inpatient CAD s/p CABG - cont meds. Will consult cardiology for pre op evaluation H/o DVT - on eliquis, will give lovenox weight based in anticipation of surgery in the next 48 hours Hypertension - cont home meds Dyslipidemia - statin History of CVA CKD - will monitor renal function Severe protein calorie malnutrition - likely due to osteomyelitis. Chronic diastolic CHF - cont home meds. Will consult cardiology for pre op evaluation Acute anemia - no clear blood loss, will transfuse to keep Hb >8 given significant CAD history FEN - ADA diet PPX - eliquis, will hold pre operatively, transition to lovenox for now Full code Dispo - inpatient Discussed with RN and SW Disposition inpatient management as above Surrogate decision maker is the History of Present Illness History of Present Illness Ms Marks is a 65 yo female with PMHx RLE DVT (on eliquis), CAD s/p CABG, CVA, HTN, HLD, PAD s/p bilateral lower extremity bypass, and CKD, presents to the hospital as a direct admission from the outpatient wound clinic where she was noted to have exposed bone in her right fifth metatarsal and pain. She has been on outpatient Augmentin intermittently for the past few months. Discussed with wound care physician except for direct admission and consult infectious diseases and vascular surgery. 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 She has been trying to offload the foot but with some neuropathy has not been able to appropriately offload and has been compliant with meds and wound care follow up. Requires admission for failure of outpatient therapy. Hb 7 and tachycardic this morning. Feeling more fatigued. Discussed with vascular surgery tentative plans for debridement 01/14/2021. Amenable to transfusion. Vitals/I&O Vitals/I&O: Vital Signs Date Time Temp Pulse Resp B/P (MAP) Pulse Ox O2 Delivery O2 Flow Rate FiO2 01/13/21 09:44 93 134/55 01/13/21 08:25 Room Air 01/13/21 07:00 98.6 16 94 98.6 I & O 01/12/21 01/12/21 01/13/21 15:00 23:00 07:00 Intake Total 240 ml 440 ml Balance 240 ml 440 ml Physical Exam General: Alert, Oriented X3, Cooperative, No acute distress Heart: Regular rate, Normal S1, Normal S2 Lungs: Clear Abdomen: Normal bowel sounds, Soft, No tenderness, No hepatosplenomegaly, No masses Extremities: No clubbing, No cyanosis, Other (decreased pulses) Skin: Other (Right plantar ulcer with significant undermining the base of the fifth MTP joint proximally 3 x 4 cm of central 1 cm tunnel tracking none visible: Palpable bone.) Labs Labs: Laboratory Tests Test 01/12/21 12:23 01/12/21 16:00 01/12/21 16:54 01/12/21 20:52 Glucose (Fingerstick) 73 mg/dL (70-99) 163 mg/dL (70-99) 117 mg/dL (70-99) White Blood Count 11.1 x10^3/uL (4.0-11.0) Red Blood Count 2.55 x10^6/uL (3.50-5.40) Hemoglobin 7.0 g/dL (12.0-15.5) Hematocrit 21.6 % (36.0-47.0) Mean Corpuscular Volume 85 fL (79-100) Mean Corpuscular Hemoglobin 28 pg (25-35) Mean Corpuscular Hemoglobin Concent 33 g/dL (31-37) Red Cell Distribution Width 15.8 % (11.5-14.5) Platelet Count 414 x10^3/uL (140-400) Neutrophils (%) (Auto) 81 % (31-73) Lymphocytes (%) (Auto) 12 % (24-48) Monocytes (%) (Auto) 5 % (0-9) Eosinophils (%) (Auto) 0 % (0-3) Basophils (%) (Auto) 1 % (0-3) Neutrophils # (Auto) 9.1 x10^3/uL (1.8-7.7) Lymphocytes # (Auto) 1.4 x10^3/uL (1.0-4.8) Monocytes # (Auto) 0.6 x10^3/uL (0.0-1.1) Eosinophils # (Auto) 0.0 x10^3/uL (0.0-0.7) Basophils # (Auto) 0.1 x10^3/uL (0.0-0.2) Prothrombin Time 16.3 SEC (11.7-14.0) Prothromb Time International Ratio 1.3 (0.8-1.1) Sodium Level 140 mmol/L (136-145) Potassium Level 4.5 mmol/L (3.5-5.1) Chloride Level 105 mmol/L (98-107) Carbon Dioxide Level 22 mmol/L (21-32) Anion Gap 13 (6-14) Blood Urea Nitrogen 25 mg/dL (7-20) Creatinine 1.0 mg/dL (0.6-1.0) Estimated GFR (Cockcroft-Gault) 55.8 BUN/Creatinine Ratio 25 (6-20) Glucose Level 142 mg/dL (70-99) Calcium Level 8.5 mg/dL (8.5-10.1) Total Bilirubin 0.5 mg/dL (0.2-1.0) Aspartate Amino Transf (AST/SGOT) 24 U/L (15-37) Alanine Aminotransferase (ALT/SGPT) 15 U/L (14-59) Alkaline Phosphatase 93 U/L (46-116) Total Protein 6.5 g/dL (6.4-8.2) Albumin 2.0 g/dL (3.4-5.0) Albumin/Globulin Ratio 0.4 (1.0-1.7) Test 01/13/21 04:10 01/13/21 08:15 White Blood Count 8.3 x10^3/uL (4.0-11.0) Red Blood Count 2.48 x10^6/uL (3.50-5.40) Hemoglobin 7.1 g/dL (12.0-15.5) Hematocrit 21.0 % (36.0-47.0) Mean Corpuscular Volume 85 fL (79-100) Mean Corpuscular Hemoglobin 28 pg (25-35) Mean Corpuscular Hemoglobin Concent 33 g/dL (31-37) Red Cell Distribution Width 15.6 % (11.5-14.5) Platelet Count 388 x10^3/uL (140-400) Neutrophils (%) (Auto) 75 % (31-73) Lymphocytes (%) (Auto) 16 % (24-48) Monocytes (%) (Auto) 7 % (0-9) Eosinophils (%) (Auto) 1 % (0-3) Basophils (%) (Auto) 1 % (0-3) Neutrophils # (Auto) 6.2 x10^3/uL (1.8-7.7) Lymphocytes # (Auto) 1.3 x10^3/uL (1.0-4.8) Monocytes # (Auto) 0.6 x10^3/uL (0.0-1.1) Eosinophils # (Auto) 0.1 x10^3/uL (0.0-0.7) Basophils # (Auto) 0.0 x10^3/uL (0.0-0.2) Sodium Level 141 mmol/L (136-145) Potassium Level 4.2 mmol/L (3.5-5.1) Chloride Level 107 mmol/L (98-107) Carbon Dioxide Level 24 mmol/L (21-32) Anion Gap 10 (6-14) Blood Urea Nitrogen 28 mg/dL (7-20) Creatinine 1.2 mg/dL (0.6-1.0) Estimated GFR (Cockcroft-Gault) 45.2 Glucose Level 140 mg/dL (70-99) Calcium Level 8.6 mg/dL (8.5-10.1) Glucose (Fingerstick) 126 mg/dL (70-99) Comment Review of Relevant I have reviewed the following items johan (where applicable) has been applied. Medications: Current Medications Medications (Trade) Dose Ordered Sig/Katiana Route PRN Reason Start Time Stop Time Status Last Admin Dose Admin Atorvastatin Calcium (Lipitor) 40 mg QHS PO 01/12/21 21:00 01/12/21 20:50 Carvedilol (Coreg) 6.25 mg BIDWMEALS PO 01/12/21 17:00 01/13/21 09:44 Oxycodone/ Acetaminophen (Percocet 7.5/ 325) 1 tab QIDPRN PRN PO SEVERE PAIN 01/12/21 12:30 01/13/21 02:41 Ranolazine (Ranexa) 500 mg BID PO 01/12/21 21:00 01/13/21 09:44 Insulin Glargine (Lantus Syringe) 18 unit QHS SQ 01/12/21 21:00 01/12/21 21:42 Fish Oil (Fish Oil) 1,000 mg DAILY PO 01/13/21 09:00 01/13/21 09:43 Pantoprazole Sodium (Protonix) 40 mg DAILYAC PO 01/13/21 07:30 01/13/21 09:44 Insulin Human Lispro (HumaLOG) 0-7 UNITS TIDWMEALS SQ 01/12/21 17:00 01/12/21 18:14 Gabapentin (Neurontin) 600 mg TID PO 01/12/21 21:00 01/13/21 09:44 Isosorbide Mononitrate (Imdur) 30 mg DAILY PO 01/13/21 09:00 01/13/21 09:44 Enoxaparin Sodium (Lovenox 80mg Syringe) 70 mg Q12HR SQ 01/12/21 21:00 01/13/21 09:45 Zolpidem Tartrate (Ambien) 5 mg PRN QHS PRN PO INSOMNIA 01/12/21 21:00 01/12/21 21:36 Justifications for Admission Other Justification sepsis and respiratory failure ADRIÁN PEOPLES MD Jan 13, 2021 11:10
--- NOTE | 2021-01-13 11:13 | PDOC2 ---
CARDIAC CONSULT DATE OF CONSULT Date of Consult DATE: 01/13/21 TIME: 10:55 REASON FOR CONSULT Reason for Consult: Preop cardiac clearance REFERRING PHYSICIAN Referring Physician: Danni SOURCE Source: Chart review, Patient HISTORY OF PRESENT ILLNESS HISTORY OF PRESENT ILLNESS This is a pleasant 65 yo female admitted for complains of right foot wound. She has been seeing the wound clinic and has had fifth toe amputation and her wound has not been healing well and further testing showed that she has osteomyelitis and needing further surgery per vascular. She also is pale and noted with severe anemia with last dose of eliquis yesterday that she is taking for hx of DVT/PE. In addition she has been having some SOA and does have leg swelling. Reports no chest pain or palpitations. She also had a hypoglycemic reaction yesterday. Her mobility is limited as she does have some pain on her right foot with associated wound. PAST MEDICAL HISTORY Past Medical History Cardiovascular: CAD, CHF, HTN, Hyperlipidemia, Other Pulmonary: Pulmonary embolus CENTRAL NERVOUS SYSTEM: Peripheral neuropathy GI: GERD Hepatobiliary: No pertinent hx Psych: Depression Musculoskeletal: Osteoarthritis, Other Renal/: Chronic renal insuff Endocrine: Diabetes PAST SURGICAL HISTORY Past Surgical History CABG, Cataract Removal, Tonsillectomy, Hysterectomy, LE arterial revascularization FAMILY HISTORY Family History: Diabetes SOCIAL HISTORY Smoke: No ALCOHOL: none Drugs: None Lives: with Family CURRENT MEDICATIONS CURRENT MEDICATIONS Current Medications Medications (Trade) Dose Ordered Sig/Katiana Route PRN Reason Start Time Stop Time Status Last Admin Dose Admin Atorvastatin Calcium (Lipitor) 40 mg QHS PO 01/12/21 21:00 01/12/21 20:50 Carvedilol (Coreg) 6.25 mg BIDWMEALS PO 01/12/21 17:00 01/13/21 09:44 Oxycodone/ Acetaminophen (Percocet 7.5/ 325) 1 tab QIDPRN PRN PO SEVERE PAIN 01/12/21 12:30 01/13/21 02:41 Ranolazine (Ranexa) 500 mg BID PO 01/12/21 21:00 01/13/21 09:44 Insulin Glargine (Lantus Syringe) 18 unit QHS SQ 01/12/21 21:00 01/12/21 21:42 Fish Oil (Fish Oil) 1,000 mg DAILY PO 01/13/21 09:00 01/13/21 09:43 Pantoprazole Sodium (Protonix) 40 mg DAILYAC PO 01/13/21 07:30 01/13/21 09:44 Insulin Human Lispro (HumaLOG) 0-7 UNITS TIDWMEALS SQ 01/12/21 17:00 01/12/21 18:14 Gabapentin (Neurontin) 600 mg TID PO 01/12/21 21:00 01/13/21 09:44 Isosorbide Mononitrate (Imdur) 30 mg DAILY PO 01/13/21 09:00 01/13/21 09:44 Enoxaparin Sodium (Lovenox 80mg Syringe) 70 mg Q12HR SQ 01/12/21 21:00 01/13/21 09:45 Zolpidem Tartrate (Ambien) 5 mg PRN QHS PRN PO INSOMNIA 01/12/21 21:00 01/12/21 21:36 ALLERGIES ALLERGIES: Coded Allergies: I S O L A T I O N *CONTACT* (Verified Allergy, Unknown, 08/19/19) mrsa propoxyphene (Verified Adverse Reaction, Intermediate, Anxiety, 06/24/20) ROS Review of System 14 point ROS evaluated with pertinent positives noted per HPI PHYSICAL EXAM General: Alert, Oriented X3, Cooperative, No acute distress HEENT: Atraumatic, Mucous membr. moist/pink Lungs: Other (diminished bases) Heart: Regular rate, Normal S1, Normal S2, Other (2/6 systolic murmur to LLS border) Abdomen: Soft, No tenderness, Other (obese) Extremities: No cyanosis, Other (2+ bilateral LE pitting edema) Skin: Other (right foot wound) Psych/Mental Status: Mental status NL, Mood NL MUSCULOSKELETAL: Osteoarthritic changes both hands VITALS/I&O VITALS/I&O: Vital Signs Date Time Temp Pulse Resp B/P (MAP) Pulse Ox O2 Delivery O2 Flow Rate FiO2 01/13/21 09:44 93 134/55 01/13/21 08:25 Room Air 01/13/21 07:00 98.6 16 94 98.6 I & O 01/12/21 01/12/21 01/13/21 15:00 23:00 07:00 Intake Total 240 ml 440 ml Balance 240 ml 440 ml LABS Lab: Laboratory Tests Test 01/12/21 12:23 01/12/21 16:00 01/12/21 16:54 01/12/21 20:52 Glucose (Fingerstick) 73 mg/dL (70-99) 163 mg/dL (70-99) H 117 mg/dL (70-99) H White Blood Count 11.1 x10^3/uL (4.0-11.0) H Red Blood Count 2.55 x10^6/uL (3.50-5.40) L Hemoglobin 7.0 g/dL (12.0-15.5) *L Hematocrit 21.6 % (36.0-47.0) L Mean Corpuscular Volume 85 fL (79-100) Mean Corpuscular Hemoglobin 28 pg (25-35) Mean Corpuscular Hemoglobin Concent 33 g/dL (31-37) Red Cell Distribution Width 15.8 % (11.5-14.5) H Platelet Count 414 x10^3/uL (140-400) H Neutrophils (%) (Auto) 81 % (31-73) H Lymphocytes (%) (Auto) 12 % (24-48) L Monocytes (%) (Auto) 5 % (0-9) Eosinophils (%) (Auto) 0 % (0-3) Basophils (%) (Auto) 1 % (0-3) Neutrophils # (Auto) 9.1 x10^3/uL (1.8-7.7) H Lymphocytes # (Auto) 1.4 x10^3/uL (1.0-4.8) Monocytes # (Auto) 0.6 x10^3/uL (0.0-1.1) Eosinophils # (Auto) 0.0 x10^3/uL (0.0-0.7) Basophils # (Auto) 0.1 x10^3/uL (0.0-0.2) Prothrombin Time 16.3 SEC (11.7-14.0) H Prothrombin Time INR 1.3 (0.8-1.1) H Sodium Level 140 mmol/L (136-145) Potassium Level 4.5 mmol/L (3.5-5.1) Chloride Level 105 mmol/L (98-107) Carbon Dioxide Level 22 mmol/L (21-32) Anion Gap 13 (6-14) Blood Urea Nitrogen 25 mg/dL (7-20) H Creatinine 1.0 mg/dL (0.6-1.0) Estimated GFR (Cockcroft-Gault) 55.8 BUN/Creatinine Ratio 25 (6-20) H Glucose Level 142 mg/dL (70-99) H Calcium Level 8.5 mg/dL (8.5-10.1) Total Bilirubin 0.5 mg/dL (0.2-1.0) Aspartate Amino Transferase (AST) 24 U/L (15-37) Alanine Aminotransferase (ALT) 15 U/L (14-59) Alkaline Phosphatase 93 U/L (46-116) Total Protein 6.5 g/dL (6.4-8.2) Albumin 2.0 g/dL (3.4-5.0) L Albumin/Globulin Ratio 0.4 (1.0-1.7) L Test 01/13/21 04:10 01/13/21 08:15 White Blood Count 8.3 x10^3/uL (4.0-11.0) Red Blood Count 2.48 x10^6/uL (3.50-5.40) L Hemoglobin 7.1 g/dL (12.0-15.5) L Hematocrit 21.0 % (36.0-47.0) *L Mean Corpuscular Volume 85 fL (79-100) Mean Corpuscular Hemoglobin 28 pg (25-35) Mean Corpuscular Hemoglobin Concent 33 g/dL (31-37) Red Cell Distribution Width 15.6 % (11.5-14.5) H Platelet Count 388 x10^3/uL (140-400) Neutrophils (%) (Auto) 75 % (31-73) H Lymphocytes (%) (Auto) 16 % (24-48) L Monocytes (%) (Auto) 7 % (0-9) Eosinophils (%) (Auto) 1 % (0-3) Basophils (%) (Auto) 1 % (0-3) Neutrophils # (Auto) 6.2 x10^3/uL (1.8-7.7) Lymphocytes # (Auto) 1.3 x10^3/uL (1.0-4.8) Monocytes # (Auto) 0.6 x10^3/uL (0.0-1.1) Eosinophils # (Auto) 0.1 x10^3/uL (0.0-0.7) Basophils # (Auto) 0.0 x10^3/uL (0.0-0.2) Sodium Level 141 mmol/L (136-145) Potassium Level 4.2 mmol/L (3.5-5.1) Chloride Level 107 mmol/L (98-107) Carbon Dioxide Level 24 mmol/L (21-32) Anion Gap 10 (6-14) Blood Urea Nitrogen 28 mg/dL (7-20) H Creatinine 1.2 mg/dL (0.6-1.0) H Estimated GFR (Cockcroft-Gault) 45.2 Glucose Level 140 mg/dL (70-99) H Calcium Level 8.6 mg/dL (8.5-10.1) Glucose (Fingerstick) 126 mg/dL (70-99) H Laboratory Tests 01/12/21 16:00 01/13/21 04:10 Laboratory Tests 01/12/21 16:00 01/13/21 04:10 ECHOCARDIOGRAM ECHOCARDIOGRAM <Conclusion> The left ventricle is normal size. The left ventricular systolic function is normal and the ejection fraction is within normal range. The Ejection Fraction is 55-60%. Septal motion consistent with post-operative state. There is hypokinesis in the basal to mid inferior kaur. There is mild concentric left ventricular hypertrophy. Doppler and Color Flow revealed mild eccentric aortic regurgitation. There is no significant aortic valvular stenosis. Doppler and Color-flow revealed mild mitral regurgitation. Doppler and Color Flow revealed mild tricuspid regurgitation. PA pressure is estimated at 50 mmHg. Signed by : Areli Alexander MD Electronically Approved : 06/29/2020 17:20:14 DICTATED and SIGNED BY: ARELI ALEXANDER MD DATE: 06/29/20 [id number] ASSESSMENT/PLAN ASSESSMENT/PLAN 1. Fever 2. Anemia: Hgb at 7.1 baseline is 8-10 3. Osteomyelitis with planned debridement and resection of fifth metatarsal bone 4. CAD: past CABG clinically stable 5. Hx of PE/RLE DVT: was on eliquis, last dose yesterday per PCP 6. BLE PAD: past revascularization. stable clinically 7. HTN; controlled 8. HLP 9. Acute on chronic diastolic CHF 10. CKD3 Recommendations 1. EKG. Moderate risk for periopervative CV events for noncardiac surgery. BB pr eop 2. awaiting blood transfusion 3. Continue secondary prevention measures 4. Lasix pre and post transfusion SUE MENDIETA PAIL BAILER Jan 13, 2021 11:13
[2021-01-13] MEDS ORDERED: FUROSEMIDE 20 MG/2 ML VIAL. IVP ONE ×3 (11:30→18:45)
[2021-01-13 13:32] LABS: BILIRUBIN,URINE NEGATIVE (NEG); CLARITY,URINE CLEAR; COLOR,URINE YELLOW; NITRITE,URINE NEGATIVE (NEG); PH,URINE 5.5 (<5.0-8.0); PROTEIN,URINE NEGATIVE (NEG-TRACE); UROBILINOGEN,URINE 0.2 mg/dL (0.2 mg/dL)
[2021-01-13 13:42] LABS: HYALINE CASTS, URINE MODERATE /HPF
[2021-01-13 13:43] LABS: BACTERIA,URINE 0 /HPF (0-FEW); RBC,URINE 0 /HPF (0-2)
--- NOTE | 2021-01-13 13:44 | EKG ---
[facility] [address] [place] [address] Test Date: 2021-01-13 Test Time: 13:46:00 Pat Name: FRAN AKERS Department: Room: 426 Gender: F Custodian Supervisor: MERLY : [id number] Requested By: SUE MENDIETA Order Number: [id number] Reading MD: Measurements Intervals Bieber Rate: 83 P: 37 ME: 178 QRS: 35 QRSD: 96 T: 127 QT: 354 QTc: 421 Interpretive Statements SINUS RHYTHM QRS(T) CONTOUR ABNORMALITY CONSISTENT WITH ANTEROSEPTAL INFARCT PROBABLY OLD ST & T ABNORMALITY, CONSIDER LATERAL ISCHEMIA OR LEFT VENTRICULAR STRAIN ABNORMAL ECG RI6.01 Compared to ECG 12/08/2020 00:21:52 T-wave abnormality now present Possible ischemia now present Intraventricular conduction delay no longer present Myocardial infarct finding still present
--- NOTE | 2021-01-13 14:58 | RAD ---
Single view of the chest. 01/13/2021 1:05 PM Indication: Reason: CHF Comparison: Chest radiograph December 08, 2020 Findings: There is no focal consolidation. There is no pleural effusion or pneumothorax. Cardiomegaly noted. Prior median sternotomy noted. There are patchy interstitial infiltrates, right greater than left. Findings could represent pulmonary edema or an atypical/viral infectious process. No acute osse ous changes are identified. IMPRESSION: Patchy interstitial infiltrates bilaterally right greater than left possibly presenting e bhavna versus atypical/viral infectious process. Radiographic follow-up to resolution recommended Electronically signed by: Abdulkadir Arevalo MD (01/13/2021 2:55 PM) [id number]
--- NOTE | 2021-01-13 19:00 | PDOC ---
Infectious Disease Note Vital Sign Vital Signs Vital Signs Date Time Temp Pulse Resp B/P (MAP) Pulse Ox O2 Delivery O2 Flow Rate FiO2 01/13/21 18:00 98.0 77 16 133/71 98.0 01/13/21 15:55 Room Air 01/13/21 15:00 94 Labs Lab Laboratory Tests Test 01/12/21 20:52 01/13/21 04:10 01/13/21 08:15 01/13/21 12:23 Glucose (Fingerstick) 117 mg/dL (70-99) 126 mg/dL (70-99) 108 mg/dL (70-99) White Blood Count 8.3 x10^3/uL (4.0-11.0) Red Blood Count 2.48 x10^6/uL (3.50-5.40) Hemoglobin 7.1 g/dL (12.0-15.5) Hematocrit 21.0 % (36.0-47.0) Mean Corpuscular Volume 85 fL (79-100) Mean Corpuscular Hemoglobin 28 pg (25-35) Mean Corpuscular Hemoglobin Concent 33 g/dL (31-37) Red Cell Distribution Width 15.6 % (11.5-14.5) Platelet Count 388 x10^3/uL (140-400) Neutrophils (%) (Auto) 75 % (31-73) Lymphocytes (%) (Auto) 16 % (24-48) Monocytes (%) (Auto) 7 % (0-9) Eosinophils (%) (Auto) 1 % (0-3) Basophils (%) (Auto) 1 % (0-3) Neutrophils # (Auto) 6.2 x10^3/uL (1.8-7.7) Lymphocytes # (Auto) 1.3 x10^3/uL (1.0-4.8) Monocytes # (Auto) 0.6 x10^3/uL (0.0-1.1) Eosinophils # (Auto) 0.1 x10^3/uL (0.0-0.7) Basophils # (Auto) 0.0 x10^3/uL (0.0-0.2) Sodium Level 141 mmol/L (136-145) Potassium Level 4.2 mmol/L (3.5-5.1) Chloride Level 107 mmol/L (98-107) Carbon Dioxide Level 24 mmol/L (21-32) Anion Gap 10 (6-14) Blood Urea Nitrogen 28 mg/dL (7-20) Creatinine 1.2 mg/dL (0.6-1.0) Estimated GFR (Cockcroft-Gault) 45.2 Glucose Level 140 mg/dL (70-99) Calcium Level 8.6 mg/dL (8.5-10.1) Test 01/13/21 12:55 01/13/21 17:10 Urine Collection Type Unknown Urine Color Yellow Urine Clarity Clear Urine pH 5.5 (<5.0-8.0) Urine Specific [place] 1.015 (1.000-1.030) Urine Protein Negative mg/dL (NEG-TRACE) Urine Glucose (UA) Negative mg/dL (NEG) Urine Ketones (Stick) Negative mg/dL (NEG) Urine Blood Negative (NEG) Urine Nitrite Negative (NEG) Urine Bilirubin Negative (NEG) Urine Urobilinogen Dipstick 0.2 mg/dL (0.2 mg/dL) Urine Leukocyte Esterase Small (NEG) Urine RBC 0 /HPF (0-2) Urine WBC 5-10 /HPF (0-4) Urine Squamous Epithelial Cells Few /LPF Urine Bacteria 0 /HPF (0-FEW) Urine Hyaline Casts Moderate /HPF Glucose (Fingerstick) 118 mg/dL (70-99) Objective Assessment pt seen, consult dictated Plan Plan of Care dictation no [id number] MICH MARK MD Jan 13, 2021 19:00
--- NOTE | 2021-01-13 20:49 | CONS ---
DATE OF CONSULTATION: 01/13/2021 REFERRING PHYSICIAN: Daquan Razo MD REASON FOR CONSULTATION: Osteomyelitis of the foot. HISTORY OF PRESENT ILLNESS: This is a 65-year-old female who had multiple medical problems who came in with right foot wound, which probes to the bone. The patient says she has a wound for only 1-1/2 weeks. The patient denies any nausea, vomiting, diarrhea. Denies any trauma, denies any chest pain, shortness of breath, abdominal pain, urinary symptoms or bowel symptoms. The patient has lost fifth toe on the right foot and multiple toes on the left foot. PAST MEDICAL HISTORY: Positive for coronary artery disease, congestive heart failure, hypertension, hyperlipidemia, pulmonary embolism, peripheral neuropathy, diabetes mellitus, renal insufficiency, coronary artery bypass grafting, hysterectomy, tonsillectomy, cataract removal and as I mentioned, multiple toe removal done in the past. SOCIAL HISTORY: Negative for smoking, alcohol, illicit drug use. ALLERGIES: No known antibiotic allergies. CURRENT MEDICATIONS: Reviewed. The patient is not on any antibiotics. REVIEW OF SYSTEMS: As per HPI. All other systems reviewed are negative. PHYSICAL EXAMINATION: GENERAL: Alert, oriented female, not in distress. VITAL SIGNS: Stable. Temperature 98.0, pulse 77, respirations 16, blood pressure 133/71. HEENT: Both pupils are round and reacting. No conjunctival lesion, no lesion in the mouth. NECK: Supple, no JVP, no lymphadenopathy. LUNGS: Clear. HEART: S1, S2 regular. ABDOMEN: Soft, nontender, no organomegaly. EXTREMITIES: No edema, cyanosis. SKIN: Unremarkable. NEUROLOGIC: The patient is alert, awake, and appropriate. No focal neurologic deficit. FOOT: In particular foot examination, the patient has a plantar ulcer, looks chronic and it probes to the bone at around fourth and fifth metatarsal area. LABORATORY DATA: White count is 11.1, it came to down to 8.3, hemoglobin 7.1, platelets are normal. BUN and creatinine is 28 and 1.2. Urinalysis is unremarkable. Her duplex of the lower extremity showed a patent right lower extremity bypass graft. Chest x-ray: Patchy interstitial infiltrate bilaterally. IMPRESSION: 1. Right foot osteomyelitis. 2. Diabetes mellitus. 3. Hypertension. 4. Renal insufficiency. 5. Congestive heart failure. RECOMMENDATIONS: Would start Zosyn and daptomycin, supportive care and further surgical resection has been planned for tomorrow by vascular surgery. Thank you very much, Dr. Razo, for giving me opportunity to participate in this patient's care. KAYE/MAGDALENA DR: KAYE/jamin TID: [id number]
[2021-01-13] MEDS: ATORVASTATIN CALCIUM 40 MG TABLET. PO SCH (21:39)
[2021-01-13] MEDS: ZOLPIDEM 5 MG TABLET. PO PRN (21:39)
[2021-01-13] MEDS: INSULIN GLARGINE SYRINGE. SQ SCH (21:44)
[2021-01-14] VITALS (7 sets, daily range): BP systolic 116–140; BP diastolic 20–72
[2021-01-14] MEDS ORDERED: MORPHINE SULFATE 2 MG/ML INJ. IVP PRN (06:00)
[2021-01-14] MEDS ORDERED: PROCHLORPERAZINE 10 MG/2 ML VIAL. IVP PRN (06:00)
[2021-01-14] MEDS ORDERED: fentaNYL PF VIAL 100 MCG/2 ML VIAL IVP PRN ×2 (06:00)
[2021-01-14] MEDS ORDERED: IV RINGERS,LACTATED 1000ML 1,000 ML IV SCH (06:00)
--- NOTE | 2021-01-14 07:15 | PDOC ---
Infectious Disease Note Subjective Subjective Patient is feeling good waiting for surgery ROS ROS No nausea vomiting diarrhea chest pain shortness of breath Vital Sign Vital Signs Vital Signs Date Time Temp Pulse Resp B/P (MAP) Pulse Ox O2 Delivery O2 Flow Rate FiO2 01/14/21 03:00 99.5 79 18 122/62 (82) 93 Nasal Cannula 3.0 99.5 Physical Exam PHYSICAL EXAM GENERAL: Alert, oriented female, not in distress. VITAL SIGNS: Stable. HEENT: Both pupils are round and reacting. No conjunctival lesion, no lesion in the mouth. NECK: Supple, no JVP, no lymphadenopathy. LUNGS: Clear. HEART: S1, S2 regular. ABDOMEN: Soft, nontender, no organomegaly. EXTREMITIES: No edema, cyanosis. SKIN: Unremarkable. NEUROLOGIC: The patient is alert, awake, and appropriate. No focal neurologic deficit. FOOT: In particular foot examination, the patient has a plantar ulcer, looks chronic and it probes to the bone at around fourth and fifth metatarsal area. Labs Lab Laboratory Tests Test 01/13/21 08:15 01/13/21 12:23 01/13/21 12:55 01/13/21 17:10 Glucose (Fingerstick) 126 mg/dL (70-99) 108 mg/dL (70-99) 118 mg/dL (70-99) Urine Collection Type Unknown Urine Color Yellow Urine Clarity Clear Urine pH 5.5 (<5.0-8.0) Urine Specific [place] 1.015 (1.000-1.030) Urine Protein Negative mg/dL (NEG-TRACE) Urine Glucose (UA) Negative mg/dL (NEG) Urine Ketones (Stick) Negative mg/dL (NEG) Urine Blood Negative (NEG) Urine Nitrite Negative (NEG) Urine Bilirubin Negative (NEG) Urine Urobilinogen Dipstick 0.2 mg/dL (0.2 mg/dL) Urine Leukocyte Esterase Small (NEG) Urine RBC 0 /HPF (0-2) Urine WBC 5-10 /HPF (0-4) Urine Squamous Epithelial Cells Few /LPF Urine Bacteria 0 /HPF (0-FEW) Urine Hyaline Casts Moderate /HPF Test 01/13/21 20:33 Glucose (Fingerstick) 163 mg/dL (70-99) Objective Assessment IMPRESSION: 1. Right foot osteomyelitis. 2. Diabetes mellitus. 3. Hypertension. 4. Renal insufficiency. 5. Congestive heart failure. Plan Plan of Care Surgery today Continue antibiotics MICH MARK MD Jan 14, 2021 07:15
[2021-01-14] MEDS: PANTOPRAZOLE 40 MG TABLET.DR. PO SCH (07:30)
[2021-01-14] MEDS: INSULIN LISPRO 300 UNITS/3 ML VIAL. SQ SCH ×3 (08:00→17:00)
[2021-01-14] MEDS: DAPTOmycin (GENERIC) IVPB 470 MG in IV NORMAL SALINE 50ML 50 ML IV SCH (08:24)
[2021-01-14] MEDS: CARVEDILOL 6.25 MG TABLET. PO SCH ×2 (08:25→17:33)
--- NOTE | 2021-01-14 08:46 | PDOC ---
[facility] PROGRESS NOTE Date of Service DOS: DATE: 01/14/21 TIME: 08:46 Chief Complaint Chief Complaint A/P: Right foot osteomyelitis of 5th metatarsal - bone visible. ID consulted for antibiotics, vascular surgery to consider debridement PAD - s/p bilateral LE bypass, patent, and H/o right 5th toe amputation Diabetes mellitus type 2 - basal bolus insulin while inpatient CAD s/p CABG - cont meds. Will consult cardiology for pre op evaluation H/o DVT - on eliquis, will give lovenox weight based in anticipation of surgery in the next 48 hours Hypertension - cont home meds Dyslipidemia - statin History of CVA CKD - will monitor renal function Severe protein calorie malnutrition - likely due to osteomyelitis. Acute on Chronic diastolic CHF - cont home meds. Consult cardiology. Likely was in acute CHF due to anemia Acute anemia - no clear blood loss, will transfuse to keep Hb >8 given significant CAD history FEN - ADA diet PPX - eliquis, will hold pre operatively, transition to lovenox for now Full code Dispo - inpatient Discussed with RN and SW Disposition inpatient management as above Surrogate decision maker is the History of Present Illness History of Present Illness Ms Marks is a 65 yo female with PMHx RLE DVT (on eliquis), CAD s/p CABG, CVA, HTN, HLD, PAD s/p bilateral lower extremity bypass, and CKD, presents to the hospital as a direct admission from the outpatient wound clinic where she was noted to have exposed bone in her right fifth metatarsal and pain. She has been on outpatient Augmentin intermittently for the past few months. Discussed with wound care physician except for direct admission and consult infectious diseases and vascular surgery. 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 She has been trying to offload the foot but with some neuropathy has not been able to appropriately offload and has been compliant with meds and wound care follow up. Requires admission for failure of outpatient therapy. 01/13: Hb 7 and tachycardic this morning. Feeling more fatigued. Discussed with vascular surgery tentative plans for debridement 01/14/2021. Amenable to transfusion. Consulted cardiology for concern for mild acute CHF exacerbation Afebrile. Hb 9.3. Much more short of breath after transfusion despite 2 doses of 20 mg IV Lasix. Urine output was fairly minimal after this. Left lower extremity more swollen bibasilar crackles this morning. IV Lasix ordered. Stat stat rapid Covid swab ordered. I discussed with vascular surgery as likely acute CHF will need a little more management prior to surgery and will delay it by a couple hours. Vitals/I&O Vitals/I&O: Vital Signs Date Time Temp Pulse Resp B/P (MAP) Pulse Ox O2 Delivery O2 Flow Rate FiO2 01/14/21 08:25 90 131/74 01/14/21 03:00 99.5 18 93 Nasal Cannula 3.0 99.5 I & O 01/13/21 01/13/21 01/14/21 15:00 23:00 07:00 Intake Total 400 ml 120 ml Output Total 400 ml Balance 400 ml -280 ml Physical Exam Physical Exam: GENERAL: Alert, oriented female, not in distress. VITAL SIGNS: Stable. Temperature 98.0, pulse 77, respirations 16, blood pressure 133/71. HEENT: Both pupils are round and reacting. No conjunctival lesion, no lesion in the mouth. NECK: Supple, no JVP, no lymphadenopathy. LUNGS: Clear. HEART: S1, S2 regular. ABDOMEN: Soft, nontender, no organomegaly. EXTREMITIES: No edema, cyanosis. SKIN: Unremarkable. NEUROLOGIC: The patient is alert, awake, and appropriate. No focal neurologic deficit. FOOT: In particular foot examination, the patient has a plantar ulcer, looks chronic and it probes to the bone at around fourth and fifth metatarsal area. General: Alert, Oriented X3, Cooperative, No acute distress Heart: Regular rate, Normal S1, Normal S2, Other (2/6 systolic murmur to LLS border) Lungs: Clear Abdomen: Soft, No tenderness, Other (obese) Extremities: No cyanosis, Other (2+ bilateral LE pitting edema) Skin: Other (right foot wound) Labs Labs: Laboratory Tests Test 01/13/21 12:23 01/13/21 12:55 01/13/21 17:10 01/13/21 20:33 Glucose (Fingerstick) 108 mg/dL (70-99) 118 mg/dL (70-99) 163 mg/dL (70-99) Urine Collection Type Unknown Urine Color Yellow Urine Clarity Clear Urine pH 5.5 (<5.0-8.0) Urine Specific [place] 1.015 (1.000-1.030) Urine Protein Negative mg/dL (NEG-TRACE) Urine Glucose (UA) Negative mg/dL (NEG) Urine Ketones (Stick) Negative mg/dL (NEG) Urine Blood Negative (NEG) Urine Nitrite Negative (NEG) Urine Bilirubin Negative (NEG) Urine Urobilinogen Dipstick 0.2 mg/dL (0.2 mg/dL) Urine Leukocyte Esterase Small (NEG) Urine RBC 0 /HPF (0-2) Urine WBC 5-10 /HPF (0-4) Urine Squamous Epithelial Cells Few /LPF Urine Bacteria 0 /HPF (0-FEW) Urine Hyaline Casts Moderate /HPF Test 01/14/21 07:30 Glucose (Fingerstick) 149 mg/dL (70-99) Comment Review of Relevant I have reviewed the following items johan (where applicable) has been applied. Medications: Current Medications Medications (Trade) Dose Ordered Sig/Katiana Route PRN Reason Start Time Stop Time Status Last Admin Dose Admin Fish Oil (Fish Oil) 1,000 mg DAILY PO 01/13/21 09:00 01/13/21 09:43 Isosorbide Mononitrate (Imdur) 30 mg DAILY PO 01/13/21 09:00 01/13/21 09:44 Furosemide (Lasix) 20 mg 1X ONCE IVP 01/13/21 11:30 01/13/21 11:31 DC 01/13/21 12:28 Furosemide (Lasix) 20 mg 1X ONCE IVP 01/13/21 18:45 01/13/21 18:46 DC 01/13/21 19:12 Daptomycin 470 mg/ Sodium Chloride 50 ml @ 100 mls/hr Q24H IV 01/14/21 09:00 01/14/21 08:24 Justifications for Admission Other Justification sepsis and respiratory failure ADRIÁN PEOPLES MD Jan 14, 2021 08:46
[2021-01-14] MEDS: OMEGA-3 FATTY ACIDS/FISH OIL 1,000 MG CAPSULE. PO SCH (09:00)
[2021-01-14] MEDS: ISOSORBIDE MONONITRATE ER 30 MG TAB.ER.24H PO SCH (09:00)
[2021-01-14] MEDS: GABAPENTIN 300 MG CAPSULE. PO SCH ×3 (09:00→19:59)
[2021-01-14] MEDS: RANOLAZINE 500 MG TAB.ER.12H PO SCH ×2 (09:00→19:59)
[2021-01-14 09:03] LABS: BASO % 0 % (0-3); EOS # 0.1 x10^3/uL (0.0-0.7); EOS % 1 % (0-3); HEMATOCRIT 27.1 % (36.0-47.0); HEMOGLOBIN 9.3 g/dL (12.0-15.5); LYMPH # 0.8 x10^3/uL (1.0-4.8); LYMPH % 7 % (24-48); MEAN CORPUSCULAR HEMOGLOBIN 29 pg (25-35); MEAN CORPUSCULAR HGB CONC 34 g/dL (31-37); MEAN CORPUSCULAR VOLUME 84 fL (79-100); MONO # 0.5 x10^3/uL (0.0-1.1); MONO % 5 % (0-9); NEUT # 9.8 x10^3/uL (1.8-7.7); NEUT % 87 % (31-73); PLATELET COUNT 452 x10^3/uL (140-400); RED BLOOD COUNT 3.21 x10^6/uL (3.50-5.40); RED CELL DISTRIBUTION WIDTH 15.3 % (11.5-14.5); WHITE BLOOD COUNT 11.2 x10^3/uL (4.0-11.0)
[2021-01-14 09:17] LABS: CREATININE 0.9 mg/dL (0.6-1.0); POTASSIUM 4.4 mmol/L (3.5-5.1)
[2021-01-14] MEDS ORDERED: FUROSEMIDE 40 MG/4 ML VIAL. IVP ONE ×2 (09:30→15:00)
--- NOTE | 2021-01-14 09:45 | PDOC ---
Provider Note Date of Service: DATE: 01/14/21 TIME: 09:39 Provider Note Provider Note Subjective: This a.m. patient is acutely hypoxic and tachycardic and is now requiring facemask for oxygen supplementation. She reports mild to moderate dyspnea. She denies any productive sputum. She has no pain in her right foot. Objective: General lying in bed with facemask in place. Able to speak in interrupted sentences. Extremity: There is palpable bone in the base of a ulcer on the lateral aspect of the plantar aspect of the foot. This in the setting of an ulcer that is a pproximately 5 x 4 cm in diameter. The surrounding ulcer bed has pink granulation tissue. However there is a tunneling sinus in the center where there is bone palpable presumably the fifth metatarsal. She has a previous fifth toe amputation on the right side with no other ulcerations present on the right foot. She has previously had several toe amputations of 3 4 and 5 on the left with no ulcerations on left foot. On the right foot she has significant Charcot deformity. NEUROLOGIC: She is insensate to light touch on the plantar aspect of her right foot. Hwoever she begins to have sensation toward her heel. Assessment: #1 acute hypoxia 2. 5th metatarsal osteomyelitis 3. malperforans ulcer, diabetic foot ulcer right foot 4. diabetes mellitus, type 2, complicated by neuropathy Given her acute hypoxemia and need for further evaluation will delay her planned foot ulcer debridement with fifth metatarsal amputation, this was discussed with Dr. Farr as well as Dr. Mayen, the anesthesiologist. Will reschedule once evaluation of hypoxia completed and patient improving. There is no evidence of ascending infection from the foot to suggest this as cause for decompensation Additionally will obtain a right foot x-ray given her significant Charcot deformity to aid with operative planning. I reviewed her previous ultrasound which shows a patent bypass graft to the right lower extremity she does have evidence of distal tibial disease but this does not appear to be flow-limiting. Would consider angiography following amputation if there is any delay in wound healing. I did discuss with her that given her significant foot deformity on the right side the likelihood of healing in this situation is low and it is mandatory that she maintains nonweightbearing to that extremity strictly following the operation. I did discuss with her the option of proceeding with a below-knee amputation which would have a higher likelihood of healing and would likely be more functional however she would like to proceed with further efforts at foot salvage even with a poor prognosis from a functional standpoint. Justicifation of Admission Dx: Justifications for Admission: Justification of Admission Dx: Yes DAGMAR HARRIS MD Jan 14, 2021 09:45
--- NOTE | 2021-01-14 10:20 | RAD ---
Site ID: [id number] EXAMINATION: XR CHEST 1V. HISTORY: 65 years Female Reason: SOA COMPARISON: January 13, 2021. Findings: There is a worsening infiltrates in the lungs. The heart size is enlarged with sternotomy w ires seen. There is no effusion or pneumothorax. The mediastinum and arleen appear unremarkable. Impression: Findings suggestive of interstitial pulmonary edema with worsening right lung infiltrates could relate to superimposed pneumonia. Electronically signed by: Mino Givens MD (01/14/2021 10:17 AM) [id number]
--- NOTE | 2021-01-14 10:43 | PDOC ---
SUE MENDIETA BLISTER RUST ERADICATOR 01/14/21 1043: CARDIO Progress Notes Date and Time Date of Service 01/14/2021 Time of Evaluation 1030 Subjective Subjective: No Chest Pain, No Palpitations, Other (mild SOA with simple mask) Vitals Vitals Vital Signs Date Time Temp Pulse Resp B/P (MAP) Pulse Ox O2 Delivery O2 Flow Rate FiO2 01/14/21 08:25 90 131/74 01/14/21 03:00 99.5 18 93 Nasal Cannula 3.0 99.5 Weight Weight [ ] Input and Output Intake and Output Intake and Output 01/14/21 06:59 Intake Total 520 ml Output Total 400 ml Balance 120 ml Intake Oral 120 ml Blood Product IV Normal Saline Flush 400 ml Output Urine Total 400 ml # Voids 2 Laboratory Labs Laboratory Tests Test 01/13/21 12:23 01/13/21 12:55 01/13/21 17:10 01/13/21 20:33 Glucose (Fingerstick) 108 mg/dL (70-99) 118 mg/dL (70-99) 163 mg/dL (70-99) Urine Collection Type Unknown Urine Color Yellow Urine Clarity Clear Urine pH 5.5 (<5.0-8.0) Urine Specific [place] 1.015 (1.000-1.030) Urine Protein Negative mg/dL (NEG-TRACE) Urine Glucose (UA) Negative mg/dL (NEG) Urine Ketones (Stick) Negative mg/dL (NEG) Urine Blood Negative (NEG) Urine Nitrite Negative (NEG) Urine Bilirubin Negative (NEG) Urine Urobilinogen Dipstick 0.2 mg/dL (0.2 mg/dL) Urine Leukocyte Esterase Small (NEG) Urine RBC 0 /HPF (0-2) Urine WBC 5-10 /HPF (0-4) Urine Squamous Epithelial Cells Few /LPF Urine Bacteria 0 /HPF (0-FEW) Urine Hyaline Casts Moderate /HPF Test 01/14/21 07:30 01/14/21 08:35 01/14/21 09:00 Glucose (Fingerstick) 149 mg/dL (70-99) White Blood Count 11.2 x10^3/uL (4.0-11.0) Red Blood Count 3.21 x10^6/uL (3.50-5.40) Hemoglobin 9.3 g/dL (12.0-15.5) Hematocrit 27.1 % (36.0-47.0) Mean Corpuscular Volume 84 fL (79-100) Mean Corpuscular Hemoglobin 29 pg (25-35) Mean Corpuscular Hemoglobin Concent 34 g/dL (31-37) Red Cell Distribution Width 15.3 % (11.5-14.5) Platelet Count 452 x10^3/uL (140-400) Neutrophils (%) (Auto) 87 % (31-73) Lymphocytes (%) (Auto) 7 % (24-48) Monocytes (%) (Auto) 5 % (0-9) Eosinophils (%) (Auto) 1 % (0-3) Basophils (%) (Auto) 0 % (0-3) Neutrophils # (Auto) 9.8 x10^3/uL (1.8-7.7) Lymphocytes # (Auto) 0.8 x10^3/uL (1.0-4.8) Monocytes # (Auto) 0.5 x10^3/uL (0.0-1.1) Eosinophils # (Auto) 0.1 x10^3/uL (0.0-0.7) Basophils # (Auto) 0.0 x10^3/uL (0.0-0.2) Sodium Level 138 mmol/L (136-145) Potassium Level 4.4 mmol/L (3.5-5.1) Chloride Level 105 mmol/L (98-107) Carbon Dioxide Level 23 mmol/L (21-32) Anion Gap 10 (6-14) Blood Urea Nitrogen 26 mg/dL (7-20) Creatinine 0.9 mg/dL (0.6-1.0) Estimated GFR (Cockcroft-Gault) 63.0 Glucose Level 158 mg/dL (70-99) Calcium Level 9.0 mg/dL (8.5-10.1) SARS-CoV-2 Antigen (Rapid) Negative (NEGATIVE) Physical Exam HEENT: Neck Supple W Full Motion Chest: Symmetric LUNGS: Other (diminished) Heart: RRR Abdomen: Soft N/T Extremities: Other (2-3 + bilateral Le pitting edema; right foot wound covered with dressing) Neurology: alert, oriented, follow commands Assessment Assessment 1. Fever 2. Anemia: Hgb at 9.3 post transfusion 3. Osteomyelitis with planned debridement and resection of fifth metatarsal bone today 4. CAD: past CABG clinically stable 5. Hx of PE/RLE DVT: was on eliquis, last dose yesterday per PCP 6. BLE PAD: past revascularization. stable clinically 7. HTN; controlled 8. HLP 9. Acute on chronic diastolic CHF 10. CKD3 Recommendations 1. Moderate risk for periopervative CV events for noncardiac surgery. BB preop 2. Lasix therapy 3. Continue secondary prevention measures Justicifation of Admission Dx: Justifications for Admission: Justification of Admission Dx: Yes HUEY OBRIEN MD 01/14/21 2146: CARDIO Progress Notes Assessment Assessment Patient seen and examined. Agree with FOLDER MACHINE's assessment and plan as noted above. SUE MENDIETA BLISTER RUST ERADICATOR Jan 14, 2021 10:43 UHEY OBRIEN MD Jan 14, 2021 21:46
[2021-01-14] MEDS: PIPERACILLIN/TAZOBACTAM 3.375 GM in IV NORMAL SALINE 50ML 50 ML IV SCH ×3 (12:33→23:35)
[2021-01-14] MEDS: ACETAMINOPHEN 325 MG TABLET. PO PRN (14:46)
[2021-01-14] MEDS: IPRATRPIUM/ALBUTEROL 0.5/2.5MG 3 ML NEBU. NEB SCH ×2 (16:05→19:54)
--- NOTE | 2021-01-14 17:27 | RAD ---
Three-view right foot HISTORY: Osteomyelitis and Charcot deformity AP lateral oblique views There has been prior amputation of the fifth ray through the base of the fifth metatarsal. There is a large lucency in the lateral portion of the cuboid. There is moderate degenerative changes the mid f oot with deformity and disorganization. IMPRESSION: 1. Postsurgical as well as degenerative changes of the foot and Charcot's deformity. 2. There is a large lucency within the cuboid which could be secondary to osteomyelitis. Electronically signed by: Elgin Shen III, MD (01/14/2021 5:25 PM) [id number]
[2021-01-14] MEDS: BUDESONIDE 0.5 MG/2 ML NEBU. NEB SCH (19:54)
[2021-01-14] MEDS: ATORVASTATIN CALCIUM 40 MG TABLET. PO SCH (19:59)
[2021-01-14] MEDS: INSULIN GLARGINE SYRINGE. SQ SCH (20:05)
--- NOTE | 2021-01-14 23:10 | NUR ---
TRANSFER: received report from RONI Melendrez [facility]. Assumed care of patient. reports no pain at this time, assessment complete, vs stable. Patient resting comfortably on 15L Venti Mask.All belongings with patient at time of transfer. Bed in low locked position, call light in reach, reminded patient to call for assistance before ambulating. Will continue to monitor.
[2021-01-15 03:10] VITALS: BP 138/62
[2021-01-15] MEDS: PANTOPRAZOLE 40 MG TABLET.DR. PO SCH ×2 (05:39→08:45)
[2021-01-15] MEDS: PIPERACILLIN/TAZOBACTAM 3.375 GM in IV NORMAL SALINE 50ML 50 ML IV SCH ×4 (05:39→23:20)
[2021-01-15 06:22] LABS: BASO % 1 % (0-3); EOS # 0.1 x10^3/uL (0.0-0.7); EOS % 1 % (0-3); HEMATOCRIT 28.7 % (36.0-47.0); HEMOGLOBIN 9.5 g/dL (12.0-15.5); LYMPH # 1.2 x10^3/uL (1.0-4.8); LYMPH % 16 % (24-48); MEAN CORPUSCULAR HEMOGLOBIN 28 pg (25-35); MEAN CORPUSCULAR HGB CONC 33 g/dL (31-37); MEAN CORPUSCULAR VOLUME 85 fL (79-100); MONO # 0.6 x10^3/uL (0.0-1.1); MONO % 7 % (0-9); NEUT # 5.9 x10^3/uL (1.8-7.7); NEUT % 75 % (31-73); PLATELET COUNT 498 x10^3/uL (140-400); RED CELL DISTRIBUTION WIDTH 15.4 % (11.5-14.5); WHITE BLOOD COUNT 7.9 x10^3/uL (4.0-11.0)
[2021-01-15 06:27] LABS: CALCIUM 9.1 mg/dL (8.5-10.1); CREATININE 0.9 mg/dL (0.6-1.0); POTASSIUM 3.5 mmol/L (3.5-5.1)
[2021-01-15 07:09] VITALS: BP 139/62
[2021-01-15] MEDS: IPRATRPIUM/ALBUTEROL 0.5/2.5MG 3 ML NEBU. NEB SCH ×4 (07:27→20:24)
[2021-01-15] MEDS: BUDESONIDE 0.5 MG/2 ML NEBU. NEB SCH ×2 (07:27→20:24)
[2021-01-15] MEDS: INSULIN LISPRO 300 UNITS/3 ML VIAL. SQ SCH ×3 (08:00→16:59)
[2021-01-15] MEDS: FUROSEMIDE 40 MG/4 ML VIAL. IVP SCH (08:44)
[2021-01-15] MEDS: ISOSORBIDE MONONITRATE ER 30 MG TAB.ER.24H PO SCH (08:45)
[2021-01-15] MEDS: CARVEDILOL 6.25 MG TABLET. PO SCH ×2 (08:45→17:02)
[2021-01-15] MEDS: OMEGA-3 FATTY ACIDS/FISH OIL 1,000 MG CAPSULE. PO SCH (08:45)
[2021-01-15] MEDS: RANOLAZINE 500 MG TAB.ER.12H PO SCH ×2 (08:45→22:09)
[2021-01-15] MEDS: GABAPENTIN 300 MG CAPSULE. PO SCH ×3 (08:46→22:09)
[2021-01-15] MEDS: DAPTOmycin (GENERIC) IVPB 470 MG in IV NORMAL SALINE 50ML 50 ML IV SCH (08:47)
--- NOTE | 2021-01-15 09:16 | PDOC ---
Infectious Disease Note Subjective Subjective Patient is feeling good waiting for surgery ROS ROS no n/v/d/sob Vital Sign Vital Signs Vital Signs Date Time Temp Pulse Resp B/P (MAP) Pulse Ox O2 Delivery O2 Flow Rate FiO2 01/15/21 08:45 77 139/62 01/15/21 07:27 94 Venturi Mask 15.0 01/15/21 07:09 99.1 16 99.1 Physical Exam PHYSICAL EXAM GENERAL: Alert, oriented female, not in distress. VITAL SIGNS: Stable. HEENT: Both pupils are round and reacting. No conjunctival lesion, no lesion in the mouth. NECK: Supple, no JVP, no lymphadenopathy. LUNGS: Clear. HEART: S1, S2 regular. ABDOMEN: Soft, nontender, no organomegaly. EXTREMITIES: No edema, cyanosis. SKIN: Unremarkable. NEUROLOGIC: The patient is alert, awake, and appropriate. No focal neurologic deficit. FOOT: In particular foot examination, the patient has a plantar ulcer, looks chronic and it probes to the bone at around fourth and fifth metatarsal area. Labs Lab Laboratory Tests Test 01/14/21 12:32 01/14/21 17:12 01/14/21 19:56 01/15/21 04:00 Glucose (Fingerstick) 155 mg/dL (70-99) 140 mg/dL (70-99) 206 mg/dL (70-99) White Blood Count 7.9 x10^3/uL (4.0-11.0) Red Blood Count 3.40 x10^6/uL (3.50-5.40) Hemoglobin 9.5 g/dL (12.0-15.5) Hematocrit 28.7 % (36.0-47.0) Mean Corpuscular Volume 85 fL (79-100) Mean Corpuscular Hemoglobin 28 pg (25-35) Mean Corpuscular Hemoglobin Concent 33 g/dL (31-37) Red Cell Distribution Width 15.4 % (11.5-14.5) Platelet Count 498 x10^3/uL (140-400) Neutrophils (%) (Auto) 75 % (31-73) Lymphocytes (%) (Auto) 16 % (24-48) Monocytes (%) (Auto) 7 % (0-9) Eosinophils (%) (Auto) 1 % (0-3) Basophils (%) (Auto) 1 % (0-3) Neutrophils # (Auto) 5.9 x10^3/uL (1.8-7.7) Lymphocytes # (Auto) 1.2 x10^3/uL (1.0-4.8) Monocytes # (Auto) 0.6 x10^3/uL (0.0-1.1) Eosinophils # (Auto) 0.1 x10^3/uL (0.0-0.7) Basophils # (Auto) 0.0 x10^3/uL (0.0-0.2) Sodium Level 140 mmol/L (136-145) Potassium Level 3.5 mmol/L (3.5-5.1) Chloride Level 104 mmol/L (98-107) Carbon Dioxide Level 26 mmol/L (21-32) Anion Gap 10 (6-14) Blood Urea Nitrogen 23 mg/dL (7-20) Creatinine 0.9 mg/dL (0.6-1.0) Estimated GFR (Cockcroft-Gault) 63.0 Glucose Level 125 mg/dL (70-99) Calcium Level 9.1 mg/dL (8.5-10.1) Creatine Kinase 59 U/L (26-192) Test 01/15/21 07:12 Glucose (Fingerstick) 127 mg/dL (70-99) Objective Assessment IMPRESSION: 1. Right foot osteomyelitis. 2. Diabetes mellitus. 3. Hypertension. 4. Renal insufficiency. 5. Congestive heart failure. Plan Plan of Care Continue antibiotics cont supportive care surgery pending respiratory status MICH MARK MD Jan 15, 2021 09:16
[2021-01-15] MEDS ORDERED: METHYL SALICYLATE/MENTHOL TOPICAL CREAM 57GM TUBE. TP PRN (09:45)
--- NOTE | 2021-01-15 10:22 | PDOC ---
[facility] PROGRESS NOTE Date of Service DOS: DATE: 01/15/21 TIME: 10:13 Chief Complaint Chief Complaint Right foot osteomyelitis of the 5th metatarsal - Bone visible Diabetes Mellitus Type 2 Hypertension Dyslipidemia CDK Severe protein calorie malnutrition Acute anemia History of Present Illness History of Present Illness Ms Marks is a 65 yo female with PMHx RLE DVT (on eliquis), CAD s/p CABG, CVA, HTN, HLD, PAD s/p bilateral lower extremity bypass, and CKD, presents to the hospital as a direct admission from the outpatient wound clinic where she was noted to have exposed bone in her right fifth metatarsal and pain. She has been on outpatient Augmentin intermittently for the past few months. Discussed with wound care physician except for direct admission and consult infectious diseases and vascular surgery. 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 She has been trying to offload the foot but with some neuropathy has not been able to appropriately offload and has been compliant with meds and wound care fo llow up. Requires admission for failure of outpatient therapy. 01/13: Hb 7 and tachycardic this morning. Feeling more fatigued. Discussed with vascular surgery tentative plans for debridement 01/14/2021. Amenable to transfusion. Consulted cardiology for concern for mild acute CHF exacerbation Afebrile. Hb 9.3. Much more short of breath after transfusion despite 2 doses of 20 mg IV Lasix. Urine output was fairly minimal after this. Left lower extremity more swollen bibasilar crackles this morning. IV Lasix ordered. Stat stat rapid Covid swab ordered. I discussed with vascular surgery as likely acute CHF will need a little more management prior to surgery and will delay it by a couple hours. 01/15: Mrs. Marks was seen and evaluated this morning. She was sitting up and eating her breakfast. We discussed her current disposition with her nurse and reviewed her chart. I discussed with the patient that we are waiting for her hypoxia to improve and further evaluation by surgery, at which time they will consider debridement. Mrs. Mraks did mention low back and left side pain, for which we will order her Menthol/Methyl Salicylate PRN QID. Vitals/I&O Vitals/I&O: Vital Signs Date Time Temp Pulse Resp B/P (MAP) Pulse Ox O2 Delivery O2 Flow Rate FiO2 01/15/21 08:45 77 139/62 01/15/21 07:27 94 Venturi Mask 15.0 01/15/21 07:09 99.1 16 99.1 I & O 01/14/21 01/14/21 01/15/21 15:00 23:00 07:00 Intake Total 400 ml Output Total 1300 ml Balance -1300 ml 400 ml Physical Exam Physical Exam: GENERAL: Alert, oriented female, not in distress. VITAL SIGNS: Stable. HEENT: Both pupils are round and reacting. No conjunctival lesion, no lesion in the mouth. NECK: Supple, no JVP, no lymphadenopathy. LUNGS: Clear. HEART: S1, S2 regular. ABDOMEN: Soft, nontender, no organomegaly. EXTREMITIES: No edema, cyanosis. SKIN: Unremarkable. NEUROLOGIC: The patient is alert, awake, and appropriate. No focal neurologic deficit. FOOT: In particular foot examination, the patient has a plantar ulcer, looks chronic and it probes to the bone at around fourth and fifth metatarsal area. General: Alert, Oriented X3, Cooperative, No acute distress Heart: Regular rate, No murmurs, Other (2/6 systolic murmur to LLS border) Lungs: Clear Abdomen: Normal bowel sounds, No tenderness, Other (obese) Extremities: No clubbing, Other (2+ bilateral LE pitting edema) Skin: No rashes, Other (right foot wound) Labs Labs: Laboratory Tests Test 01/14/21 12:32 01/14/21 17:12 01/14/21 19:56 01/15/21 04:00 Glucose (Fingerstick) 155 mg/dL (70-99) 140 mg/dL (70-99) 206 mg/dL (70-99) White Blood Count 7.9 x10^3/uL (4.0-11.0) Red Blood Count 3.40 x10^6/uL (3.50-5.40) Hemoglobin 9.5 g/dL (12.0-15.5) Hematocrit 28.7 % (36.0-47.0) Mean Corpuscular Volume 85 fL (79-100) Mean Corpuscular Hemoglobin 28 pg (25-35) Mean Corpuscular Hemoglobin Concent 33 g/dL (31-37) Red Cell Distribution Width 15.4 % (11.5-14.5) Platelet Count 498 x10^3/uL (140-400) Neutrophils (%) (Auto) 75 % (31-73) Lymphocytes (%) (Auto) 16 % (24-48) Monocytes (%) (Auto) 7 % (0-9) Eosinophils (%) (Auto) 1 % (0-3) Basophils (%) (Auto) 1 % (0-3) Neutrophils # (Auto) 5.9 x10^3/uL (1.8-7.7) Lymphocytes # (Auto) 1.2 x10^3/uL (1.0-4.8) Monocytes # (Auto) 0.6 x10^3/uL (0.0-1.1) Eosinophils # (Auto) 0.1 x10^3/uL (0.0-0.7) Basophils # (Auto) 0.0 x10^3/uL (0.0-0.2) Sodium Level 140 mmol/L (136-145) Potassium Level 3.5 mmol/L (3.5-5.1) Chloride Level 104 mmol/L (98-107) Carbon Dioxide Level 26 mmol/L (21-32) Anion Gap 10 (6-14) Blood Urea Nitrogen 23 mg/dL (7-20) Creatinine 0.9 mg/dL (0.6-1.0) Estimated GFR (Cockcroft-Gault) 63.0 Glucose Level 125 mg/dL (70-99) Calcium Level 9.1 mg/dL (8.5-10.1) Creatine Kinase 59 U/L (26-192) Test 01/15/21 07:12 Glucose (Fingerstick) 127 mg/dL (70-99) Review of Systems Review of Systems: No headaches No vomiting Assessment and Plan Assessmemt and Plan Assessment: 1) Right foot osteomyelitis of the 5th metatarsal - Bone visible 2) Diabetes Mellitus Type 2 3) Hypertension 4) Dyslipidemia 5) CDK 6) Severe protein calorie malnutrition 7) Acute anemia Plan: 1) Order Menthol/Methyl Salicylate PRN QID 2) Continue DVT Prophylaxis (Lovenox) 3) Full Code 4) Home Medications 5) Await further evaluation from surgery Comment Review of Relevant I have reviewed the following items johan (where applicable) has been applied. Medications: Current Medications Medications (Trade) Dose Ordered Sig/Katiana Route PRN Reason Start Time Stop Time Status Last Admin Dose Admin Piperacillin Sod/ Tazobactam Sod 3.375 gm/Sodium Chloride 50 ml @ 100 mls/hr Q6HRS IV 01/14/21 12:00 01/15/21 05:39 Furosemide (Lasix) 40 mg DAILY IVP 01/15/21 09:00 01/15/21 08:44 Furosemide (Lasix) 40 mg 1X ONCE IVP 01/14/21 15:00 01/14/21 15:01 DC 01/14/21 15:13 Acetaminophen (Tylenol) 650 mg PRN Q4HRS PRN PO MILD PAIN / TEMP > 100.3'F 01/14/21 14:45 01/14/21 14:46 Budesonide (Pulmicort) 0.5 mg RTBID NEB 01/14/21 20:00 01/15/21 07:27 Albuterol/ Ipratropium (Duoneb) 3 ml RTQID NEB 01/14/21 16:00 01/15/21 07:27 Justifications for Admission Other Justification sepsis and respiratory failure MIGUE HOOD III DO Jan 15, 2021 10:22
[2021-01-15 10:25] VITALS: BP 134/61
--- NOTE | 2021-01-15 12:12 | PDOC ---
Provider Note Date of Service: DATE: 01/15/21 TIME: 12:07 Provider Note Provider Note Vascular Subjective: Patient states her "breathing is better". She has no pain in her right foot. Objective: Awake and alert VSS, afebrile Sitting on edge of bed with facemask in place. Extremity: dressing dry and intact XRAY: IMPRESSION: 1. Postsurgical as well as degenerative changes of the foot and Charcot's deformity. 2. There is a large lucency within the cuboid which could be secondary to osteomyelitis. Assessment: 1. acute hypoxia 2. 5th metatarsal osteomyelitis 3. malperforans ulcer, diabetic foot ulcer right foot 4. diabetes mellitus, type 2, complicated by neuropathy Given her acute hypoxemia and need for further evaluation we have delayed her planned foot ulcer debridement with fifth metatarsal amputation. Will reschedule once patient's hypoxia is improving. There is no evidence of ascending infection from the foot to suggest this as cause for decompensation. Xray reviewed, she may need additional bone debrided at the time of surgery. I discussed this with the patient and she expresses understanding. Justicifation of Admission Dx: Justifications for Admission: Justification of Admission Dx: Yes MALA JAMISON REHABILITATION COUNSELLOR Jan 15, 2021 12:12
--- NOTE | 2021-01-15 12:47 | NUR ---
SS following up with discharge planning. SS reviewed pt chart and discussed with pt RN. Pt is currently requiring oxygen at 15 liters venti mask. COVID19 negative. Pt accepted on services with [facility], ; fax [phone]. Pt on IV Daptomycin, IV Zosyn, and IV Lasix. SS will continue to follow for discharge planning.
--- NOTE | 2021-01-15 12:57 | PDOC ---
SUE MENDIETA PVC LOADER 01/15/21 1257: CARDIO Progress Notes Date and Time Date of Service 01/15/2021 Time of Evaluation 1240 Subjective Subjective: No Chest Pain, No Palpitations, Other (mild SOA with simple mask) Vitals Vitals Vital Signs Date Time Temp Pulse Resp B/P (MAP) Pulse Ox O2 Delivery O2 Flow Rate FiO2 01/15/21 12:30 95 Room Air 01/15/21 10:25 98.8 76 16 134/61 (85) 15.0 98.8 Weight Weight [ ] Input and Output Intake and Output Intake and Output 01/15/21 07:00 Intake Total 400 ml Output Total 1300 ml Balance -900 ml Intake Oral 300 ml IV Total 100 ml Output Urine Total 1300 ml # Voids 3 Laboratory Labs Laboratory Tests Test 01/14/21 17:12 01/14/21 19:56 01/15/21 04:00 01/15/21 07:12 Glucose (Fingerstick) 140 mg/dL (70-99) 206 mg/dL (70-99) 127 mg/dL (70-99) White Blood Count 7.9 x10^3/uL (4.0-11.0) Red Blood Count 3.40 x10^6/uL (3.50-5.40) Hemoglobin 9.5 g/dL (12.0-15.5) Hematocrit 28.7 % (36.0-47.0) Mean Corpuscular Volume 85 fL (79-100) Mean Corpuscular Hemoglobin 28 pg (25-35) Mean Corpuscular Hemoglobin Concent 33 g/dL (31-37) Red Cell Distribution Width 15.4 % (11.5-14.5) Platelet Count 498 x10^3/uL (140-400) Neutrophils (%) (Auto) 75 % (31-73) Lymphocytes (%) (Auto) 16 % (24-48) Monocytes (%) (Auto) 7 % (0-9) Eosinophils (%) (Auto) 1 % (0-3) Basophils (%) (Auto) 1 % (0-3) Neutrophils # (Auto) 5.9 x10^3/uL (1.8-7.7) Lymphocytes # (Auto) 1.2 x10^3/uL (1.0-4.8) Monocytes # (Auto) 0.6 x10^3/uL (0.0-1.1) Eosinophils # (Auto) 0.1 x10^3/uL (0.0-0.7) Basophils # (Auto) 0.0 x10^3/uL (0.0-0.2) Sodium Level 140 mmol/L (136-145) Potassium Level 3.5 mmol/L (3.5-5.1) Chloride Level 104 mmol/L (98-107) Carbon Dioxide Level 26 mmol/L (21-32) Anion Gap 10 (6-14) Blood Urea Nitrogen 23 mg/dL (7-20) Creatinine 0.9 mg/dL (0.6-1.0) Estimated GFR (Cockcroft-Gault) 63.0 Glucose Level 125 mg/dL (70-99) Calcium Level 9.1 mg/dL (8.5-10.1) Creatine Kinase 59 U/L (26-192) FR-Bno-V-Type Natriuretic Peptide 78225 pg/mL (0-124) Test 01/15/21 11:09 Glucose (Fingerstick) 167 mg/dL (70-99) Microbiology Micro Microbiology 01/13/21 Urine Culture - Final, Complete Physical Exam HEENT: Neck Supple W Full Motion Chest: Symmetric LUNGS: Other (diminished) Heart: RRR Abdomen: Soft N/T Extremities: Other (2-3 + bilateral Le pitting edema; right foot wound covered with dressing) Neurology: alert, oriented, follow commands Assessment Assessment 1. Fever 2. Anemia: Hgb at 9.3 post transfusion 3. Osteomyelitis with planned debridement and resection of fifth metatarsal bone today 4. CAD: past CABG clinically stable 5. Hx of PE/RLE DVT: was on eliquis, last dose yesterday per PCP 6. BLE PAD: past revascularization. stable clinically 7. HTN; controlled 8. HLP 9. Acute on chronic diastolic CHF: better after diurese 10. CKD3 Recommendations 1. Moderate risk for periopervative CV events for noncardiac surgery. BB preop 2. Lasix therapy 3. Continue secondary prevention measures Justicifation of Admission Dx: Justifications for Admission: Justification of Admission Dx: Yes HUEY OBRIEN MD 01/15/212053: CARDIO Progress Notes Assessment Assessment Patient seen and examined. Agree with SOLE MOLDER's assessment and plan as noted above. CAD and PAD status clinically stable SUE MENDIETA APRN Jan 15, 2021 12:57 HUEY OBRIEN MD Jan 15, 2021 20:54
[2021-01-15 14:28] VITALS: BP 131/60
[2021-01-15 19:00] VITALS: BP 152/68
[2021-01-15] MEDS: oxyCODONE/APAP 7.5/325 1 TAB TABLET PO PRN (22:09)
[2021-01-15] MEDS: ATORVASTATIN CALCIUM 40 MG TABLET. PO SCH (22:09)
[2021-01-15] MEDS: INSULIN GLARGINE SYRINGE. SQ SCH (22:10)
[2021-01-15 23:00] VITALS: BP 143/66
[2021-01-16 03:00] VITALS: BP 136/63
[2021-01-16 04:45] LABS: BASO % 1 % (0-3); EOS # 0.1 x10^3/uL (0.0-0.7); EOS % 3 % (0-3); HEMATOCRIT 25.7 % (36.0-47.0); HEMOGLOBIN 8.6 g/dL (12.0-15.5); LYMPH # 1.1 x10^3/uL (1.0-4.8); LYMPH % 21 % (24-48); MEAN CORPUSCULAR HEMOGLOBIN 28 pg (25-35); MEAN CORPUSCULAR HGB CONC 33 g/dL (31-37); MEAN CORPUSCULAR VOLUME 84 fL (79-100); MONO # 0.4 x10^3/uL (0.0-1.1); MONO % 8 % (0-9); NEUT # 3.4 x10^3/uL (1.8-7.7); NEUT % 68 % (31-73); PLATELET COUNT 480 x10^3/uL (140-400); RED BLOOD COUNT 3.07 x10^6/uL (3.50-5.40); RED CELL DISTRIBUTION WIDTH 15.3 % (11.5-14.5); WHITE BLOOD COUNT 5.1 x10^3/uL (4.0-11.0)
[2021-01-16 05:05] LABS: CALCIUM 8.5 mg/dL (8.5-10.1); CREATININE 0.8 mg/dL (0.6-1.0); GFR 72.2; POTASSIUM 3.2 mmol/L (3.5-5.1)
[2021-01-16] MEDS: PIPERACILLIN/TAZOBACTAM 3.375 GM in IV NORMAL SALINE 50ML 50 ML IV SCH ×3 (05:17→17:57)
[2021-01-16] MEDS: BUDESONIDE 0.5 MG/2 ML NEBU. NEB SCH ×2 (06:20→21:46)
[2021-01-16] MEDS: IPRATRPIUM/ALBUTEROL 0.5/2.5MG 3 ML NEBU. NEB SCH ×4 (06:20→21:46)
[2021-01-16 07:00] VITALS: BP 135/63
[2021-01-16] MEDS: INSULIN LISPRO 300 UNITS/3 ML VIAL. SQ SCH ×3 (08:00→17:00)
[2021-01-16] MEDS ORDERED: POTASSIUM CHLORIDE 20 MEQ TABLET.ER. PO ONE (09:00)
[2021-01-16] MEDS: CARVEDILOL 6.25 MG TABLET. PO SCH ×2 (09:44→17:57)
[2021-01-16] MEDS: DAPTOmycin (GENERIC) IVPB 470 MG in IV NORMAL SALINE 50ML 50 ML IV SCH (09:44)
[2021-01-16] MEDS: GABAPENTIN 300 MG CAPSULE. PO SCH ×3 (09:44→22:08)
[2021-01-16] MEDS: RANOLAZINE 500 MG TAB.ER.12H PO SCH ×2 (09:45→22:07)
[2021-01-16] MEDS: OMEGA-3 FATTY ACIDS/FISH OIL 1,000 MG CAPSULE. PO SCH (09:45)
[2021-01-16] MEDS: FUROSEMIDE 40 MG/4 ML VIAL. IVP SCH (09:46)
[2021-01-16] MEDS: ISOSORBIDE MONONITRATE ER 30 MG TAB.ER.24H PO SCH (09:46)
[2021-01-16 11:20] VITALS: BP 150/58
--- NOTE | 2021-01-16 12:16 | PDOC ---
PROGRESS NOTES Date of Service: DATE: 01/16/21 TIME: 12:13 Subjective Subjective No new complaints. Objective Objective Vital Signs Date Time Temp Pulse Resp B/P (MAP) Pulse Ox O2 Delivery O2 Flow Rate FiO2 01/16/21 11:20 98.1 69 18 150/58 (88) 97 98.1 01/16/21 06:21 Room Air 01/16/21 03:00 15.0 Intake and Output 01/16/21 07:00 Intake Total 100 ml Balance 100 ml Intake Oral 100 ml # Voids 2 # Bowel Movements 2 Physical Exam Abdomen: Normal bowel sounds, No tenderness, Other (obese) Heart: Regular rate, No murmurs, Other (2/6 systolic murmur to LLS border) Extremities: No clubbing, Other (2+ bilateral LE pitting edema) General: Alert, Oriented X3, Cooperative, No acute distress HEENT: Atraumatic, Mucous membr. moist/pink Lungs: Other (diminished bases) Neuro: Normal speech, Strength at 5/5 X4 ext, Normal tone, Cranial nerves 3-12 NL, Reflexes 2+ Psych/Mental Status: Mental status NL, Mood NL Skin: No rashes, Other (right foot wound) Assessment Assessment 1. Fifth metatarsal osteomyelitis being planned for foot ulcer debridement and metatarsal amputation. Continue intravenous antibiotics. Vascular surgery following. 2. Anemia: s/p PRBC transfusion 3. Acute on chronic diastolic heart failure: Better compensated. Continue Lasix. 4. CAD: past CABG clinically stable. Continue current secondary prevention measures. 5. Hx of PE/RLE DVT: was previously on Eliquis, being held for surgery 6. BLE PAD: past revascularization. stable clinically 7. HTN; controlled 8. HLP: Continue statins. Comment Review of Relevant I have reviewed the following items johan (where applicable) has been applied. Labs Laboratory Tests Test 01/15/21 16:10 01/15/21 20:36 01/16/21 04:00 01/16/21 07:56 Glucose (Fingerstick) 139 mg/dL (70-99) 167 mg/dL (70-99) 109 mg/dL (70-99) White Blood Count 5.1 x10^3/uL (4.0-11.0) Red Blood Count 3.07 x10^6/uL (3.50-5.40) Hemoglobin 8.6 g/dL (12.0-15.5) Hematocrit 25.7 % (36.0-47.0) Mean Corpuscular Volume 84 fL (79-100) Mean Corpuscular Hemoglobin 28 pg (25-35) Mean Corpuscular Hemoglobin Concent 33 g/dL (31-37) Red Cell Distribution Width 15.3 % (11.5-14.5) Platelet Count 480 x10^3/uL (140-400) Neutrophils (%) (Auto) 68 % (31-73) Lymphocytes (%) (Auto) 21 % (24-48) Monocytes (%) (Auto) 8 % (0-9) Eosinophils (%) (Auto) 3 % (0-3) Basophils (%) (Auto) 1 % (0-3) Neutrophils # (Auto) 3.4 x10^3/uL (1.8-7.7) Lymphocytes # (Auto) 1.1 x10^3/uL (1.0-4.8) Monocytes # (Auto) 0.4 x10^3/uL (0.0-1.1) Eosinophils # (Auto) 0.1 x10^3/uL (0.0-0.7) Basophils # (Auto) 0.0 x10^3/uL (0.0-0.2) Sodium Level 141 mmol/L (136-145) Potassium Level 3.2 mmol/L (3.5-5.1) Chloride Level 106 mmol/L (98-107) Carbon Dioxide Level 27 mmol/L (21-32) Anion Gap 8 (6-14) Blood Urea Nitrogen 17 mg/dL (7-20) Creatinine 0.8 mg/dL (0.6-1.0) Estimated GFR (Cockcroft-Gault) 72.2 Glucose Level 134 mg/dL (70-99) Calcium Level 8.5 mg/dL (8.5-10.1) Test 01/16/21 12:01 Glucose (Fingerstick) 131 mg/dL (70-99) Microbiology 01/14/21 Blood Culture - Preliminary, Resulted NO GROWTH AFTER 1 DAY 01/13/21 Urine Culture - Final, Complete Medications Current Medications Potassium Chloride (Klor-Con) 40 meq 1X ONCE PO Last administered on 01/16/21at 09:46; Start 01/16/21 at 09:00; Stop 01/16/21 at 09:01; Status DC Vitals/I & O Vital Sign - Last 24 Hours 01/15/21 01/15/21 01/15/21 01/15/21 12:30 14:28 16:17 17:02 Temp 97.9 97.9 Pulse 74 74 Resp 16 B/P (MAP) 131/60 (83) 131/60 Pulse Ox 95 93 93 O2 Delivery Room Air Room Air Room Air 01/15/21 01/15/21 01/15/21 01/15/21 19:00 19:00 20:00 20:25 Temp 99.0 99.0 99.0 99.0 Pulse 75 75 Resp 20 20 B/P (MAP) 152/68 (96) 152/68 (96) Pulse Ox 93 97 O2 Delivery Room Air Room Air Room Air O2 Flow Rate 01/15/21 01/15/21 01/15/21 01/16/21 20:26 22:09 23:00 03:00 Temp 100.0 97.9 100.0 97.9 Pulse 75 82 72 Resp 20 20 B/P (MAP) 152/68 143/66 (91) 136/63 (87) Pulse Ox 97 95 96 O2 Delivery Room Air Room Air Venturi Mask O2 Flow Rate 15.0 01/16/21 01/16/21 01/16/21 01/16/21 06:21 07:00 09:44 09:45 Temp 98.1 98.1 Pulse 71 71 71 Resp 18 B/P (MAP) 135/63 (87) 135/63 135/63 Pulse Ox 96 94 O2 Delivery Room Air 01/16/21 01/16/21 09:46 11:20 Temp 98.1 98.1 Pulse 71 69 Resp 18 B/P (MAP) 135/63 150/58 (88) Pulse Ox 97 Intake and Output 01/15/21 01/15/21 01/16/21 15:00 23:00 07:00 Intake Total 0 ml 100 ml 0 ml Balance 0 ml 100 ml 0 ml HUEY OBRIEN MD Jan 16, 2021 12:16
[2021-01-16] MEDS ORDERED: MENTHOL/CAMPHOR 0.5%/0.5% LOTION 222ML BOTTLE. TP PRN (12:30)
--- NOTE | 2021-01-16 12:31 | PDOC ---
[facility] [facility] PROGRESS NOTE Date of Service DOS: DATE: 01/16/21 TIME: 12:30 Chief Complaint Chief Complaint Right foot osteomyelitis of the 5th metatarsal - Bone visible Diabetes Mellitus Type 2 Hypertension Dyslipidemia CDK Severe protein calorie malnutrition Acute anemia History of Present Illness History of Present Illness Ms Marks is a 65 yo female with PMHx RLE DVT (on eliquis), CAD s/p CABG, CVA, HTN, HLD, PAD s/p bilateral lower extremity bypass, and CKD, presents to the hospital as a direct admission from the outpatient wound clinic where she was noted to have exposed bone in her right fifth metatarsal and pain. She has been on outpatient Augmentin intermittently for the past few months. Discussed with wound care physician except for direct admission and consult infectious diseases and vascular surgery. 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 She has been trying to offload the foot but with some neuropathy has not been able to appropriately offload and has been compliant with meds and wound care fo llow up. Requires admission for failure of outpatient therapy. 01/13: Hb 7 and tachycardic this morning. Feeling more fatigued. Discussed with vascular surgery tentative plans for debridement 01/14/2021. Amenable to transfusion. Consulted cardiology for concern for mild acute CHF exacerbation Afebrile. Hb 9.3. Much more short of breath after transfusion despite 2 doses of 20 mg IV Lasix. Urine output was fairly minimal after this. Left lower extremity more swollen bibasilar crackles this morning. IV Lasix ordered. Stat stat rapid Covid swab ordered. I discussed with vascular surgery as likely acute CHF will need a little more management prior to surgery and will delay it by a couple hours. 01/16: Mrs. Marks was seen and evaluated this morning. str better, not hypoxia, still weak, refused PT this AM vasc surgery following, at which time they will consider debridement. Mrs. Ruddy peguero did mention back pain, will get her the Menthol/Methyl Salicylate PRN QID also voltaren PRN. Vitals/I&O Vitals/I&O: Vital Signs Date Time Temp Pulse Resp B/P (MAP) Pulse Ox O2 Delivery O2 Flow Rate FiO2 01/16/21 11:20 98.1 69 18 150/58 (88) 97 98.1 01/16/21 06:21 Room Air 01/16/21 03:00 15.0 I & O 01/15/21 01/15/21 01/16/21 14:59 22:59 06:59 Intake Total 0 ml 100 ml 0 ml Balance 0 ml 100 ml 0 ml Physical Exam Physical Exam: GENERAL: Alert, oriented female, not in distress. VITAL SIGNS: Stable. HEENT: Both pupils are round and reacting. No conjunctival lesion, no lesion in the mouth. NECK: Supple, no JVP, no lymphadenopathy. LUNGS: Clear. HEART: S1, S2 regular. ABDOMEN: Soft, nontender, no organomegaly. EXTREMITIES: No edema, cyanosis. SKIN: Unremarkable. NEUROLOGIC: The patient is alert, awake, and appropriate. No focal neurologic deficit. FOOT: In particular foot examination, the patient has a plantar ulcer, looks chronic and it probes to the bone at around fourth and fifth metatarsal area. General: Alert, Oriented X3, Cooperative, No acute distress Heart: Regular rate, No murmurs, Other (2/6 systolic murmur to LLS border) Lungs: Clear Abdomen: Normal bowel sounds, No tenderness, Other (obese) Extremities: No clubbing, Other (2+ bilateral LE pitting edema) Skin: No rashes, Other (right foot wound) Labs Labs: Laboratory Tests Test 01/15/21 16:10 01/15/21 20:36 01/16/21 04:00 01/16/21 07:56 Glucose (Fingerstick) 139 mg/dL (70-99) 167 mg/dL (70-99) 109 mg/dL (70-99) White Blood Count 5.1 x10^3/uL (4.0-11.0) Red Blood Count 3.07 x10^6/uL (3.50-5.40) Hemoglobin 8.6 g/dL (12.0-15.5) Hematocrit 25.7 % (36.0-47.0) Mean Corpuscular Volume 84 fL (79-100) Mean Corpuscular Hemoglobin 28 pg (25-35) Mean Corpuscular Hemoglobin Concent 33 g/dL (31-37) Red Cell Distribution Width 15.3 % (11.5-14.5) Platelet Count 480 x10^3/uL (140-400) Neutrophils (%) (Auto) 68 % (31-73) Lymphocytes (%) (Auto) 21 % (24-48) Monocytes (%) (Auto) 8 % (0-9) Eosinophils (%) (Auto) 3 % (0-3) Basophils (%) (Auto) 1 % (0-3) Neutrophils # (Auto) 3.4 x10^3/uL (1.8-7.7) Lymphocytes # (Auto) 1.1 x10^3/uL (1.0-4.8) Monocytes # (Auto) 0.4 x10^3/uL (0.0-1.1) Eosinophils # (Auto) 0.1 x10^3/uL (0.0-0.7) Basophils # (Auto) 0.0 x10^3/uL (0.0-0.2) Sodium Level 141 mmol/L (136-145) Potassium Level 3.2 mmol/L (3.5-5.1) Chloride Level 106 mmol/L (98-107) Carbon Dioxide Level 27 mmol/L (21-32) Anion Gap 8 (6-14) Blood Urea Nitrogen 17 mg/dL (7-20) Creatinine 0.8 mg/dL (0.6-1.0) Estimated GFR (Cockcroft-Gault) 72.2 Glucose Level 134 mg/dL (70-99) Calcium Level 8.5 mg/dL (8.5-10.1) Test 01/16/21 12:01 Glucose (Fingerstick) 131 mg/dL (70-99) Comment Review of Relevant I have reviewed the following items johan (where applicable) has been applied. Medications: Current Medications Medications (Trade) Dose Ordered Sig/Katiana Route PRN Reason Start Time Stop Time Status Last Admin Dose Admin Potassium Chloride (Klor-Con) 40 meq 1X ONCE PO 01/16/21 09:00 01/16/21 09:01 DC 01/16/21 09:46 Justifications for Admission Other Justification sepsis and respiratory failure CHRISTOPHER BORGES MD Jan 16, 2021 12:31
--- NOTE | 2021-01-16 12:54 | PDOC ---
Infectious Disease Note Subjective Subjective Patient without complaints awaiting foot surgery ROS ROS breathing is good, no n/v/d/ Vital Sign Vital Signs Vital Signs Date Time Temp Pulse Resp B/P (MAP) Pulse Ox O2 Delivery O2 Flow Rate FiO2 01/16/21 11:20 98.1 69 18 150/58 (88) 97 98.1 01/16/21 06:21 Room Air 01/16/21 03:00 15.0 Physical Exam PHYSICAL EXAM GENERAL: Alert, oriented female, not in distress. HEENT: Both pupils are round and reacting. No conjunctival lesion, no lesion in the mouth. NECK: Supple, no JVP, no lymphadenopathy. LUNGS: Clear. HEART: S1, S2 regular. ABDOMEN: Soft, nontender, no organomegaly. EXTREMITIES: No edema, cyanosis. SKIN: Unremarkable. NEUROLOGIC: The patient is alert, awake, and appropriate. No focal neurologic deficit. FOOT: In particular foot examination, the patient has a plantar ulcer, looks chronic and it probes to the bone at around fourth and fifth metatarsal area. Labs Lab Laboratory Tests Test 01/15/21 16:10 01/15/21 20:36 01/16/21 04:00 01/16/21 07:56 Glucose (Fingerstick) 139 mg/dL (70-99) 167 mg/dL (70-99) 109 mg/dL (70-99) White Blood Count 5.1 x10^3/uL (4.0-11.0) Red Blood Count 3.07 x10^6/uL (3.50-5.40) Hemoglobin 8.6 g/dL (12.0-15.5) Hematocrit 25.7 % (36.0-47.0) Mean Corpuscular Volume 84 fL (79-100) Mean Corpuscular Hemoglobin 28 pg (25-35) Mean Corpuscular Hemoglobin Concent 33 g/dL (31-37) Red Cell Distribution Width 15.3 % (11.5-14.5) Platelet Count 480 x10^3/uL (140-400) Neutrophils (%) (Auto) 68 % (31-73) Lymphocytes (%) (Auto) 21 % (24-48) Monocytes (%) (Auto) 8 % (0-9) Eosinophils (%) (Auto) 3 % (0-3) Basophils (%) (Auto) 1 % (0-3) Neutrophils # (Auto) 3.4 x10^3/uL (1.8-7.7) Lymphocytes # (Auto) 1.1 x10^3/uL (1.0-4.8) Monocytes # (Auto) 0.4 x10^3/uL (0.0-1.1) Eosinophils # (Auto) 0.1 x10^3/uL (0.0-0.7) Basophils # (Auto) 0.0 x10^3/uL (0.0-0.2) Sodium Level 141 mmol/L (136-145) Potassium Level 3.2 mmol/L (3.5-5.1) Chloride Level 106 mmol/L (98-107) Carbon Dioxide Level 27 mmol/L (21-32) Anion Gap 8 (6-14) Blood Urea Nitrogen 17 mg/dL (7-20) Creatinine 0.8 mg/dL (0.6-1.0) Estimated GFR (Cockcroft-Gault) 72.2 Glucose Level 134 mg/dL (70-99) Calcium Level 8.5 mg/dL (8.5-10.1) Test 01/16/21 12:01 Glucose (Fingerstick) 131 mg/dL (70-99) Micro Microbiology 01/14/21 Blood Culture - Preliminary, Resulted NO GROWTH AFTER 1 DAY 01/13/21 Urine Culture - Final, Complete Objective Assessment 1. Right foot osteomyelitis. 2. Diabetes mellitus. 3. Hypertension. 4. Renal insufficiency. 5. Congestive heart failure. Plan Plan of Care Continue antibiotics cont supportive care Awaiting surgery MICH MARK MD Jan 16, 2021 12:54
[2021-01-16] MEDS: DICLOFENAC SODIUM 1% TOPICAL GEL 100GM TUBE. TP PRN ×2 (14:01→22:06)
[2021-01-16] MEDS: oxyCODONE/APAP 7.5/325 1 TAB TABLET PO PRN ×2 (14:02→22:08)
[2021-01-16 15:47] VITALS: BP 153/70
[2021-01-16 19:00] VITALS: BP 142/67
[2021-01-16] MEDS: ZOLPIDEM 5 MG TABLET. PO PRN (22:07)
[2021-01-16] MEDS: ATORVASTATIN CALCIUM 40 MG TABLET. PO SCH (22:08)
[2021-01-16] MEDS: INSULIN GLARGINE SYRINGE. SQ SCH (22:19)
[2021-01-16 22:32] VITALS: BP 154/72
[2021-01-17] MEDS: PIPERACILLIN/TAZOBACTAM 3.375 GM in IV NORMAL SALINE 50ML 50 ML IV SCH ×4 (01:15→16:57)
[2021-01-17 02:34] VITALS: BP 134/60
[2021-01-17 05:07] LABS: BASO % 1 % (0-3); EOS # 0.2 x10^3/uL (0.0-0.7); EOS % 4 % (0-3); HEMATOCRIT 26.3 % (36.0-47.0); HEMOGLOBIN 8.9 g/dL (12.0-15.5); LYMPH # 1.2 x10^3/uL (1.0-4.8); LYMPH % 24 % (24-48); MEAN CORPUSCULAR HEMOGLOBIN 29 pg (25-35); MEAN CORPUSCULAR HGB CONC 34 g/dL (31-37); MEAN CORPUSCULAR VOLUME 85 fL (79-100); MONO # 0.5 x10^3/uL (0.0-1.1); MONO % 9 % (0-9); NEUT # 3.2 x10^3/uL (1.8-7.7); NEUT % 62 % (31-73); PLATELET COUNT 455 x10^3/uL (140-400); RED BLOOD COUNT 3.12 x10^6/uL (3.50-5.40); RED CELL DISTRIBUTION WIDTH 15.8 % (11.5-14.5); WHITE BLOOD COUNT 5.1 x10^3/uL (4.0-11.0)
[2021-01-17 05:24] LABS: CALCIUM 8.3 mg/dL (8.5-10.1); CREATININE 0.8 mg/dL (0.6-1.0); GFR 72.2; POTASSIUM 3.7 mmol/L (3.5-5.1)
[2021-01-17 07:00] VITALS: BP 162/72
[2021-01-17] MEDS: INSULIN LISPRO 300 UNITS/3 ML VIAL. SQ SCH ×3 (07:58→16:58)
[2021-01-17] MEDS: IPRATRPIUM/ALBUTEROL 0.5/2.5MG 3 ML NEBU. NEB SCH ×4 (08:00→22:00)
[2021-01-17] MEDS: BUDESONIDE 0.5 MG/2 ML NEBU. NEB SCH ×2 (08:00→22:00)
[2021-01-17] MEDS: OMEGA-3 FATTY ACIDS/FISH OIL 1,000 MG CAPSULE. PO SCH (08:07)
[2021-01-17] MEDS: PANTOPRAZOLE 40 MG TABLET.DR. PO SCH (08:08)
[2021-01-17] MEDS: RANOLAZINE 500 MG TAB.ER.12H PO SCH ×2 (08:08→21:24)
[2021-01-17] MEDS: ISOSORBIDE MONONITRATE ER 30 MG TAB.ER.24H PO SCH (08:08)
[2021-01-17] MEDS: GABAPENTIN 300 MG CAPSULE. PO SCH ×3 (08:08→21:25)
[2021-01-17] MEDS: CARVEDILOL 6.25 MG TABLET. PO SCH ×2 (08:09→16:56)
[2021-01-17] MEDS: FUROSEMIDE 40 MG/4 ML VIAL. IVP SCH (08:10)
[2021-01-17] MEDS: LACTOBACILLUS RHAMNOSUS GG 1 CAPSULE. PO SCH ×2 (09:13→21:24)
[2021-01-17] MEDS: DAPTOmycin (GENERIC) IVPB 470 MG in IV NORMAL SALINE 50ML 50 ML IV SCH (09:14)
--- NOTE | 2021-01-17 09:17 | PDOC ---
Provider Note Date of Service: DATE: 01/17/21 TIME: 09:10 Provider Note Provider Note S:Patient reports minimal pain in right foot. Her oxygenation is significant improved with Lasix diuresis. She denies any soreness of breath or chest pain this morning O: Skin: tunneling wound on midfoot on right with tunneling to bone Imaging: I reviewed the right foot x-ray which shows evidence of cuboid osteomyelitis in the right foot. She has no remaining fifth metatarsal. There is significant Charcot deformity and medial deformity of the metatarsals. A: 1. Cuboid osteomyelitis 2. Diabetes mellitus complicated by peripheral neuropathy 3. Peripheral arterial disease status post right femoropopliteal bypass which is patent P: I discussed the findings of the x-ray with the patient. I discussed the expected treatment outcomes with local debridement and wound care and IV antibiotics and foot offloading versus below-knee amputation. I spent extensive time counseling her on the option of below-knee amputation versus ongoing wound care and foot debridement. I explained that there is a very low likelihood of success with local debridement, wound care, antibiotic therapy. I explained that she will have extensive period of offloading of the right foot with this treatment algorithm. I explained the expected course following amputation. Following our discussion patient desires to proceed with wound debridement and offloading. I again stressed that the likelihood of success is extraordinarily low nearing medical futility with debridement and local wound care. I also stressed that given the significant deformity of her foot that from a functional standpoint an amputation would be a more desirable outcome. However again patient refusing amputation at this time and desires to proceed with debridement and local wound care. We will proceed with debridement on Friday 01/19. I also stressed the importance that she will be unable to weight-bear on the right foot for many months following surgical debridement. I spent a total of 35 minutes with the patient with more than 50% of the time spent [id number] on counseling counseling regarding her treatment options of serial debridement and wound care versus below-knee amputation Justicifation of Admission Dx: Justifications for Admission: Justification of Admission Dx: Yes DAGMAR HARRIS MD Jan 17, 2021 09:17
--- NOTE | 2021-01-17 10:22 | PDOC ---
[facility] PROGRESS NOTE Date of Service DOS: DATE: 01/17/21 TIME: 10:20 Chief Complaint Chief Complaint Right foot osteomyelitis of the 5th metatarsal - Bone visible Diabetes Mellitus Type 2 Hypertension Dyslipidemia CDK Severe protein calorie malnutrition Acute anemia History of Present Illness History of Present Illness Ms Marks is a 65 yo female with PMHx RLE DVT (on eliquis), CAD s/p CABG, CVA, HTN, HLD, PAD s/p bilateral lower extremity bypass, and CKD, presents to the hospital as a direct admission from the outpatient wound clinic where she was noted to have exposed bone in her right fifth metatarsal and pain. She has been on outpatient Augmentin intermittently for the past few months. Discussed with wound care physician except for direct admission and consult infectious diseases and vascular surgery. 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 She has been trying to offload the foot but with some neuropathy has not been able to appropriately offload and has been compliant with meds and wound care fo llow up. Requires admission for failure of outpatient therapy. 01/13: Hb 7 and tachycardic this morning. Feeling more fatigued. Discussed with vascular surgery tentative plans for debridement 01/14/2021. Amenable to transfusion. Consulted cardiology for concern for mild acute CHF exacerbation Afebrile. Hb 9.3. Much more short of breath after transfusion despite 2 doses of 20 mg IV Lasix. Urine output was fairly minimal after this. Left lower extremity more swollen bibasilar crackles this morning. IV Lasix ordered. Stat stat rapid Covid swab ordered. I discussed with vascular surgery as likely acute CHF will need a little more management prior to surgery and will delay it by a couple hours. 01/17: Mrs. Marks was seen and evaluated this morning. she has discussed with vascular, amputation encouraged, she would liek to try to preserve the foot, I think she will only consent to debridement, I encouraged amputation to limit her mortality risk going forward and improve treatment options. again str better, not hypoxia, still weak, she has been symptom control of her back pain, she likes the Menthol/Methyl Salicylate PRN QID also voltaren PRN. Vitals/I&O Vitals/I&O: Vital Signs Date Time Temp Pulse Resp B/P (MAP) Pulse Ox O2 Delivery O2 Flow Rate FiO2 01/17/21 09:23 73 168/74 01/17/21 08:20 Room Air 01/17/21 08:09 98 01/17/21 07:00 98.0 18 98.0 01/16/21 15:36 15.0 I & O 01/16/21 01/16/21 01/17/21 15:00 23:00 07:00 Intake Total 100 ml Output Total 250 ml Balance -250 ml 100 ml Physical Exam Physical Exam: GENERAL: Alert, oriented female, not in distress. HEENT: Both pupils are round and reacting. No conjunctival lesion, no lesion in the mouth. NECK: Supple, no JVP, no lymphadenopathy. LUNGS: Clear. HEART: S1, S2 regular. ABDOMEN: Soft, nontender, no organomegaly. EXTREMITIES: No edema, cyanosis. SKIN: Unremarkable. NEUROLOGIC: The patient is alert, awake, and appropriate. No focal neurologic deficit. FOOT: In particular foot examination, the patient has a plantar ulcer, looks chronic and it probes to the bone at around fourth and fifth metatarsal area. General: Alert, Oriented X3, Cooperative, No acute distress Heart: Regular rate, No murmurs, Other (2/6 systolic murmur to LLS border) Lungs: Clear Abdomen: Normal bowel sounds, No tenderness, Other (obese) Extremities: No clubbing, Other (2+ bilateral LE pitting edema) Skin: No rashes, Other (right foot wound) Labs Labs: Laboratory Tests Test 01/16/21 12:01 01/16/21 17:22 01/16/21 20:50 01/17/21 04:30 Glucose (Fingerstick) 131 mg/dL (70-99) 142 mg/dL (70-99) 181 mg/dL (70-99) White Blood Count 5.1 x10^3/uL (4.0-11.0) Red Blood Count 3.12 x10^6/uL (3.50-5.40) Hemoglobin 8.9 g/dL (12.0-15.5) Hematocrit 26.3 % (36.0-47.0) Mean Corpuscular Volume 85 fL (79-100) Mean Corpuscular Hemoglobin 29 pg (25-35) Mean Corpuscular Hemoglobin Concent 34 g/dL (31-37) Red Cell Distribution Width 15.8 % (11.5-14.5) Platelet Count 455 x10^3/uL (140-400) Neutrophils (%) (Auto) 62 % (31-73) Lymphocytes (%) (Auto) 24 % (24-48) Monocytes (%) (Auto) 9 % (0-9) Eosinophils (%) (Auto) 4 % (0-3) Basophils (%) (Auto) 1 % (0-3) Neutrophils # (Auto) 3.2 x10^3/uL (1.8-7.7) Lymphocytes # (Auto) 1.2 x10^3/uL (1.0-4.8) Monocytes # (Auto) 0.5 x10^3/uL (0.0-1.1) Eosinophils # (Auto) 0.2 x10^3/uL (0.0-0.7) Basophils # (Auto) 0.0 x10^3/uL (0.0-0.2) Sodium Level 144 mmol/L (136-145) Potassium Level 3.7 mmol/L (3.5-5.1) Chloride Level 110 mmol/L (98-107) Carbon Dioxide Level 26 mmol/L (21-32) Anion Gap 8 (6-14) Blood Urea Nitrogen 14 mg/dL (7-20) Creatinine 0.8 mg/dL (0.6-1.0) Estimated GFR (Cockcroft-Gault) 72.2 Glucose Level 102 mg/dL (70-99) Calcium Level 8.3 mg/dL (8.5-10.1) Test 01/17/21 07:55 Glucose (Fingerstick) 58 mg/dL (70-99) Review of Systems Review of Systems: back pain, weakness, emotional about medical condition, does not want to lose her foot Comment Review of Relevant I have reviewed the following items johan (where applicable) has been applied. Medications: Current Medications Medications (Trade) Dose Ordered Sig/Katiana Route PRN Reason Start Time Stop Time Status Last Admin Dose Admin Camphor/Menthol/ Phenol (Sarna) 1 jayme Q6HRS PRN TP ITCHING 01/16/21 12:30 01/16/21 22:14 Diclofenac Sodium (Voltaren) 1 jayme PRN BID PRN TP pain 01/16/21 12:30 01/16/21 22:06 Lactobacillus Rhamnosus (Culturelle) 1 cap BID PO 01/17/21 09:00 01/17/21 09:13 Amlodipine Besylate (Norvasc) 2.5 mg DAILY PO 01/17/21 09:15 01/17/21 09:23 Justifications for Admission Other Justification sepsis and respiratory failure CHRISTOPHER BORGES MD Jan 17, 2021 10:22
[2021-01-17 11:36] VITALS: BP 189/71
--- NOTE | 2021-01-17 12:12 | PDOC ---
PROGRESS NOTES Date of Service: DATE: 01/17/21 TIME: 12:10 Subjective Subjective No new complaints Objective Objective Vital Signs Date Time Temp Pulse Resp B/P (MAP) Pulse Ox O2 Delivery O2 Flow Rate FiO2 01/17/21 11:36 98.4 70 18 189/71 (110) 100 98.4 01/17/21 08:20 Room Air 01/16/21 15:36 15.0 Intake and Output 01/17/21 07:00 Intake Total 100 ml Output Total 250 ml Balance -150 ml Intake Oral 100 ml Output Urine Total 250 ml # Bowel Movements 1 Physical Exam Abdomen: Normal bowel sounds, No tenderness, Other (obese) Heart: Regular rate, No murmurs, Other (2/6 systolic murmur to LLS border) Extremities: No clubbing, Other (2+ bilateral LE pitting edema) General: Alert, Oriented X3, Cooperative, No acute distress HEENT: Atraumatic, Mucous membr. moist/pink Lungs: Other (diminished bases) Neuro: Normal speech, Strength at 5/5 X4 ext, Normal tone, Cranial nerves 3-12 NL, Reflexes 2+ Psych/Mental Status: Mental status NL, Mood NL Skin: No rashes, Other (right foot wound) Assessment Assessment 1. Fifth metatarsal osteomyelitis being planned for foot ulcer debridement and metatarsal amputation. Continue intravenous antibiotics. Vascular surgery following. 2. Anemia: s/p PRBC transfusion 3. Acute on chronic diastolic heart failure: Better compensated. Continue Lasix. 4. CAD: past CABG clinically stable. Continue current secondary prevention measures. 5. Hx of PE/RLE DVT: was previously on Eliquis, being held for surgery 6. BLE PAD: past revascularization. stable clinically 7. HTN; blood pressure elevated. Agree with starting amlodipine for better control. 8. HLP: Continue statins. Comment Review of Relevant I have reviewed the following items johan (where applicable) has been applied. Labs Laboratory Tests Test 01/16/21 17:22 01/16/21 20:50 01/17/21 04:30 01/17/21 07:55 Glucose (Fingerstick) 142 mg/dL (70-99) 181 mg/dL (70-99) 58 mg/dL (70-99) White Blood Count 5.1 x10^3/uL (4.0-11.0) Red Blood Count 3.12 x10^6/uL (3.50-5.40) Hemoglobin 8.9 g/dL (12.0-15.5) Hematocrit 26.3 % (36.0-47.0) Mean Corpuscular Volume 85 fL (79-100) Mean Corpuscular Hemoglobin 29 pg (25-35) Mean Corpuscular Hemoglobin Concent 34 g/dL (31-37) Red Cell Distribution Width 15.8 % (11.5-14.5) Platelet Count 455 x10^3/uL (140-400) Neutrophils (%) (Auto) 62 % (31-73) Lymphocytes (%) (Auto) 24 % (24-48) Monocytes (%) (Auto) 9 % (0-9) Eosinophils (%) (Auto) 4 % (0-3) Basophils (%) (Auto) 1 % (0-3) Neutrophils # (Auto) 3.2 x10^3/uL (1.8-7.7) Lymphocytes # (Auto) 1.2 x10^3/uL (1.0-4.8) Monocytes # (Auto) 0.5 x10^3/uL (0.0-1.1) Eosinophils # (Auto) 0.2 x10^3/uL (0.0-0.7) Basophils # (Auto) 0.0 x10^3/uL (0.0-0.2) Sodium Level 144 mmol/L (136-145) Potassium Level 3.7 mmol/L (3.5-5.1) Chloride Level 110 mmol/L (98-107) Carbon Dioxide Level 26 mmol/L (21-32) Anion Gap 8 (6-14) Blood Urea Nitrogen 14 mg/dL (7-20) Creatinine 0.8 mg/dL (0.6-1.0) Estimated GFR (Cockcroft-Gault) 72.2 Glucose Level 102 mg/dL (70-99) Calcium Level 8.3 mg/dL (8.5-10.1) Test 01/17/21 11:28 Glucose (Fingerstick) 97 mg/dL (70-99) Microbiology 01/14/21 Blood Culture - Preliminary, Resulted NO GROWTH AFTER 2 DAYS 01/13/21 Urine Culture - Final, Complete Medications Current Medications Amlodipine Besylate (Norvasc) 2.5 mg DAILY PO Last administered on 01/17/21at 09:23; Start 01/17/21 at 09:15 Camphor/Menthol/ Phenol (Sarna) 1 jayme Q6HRS PRN TP ITCHING Last administered on 01/16/21at 22:14; Start 01/16/21 at 12:30 Diclofenac Sodium (Voltaren) 1 jayme PRN BID PRN TP pain Last administered on 01/16/21at 22:06; Start 01/16/21 at 12:30 Lactobacillus Rhamnosus (Culturelle) 1 cap BID PO Last administered on 01/17/21at 09:13; Start 01/17/21 at 09:00 Vitals/I & O Vital Sign - Last 24 Hours 01/16/21 01/16/21 01/16/21 01/16/21 14:02 15:36 15:47 16:18 Temp 98.1 98.1 Pulse 68 Resp 16 B/P (MAP) 153/70 (97) Pulse Ox 97 97 96 O2 Delivery Room Air Room Air Room Air O2 Flow Rate 15.0 15.0 01/16/21 01/16/21 01/16/21 01/16/21 17:57 19:00 20:00 21:46 Temp 98.1 98.1 Pulse 68 83 Resp 19 B/P (MAP) 153/70 142/67 (92) Pulse Ox 97 99 O2 Delivery Room Air Room Air 01/16/21 01/16/21 01/17/21 01/17/21 22:07 22:32 02:34 07:00 Temp 98.1 97.8 98.0 98.1 97.8 98.0 Pulse 83 77 86 83 Resp 19 19 18 B/P (MAP) 142/67 154/72 (99) 134/60 (84) 162/72 (102) Pulse Ox 97 99 98 01/17/21 01/17/21 01/17/21 01/17/21 08:08 08:08 08:09 08:09 Pulse 73 73 73 B/P (MAP) 168/74 168/74 168/74 Pulse Ox 98 O2 Delivery Room Air 01/17/21 01/17/21 01/17/21 01/17/21 08:09 08:20 09:23 11:36 Temp 98.4 98.4 Pulse 73 70 Resp 18 B/P (MAP) 168/74 189/71 (110) Pulse Ox 98 100 O2 Delivery Room Air Room Air Intake and Output 01/16/21 01/16/21 01/17/21 15:00 23:00 07:00 Intake Total 100 ml Output Total 250 ml Balance -250 ml 100 ml HUEY OBRIEN MD Jan 17, 2021 12:12
--- NOTE | 2021-01-17 13:13 | PDOC ---
Infectious Disease Note Subjective Subjective Patient without complaints Remains afebrile Vital Sign Vital Signs Vital Signs Date Time Temp Pulse Resp B/P (MAP) Pulse Ox O2 Delivery O2 Flow Rate FiO2 01/17/21 12:42 99 Room Air 01/17/21 11:36 98.4 70 18 189/71 (110) 98.4 01/16/21 15:36 15.0 Physical Exam PHYSICAL EXAM GENERAL: Alert, oriented female, not in distress. HEENT: Both pupils are round and reacting. No conjunctival lesion, no lesion in the mouth. NECK: Supple, no JVP, no lymphadenopathy. LUNGS: Clear. HEART: S1, S2 regular. ABDOMEN: Soft, nontender, no organomegaly. EXTREMITIES: No edema, cyanosis. SKIN: Unremarkable. NEUROLOGIC: The patient is alert, awake, and appropriate. No focal neurologic deficit. FOOT: In particular foot examination, the patient has a plantar ulcer, looks chronic and it probes to the bone at around fourth and fifth metatarsal area. Labs Lab Laboratory Tests Test 01/16/21 17:22 01/16/21 20:50 01/17/21 04:30 01/17/21 07:55 Glucose (Fingerstick) 142 mg/dL (70-99) 181 mg/dL (70-99) 58 mg/dL (70-99) White Blood Count 5.1 x10^3/uL (4.0-11.0) Red Blood Count 3.12 x10^6/uL (3.50-5.40) Hemoglobin 8.9 g/dL (12.0-15.5) Hematocrit 26.3 % (36.0-47.0) Mean Corpuscular Volume 85 fL (79-100) Mean Corpuscular Hemoglobin 29 pg (25-35) Mean Corpuscular Hemoglobin Concent 34 g/dL (31-37) Red Cell Distribution Width 15.8 % (11.5-14.5) Platelet Count 455 x10^3/uL (140-400) Neutrophils (%) (Auto) 62 % (31-73) Lymphocytes (%) (Auto) 24 % (24-48) Monocytes (%) (Auto) 9 % (0-9) Eosinophils (%) (Auto) 4 % (0-3) Basophils (%) (Auto) 1 % (0-3) Neutrophils # (Auto) 3.2 x10^3/uL (1.8-7.7) Lymphocytes # (Auto) 1.2 x10^3/uL (1.0-4.8) Monocytes # (Auto) 0.5 x10^3/uL (0.0-1.1) Eosinophils # (Auto) 0.2 x10^3/uL (0.0-0.7) Basophils # (Auto) 0.0 x10^3/uL (0.0-0.2) Sodium Level 144 mmol/L (136-145) Potassium Level 3.7 mmol/L (3.5-5.1) Chloride Level 110 mmol/L (98-107) Carbon Dioxide Level 26 mmol/L (21-32) Anion Gap 8 (6-14) Blood Urea Nitrogen 14 mg/dL (7-20) Creatinine 0.8 mg/dL (0.6-1.0) Estimated GFR (Cockcroft-Gault) 72.2 Glucose Level 102 mg/dL (70-99) Calcium Level 8.3 mg/dL (8.5-10.1) Test 01/17/21 11:28 Glucose (Fingerstick) 97 mg/dL (70-99) Micro Microbiology 01/14/21 Blood Culture - Preliminary, Resulted NO GROWTH AFTER 1 DAY 01/13/21 Urine Culture - Final, Complete Objective Assessment 1. Right foot osteomyelitis. 2. Diabetes mellitus. 3. Hypertension. 4. Renal insufficiency. 5. Congestive heart failure. Plan Plan of Care Continue antibiotics cont supportive care Awaiting surgery MICH MARK MD Jan 17, 2021 13:13
[2021-01-17 14:54] VITALS: BP 157/72
[2021-01-17] MEDS: oxyCODONE/APAP 7.5/325 1 TAB TABLET PO PRN ×2 (17:10→21:25)
[2021-01-17 18:55] VITALS: BP 147/67
[2021-01-17] MEDS: ZOLPIDEM 5 MG TABLET. PO PRN (21:24)
[2021-01-17] MEDS: ATORVASTATIN CALCIUM 40 MG TABLET. PO SCH (21:24)
[2021-01-17] MEDS: INSULIN GLARGINE SYRINGE. SQ SCH (21:26)
[2021-01-17 22:36] VITALS: BP 155/70
[2021-01-18] MEDS: PIPERACILLIN/TAZOBACTAM 3.375 GM in IV NORMAL SALINE 50ML 50 ML IV SCH ×4 (01:33→17:57)
[2021-01-18] MEDS: HYDROcodone/APAP 5/325MG 1 TAB TABLET PO PRN (02:14)
[2021-01-18 02:53] VITALS: BP 147/67
[2021-01-18 07:00] VITALS: BP 158/72
[2021-01-18] MEDS: BUDESONIDE 0.5 MG/2 ML NEBU. NEB SCH ×2 (07:48→21:25)
[2021-01-18] MEDS: IPRATRPIUM/ALBUTEROL 0.5/2.5MG 3 ML NEBU. NEB SCH ×4 (07:48→21:25)
--- NOTE | 2021-01-18 08:00 | PDOC ---
Infectious Disease Note Subjective Subjective Complaining of itching in the groin and vaginal area Remains afebrile ROS ROS No nausea vomiting diarrhea chest pain shortness of breath Vital Sign Vital Signs Vital Signs Date Time Temp Pulse Resp B/P (MAP) Pulse Ox O2 Delivery O2 Flow Rate FiO2 01/18/21 07:49 97 Room Air 01/18/21 02:53 98.5 82 16 147/67 (93) 98.5 Physical Exam PHYSICAL EXAM GENERAL: Alert, oriented female, not in distress. HEENT: Both pupils are round and reacting. No conjunctival lesion, no lesion in the mouth. NECK: Supple, no JVP, no lymphadenopathy. LUNGS: Clear. HEART: S1, S2 regular. ABDOMEN: Soft, nontender, no organomegaly. EXTREMITIES: No edema, cyanosis. SKIN: Unremarkable. NEUROLOGIC: The patient is alert, awake, and appropriate. No focal neurologic deficit. FOOT: In particular foot examination, the patient has a plantar ulcer, looks chronic and it probes to the bone at around fourth and fifth metatarsal area. Labs Lab Laboratory Tests Test 01/17/21 11:28 01/17/21 16:30 01/17/21 21:14 01/18/21 07:44 Glucose (Fingerstick) 97 mg/dL (70-99) 214 mg/dL (70-99) 180 mg/dL (70-99) 173 mg/dL (70-99) Micro Microbiology 01/14/21 Blood Culture - Preliminary, Resulted NO GROWTH AFTER 1 DAY 01/13/21 Urine Culture - Final, Complete Objective Assessment 1. Right foot osteomyelitis. 2. Diabetes mellitus. 3. Hypertension. 4. Renal insufficiency. 5. Congestive heart failure. Plan Plan of Care Continue antibiotics cont supportive care Awaiting surgery Add MICH Erazo MD Jan 18, 2021 08:00
[2021-01-18] MEDS: FLUCONAZOLE 100 MG TABLET. PO SCH (09:06)
[2021-01-18] MEDS: PANTOPRAZOLE 40 MG TABLET.DR. PO SCH (09:07)
[2021-01-18] MEDS: OMEGA-3 FATTY ACIDS/FISH OIL 1,000 MG CAPSULE. PO SCH (09:07)
[2021-01-18] MEDS: CARVEDILOL 6.25 MG TABLET. PO SCH ×2 (09:09→17:57)
[2021-01-18] MEDS: GABAPENTIN 300 MG CAPSULE. PO SCH ×3 (09:10→22:11)
[2021-01-18] MEDS: FUROSEMIDE 40 MG/4 ML VIAL. IVP SCH (09:10)
[2021-01-18] MEDS: RANOLAZINE 500 MG TAB.ER.12H PO SCH ×2 (09:10→22:11)
[2021-01-18] MEDS: ISOSORBIDE MONONITRATE ER 30 MG TAB.ER.24H PO SCH (09:10)
[2021-01-18] MEDS: INSULIN LISPRO 300 UNITS/3 ML VIAL. SQ SCH ×3 (09:47→18:04)
[2021-01-18] MEDS: DAPTOmycin (GENERIC) IVPB 470 MG in IV NORMAL SALINE 50ML 50 ML IV SCH (10:04)
[2021-01-18] MEDS: LACTOBACILLUS RHAMNOSUS GG 1 CAPSULE. PO SCH ×2 (10:04→22:11)
[2021-01-18] MEDS: oxyCODONE/APAP 7.5/325 1 TAB TABLET PO PRN ×2 (10:54→22:13)
[2021-01-18 11:00] VITALS: BP 152/70
[2021-01-18 11:33] LABS: BILIRUBIN,URINE NEGATIVE (NEG); CLARITY,URINE CLEAR; COLOR,URINE YELLOW; NITRITE,URINE NEGATIVE (NEG); PROTEIN,URINE 30 mg/dL (NEG-TRACE); UROBILINOGEN,URINE 0.2 mg/dL (0.2 mg/dL)
[2021-01-18 12:00] LABS: BACTERIA,URINE 0 /HPF (0-FEW); RBC,URINE 0 /HPF (0-2); WBC,URINE OCC /HPF (0-4)
--- NOTE | 2021-01-18 12:45 | PDOC ---
PROGRESS NOTES Date of Service: DATE: 01/18/21 TIME: 12:44 Subjective Subjective Denied any chest pain or shortness of breath Objective Objective Vital Signs Date Time Temp Pulse Resp B/P (MAP) Pulse Ox O2 Delivery O2 Flow Rate FiO2 01/18/21 11:24 97 Room Air 01/18/21 11:00 98.9 80 16 152/70 (97) 98.9 Intake and Output 01/18/21 07:00 Intake Total 850 ml Output Total 1 ml Balance 849 ml Intake Oral 700 ml IV Total 150 ml Stool Total 1 ml # Voids 3 # Bowel Movements 1 Physical Exam Abdomen: Normal bowel sounds, No tenderness, Other (obese) Heart: Regular rate, No murmurs, Other (2/6 systolic murmur to LLS border) Extremities: No clubbing, Other (2+ bilateral LE pitting edema) General: Alert, Oriented X3, Cooperative, No acute distress HEENT: Atraumatic, Mucous membr. moist/pink Lungs: Other (diminished bases) Neuro: Normal speech, Strength at 5/5 X4 ext, Normal tone, Cranial nerves 3-12 NL, Reflexes 2+ Psych/Mental Status: Mental status NL, Mood NL Skin: No rashes, Other (right foot wound) Assessment Assessment 1. Fifth metatarsal osteomyelitis being planned for foot ulcer debridement and metatarsal amputation. Continue intravenous antibiotics. Vascular surgery following. 2. Anemia: s/p PRBC transfusion 3. Acute on chronic diastolic heart failure: Better compensated. Continue Lasix. 4. CAD: past CABG clinically stable. Continue current secondary prevention measures. 5. Hx of PE/RLE DVT: was previously on Eliquis, being held for surgery 6. BLE PAD: past revascularization. stable clinically 7. HTN; blood pressure better controlled after starting amlodipine. Continue current medical regimen. 8. HLP: Continue statins. Comment Review of Relevant I have reviewed the following items johan (where applicable) has been applied. Labs Laboratory Tests Test 01/17/21 16:30 01/17/21 21:14 01/18/21 07:44 01/18/21 11:25 Glucose (Fingerstick) 214 mg/dL (70-99) 180 mg/dL (70-99) 173 mg/dL (70-99) Urine Collection Type Unknown Urine Color Yellow Urine Clarity Clear Urine pH 6.0 (<5.0-8.0) Urine Specific [place] 1.010 (1.000-1.030) Urine Protein 30 mg/dL (NEG-TRACE) Urine Glucose (UA) Negative mg/dL (NEG) Urine Ketones (Stick) Negative mg/dL (NEG) Urine Blood Negative (NEG) Urine Nitrite Negative (NEG) Urine Bilirubin Negative (NEG) Urine Urobilinogen Dipstick 0.2 mg/dL (0.2 mg/dL) Urine Leukocyte Esterase Negative (NEG) Urine RBC 0 /HPF (0-2) Urine WBC Occ /HPF (0-4) Urine Squamous Epithelial Cells Few /LPF Urine Bacteria 0 /HPF (0-FEW) Test 01/18/21 12:08 Glucose (Fingerstick) 220 mg/dL (70-99) Microbiology 01/14/21 Blood Culture - Preliminary, Resulted NO GROWTH AFTER 3 DAYS 01/13/21 Urine Culture - Final, Complete Medications Current Medications Fluconazole (Diflucan) 200 mg DAILY PO Last administered on 01/18/21at 09:06; Start 01/18/21 at 09:00 Vitals/I & O Vital Sign - Last 24 Hours 01/17/21 01/17/21 01/17/21 01/17/21 14:54 15:57 16:56 17:10 Temp 98.4 98.4 Pulse 77 77 Resp 20 20 B/P (MAP) 157/72 (100) 157/72 Pulse Ox 97 98 O2 Delivery Room Air Room Air 01/17/21 01/17/21 01/17/21 01/17/21 17:40 18:55 20:00 21:24 Temp 98.9 98.9 Pulse 80 80 Resp 20 18 B/P (MAP) 147/67 (93) 147/67 Pulse Ox 98 96 O2 Delivery Room Air Room Air Room Air 01/17/21 01/17/21 01/18/21 01/18/21 22:09 22:36 02:53 07:00 Temp 99.1 98.5 98.9 99.1 98.5 98.9 Pulse 77 82 83 Resp 18 16 16 B/P (MAP) 155/70 (98) 147/67 (93) 158/72 (100) Pulse Ox 98 96 94 94 O2 Delivery Room Air Room Air Room Air Room Air 01/18/21 01/18/21 01/18/21 01/18/21 07:49 09:09 09:09 09:10 Pulse 83 83 83 B/P (MAP) 158/72 158/72 158/72 Pulse Ox 97 O2 Delivery Room Air 01/18/21 01/18/21 01/18/21 01/18/21 09:10 10:54 11:00 11:24 Temp 98.9 98.9 Pulse 83 80 Resp 16 B/P (MAP) 158/72 152/70 (97) Pulse Ox 97 98 97 O2 Delivery Room Air Room Air Room Air Intake and Output 01/17/21 01/17/21 01/18/21 15:00 23:00 07:00 Intake Total 600 ml 150 ml 100 ml Output Total 1 ml Balance 599 ml 150 ml 100 ml HUEY OBRIEN MD Jan 18, 2021 12:45
--- NOTE | 2021-01-18 14:59 | PDOC ---
[facility] PROGRESS NOTE Date of Service DOS: DATE: 01/18/21 TIME: 14:58 Chief Complaint Chief Complaint Right foot osteomyelitis of the 5th metatarsal - Bone visible Diabetes Mellitus Type 2 Hypertension Dyslipidemia CDK Severe protein calorie malnutrition Acute anemia History of Present Illness History of Present Illness Ms Marks is a 65 yo female with PMHx RLE DVT (on eliquis), CAD s/p CABG, CVA, HTN, HLD, PAD s/p bilateral lower extremity bypass, and CKD, presents to the hospital as a direct admission from the outpatient wound clinic where she was noted to have exposed bone in her right fifth metatarsal and pain. She has been on outpatient Augmentin intermittently for the past few months. Discussed with wound care physician except for direct admission and consult infectious diseases and vascular surgery. 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 She has been trying to offload the foot but with some neuropathy has not been able to appropriately offload and has been compliant with meds and wound care fo llow up. Requires admission for failure of outpatient therapy. 01/13: Hb 7 and tachycardic this morning. Feeling more fatigued. Discussed with vascular surgery tentative plans for debridement 01/14/2021. Amenable to transfusion. Consulted cardiology for concern for mild acute CHF exacerbation Afebrile. Hb 9.3. Much more short of breath after transfusion despite 2 doses of 20 mg IV Lasix. Urine output was fairly minimal after this. Left lower extremity more swollen bibasilar crackles this morning. IV Lasix ordered. Stat stat rapid Covid swab ordered. I discussed with vascular surgery as likely acute CHF will need a little more management prior to surgery and will delay it by a couple hours. 01/17: Mrs. Marks was seen and evaluated this morning. she has discussed with vascular, amputation encouraged, she would liek to try to preserve the foot, I think she will only consent to debridement, I encouraged amputation to limit her mortality risk going forward and improve treatment options. again str better, not hypoxia, still weak, she has been symptom control of her back pain, she likes the Menthol/Methyl Salicylate PRN QID also voltaren PRN. 01/18/2021 No acute events overnight. Patient seen and examined bedside. No concerns nursing. Pain is well controlled. Plan for surgery tomorrow. Patient's chart, labs, images were reviewed and discussed with RN Vitals/I&O Vitals/I&O: Vital Signs Date Time Temp Pulse Resp B/P (MAP) Pulse Ox O2 Delivery O2 Flow Rate FiO2 01/18/21 11:24 97 Room Air 01/18/21 11:00 98.9 80 16 152/70 (97) 98.9 I & O 01/17/21 01/17/21 01/18/21 15:00 23:00 07:00 Intake Total 600 ml 150 ml 100 ml Output Total 1 ml Balance 599 ml 150 ml 100 ml Physical Exam Physical Exam: GENERAL: Alert, oriented female, not in distress. HEENT: Both pupils are round and reacting. No conjunctival lesion, no lesion in the mouth. NECK: Supple, no JVP, no lymphadenopathy. LUNGS: Clear. HEART: S1, S2 regular. ABDOMEN: Soft, nontender, no organomegaly. EXTREMITIES: No edema, cyanosis. SKIN: Unremarkable. NEUROLOGIC: The patient is alert, awake, and appropriate. No focal neurologic deficit. FOOT: In particular foot examination, the patient has a plantar ulcer, looks chronic and it probes to the bone at around fourth and fifth metatarsal area. General: Alert, Oriented X3, Cooperative, No acute distress Heart: Regular rate, No murmurs, Other (2/6 systolic murmur to LLS border) Lungs: Clear Abdomen: Normal bowel sounds, No tenderness, Other (obese) Extremities: No clubbing, Other (2+ bilateral LE pitting edema) Skin: No rashes, Other (right foot wound) Labs Labs: Laboratory Tests Test 01/17/21 16:30 01/17/21 21:14 01/18/21 07:44 01/18/21 11:25 Glucose (Fingerstick) 214 mg/dL (70-99) 180 mg/dL (70-99) 173 mg/dL (70-99) Urine Collection Type Unknown Urine Color Yellow Urine Clarity Clear Urine pH 6.0 (<5.0-8.0) Urine Specific [place] 1.010 (1.000-1.030) Urine Protein 30 mg/dL (NEG-TRACE) Urine Glucose (UA) Negative mg/dL (NEG) Urine Ketones (Stick) Negative mg/dL (NEG) Urine Blood Negative (NEG) Urine Nitrite Negative (NEG) Urine Bilirubin Negative (NEG) Urine Urobilinogen Dipstick 0.2 mg/dL (0.2 mg/dL) Urine Leukocyte Esterase Negative (NEG) Urine RBC 0 /HPF (0-2) Urine WBC Occ /HPF (0-4) Urine Squamous Epithelial Cells Few /LPF Urine Bacteria 0 /HPF (0-FEW) Test 01/18/21 12:08 Glucose (Fingerstick) 220 mg/dL (70-99) Comment Review of Relevant I have reviewed the following items johan (where applicable) has been applied. Medications: Current Medications Medications (Trade) Dose Ordered Sig/Katiana Route PRN Reason Start Time Stop Time Status Last Admin Dose Admin Fluconazole (Diflucan) 200 mg DAILY PO 01/18/21 09:00 01/18/21 09:06 Justifications for Admission Other Justification sepsis and respiratory failure NARDA ANGEL MD Jan 18, 2021 14:59
[2021-01-18 15:00] VITALS: BP 146/65
[2021-01-18 18:55] VITALS: BP 153/67
[2021-01-18] MEDS: ATORVASTATIN CALCIUM 40 MG TABLET. PO SCH (22:12)
[2021-01-18] MEDS: ZOLPIDEM 5 MG TABLET. PO PRN (22:13)
[2021-01-18] MEDS: INSULIN GLARGINE SYRINGE. SQ SCH (22:25)
[2021-01-18 23:22] VITALS: BP 162/73
[2021-01-19 03:00] VITALS: BP 173/84
[2021-01-19] MEDS: oxyCODONE/APAP 7.5/325 1 TAB TABLET PO PRN ×4 (03:41→21:57)
[2021-01-19] MEDS: PIPERACILLIN/TAZOBACTAM 3.375 GM in IV NORMAL SALINE 50ML 50 ML IV SCH ×4 (06:10→18:15)
[2021-01-19] MEDS: BUDESONIDE 0.5 MG/2 ML NEBU. NEB SCH ×2 (07:26→21:02)
[2021-01-19] MEDS: IPRATRPIUM/ALBUTEROL 0.5/2.5MG 3 ML NEBU. NEB SCH ×4 (07:26→21:02)
[2021-01-19] MEDS ORDERED: PROCHLORPERAZINE 10 MG/2 ML VIAL. IVP PRN (08:00)
[2021-01-19] MEDS ORDERED: fentaNYL PF VIAL 100 MCG/2 ML VIAL IVP PRN ×2 (08:00)
[2021-01-19] MEDS ORDERED: HYDROmorphone 2 MG/ML VIAL IVP PRN (08:00)
[2021-01-19] MEDS ORDERED: IV RINGERS,LACTATED 1000ML 1,000 ML IV SCH (08:00)
[2021-01-19] MEDS: INSULIN LISPRO 300 UNITS/3 ML VIAL. SQ SCH ×3 (08:00→18:33)
[2021-01-19] MEDS ORDERED: MORPHINE SULFATE 2 MG/ML INJ. IVP PRN (08:00)
[2021-01-19] MEDS ORDERED: PROPOFOL 10 MG/ML (20ML) VIAL. IV ONE (08:07)
[2021-01-19] MEDS ORDERED: LIDOCAINE 2% PF 5 ML VIAL. ONE (08:07)
[2021-01-19] MEDS ORDERED: fentaNYL PF VIAL 100 MCG/2 ML VIAL IVP ONE (08:15)
--- NOTE | 2021-01-19 08:41 | PDOC ---
Provider Note Date of Service: DATE: 01/19/21 TIME: 08:40 Provider Note Provider Note Patient seen and examined in preop. continues to want to proceed with attempts at limb salvage despite low likelihood of success. Will proceed with right cuboid debridement as planned. Justicifation of Admission Dx: Justifications for Admission: Justification of Admission Dx: Yes DAGMAR HARRIS MD Jan 19, 2021 08:41
[2021-01-19] MEDS ORDERED: SEVOFLURANE 31 TO 60 MINUTES. IH ONE (09:16)
[2021-01-19] MEDS ORDERED: ONDANSETRON PF 4 MG/2 ML VIAL. ONE (09:16)
[2021-01-19] MEDS ORDERED: PHENYLEPHRINE in 0.9% NACL PF 1 MG/10 ML SYRINGE. IV ONE (09:16)
--- NOTE | 2021-01-19 09:33 | PDOC ---
BRIEF OPERATIVE NOTE Date: Jan 19, 2021 Pre-Op Diagnosis right cuboid osteomyelitis Post-Op Diagnosis same Procedure Performed Sharp excisional debridement of skin, subcutaneous tissue, fascia and bone (cuboid) right foot 5.5 cm x 5cmx 1 cm Surgeon Yadira Vaughan MD Collections Analyst Ashley Pratt APRN Anesthesia Type: General Blood Loss <50 cc Specimens Obtained Right cuboid bone for culture, anaerobic and aerobic culture Findings debrided cuboid bone back to healthy bone, good bleeding and tissue viability throughout ulcer after debridement. Complications none Operative Note sharp excisional debridement YADIRA VAUGHAN MD Jan 19, 2021 09:33
--- NOTE | 2021-01-19 10:25 | OP ---
DATE OF SURGERY: 01/19/2021 SURGEON: Yadira Vaughan MD. CONTRACT ADMINISTRATIVE ASSISTANT: Ashley Pratt APRN. SPECIMENS: Right cuboid bone for culture, anaerobic and aerobic. PROCEDURE: Sharp excisional debridement of skin, subcutaneous tissue, fascia and bone, right plantar foot ulcer, 5.5 x 5 x 1 cm in depth. PREOPERATIVE DIAGNOSES: 1. Right cuboid osteomyelitis with associated diabetic foot ulcer. 2. Uncontrolled diabetes mellitus, complicated by peripheral neuropathy. POSTOPERATIVE DIAGNOSES: 1. Right cuboid osteomyelitis with associated diabetic foot ulcer. 2. Uncontrolled diabetes mellitus, complicated by peripheral neuropathy. INDICATIONS FOR PROCEDURE: This is a 65-year-old female who presented with worsening ulceration of her right plantar foot with a lateral plantar ulcer following a previous 5th metatarsal and toe amputation. X-ray confirmed findings of cuboid osteomyelitis. She was advised below-knee amputation; however, the patient refused and wants to continue with attempts at limb salvage. She was advised the strict offloading needs and long-term antibiotic needs and long-term wound care needs and unlikely that to heal. She agreed to proceed with debridement. DESCRIPTION OF PROCEDURE: The patient was brought to the operative theater and positioned on her inpatient cart. The right foot was then prepped and draped in standard sterile fashion after induction of general mask anesthesia. She was on scheduled antibiotics already. Surgical timeout was performed. A scalpel was then used to excise hypertrophic callus and hypertrophic skin as well as the ulceration to excise the skin and subcutaneous tissue. Total dimension of the wound was 5.5 x 5 x 1 cm at completion. A rongeur was then used to debride the ulcer wound bed including fascia and subcutaneous tissue as well as the cuboid bone. The cuboid bone was debrided back to healthy appearing bone that was bleeding and viable. The fascia was debrided back to healthy appearing fascia on the plantar aspect of the foot and all of the surrounding callus was removed with sharp scalpel debridement. The wound bed was then bleeding and viable in appearance. There was again exposed cuboid bone in the base of the wound and again this was resected back to a smooth surface. The wound was then irrigated and hemostasis was obtained with Bovie electrocautery without using Bovie on the skin edges. A clean gauze dressing was then applied with gauze, abdominal pad, soft roll and Efe wrap. The patient was then awakened from anesthesia and then transferred to the Postoperative Care Unit without complication. ESTIMATED BLOOD LOSS: Less than 50 mL. COMPLICATIONS: None. The clinical assistant, Ashley Pratt, was necessary for assistance with exposure and bone debridement. DIANELYS/YOON/STAR DR: Markie TID: [id number]
[2021-01-19] MEDS: DAPTOmycin (GENERIC) IVPB 470 MG in IV NORMAL SALINE 50ML 50 ML IV SCH (10:30)
[2021-01-19] MEDS: GABAPENTIN 300 MG CAPSULE. PO SCH ×3 (10:52→20:00)
[2021-01-19] MEDS: OMEGA-3 FATTY ACIDS/FISH OIL 1,000 MG CAPSULE. PO SCH (10:52)
[2021-01-19] MEDS: ISOSORBIDE MONONITRATE ER 30 MG TAB.ER.24H PO SCH (10:53)
[2021-01-19] MEDS: RANOLAZINE 500 MG TAB.ER.12H PO SCH ×2 (10:53→20:00)
[2021-01-19] MEDS: LACTOBACILLUS RHAMNOSUS GG 1 CAPSULE. PO SCH ×2 (10:53→19:59)
[2021-01-19] MEDS: CARVEDILOL 6.25 MG TABLET. PO SCH ×2 (10:53→18:16)
[2021-01-19] MEDS: PANTOPRAZOLE 40 MG TABLET.DR. PO SCH (10:53)
[2021-01-19] MEDS: FLUCONAZOLE 100 MG TABLET. PO SCH (10:53)
[2021-01-19] MEDS: FUROSEMIDE 40 MG/4 ML VIAL. IVP SCH (10:56)
[2021-01-19 11:00] VITALS: BP 145/70
--- NOTE | 2021-01-19 14:27 | PDOC ---
[facility] PROGRESS NOTE Date of Service DOS: DATE: 01/19/21 TIME: 14:24 Chief Complaint Chief Complaint Right foot osteomyelitis of the 5th metatarsal status post excisional de bridement of skin subcu tissue and fascia and bone 01/19/2021 Diabetes Mellitus Type 2 Hypertension Dyslipidemia CDK Severe protein calorie malnutrition Acute anemia History of Present Illness History of Present Illness Ms Marks is a 65 yo female with PMHx RLE DVT (on eliquis), CAD s/p CABG, CVA, HTN, HLD, PAD s/p bilateral lower extremity bypass, and CKD, presents to the hospital as a direct admission from the outpatient wound clinic where she was noted to have exposed bone in her right fifth metatarsal and pain. She has been on outpatient Augmentin intermittently for the past few months. Discussed with wound care physician except for direct admission and consult infectious diseases and vascular surgery. 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 She has been trying to offload the foot but with some neuropathy has not been able to appropriately offload and has been compliant with meds and wound care follow up. Requires admission for failure of outpatient therapy. 01/13: Hb 7 and tachycardic this morning. Feeling more fatigued. Discussed with vascular surgery tentative plans for debridement 01/14/2021. Amenable to transfusion. Consulted cardiology for concern for mild acute CHF exacerbation Afebrile. Hb 9.3. Much more short of breath after transfusion despite 2 doses of 20 mg IV Lasix. Urine output was fairly minimal after this. Left lower extremity more swollen bibasilar crackles this morning. IV Lasix ordered. Stat stat rapid Covid swab ordered. I discussed with vascular surgery as likely acute CHF will need a little more management prior to surgery and will delay it by a couple hours. 01/17: Mrs. Marks was seen and evaluated this morning. she has discussed with vascular, amputation encouraged, she would liek to try to preserve the foot, I think she will only consent to debridement, I encouraged amputation to limit her mortality risk going forward and improve treatment options. again str better, not hypoxia, still weak, she has been symptom control of her back pain, she likes the Menthol/Methyl Salicylate PRN QID also voltaren PRN. 01/18/2021 No acute events overnight. Patient seen and examined bedside. No concerns nursing. Pain is well controlled. Plan for surgery tomorrow. Patient's chart, labs, images were reviewed and discussed with RN 01/19/2021 No acute events overnight. Patient status post surgery and pain is well tolerated. Patient does have sciatica pain on the left lower extremity. She also has some burning upon urination Diflucan started per ID. Continued PT OT modalities patient's chart, labs, images were reviewed and discussed with RN Vitals/I&O Vitals/I&O: Vital Signs Date Time Temp Pulse Resp B/P (MAP) Pulse Ox O2 Delivery O2 Flow Rate FiO2 01/19/21 11:44 99 Nasal Cannula 2.0 01/19/21 11:00 98.8 76 16 145/70 (95) 98.8 I & O 01/18/21 01/18/21 01/19/21 15:00 23:00 07:00 Intake Total 360 ml 270 ml 200 ml Balance 360 ml 270 ml 200 ml Physical Exam Physical Exam: GENERAL: Alert, oriented female, not in distress. HEENT: Both pupils are round and reacting. No conjunctival lesion, no lesion in the mouth. NECK: Supple, no JVP, no lymphadenopathy. LUNGS: Clear. HEART: S1, S2 regular. ABDOMEN: Soft, nontender, no organomegaly. EXTREMITIES: No edema, cyanosis. SKIN: Unremarkable. NEUROLOGIC: The patient is alert, awake, and appropriate. No focal neurologic deficit. FOOT: In particular foot examination, the patient has a plantar ulcer, looks chronic and it probes to the bone at around fourth and fifth metatarsal area. General: Alert, Oriented X3, Cooperative, No acute distress Heart: Regular rate, No murmurs, Other (2/6 systolic murmur to LLS border) Lungs: Clear Abdomen: Normal bowel sounds, No tenderness, Other (obese) Extremities: No clubbing, Other (2+ bilateral LE pitting edema) Skin: No rashes, Other (right foot wound) Labs Labs: Laboratory Tests Test 01/18/21 17:40 01/18/21 21:09 01/19/21 07:50 01/19/21 09:35 Glucose (Fingerstick) 176 mg/dL (70-99) 239 mg/dL (70-99) 164 mg/dL (70-99) 164 mg/dL (70-99) Test 01/19/21 11:48 Glucose (Fingerstick) 151 mg/dL (70-99) Comment Review of Relevant I have reviewed the following items johan (where applicable) has been applied. Medications: Current Medications Medications (Trade) Dose Ordered Sig/Katiana Route PRN Reason Start Time Stop Time Status Last Admin Dose Admin Fentanyl Citrate (Fentanyl 2ml Vial) 25 mcg PRN Q5MIN PRN IVP MILD PAIN 1-3 01/19/21 08:00 01/20/21 07:59 01/19/21 07:59 Ringer's Solution 1,000 ml @ 30 mls/hr Q24H IV 01/19/21 08:00 01/19/21 19:59 01/19/21 08:00 Fentanyl Citrate (Fentanyl 2ml Vial) 75 mcg 1X ONCE IVP 01/19/21 08:15 01/19/21 08:16 DC 01/19/21 08:09 Justifications for Admission Other Justification sepsis and respiratory failure NARDA ANGEL MD Jan 19, 2021 14:27
[2021-01-19 15:00] VITALS: BP 145/65
--- NOTE | 2021-01-19 15:15 | NUR ---
SS following up with discharge planning. SS reviewed pt chart and discussed with pt RN. Pt is currently on room air. Pt has two liters nasal canula PRN for comfort. COVID19 negative. Pt on IV Zosyn and IV Daptomycin. Pt had debridement today. PT/OT re-ordered. Pt accepted on services with [facility], ; fax [phone] but may need prison unit. SS will continue to follow for discharge planning.
--- NOTE | 2021-01-19 16:07 | PDOC ---
KRISTIAN CABELLO CHEMICAL HANDLER 01/19/21 1606: CARDIO Progress Notes Date and Time Date of Service 01/19/21 Time of Evaluation 1245 Subjective Subjective: No Chest Pain, No Palpitations Vitals Vitals Vital Signs Date Time Temp Pulse Resp B/P (MAP) Pulse Ox O2 Delivery O2 Flow Rate FiO2 01/19/21 11:44 99 Nasal Cannula 2.0 01/19/21 11:00 98.8 76 16 145/70 (95) 98.8 Weight Weight [ ] Input and Output Intake and Output Intake and Output 01/19/21 07:00 Intake Total 830 ml Balance 830 ml Intake Oral 680 ml IV Total 150 ml # Voids 2 Laboratory Labs Laboratory Tests Test 01/18/21 17:40 01/18/21 21:09 01/19/21 07:50 01/19/21 09:35 Glucose (Fingerstick) 176 mg/dL (70-99) 239 mg/dL (70-99) 164 mg/dL (70-99) 164 mg/dL (70-99) Test 01/19/21 11:48 Glucose (Fingerstick) 151 mg/dL (70-99) Microbiology Micro Microbiology 01/14/21 Blood Culture - Preliminary, Resulted NO GROWTH AFTER 4 DAYS 01/13/21 Urine Culture - Final, Complete Physical Exam HEENT: Neck Supple W Full Motion Chest: Symmetric LUNGS: Other (diminished) Heart: RRR Abdomen: Soft N/T Extremities: Other (1+ bilateral Le pitting edema; right foot covered with dressing) Neurology: alert, oriented, follow commands Assessment Assessment 1. Fifth metatarsal osteomyelitis; s/p foot ulcer debridement. Continue intravenous antibiotics. Vascular surgery following. 2. Anemia: s/p PRBC transfusion. hgb stable 3. Acute on chronic diastolic heart failure: appears compensated. Continue Lasix, convert to oral 4. CAD: past CABG clinically stable. Secondary prevention measures. Add ASA, statin 5. Hx of PE/RLE DVT: was previously on Eliquis, held for surgery. 6. BLE PAD: past revascularization. stable clinically 7. HTN; better controlled 8. HLP; statins. Justicifation of Admission Dx: Justifications for Admission: Justification of Admission Dx: Yes ARELI DOSS MD 01/19/21 4878: CARDIO Progress Notes Assessment Assessment Patient seen and evaluated. I agree with our nurse practitioners assessment and plan. Fifth metatarsal osteomyelitis; s/p foot ulcer debridement. Continue intravenous antibiotics. Vascular surgery following. Procedure this morning. Anemia: s/p PRBC transfusion. hgb stable Acute on chronic diastolic heart failure: appears compensated. Continue Lasix, convert to oral CAD: past CABG clinically stable. Secondary prevention measures. Add ASA, statin Hx of PE/RLE DVT: was previously on Eliquis, held for surgery. BLE PAD: past revascularization. stable clinically HTN; better controlled HLP; statins. KRISTIAN CABELLO APRN Jan 19, 2021 16:06 ARELI DOSS MD Jan 19, 2021 18:35
[2021-01-19] MEDS: ASPIRIN ENTERIC COATED 81 MG TABLET.DR. PO SCH (18:16)
[2021-01-19 19:40] VITALS: BP 129/65
[2021-01-19] MEDS: ATORVASTATIN CALCIUM 40 MG TABLET. PO SCH (19:59)
[2021-01-19] MEDS: INSULIN GLARGINE SYRINGE. SQ SCH (20:57)
[2021-01-19] MEDS: ZOLPIDEM 5 MG TABLET. PO PRN (21:53)
[2021-01-19 23:07] VITALS: BP 126/60
[2021-01-20] MEDS: PIPERACILLIN/TAZOBACTAM 3.375 GM in IV NORMAL SALINE 50ML 50 ML IV SCH ×5 (00:25→22:12)
[2021-01-20 03:00] VITALS: BP 156/69
[2021-01-20] MEDS: oxyCODONE/APAP 7.5/325 1 TAB TABLET PO PRN ×3 (03:38→22:15)
[2021-01-20 06:39] LABS: CALCIUM 9.1 mg/dL (8.5-10.1); CREATININE 1.3 mg/dL (0.6-1.0); GFR 41.2; MAGNESIUM 1.8 mg/dL (1.8-2.4); POTASSIUM 3.7 mmol/L (3.5-5.1)
[2021-01-20 07:00] VITALS: BP 151/73
[2021-01-20] MEDS: BUDESONIDE 0.5 MG/2 ML NEBU. NEB SCH ×2 (07:31→20:24)
[2021-01-20] MEDS: IPRATRPIUM/ALBUTEROL 0.5/2.5MG 3 ML NEBU. NEB SCH ×4 (07:32→20:24)
[2021-01-20] MEDS: INSULIN LISPRO 300 UNITS/3 ML VIAL. SQ SCH ×3 (08:00→18:00)
--- NOTE | 2021-01-20 08:03 | PDOC ---
Infectious Disease Note Subjective Subjective Complaining of leg pain and some back pain ROS ROS No nausea vomiting diarrhea chest pain shortness of breath or fever Vital Sign Vital Signs Vital Signs Date Time Temp Pulse Resp B/P (MAP) Pulse Ox O2 Delivery O2 Flow Rate FiO2 01/20/21 07:33 98 Room Air 01/20/21 03:00 98.8 75 18 156/69 (98) 98.8 01/19/21 15:00 2.0 Physical Exam PHYSICAL EXAM GENERAL: Alert, oriented female, not in distress. HEENT: Both pupils are round and reacting. No conjunctival lesion, no lesion in the mouth. NECK: Supple, no JVP, no lymphadenopathy. LUNGS: Clear. HEART: S1, S2 regular. ABDOMEN: Soft, nontender, no organomegaly. EXTREMITIES: No edema, cyanosis. SKIN: Unremarkable. NEUROLOGIC: The patient is alert, awake, and appropriate. No focal neurologic deficit. FOOT: In particular foot examination, the patient has a plantar ulcer, looks chronic and it probes to the bone at around fourth and fifth metatarsal area. Labs Lab Laboratory Tests Test 01/19/21 09:35 01/19/21 11:48 01/19/21 18:19 01/19/21 21:05 Glucose (Fingerstick) 164 mg/dL (70-99) 151 mg/dL (70-99) 259 mg/dL (70-99) 263 mg/dL (70-99) Test 01/20/21 05:20 Sodium Level 140 mmol/L (136-145) Potassium Level 3.7 mmol/L (3.5-5.1) Chloride Level 104 mmol/L (98-107) Carbon Dioxide Level 26 mmol/L (21-32) Anion Gap 10 (6-14) Blood Urea Nitrogen 17 mg/dL (7-20) Creatinine 1.3 mg/dL (0.6-1.0) Estimated GFR (Cockcroft-Gault) 41.2 Glucose Level 131 mg/dL (70-99) Calcium Level 9.1 mg/dL (8.5-10.1) Magnesium Level 1.8 mg/dL (1.8-2.4) Micro Microbiology 01/14/21 Blood Culture - Preliminary, Resulted NO GROWTH AFTER 1 DAY 01/13/21 Urine Culture - Final, Complete Objective Assessment 1. Right foot osteomyelitis. S/p I&D 2. Diabetes mellitus. 3. Hypertension. 4. Renal insufficiency. 5. Congestive heart failure. Plan Plan of Care Continue antibiotics cont supportive care Wound VAC IV antibiotics for Discharge MICH MARK MD Jan 20, 2021 08:03
[2021-01-20] MEDS: GABAPENTIN 300 MG CAPSULE. PO SCH ×3 (08:48→22:13)
[2021-01-20] MEDS: CARVEDILOL 6.25 MG TABLET. PO SCH ×2 (08:48→17:52)
[2021-01-20] MEDS: FUROSEMIDE 40 MG TABLET. PO SCH (08:49)
[2021-01-20] MEDS: LACTOBACILLUS RHAMNOSUS GG 1 CAPSULE. PO SCH ×2 (08:49→22:13)
[2021-01-20] MEDS: ISOSORBIDE MONONITRATE ER 30 MG TAB.ER.24H PO SCH (08:49)
[2021-01-20] MEDS: FLUCONAZOLE 100 MG TABLET. PO SCH (08:50)
[2021-01-20] MEDS: ASPIRIN ENTERIC COATED 81 MG TABLET.DR. PO SCH (08:50)
[2021-01-20] MEDS: RANOLAZINE 500 MG TAB.ER.12H PO SCH ×2 (08:50→22:17)
[2021-01-20] MEDS: PANTOPRAZOLE 40 MG TABLET.DR. PO SCH (08:50)
[2021-01-20] MEDS: OMEGA-3 FATTY ACIDS/FISH OIL 1,000 MG CAPSULE. PO SCH (08:50)
[2021-01-20] MEDS: DAPTOmycin (GENERIC) IVPB 470 MG in IV NORMAL SALINE 50ML 50 ML IV SCH (08:52)
[2021-01-20] MEDS: ACETAMINOPHEN 325 MG TABLET. PO PRN (08:54)
[2021-01-20] MEDS ORDERED: APIXABAN 2.5 MG TABLET. PO SCH (09:00)
--- NOTE | 2021-01-20 09:36 | PDOC ---
Provider Note Date of Service: DATE: 01/20/21 TIME: 09:30 Provider Note Provider Note Vascular S: Patient sitting on edge of bed, complains of left flank and back pain. O: Awake and alert HRR Non-labored respirations Dressing dry and intact right foot A/P: POD #1 right foot debridement with excision of cuboid bone Recommend wound vac placement if tolerated, patient reports issues with skin breakdown with past wound vac, discussed with WC RN Abx per ID Strict off-loading right foot PT/OT Justicifation of Admission Dx: Justifications for Admission: Justification of Admission Dx: Yes MALA JAMISON CROSSBAR SWITCH ADJUSTER Jan 20, 2021 09:35
[2021-01-20 11:00] VITALS: BP 151/74
--- NOTE | 2021-01-20 11:24 | PDOC ---
CARDIO Progress Notes Date and Time Date of Service 01/20/21 Time of Evaluation 1120 Subjective Subjective: No Chest Pain, No Palpitations Vitals Vitals Vital Signs Date Time Temp Pulse Resp B/P (MAP) Pulse Ox O2 Delivery O2 Flow Rate FiO2 01/20/21 08:52 80 151/73 01/20/21 08:00 Room Air 01/20/21 07:33 98 01/20/21 07:00 98.3 20 98.3 01/19/21 15:00 2.0 Weight Weight [ ] Input and Output Intake and Output Intake and Output 01/20/21 07:00 Intake Total 480 ml Output Total 50 ml Balance 430 ml Intake Oral 480 ml Estimated Blood Loss 50 ml # Voids 3 # Bowel Movements 1 Laboratory Labs Laboratory Tests Test 01/19/21 11:48 01/19/21 18:19 01/19/21 21:05 01/20/21 05:20 Glucose (Fingerstick) 151 mg/dL (70-99) 259 mg/dL (70-99) 263 mg/dL (70-99) Sodium Level 140 mmol/L (136-145) Potassium Level 3.7 mmol/L (3.5-5.1) Chloride Level 104 mmol/L (98-107) Carbon Dioxide Level 26 mmol/L (21-32) Anion Gap 10 (6-14) Blood Urea Nitrogen 17 mg/dL (7-20) Creatinine 1.3 mg/dL (0.6-1.0) Estimated GFR (Cockcroft-Gault) 41.2 Glucose Level 131 mg/dL (70-99) Calcium Level 9.1 mg/dL (8.5-10.1) Magnesium Level 1.8 mg/dL (1.8-2.4) Test 01/20/21 08:07 Glucose (Fingerstick) 129 mg/dL (70-99) Microbiology Micro Microbiology 01/19/21 Gram Stain - Final, Resulted 01/19/21 Aerobic and Anaerobic Culture, Resulted Pending 01/14/21 Blood Culture - Final, Complete NO GROWTH AFTER 5 DAYS 01/13/21 Urine Culture - Final, Complete Physical Exam HEENT: Neck Supple W Full Motion Chest: Symmetric LUNGS: Other (diminished) Heart: RRR Abdomen: Soft N/T Extremities: Other (1+ bilateral LE pitting edema; right foot covered with dressing) Neurology: alert, oriented, follow commands Assessment Assessment 1. Fifth metatarsal osteomyelitis; s/p foot ulcer debridement. Continue intravenous antibiotics. Vascular surgery following. 2. Anemia: s/p PRBC transfusion. hgb stable. repeat labs in am 3. Acute on chronic diastolic heart failure: appears compensated. Continue Lasix therapy 4. CAD: past CABG clinically stable. Secondary prevention measures. 5. Hx of PE/RLE DVT: Eliquis resumed. Monitor H and H 6. BLE PAD: past revascularization. stable clinically 7. HTN; better controlled, but remains elevated. Will increase amlodipine 8. HLP; statins. 9. TERRY Justicifation of Admission Dx: Justifications for Admission: Justification of Admission Dx: Yes KRISTIAN CABELLO APRN Jan 20, 2021 11:24
--- NOTE | 2021-01-20 12:53 | RAD ---
EXAM: XR LUMBAR SPINE 2-3V 01/20/2021 9:35 AM CLINICAL INDICATION: Back and leg pain COMPARISON: CT chest abdomen pelvis 07/21/2020 TECHNIQUE: AP, lateral, and coned-down lateral views of the lumbar spine FINDINGS: There 5 nonrib-bearing lumbar vertebral bodies. No acute fracture. Alignment is normal. Th ere is moderate disc space narrowing with endplate sclerosis and prominent osteophytes at L1-L2 and L 3-L4. Moderate disc space narrowing at T12-L1 with small anterior osteophytes. The remaining disc spa victorina are maintained. There is lower lumbar facet arthrosis. Calcifications are seen in the abdominal a nalini. There are cholecystectomy clips. IMPRESSION: Unchanged moderate degenerative disc disease at L1-L2 and L3-L4. Electronically signed by: Lyndsey Paz MD (01/20/2021 12:51 PM) [id number]
--- NOTE | 2021-01-20 14:35 | NUR ---
Allergies and reactions propoxyphene INR 1.3 BUN 17 Cr 1.3 Platelets 455 Blood culture done yes blood culture results no growth Order Verified yes Consent signed yes Previous PICC placement yes Past Medical/Surgical history and current diagnosis reviewed Patient Medical /Surgical History Related to PICC line placement Diabetes Infectious Disease consult previous central line or venous access device placement Septicemia/Bacteremia Special considerations for PICC line placement Infections PICC placement indication longterm antibiotic usage, Yu Arambula RN PICC Nurse Addendum: 01/20/21 at 1447 by YU ARAMBULA RN Amended: Links added.
--- NOTE | 2021-01-20 14:39 | NUR ---
Procedure: Following complete explanation of the PICC procedure including the indications, risks, and potential complications, informed consent was obtained. The possibility for infection was discussed along with signs, symptoms, and prevention. All the questions were answered.yes Written and verbal patient education was provided. yes Hand hygiene performed. yes Standardized central line checklist was utilized. yes The patient was placed in the supine position, the arm was prepped with chlorhexidine and patient draped with maximum sterile barrier. 2 mL 1% lidocaine was infiltrated into the skin to provide local anesthesia. A thorough assessment of right upper extremity completed. Using real-time ultrasound guidance and standardized micro puncture set, the Brachial vein was punctured and a peel away sheath was placed using the modified Seldinger technique. A tip location device was used to ensure adequate catheter placement. The catheter was secured using a securement device and an antimicrobial patch was applied directly on the insertion site followed by a transparent dressing. All ports withdraw blood and flush without resistance. Patient tolerated the procedure without apparent complication(s). single Lumen Power PICC placement successful and uncomplicated. Placement verified by EKG tip confirmation system and/or chest x-ray. Tip located in the CAJ Complications:none Addendum: 01/20/21 at 1447 by ROSE MARIE GUTIERREZ RN Amended: Links added.
--- NOTE | 2021-01-20 14:51 | NUR ---
SS following up with discharge planning. SS reviewed pt chart and discussed with pt RN. Pt is currently on room air. Pt had debridement yesterday. COVID19 negative. Pt on IV Zosyn and IV Daptomycin. PICC line placed today. Pt needing IV antibiotics and wound care post discharge. PT/OT recommended [facility] unit. SS met with pt and discussed discharge planning and [facility] unit. Pt reported that last spring she had IV Infusions with [facility], ; fax [phone], and [facility], ; fax [phone]. Pt declined [facility] unit and requested to return to home with [facility] home [facility]. SS phoned and faxed referral to [facility] and sent referral to [facility]. SS will continue to follow for discharge planning.
[2021-01-20 15:00] VITALS: BP 139/65
--- NOTE | 2021-01-20 16:50 | NUR ---
Wound Care Wound Type/Assessment: Pt seen for wound care follow up re: R plantar DFU, s/p surgical debridement yesterday. Upon entering pt's room, pt was sitting upright in her recliner with her feet directly on the floor. Remineded pt that her foot should not be getting pressure on the floor, and her legs needed to be elevated d/t her extreme swelling, pt v/u. Spoke with pt re: applying a wound vac to the foot, pt adamantly declined, stating her foot got "burned" the last time she had a vac on. Pt stated she would not wear the wound vac right now, but maybe when she goes home. Pt had a difficult time keeping the wound vac dressings in place with her previous debridement and hospitalization, and many times would present to the clinic without the vac in place. Surgical dressing removed, R plantar foot wound cleaned, measured and photographed post debridement. Wound with minimal bleeding, dusky red tissue in the base, minimal granulation tissue present, periwound pink. Treatment Recommendations/Plan: First recommendation would be a wound vac, but wound dressed at this time with Hydrofera blue Ready (antimicrobial), then covered with ABD and wrapped with kerlix, recommend changing every 3 days. DONTE wrap loosely wrapped over to keep dressing in place. Education provided: to pt re: off-loading, calling staff for help before she tries to get up, and wound POC Offloading surface/device: defer to Vascular for weightbearing status of R foot Recommended Referrals/Tests: n/a Discharge Recommendations for dressings: same as treatment plan above, pt to f/u in [facility] at d/c.
[2021-01-20 18:58] VITALS: BP 140/66
--- NOTE | 2021-01-20 21:23 | PDOC ---
[facility] [facility] PROGRESS NOTE Date of Service DOS: DATE: 01/20/21 TIME: 21:21 Chief Complaint Chief Complaint Right foot osteomyelitis of the 5th metatarsal status post excisional de bridement of skin subcu tissue and fascia and bone 01/19/2021 Diabetes Mellitus Type 2 Hypertension Dyslipidemia CDK Severe protein calorie malnutrition Acute anemia History of Present Illness History of Present Illness Ms Marks is a 65 yo female with PMHx RLE DVT (on eliquis), CAD s/p CABG, CVA, HTN, HLD, PAD s/p bilateral lower extremity bypass, and CKD, presents to the hospital as a direct admission from the outpatient wound clinic where she was noted to have exposed bone in her right fifth metatarsal and pain. She has been on outpatient Augmentin intermittently for the past few months. Discussed with wound care physician except for direct admission and consult infectious diseases and vascular surgery. 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 She has been trying to offload the foot but with some neuropathy has not been able to appropriately offload and has been compliant with meds and wound care follow up. Requires admission for failure of outpatient therapy. 01/13: Hb 7 and tachycardic this morning. Feeling more fatigued. Discussed with vascular surgery tentative plans for debridement 01/14/2021. Amenable to transfusion. Consulted cardiology for concern for mild acute CHF exacerbation Afebrile. Hb 9.3. Much more short of breath after transfusion despite 2 doses of 20 mg IV Lasix. Urine output was fairly minimal after this. Left lower extremity more swollen bibasilar crackles this morning. IV Lasix ordered. Stat stat rapid Covid swab ordered. I discussed with vascular surgery as likely acute CHF will need a little more management prior to surgery and will delay it by a couple hours. 01/17: Mrs. Marks was seen and evaluated this morning. she has discussed with vascular, amputation encouraged, she would liek to try to preserve the foot, I think she will only consent to debridement, I encouraged amputation to limit her mortality risk going forward and improve treatment options. again str better, not hypoxia, still weak, she has been symptom control of her back pain, she likes the Menthol/Methyl Salicylate PRN QID also voltaren PRN. 01/18/2021 No acute events overnight. Patient seen and examined bedside. No concerns nursing. Pain is well controlled. Plan for surgery tomorrow. Patient's chart, labs, images were reviewed and discussed with RN 01/19/2021 No acute events overnight. Patient status post surgery and pain is well tolerated. Patient does have sciatica pain on the left lower extremity. She also has some burning upon urination Diflucan started per ID. Continued PT OT modalities patient's chart, labs, images were reviewed and discussed with RN 01/20/21 No acute events overnight. Pain is moderately controlled. Working with PT/OT with strict NWB status. Will need SNF placement. Vitals/I&O Vitals/I&O: Vital Signs Date Time Temp Pulse Resp B/P (MAP) Pulse Ox O2 Delivery O2 Flow Rate FiO2 01/20/21 20:25 97 Room Air 01/20/21 18:58 98.4 82 16 140/66 (90) 98.4 01/19/21 15:00 2.0 I & O 01/19/21 01/19/21 01/20/21 15:00 23:00 07:00 Intake Total 380 ml 50 ml 300 ml Output Total 50 ml Balance 330 ml 50 ml 300 ml Physical Exam Physical Exam: GENERAL: Alert, oriented female, not in distress. HEENT: Both pupils are round and reacting. No conjunctival lesion, no lesion in the mouth. NECK: Supple, no JVP, no lymphadenopathy. LUNGS: Clear. HEART: S1, S2 regular. ABDOMEN: Soft, nontender, no organomegaly. EXTREMITIES: No edema, cyanosis. SKIN: Unremarkable. NEUROLOGIC: The patient is alert, awake, and appropriate. No focal neurologic deficit. FOOT: In particular foot examination, the patient has a plantar ulcer, looks chronic and it probes to the bone at around fourth and fifth metatarsal area. General: Alert, Oriented X3, Cooperative, No acute distress Heart: Regular rate, No murmurs, Other (2/6 systolic murmur to LLS border) Lungs: Clear Abdomen: Normal bowel sounds, No tenderness, Other (obese) Extremities: No clubbing, Other (2+ bilateral LE pitting edema) Skin: No rashes, Other (right foot wound) Labs Labs: Laboratory Tests Test 01/20/21 05:20 01/20/21 08:07 01/20/21 11:49 01/20/21 16:59 Sodium Level 140 mmol/L (136-145) Potassium Level 3.7 mmol/L (3.5-5.1) Chloride Level 104 mmol/L (98-107) Carbon Dioxide Level 26 mmol/L (21-32) Anion Gap 10 (6-14) Blood Urea Nitrogen 17 mg/dL (7-20) Creatinine 1.3 mg/dL (0.6-1.0) Estimated GFR (Cockcroft-Gault) 41.2 Glucose Level 131 mg/dL (70-99) Calcium Level 9.1 mg/dL (8.5-10.1) Magnesium Level 1.8 mg/dL (1.8-2.4) Glucose (Fingerstick) 129 mg/dL (70-99) 177 mg/dL (70-99) 170 mg/dL (70-99) Test 01/20/21 20:56 Glucose (Fingerstick) 185 mg/dL (70-99) Comment Review of Relevant I have reviewed the following items johan (where applicable) has been applied. Medications: Current Medications Medications (Trade) Dose Ordered Sig/Katiana Route PRN Reason Start Time Stop Time Status Last Admin Dose Admin Furosemide (Lasix) 40 mg DAILY PO 01/20/21 09:00 01/20/21 08:49 Apixaban (Eliquis) 2.5 mg BID PO 01/20/21 09:00 01/20/21 14:24 DC 01/20/21 08:50 Justifications for Admission Other Justification sepsis and respiratory failure NARDA ANGEL MD Jan 20, 2021 21:23
[2021-01-20 22:00] VITALS: BP 139/63
[2021-01-20] MEDS: APIXABAN 5 MG TABLET. PO SCH (22:13)
[2021-01-20] MEDS: ATORVASTATIN CALCIUM 40 MG TABLET. PO SCH (22:13)
[2021-01-20] MEDS: INSULIN GLARGINE SYRINGE. SQ SCH (22:15)
[2021-01-21] VITALS (9 sets, daily range): BP systolic 116–143; BP diastolic 57–68
[2021-01-21] MEDS ORDERED: FUROSEMIDE 40 MG/4 ML VIAL. IVP ONE ×2 (01:15→13:00)
[2021-01-21] MEDS ORDERED: ALBUTEROL SULFATE 2.5 MG/3 ML NEBU. NEB ONE (01:15)
--- NOTE | 2021-01-21 01:15 | NUR ---
PT C/O DIFFICULTY BREATHING, RN COULD HERE PT WHEEZING UPON ENTERING ROOM. RESPIRATORY NOTIFIED, DR HOOD NOTIFIED, NEW ORDERS RECEIVED, SEE DOCUMENTATION. LASIX GIVEN IVP, RT PLACED PT ON BIPAP,PT O2 SATS AT 99%. APPLIED PUREWICK, DENIES PAIN AT THIS TIME, CALL LIGHT IN PLACE. WILL CONT TO MONITOR PT STATUS AND SAFETY. PMRN
[2021-01-21] MEDS: PIPERACILLIN/TAZOBACTAM 3.375 GM in IV NORMAL SALINE 50ML 50 ML IV SCH ×3 (05:59→18:36)
[2021-01-21 06:20] LABS: BASO % 1 % (0-3); EOS % 1 % (0-3); LYMPH # 1.1 x10^3/uL (1.0-4.8); LYMPH % 13 % (24-48); MEAN CORPUSCULAR HEMOGLOBIN 28 pg (25-35); MEAN CORPUSCULAR HGB CONC 33 g/dL (31-37); MEAN CORPUSCULAR VOLUME 84 fL (79-100); MONO # 0.4 x10^3/uL (0.0-1.1); MONO % 5 % (0-9); NEUT # 6.8 x10^3/uL (1.8-7.7); NEUT % 81 % (31-73); PLATELET COUNT 352 x10^3/uL (140-400); RED BLOOD COUNT 2.47 x10^6/uL (3.50-5.40); RED CELL DISTRIBUTION WIDTH 15.7 % (11.5-14.5); WHITE BLOOD COUNT 8.4 x10^3/uL (4.0-11.0)
[2021-01-21 06:28] LABS: HEMATOCRIT 20.8 % (36.0-47.0); HEMOGLOBIN 6.9 g/dL (12.0-15.5)
[2021-01-21 06:35] LABS: ALBUMIN 1.7 g/dL (3.4-5.0); ALBUMIN/GLOBULIN RATIO 0.4 (1.0-1.7); CALCIUM 8.6 mg/dL (8.5-10.1); GFR 55.8; POTASSIUM 4.2 mmol/L (3.5-5.1); TOTAL BILIRUBIN 0.2 mg/dL (0.2-1.0); TOTAL PROTEIN 5.8 g/dL (6.4-8.2)
--- NOTE | 2021-01-21 06:37 | NUR ---
PT HEMOGLOBIN 6.9, HEMATOCRIT 20.8 DR HOOD PAGED AWAITING RETURN CALL. PMRN
[2021-01-21] MEDS: BUDESONIDE 0.5 MG/2 ML NEBU. NEB SCH ×2 (07:27→19:42)
[2021-01-21] MEDS: IPRATRPIUM/ALBUTEROL 0.5/2.5MG 3 ML NEBU. NEB SCH ×4 (07:27→19:42)
[2021-01-21] MEDS: ASPIRIN ENTERIC COATED 81 MG TABLET.DR. PO SCH (08:22)
[2021-01-21] MEDS: GABAPENTIN 300 MG CAPSULE. PO SCH ×3 (08:23→21:18)
[2021-01-21] MEDS: ISOSORBIDE MONONITRATE ER 30 MG TAB.ER.24H PO SCH (08:23)
[2021-01-21] MEDS: LACTOBACILLUS RHAMNOSUS GG 1 CAPSULE. PO SCH ×2 (08:23→21:18)
[2021-01-21] MEDS: OMEGA-3 FATTY ACIDS/FISH OIL 1,000 MG CAPSULE. PO SCH (08:23)
[2021-01-21] MEDS: PANTOPRAZOLE 40 MG TABLET.DR. PO SCH (08:23)
[2021-01-21] MEDS: RANOLAZINE 500 MG TAB.ER.12H PO SCH ×2 (08:23→21:18)
[2021-01-21] MEDS: FUROSEMIDE 40 MG TABLET. PO SCH ×2 (08:24→15:00)
[2021-01-21] MEDS: APIXABAN 5 MG TABLET. PO SCH ×2 (08:24→21:18)
[2021-01-21] MEDS: FLUCONAZOLE 100 MG TABLET. PO SCH (08:25)
[2021-01-21] MEDS: HYDROcodone/APAP 5/325MG 1 TAB TABLET PO PRN ×2 (08:25→21:18)
[2021-01-21] MEDS: CARVEDILOL 6.25 MG TABLET. PO SCH ×2 (08:25→18:36)
[2021-01-21] MEDS ORDERED: MAGNESIUM SULFATE 2GM 50 ML IV ONE (08:30)
[2021-01-21] MEDS: INSULIN LISPRO 300 UNITS/3 ML VIAL. SQ SCH ×3 (08:31→18:38)
--- NOTE | 2021-01-21 09:06 | PDOC ---
Infectious Disease Note Subjective Subjective too much pain medication now a little short of breath requiring more oxygen ROS ROS No nausea vomiting diarrhea chest pain shortness of breath right now Vital Sign Vital Signs Vital Signs Date Time Temp Pulse Resp B/P (MAP) Pulse Ox O2 Delivery O2 Flow Rate FiO2 01/21/21 08:25 80 01/21/21 07:51 98.6 20 133/66 (88) 93 Nasal Cannula 2.0 98.6 Physical Exam PHYSICAL EXAM GENERAL: Alert, oriented female, not in distress. HEENT: Both pupils are round and reacting. No conjunctival lesion, no lesion in the mouth. NECK: Supple, no JVP, no lymphadenopathy. LUNGS: Clear. HEART: S1, S2 regular. ABDOMEN: Soft, nontender, no organomegaly. EXTREMITIES: No edema, cyanosis. SKIN: Unremarkable. NEUROLOGIC: The patient is alert, awake, and appropriate. No focal neurologic deficit. FOOT: In particular foot examination, the patient has a plantar ulcer, looks chronic and it probes to the bone at around fourth and fifth metatarsal area. Labs Lab Laboratory Tests Test 01/20/21 11:49 01/20/21 16:59 01/20/21 20:56 01/21/21 06:10 Glucose (Fingerstick) 177 mg/dL (70-99) 170 mg/dL (70-99) 185 mg/dL (70-99) White Blood Count 8.4 x10^3/uL (4.0-11.0) Red Blood Count 2.47 x10^6/uL (3.50-5.40) Hemoglobin 6.9 g/dL (12.0-15.5) Hematocrit 20.8 % (36.0-47.0) Mean Corpuscular Volume 84 fL (79-100) Mean Corpuscular Hemoglobin 28 pg (25-35) Mean Corpuscular Hemoglobin Concent 33 g/dL (31-37) Red Cell Distribution Width 15.7 % (11.5-14.5) Platelet Count 352 x10^3/uL (140-400) Neutrophils (%) (Auto) 81 % (31-73) Lymphocytes (%) (Auto) 13 % (24-48) Monocytes (%) (Auto) 5 % (0-9) Eosinophils (%) (Auto) 1 % (0-3) Basophils (%) (Auto) 1 % (0-3) Neutrophils # (Auto) 6.8 x10^3/uL (1.8-7.7) Lymphocytes # (Auto) 1.1 x10^3/uL (1.0-4.8) Monocytes # (Auto) 0.4 x10^3/uL (0.0-1.1) Eosinophils # (Auto) 0.0 x10^3/uL (0.0-0.7) Basophils # (Auto) 0.0 x10^3/uL (0.0-0.2) Sodium Level 141 mmol/L (136-145) Potassium Level 4.2 mmol/L (3.5-5.1) Chloride Level 107 mmol/L (98-107) Carbon Dioxide Level 29 mmol/L (21-32) Anion Gap 5 (6-14) Blood Urea Nitrogen 20 mg/dL (7-20) Creatinine 1.0 mg/dL (0.6-1.0) Estimated GFR (Cockcroft-Gault) 55.8 BUN/Creatinine Ratio 20 (6-20) Glucose Level 232 mg/dL (70-99) Calcium Level 8.6 mg/dL (8.5-10.1) Magnesium Level 1.7 mg/dL (1.8-2.4) Total Bilirubin 0.2 mg/dL (0.2-1.0) Aspartate Amino Transf (AST/SGOT) 27 U/L (15-37) Alanine Aminotransferase (ALT/SGPT) 26 U/L (14-59) Alkaline Phosphatase 94 U/L (46-116) HK-Qvx-U-Type Natriuretic Peptide 8566 pg/mL (0-124) Total Protein 5.8 g/dL (6.4-8.2) Albumin 1.7 g/dL (3.4-5.0) Albumin/Globulin Ratio 0.4 (1.0-1.7) Test 01/21/21 08:05 Glucose (Fingerstick) 208 mg/dL (70-99) Micro Microbiology 01/14/21 Blood Culture - Preliminary, Resulted NO GROWTH AFTER 1 DAY 01/13/21 Urine Culture - Final, Complete Objective Assessment 1. Right foot osteomyelitis. S/p I&D 2. Diabetes mellitus. 3. Hypertension. 4. Renal insufficiency. 5. Congestive heart failure. Plan Plan of Care Culture negative Continue antibiotics,, patient can be discharged on IV Invanz and daptomycin cont supportive care Wound VAC IV antibiotics for Discharge MICH MARK MD Jan 21, 2021 09:06
[2021-01-21] MEDS: DAPTOmycin (GENERIC) IVPB 470 MG in IV NORMAL SALINE 50ML 50 ML IV SCH (09:31)
--- NOTE | 2021-01-21 10:12 | PDOC ---
Provider Note Date of Service: DATE: 01/21/21 TIME: 10:07 Provider Note Provider Note Vascular S: Patient seen in room this morning. She reports an eventful night with some difficulty breathing, contributes it to something she was given? Required BiPAP. This morning she is doing well with nonlabored respirations and O2 via nasal cannula. She has no complaints of pain or other complaints. Hgb 6.9 today, getting transfusion. She remains on Eliquis. No significant obvious bleeding. O: Awake and alert, in no apparent distress HRR Non-labored respirations, on O2 via NC Right foot dressing removed with some evidence of mild bleeding, wound assessed, no active bleeding, wound bed is clean and dry, periwound tissue is healthy. Her foot is warm with excellent cap refill A/P: PAD s/p bilateral bypasses - right leg bypass patent via art US Right foot osteomyelitis POD #2 right foot debridement with excision of cuboid bone We have continued to recommend wound vac placement, patient has refused thus far. She reported today she will discuss further with her daughter. Continue wound care. Cont Abx per ID Strict off-loading right foot PT/OT OK for discharge from our standpoint once medically stable. She will follow up in wound care center, with us on an as needed basis. Justicifation of Admission Dx: Justifications for Admission: Justification of Admission Dx: Yes CONNIE HINDS Jan 21, 2021 10:12
--- NOTE | 2021-01-21 10:57 | PDOC ---
KRISTIAN CABELLO [employer] 01/21/21 1057: CARDIO Progress Notes Date and Time Date of Service 01/21/21 Time of Evaluation 1050 Subjective Subjective: No Chest Pain, No Palpitations, Other (had episode of SOA overnight- improved with BiPAP and Lasix ) Vitals Vitals Vital Signs Date Time Temp Pulse Resp B/P (MAP) Pulse Ox O2 Delivery O2 Flow Rate FiO2 01/21/21 08:25 80 01/21/21 08:05 Room Air 01/21/21 07:51 98.6 20 133/66 (88) 93 2.0 98.6 Weight Weight [ ] Input and Output Intake and Output Intake and Output 01/21/21 07:00 Intake Total 1600 ml Output Total 975 ml Balance 625 ml Intake Oral 1350 ml IV Total 250 ml Output Urine Total 975 ml # Voids 3 # Bowel Movements 4 Laboratory Labs Laboratory Tests Test 01/20/21 11:49 01/20/21 16:59 01/20/21 20:56 01/21/21 06:10 Glucose (Fingerstick) 177 mg/dL (70-99) 170 mg/dL (70-99) 185 mg/dL (70-99) White Blood Count 8.4 x10^3/uL (4.0-11.0) Red Blood Count 2.47 x10^6/uL (3.50-5.40) Hemoglobin 6.9 g/dL (12.0-15.5) Hematocrit 20.8 % (36.0-47.0) Mean Corpuscular Volume 84 fL (79-100) Mean Corpuscular Hemoglobin 28 pg (25-35) Mean Corpuscular Hemoglobin Concent 33 g/dL (31-37) Red Cell Distribution Width 15.7 % (11.5-14.5) Platelet Count 352 x10^3/uL (140-400) Neutrophils (%) (Auto) 81 % (31-73) Lymphocytes (%) (Auto) 13 % (24-48) Monocytes (%) (Auto) 5 % (0-9) Eosinophils (%) (Auto) 1 % (0-3) Basophils (%) (Auto) 1 % (0-3) Neutrophils # (Auto) 6.8 x10^3/uL (1.8-7.7) Lymphocytes # (Auto) 1.1 x10^3/uL (1.0-4.8) Monocytes # (Auto) 0.4 x10^3/uL (0.0-1.1) Eosinophils # (Auto) 0.0 x10^3/uL (0.0-0.7) Basophils # (Auto) 0.0 x10^3/uL (0.0-0.2) Sodium Level 141 mmol/L (136-145) Potassium Level 4.2 mmol/L (3.5-5.1) Chloride Level 107 mmol/L (98-107) Carbon Dioxide Level 29 mmol/L (21-32) Anion Gap 5 (6-14) Blood Urea Nitrogen 20 mg/dL (7-20) Creatinine 1.0 mg/dL (0.6-1.0) Estimated GFR (Cockcroft-Gault) 55.8 BUN/Creatinine Ratio 20 (6-20) Glucose Level 232 mg/dL (70-99) Calcium Level 8.6 mg/dL (8.5-10.1) Magnesium Level 1.7 mg/dL (1.8-2.4) Total Bilirubin 0.2 mg/dL (0.2-1.0) Aspartate Amino Transf (AST/SGOT) 27 U/L (15-37) Alanine Aminotransferase (ALT/SGPT) 26 U/L (14-59) Alkaline Phosphatase 94 U/L (46-116) GP-Ydp-T-Type Natriuretic Peptide 8566 pg/mL (0-124) Total Protein 5.8 g/dL (6.4-8.2) Albumin 1.7 g/dL (3.4-5.0) Albumin/Globulin Ratio 0.4 (1.0-1.7) Test 01/21/21 08:05 Glucose (Fingerstick) 208 mg/dL (70-99) Microbiology Micro Microbiology 01/19/21 Gram Stain - Final, Resulted 01/19/21 Aerobic and Anaerobic Culture - Preliminary, Resulted 01/14/21 Blood Culture - Final, Complete NO GROWTH AFTER 5 DAYS 01/13/21 Urine Culture - Final, Complete Physical Exam HEENT: Neck Supple W Full Motion Chest: Symmetric LUNGS: Other (diminished) Heart: RRR Abdomen: Soft N/T Extremities: Other (1+ bilateral LE pitting edema; right foot covered with dressing) Neurology: alert, oriented, follow commands Assessment Assessment 1. Fifth metatarsal osteomyelitis; s/p foot ulcer debridement. Continue intravenous antibiotics. Vascular surgery following. 2. Anemia: s/p PRBC transfusion. hgb drift to 6.9. to be transfused 3. Acute on chronic diastolic heart failure: decompensated overnight. Improved with IV diuresis. Will given additional dose following transfusion today. Increase oral to BID, which is patient's home dose. 4. CAD: past CABG clinically stable. Secondary prevention measures. 5. Hx of PE/RLE DVT: Eliquis resumed. Monitor H and H 6. BLE PAD: past revascularization. stable clinically 7. HTN; better controlled, but remains elevated. Will increase amlodipine 8. HLP; statins. 9. TERRY 10. Hypomagnesemia; replacement ordered Justicifation of Admission Dx: Justifications for Admission: Justification of Admission Dx: Yes ARELI DOSS MD 01/21/21 1617: CARDIO Progress Notes Assessment Assessment Patient seen and examined I agree with our nurse practitioners assessment and plan. Fifth metatarsal osteomyelitis; s/p foot ulcer debridement. Continue intravenous antibiotics. ID and vascular surgery following. Anemia: s/p PRBC transfusion. hgb drift to 6.9. to be transfused Acute on chronic diastolic heart failure: decompensated overnight. Improved with IV diuresis. Will given additional dose following transfusion today. Increase oral to BID, which is patient's home dose. CAD: past CABG clinically stable. Secondary prevention measures. Hx of PE/RLE DVT: Eliquis resumed. Monitor H and H BLE PAD: past revascularization. stable clinically HTN; better controlled, but remains elevated. Will increase amlodipine HLP; statins. TERRY. Monitoring lab. KRISTIAN CABELLO APRN Jan 21, 2021 10:57 ARELI DOSS MD Jan 21, 2021 16:17
--- NOTE | 2021-01-21 11:24 | RAD ---
Single view of the chest. 01/21/2021 7:38 AM Indication: Reason: SHORTNESS OF BREATH, WHEEZING / Spl. Instructions: / History: Comparison: Chest radiograph January 14, 2021 Findings: There are diffuse interstitial alveolar infiltrates throughout the bilateral lungs. Right-s ided infiltrates have improved and are less dense in the interim. The heart is enlarged. Prior median sternotomy noted. No pneumothorax or significant effusion is identified. No acute osseous changes ar e seen. IMPRESSION: 1. Improved right-sided infiltrates with persistent bilateral, diffuse interstitial and patchy alveol ar infiltrates. Findings may represent improving pneumonia or edema. 2. Cardiomegaly, grossly similar Electronically signed by: Abdulkadir Arevalo MD (01/21/2021 11:21 AM) [id number]
--- NOTE | 2021-01-21 12:55 | PDOC ---
[facility] PROGRESS NOTE Date of Service DOS: DATE: 01/21/21 TIME: 12:53 Chief Complaint Chief Complaint Right foot osteomyelitis of the 5th metatarsal status post excisional de bridement of skin subcu tissue and fascia and bone 01/19/2021 Diabetes Mellitus Type 2 Hypertension Dyslipidemia CDK Severe protein calorie malnutrition Acute anemia due to acute blood loss requiring 1 unit PRBC transfusion History of Present Illness History of Present Illness Ms Marks is a 65 yo female with PMHx RLE DVT (on eliquis), CAD s/p CABG, CVA, HTN, HLD, PAD s/p bilateral lower extremity bypass, and CKD, presents to the hospital as a direct admission from the outpatient wound clinic where she was noted to have exposed bone in her right fifth metatarsal and pain. She has been on outpatient Augmentin intermittently for the past few months. Discussed with wound care physician except for direct admission and consult infectious diseases and vascular surgery. 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 She has been trying to offload the foot but with some neuropathy has not been able to appropriately offload and has been compliant with meds and wound care fo llow up. Requires admission for failure of outpatient therapy. 01/13: Hb 7 and tachycardic this morning. Feeling more fatigued. Discussed with vascular surgery tentative plans for debridement 01/14/2021. Amenable to transfusion. Consulted cardiology for concern for mild acute CHF exacerbation Afebrile. Hb 9.3. Much more short of breath after transfusion despite 2 doses of 20 mg IV Lasix. Urine output was fairly minimal after this. Left lower extremity more swollen bibasilar crackles this morning. IV Lasix ordered. Stat stat rapid Covid swab ordered. I discussed with vascular surgery as likely acute CHF will need a little more management prior to surgery and will delay it by a couple hours. 01/17: Mrs. Marks was seen and evaluated this morning. she has discussed with vascular, amputation encouraged, she would liek to try to preserve the foot, I think she will only consent to debridement, I encouraged amputation to limit her mortality risk going forward and improve treatment options. again str better, not hypoxia, still weak, she has been symptom control of her back pain, she likes the Menthol/Methyl Salicylate PRN QID also voltaren PRN. 01/18/2021 No acute events overnight. Patient seen and examined bedside. No concerns nursing. Pain is well controlled. Plan for surgery tomorrow. Patient's chart, labs, images were reviewed and discussed with RN 01/19/2021 No acute events overnight. Patient status post surgery and pain is well tolerated. Patient does have sciatica pain on the left lower extremity. She also has some burning upon urination Diflucan started per ID. Continued PT OT modalities patient's chart, labs, images were reviewed and discussed with RN 01/20/21 No acute events overnight. Pain is moderately controlled. Working with PT/OT with strict NWB status. Will need SNF placement. 01/21/2021 No acute events overnight. Patient not have hemoglobin of 6.9 this morning. Pending 1 unit PRBC transfusion. Patient still is refusing SNF placement and also wound VAC placement. Discussed with the patient about her options and strongly recommended her for her to go to a fpc facility and also having a wound VAC placed as she is pumping her right lower extremity and foot in which she is supposed to be nonweightbearing status. Patient's chart, labs, images were reviewed and discussed with RN In addition to my E/M visit, advance care planning done with A total time of 20 minutes was spent from 1030 to 1050 face to face in discussion with the patient regarding their goals of care, CODE STATUS. Vitals/I&O Vitals/I&O: Vital Signs Date Time Temp Pulse Resp B/P (MAP) Pulse Ox O2 Delivery O2 Flow Rate FiO2 01/21/21 11:40 97 Nasal Cannula 2.0 01/21/21 10:50 97.9 72 20 126/58 (80) 97.9 I & O 01/20/21 01/20/21 01/21/21 15:00 23:00 07:00 Intake Total 810 ml 790 ml 0 ml Output Total 975 ml Balance 810 ml -185 ml 0 ml Physical Exam Physical Exam: GENERAL: Alert, oriented female, not in distress. HEENT: Both pupils are round and reacting. No conjunctival lesion, no lesion in the mouth. NECK: Supple, no JVP, no lymphadenopathy. LUNGS: Clear. HEART: S1, S2 regular. ABDOMEN: Soft, nontender, no organomegaly. EXTREMITIES: No edema, cyanosis. SKIN: Unremarkable. NEUROLOGIC: The patient is alert, awake, and appropriate. No focal neurologic deficit. FOOT: In particular foot examination, the patient has a plantar ulcer, looks chronic and it probes to the bone at around fourth and fifth metatarsal area. General: Alert, Oriented X3, Cooperative, No acute distress Heart: Regular rate, No murmurs, Other (2/6 systolic murmur to LLS border) Lungs: Clear Abdomen: Normal bowel sounds, No tenderness, Other (obese) Extremities: No clubbing, Other (2+ bilateral LE pitting edema) Skin: No rashes, Other (right foot wound) Labs Labs: Laboratory Tests Test 01/20/21 16:59 01/20/21 20:56 01/21/21 06:10 01/21/21 08:05 Glucose (Fingerstick) 170 mg/dL (70-99) 185 mg/dL (70-99) 208 mg/dL (70-99) White Blood Count 8.4 x10^3/uL (4.0-11.0) Red Blood Count 2.47 x10^6/uL (3.50-5.40) Hemoglobin 6.9 g/dL (12.0-15.5) Hematocrit 20.8 % (36.0-47.0) Mean Corpuscular Volume 84 fL (79-100) Mean Corpuscular Hemoglobin 28 pg (25-35) Mean Corpuscular Hemoglobin Concent 33 g/dL (31-37) Red Cell Distribution Width 15.7 % (11.5-14.5) Platelet Count 352 x10^3/uL (140-400) Neutrophils (%) (Auto) 81 % (31-73) Lymphocytes (%) (Auto) 13 % (24-48) Monocytes (%) (Auto) 5 % (0-9) Eosinophils (%) (Auto) 1 % (0-3) Basophils (%) (Auto) 1 % (0-3) Neutrophils # (Auto) 6.8 x10^3/uL (1.8-7.7) Lymphocytes # (Auto) 1.1 x10^3/uL (1.0-4.8) Monocytes # (Auto) 0.4 x10^3/uL (0.0-1.1) Eosinophils # (Auto) 0.0 x10^3/uL (0.0-0.7) Basophils # (Auto) 0.0 x10^3/uL (0.0-0.2) Sodium Level 141 mmol/L (136-145) Potassium Level 4.2 mmol/L (3.5-5.1) Chloride Level 107 mmol/L (98-107) Carbon Dioxide Level 29 mmol/L (21-32) Anion Gap 5 (6-14) Blood Urea Nitrogen 20 mg/dL (7-20) Creatinine 1.0 mg/dL (0.6-1.0) Estimated GFR (Cockcroft-Gault) 55.8 BUN/Creatinine Ratio 20 (6-20) Glucose Level 232 mg/dL (70-99) Calcium Level 8.6 mg/dL (8.5-10.1) Magnesium Level 1.7 mg/dL (1.8-2.4) Total Bilirubin 0.2 mg/dL (0.2-1.0) Aspartate Amino Transf (AST/SGOT) 27 U/L (15-37) Alanine Aminotransferase (ALT/SGPT) 26 U/L (14-59) Alkaline Phosphatase 94 U/L (46-116) RV-Iyr-M-Type Natriuretic Peptide 8566 pg/mL (0-124) Total Protein 5.8 g/dL (6.4-8.2) Albumin 1.7 g/dL (3.4-5.0) Albumin/Globulin Ratio 0.4 (1.0-1.7) Test 01/21/21 11:57 Glucose (Fingerstick) 178 mg/dL (70-99) Comment Review of Relevant I have reviewed the following items johan (where applicable) has been applied. Medications: Current Medications Medications (Trade) Dose Ordered Sig/Katiana Route PRN Reason Start Time Stop Time Status Last Admin Dose Admin Apixaban (Eliquis) 5 mg BID PO 01/20/21 21:00 01/21/21 08:24 Amlodipine Besylate (Norvasc) 10 mg DAILY PO 01/21/21 09:00 01/21/21 08:24 Furosemide (Lasix) 40 mg 1X ONCE IVP 01/21/21 01:15 01/21/21 01:16 DC 01/21/21 01:14 Magnesium Sulfate 50 ml @ 25 mls/hr 1X ONCE IV 01/21/21 08:30 01/21/21 10:29 DC 01/21/21 09:30 Justifications for Admission Other Justification sepsis and respiratory failure NARDA ANGEL MD Jan 21, 2021 12:55
[2021-01-21] MEDS: oxyCODONE/APAP 7.5/325 1 TAB TABLET PO PRN (15:43)
--- NOTE | 2021-01-21 16:10 | NUR ---
SS following up with discharge planning. SS reviewed pt chart and discussed with pt RN. Pt is currently on room air. COVID19 negative. Pt on IV Zosyn and IV Daptomycin. PICC line in place. Pt needing IV antibiotics and wound care post discharge. PT/OT recommended halfway unit. SS met with pt and discussed discharge planning and halfway unit. Pt declining halfway unit at this time and requesting home IV infusions and home healthcare. SS spoke with [facility], ; fax [phone] and medications covered at 100%. [facility] declined pt. SS phoned and faxed referral to [facility], ; fax [phone]. [facility] accepted pt and completed KELLEN with [facility] to have supplies covered. SS will continue to follow for discharge planning.
[2021-01-21] MEDS: ZOLPIDEM 5 MG TABLET. PO PRN (21:18)
[2021-01-21] MEDS: ATORVASTATIN CALCIUM 40 MG TABLET. PO SCH (21:18)
[2021-01-21] MEDS: INSULIN GLARGINE SYRINGE. SQ SCH (21:19)
[2021-01-22] MEDS: PIPERACILLIN/TAZOBACTAM 3.375 GM in IV NORMAL SALINE 50ML 50 ML IV SCH ×4 (00:14→19:15)
[2021-01-22 01:11] LABS: HEMOGLOBIN A1C 6.1 % (4.8-5.6)
[2021-01-22 02:57] VITALS: BP 142/67
[2021-01-22] MEDS: BUDESONIDE 0.5 MG/2 ML NEBU. NEB SCH ×2 (07:29→18:22)
[2021-01-22] MEDS: IPRATRPIUM/ALBUTEROL 0.5/2.5MG 3 ML NEBU. NEB SCH ×4 (07:29→18:22)
[2021-01-22 07:33] VITALS: BP 140/65
[2021-01-22 07:57] LABS: BASO % 1 % (0-3); EOS # 0.2 x10^3/uL (0.0-0.7); EOS % 3 % (0-3); HEMOGLOBIN 7.9 g/dL (12.0-15.5); LYMPH # 1.3 x10^3/uL (1.0-4.8); LYMPH % 19 % (24-48); MEAN CORPUSCULAR HEMOGLOBIN 27 pg (25-35); MEAN CORPUSCULAR HGB CONC 33 g/dL (31-37); MEAN CORPUSCULAR VOLUME 83 fL (79-100); MONO # 0.6 x10^3/uL (0.0-1.1); MONO % 9 % (0-9); NEUT # 4.7 x10^3/uL (1.8-7.7); NEUT % 68 % (31-73); PLATELET COUNT 371 x10^3/uL (140-400); RED CELL DISTRIBUTION WIDTH 17.3 % (11.5-14.5); WHITE BLOOD COUNT 6.9 x10^3/uL (4.0-11.0)
[2021-01-22] MEDS: INSULIN LISPRO 300 UNITS/3 ML VIAL. SQ SCH ×2 (08:00→12:00)
[2021-01-22 08:01] LABS: CALCIUM 8.9 mg/dL (8.5-10.1); CREATININE 0.9 mg/dL (0.6-1.0); POTASSIUM 3.9 mmol/L (3.5-5.1)
--- NOTE | 2021-01-22 08:43 | PDOC ---
Infectious Disease Note Subjective Subjective pt is feeling good, has no complaints, ready to go home ROS ROS no n/v/d/sob/fever Vital Sign Vital Signs Vital Signs Date Time Temp Pulse Resp B/P (MAP) Pulse Ox O2 Delivery O2 Flow Rate FiO2 01/22/21 07:33 96.4 73 18 140/65 (90) 94 Nasal Cannula 2.0 96.4 Physical Exam PHYSICAL EXAM GENERAL: Alert, oriented female, not in distress. HEENT: Both pupils are round and reacting. No conjunctival lesion, no lesion in the mouth. NECK: Supple, no JVP, no lymphadenopathy. LUNGS: Clear. HEART: S1, S2 regular. ABDOMEN: Soft, nontender, no organomegaly. EXTREMITIES: No edema, cyanosis. SKIN: Unremarkable. NEUROLOGIC: The patient is alert, awake, and appropriate. No focal neurologic deficit. FOOT: In particular foot examination, the patient has a plantar ulcer, looks chronic and it probes to the bone at around fourth and fifth metatarsal area. wound seen, rt lateral with some oozing blood Labs Lab Laboratory Tests Test 01/21/21 11:57 01/21/21 20:15 01/22/21 07:38 01/22/21 08:04 Glucose (Fingerstick) 178 mg/dL (70-99) 230 mg/dL (70-99) 62 mg/dL (70-99) White Blood Count 6.9 x10^3/uL (4.0-11.0) Red Blood Count 2.90 x10^6/uL (3.50-5.40) Hemoglobin 7.9 g/dL (12.0-15.5) Hematocrit 24.0 % (36.0-47.0) Mean Corpuscular Volume 83 fL (79-100) Mean Corpuscular Hemoglobin 27 pg (25-35) Mean Corpuscular Hemoglobin Concent 33 g/dL (31-37) Red Cell Distribution Width 17.3 % (11.5-14.5) Platelet Count 371 x10^3/uL (140-400) Neutrophils (%) (Auto) 68 % (31-73) Lymphocytes (%) (Auto) 19 % (24-48) Monocytes (%) (Auto) 9 % (0-9) Eosinophils (%) (Auto) 3 % (0-3) Basophils (%) (Auto) 1 % (0-3) Neutrophils # (Auto) 4.7 x10^3/uL (1.8-7.7) Lymphocytes # (Auto) 1.3 x10^3/uL (1.0-4.8) Monocytes # (Auto) 0.6 x10^3/uL (0.0-1.1) Eosinophils # (Auto) 0.2 x10^3/uL (0.0-0.7) Basophils # (Auto) 0.0 x10^3/uL (0.0-0.2) Sodium Level 146 mmol/L (136-145) Potassium Level 3.9 mmol/L (3.5-5.1) Chloride Level 111 mmol/L (98-107) Carbon Dioxide Level 29 mmol/L (21-32) Anion Gap 6 (6-14) Blood Urea Nitrogen 19 mg/dL (7-20) Creatinine 0.9 mg/dL (0.6-1.0) Estimated GFR (Cockcroft-Gault) 63.0 Glucose Level 70 mg/dL (70-99) Calcium Level 8.9 mg/dL (8.5-10.1) Micro GRAM STAIN Final Final NO ORGANISMS SEEN. RBC:MANY SQUAMOUS EPI CELL:NONE SEEN PMN (WBCs):RARE Unless otherwise specified, Testing Performed by: [address] [id number] For Inquires, the Physician may contact the Microbiology department at [phone] ANAEROBIC-AEROBIC CULTURE Preliminary Preliminary RARE [STAPHYLOCOCCUS AUREUS] on 01/21/21 at 0904 STAPHYLOCOCCUS AUREUS Unless otherwise specified, Testing Performed by: [address] [id number] For Inquires, the Physician may contact the Microbiology department at [phone] Objective Assessment 1. Right foot osteomyelitis. S/p I&D 2. Diabetes mellitus. 3. Hypertension. 4. Renal insufficiency. 5. Congestive heart failure. Plan Plan of Care Continue antibiotics,, patient can be discharged on IV Invanz and daptomycin cont supportive care Wound VAC IV antibiotics for Discharge f/u with me in 2 wks MICH MARK MD Jan 22, 2021 08:43
[2021-01-22] MEDS: PANTOPRAZOLE 40 MG TABLET.DR. PO SCH (08:50)
[2021-01-22] MEDS: OMEGA-3 FATTY ACIDS/FISH OIL 1,000 MG CAPSULE. PO SCH (08:50)
[2021-01-22] MEDS: FUROSEMIDE 40 MG TABLET. PO SCH ×2 (08:51→14:45)
[2021-01-22] MEDS: HYDROcodone/APAP 5/325MG 1 TAB TABLET PO PRN (08:51)
[2021-01-22] MEDS: GABAPENTIN 300 MG CAPSULE. PO SCH ×3 (08:51→20:31)
[2021-01-22] MEDS: LACTOBACILLUS RHAMNOSUS GG 1 CAPSULE. PO SCH ×2 (08:51→20:31)
[2021-01-22] MEDS: ASPIRIN ENTERIC COATED 81 MG TABLET.DR. PO SCH (08:52)
[2021-01-22] MEDS: CARVEDILOL 6.25 MG TABLET. PO SCH ×2 (08:52→19:10)
[2021-01-22] MEDS: FLUCONAZOLE 100 MG TABLET. PO SCH (08:52)
[2021-01-22] MEDS: RANOLAZINE 500 MG TAB.ER.12H PO SCH ×2 (08:52→20:33)
[2021-01-22] MEDS: DAPTOmycin (GENERIC) IVPB 470 MG in IV NORMAL SALINE 50ML 50 ML IV SCH (08:53)
[2021-01-22] MEDS: ISOSORBIDE MONONITRATE ER 30 MG TAB.ER.24H PO SCH (08:53)
[2021-01-22 10:28] VITALS: BP 162/78
--- NOTE | 2021-01-22 12:57 | PDOC ---
SUE MENDIETA CARROT BUNCHER 01/22/21 1257: CARDIO Progress Notes Date and Time Date of Service 01/22/2021 Time of Evaluation 1230 Subjective Subjective: No Chest Pain, No shortness of breath, No Palpitations Vitals Vitals Vital Signs Date Time Temp Pulse Resp B/P (MAP) Pulse Ox O2 Delivery O2 Flow Rate FiO2 01/22/21 11:06 96 Room Air 01/22/21 10:28 97.9 74 18 162/78 (106) 2.0 97.9 Weight Weight [ ] Input and Output Intake and Output Intake and Output 01/22/21 07:00 Intake Total 1260 ml Output Total 300 ml Balance 960 ml Intake Oral 1260 ml Output Urine Total 300 ml Laboratory Labs Laboratory Tests Test 01/21/21 20:15 01/22/21 07:38 01/22/21 08:04 01/22/21 11:25 Glucose (Fingerstick) 230 mg/dL (70-99) 62 mg/dL (70-99) 110 mg/dL (70-99) White Blood Count 6.9 x10^3/uL (4.0-11.0) Red Blood Count 2.90 x10^6/uL (3.50-5.40) Hemoglobin 7.9 g/dL (12.0-15.5) Hematocrit 24.0 % (36.0-47.0) Mean Corpuscular Volume 83 fL (79-100) Mean Corpuscular Hemoglobin 27 pg (25-35) Mean Corpuscular Hemoglobin Concent 33 g/dL (31-37) Red Cell Distribution Width 17.3 % (11.5-14.5) Platelet Count 371 x10^3/uL (140-400) Neutrophils (%) (Auto) 68 % (31-73) Lymphocytes (%) (Auto) 19 % (24-48) Monocytes (%) (Auto) 9 % (0-9) Eosinophils (%) (Auto) 3 % (0-3) Basophils (%) (Auto) 1 % (0-3) Neutrophils # (Auto) 4.7 x10^3/uL (1.8-7.7) Lymphocytes # (Auto) 1.3 x10^3/uL (1.0-4.8) Monocytes # (Auto) 0.6 x10^3/uL (0.0-1.1) Eosinophils # (Auto) 0.2 x10^3/uL (0.0-0.7) Basophils # (Auto) 0.0 x10^3/uL (0.0-0.2) Sodium Level 146 mmol/L (136-145) Potassium Level 3.9 mmol/L (3.5-5.1) Chloride Level 111 mmol/L (98-107) Carbon Dioxide Level 29 mmol/L (21-32) Anion Gap 6 (6-14) Blood Urea Nitrogen 19 mg/dL (7-20) Creatinine 0.9 mg/dL (0.6-1.0) Estimated GFR (Cockcroft-Gault) 63.0 Glucose Level 70 mg/dL (70-99) Calcium Level 8.9 mg/dL (8.5-10.1) Microbiology Micro Microbiology 01/19/21 Gram Stain - Final, Resulted 01/19/21 Aerobic and Anaerobic Culture - Preliminary, Resulted 01/19/21 Antimicrobic Susceptibility - Preliminary, Resulted 01/14/21 Blood Culture - Final, Complete NO GROWTH AFTER 5 DAYS 01/13/21 Urine Culture - Final, Complete Physical Exam HEENT: Neck Supple W Full Motion Chest: Symmetric LUNGS: Other (diminished) Heart: RRR (SR) Abdomen: Soft N/T Extremities: Other (1+ bilateral LE pitting edema; right foot covered with dressing) Neurology: alert, oriented, follow commands Assessment Assessment 1. Fever 2. Anemia: Hgb continues to trend down post transfusion 3. Osteomyelitis with planned debridement and resection of fifth metatarsal bone today 4. CAD: past CABG clinically stable 5. Hx of PE/RLE DVT: was on eliquis, last dose yesterday per PCP 6. BLE PAD: past revascularization. stable clinically 7. HTN; controlled 8. HLP 9. Acute on chronic diastolic CHF: better after diurese 10. CKD3 11. PSVT in the setting of anemia and hypomagnesemia. Maintianing SR none further since the latter improved Recommendations 1. Continue secondary prevention measures. Continue coreg 2. Lasix therapy 3. Follow up in office 5. MCOT Justicifation of Admission Dx: Justifications for Admission: Justification of Admission Dx: Yes ARELI DOSS MD 01/22/21 1620: CARDIO Progress Notes Assessment Assessment Patient seen and evaluated. I agree with our nurse practitioners assessment and plan. Anemia: Hgb continues to trend down post transfusion Osteomyelitis. Continues to be followed by surgery. Antibiotics continuing. CAD: past CABG clinically stable Hx of PE/RLE DVT: was on eliquis, last dose yesterday per PCP BLE PAD: past revascularization. stable clinically HTN; controlled HLP. Continuing present treatment. Acute on chronic diastolic CHF: better after diurese CKD3 PSVT in the setting of anemia and hypomagnesemia. Maintaining SR. outpatient follow-up. SUE MENDIETA APRN Jan 22, 2021 12:57 ARELI DOSS MD Jan 22, 2021 16:20
--- NOTE | 2021-01-22 13:13 | NUR ---
SS following up with discharge planning. SS reviewed pt chart and discussed with pt RN. Pt is currently requiring oxygen at two liters nasal canula. COVID19 negative. Pt on IV Zosyn and IV Daptomycin. PICC line in place. Pt needing IV antibiotics and wound care post discharge. PT/OT recommended usp unit. Pt declining usp unit at this time and requesting home IV infusions and home healthcare. SS spoke with [facility], ; fax [phone] and medications covered at 100%. Pt accepted with [facility], ; fax [phone]. [facility] completed KELLEN with [facility] to have supplies covered. Script for antibiotics received and sent to [facility]. Per RN, pt's wound bleeding today. SS will continue to follow for discharge planning.
--- NOTE | 2021-01-22 13:41 | PDOC ---
[facility] PROGRESS NOTE Date of Service DOS: DATE: 01/22/21 TIME: 13:38 Chief Complaint Chief Complaint Right foot osteomyelitis of the 5th metatarsal status post excisional d ebridement of skin subcu tissue and fascia and bone 01/19/2021 Diabetes Mellitus Type 2 Hypertension Dyslipidemia CDK Severe protein calorie malnutrition Acute anemia due to acute blood loss requiring 1 unit PRBC transfusion History of Present Illness History of Present Illness Ms Marks is a 65 yo female with PMHx RLE DVT (on eliquis), CAD s/p CABG, CVA, HTN, HLD, PAD s/p bilateral lower extremity bypass, and CKD, presents to the hospital as a direct admission from the outpatient wound clinic where she was noted to have exposed bone in her right fifth metatarsal and pain. She has been on outpatient Augmentin intermittently for the past few months. Discussed with wound care physician except for direct admission and consult infectious diseases and vascular surgery. 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 She has been trying to offload the foot but with some neuropathy has not been able to appropriately offload and has been compliant with meds and wound care f ollow up. Requires admission for failure of outpatient therapy. 01/13: Hb 7 and tachycardic this morning. Feeling more fatigued. Discussed with vascular surgery tentative plans for debridement 01/14/2021. Amenable to transfusion. Consulted cardiology for concern for mild acute CHF exacerbation Afebrile. Hb 9.3. Much more short of breath after transfusion despite 2 doses of 20 mg IV Lasix. Urine output was fairly minimal after this. Left lower extremity more swollen bibasilar crackles this morning. IV Lasix ordered. Stat stat rapid Covid swab ordered. I discussed with vascular surgery as likely acute CHF will need a little more management prior to surgery and will delay it by a couple hours. 01/17: Mrs. Marks was seen and evaluated this morning. she has discussed with vascular, amputation encouraged, she would liek to try to preserve the foot, I think she will only consent to debridement, I encouraged amputation to limit her mortality risk going forward and improve treatment options. again str better, not hypoxia, still weak, she has been symptom control of her back pain, she likes the Menthol/Methyl Salicylate PRN QID also voltaren PRN. 01/18/2021 No acute events overnight. Patient seen and examined bedside. No concerns nursing. Pain is well controlled. Plan for surgery tomorrow. Patient's chart, labs, images were reviewed and discussed with RN 01/19/2021 No acute events overnight. Patient status post surgery and pain is well tolerated. Patient does have sciatica pain on the left lower extremity. She also has some burning upon urination Diflucan started per ID. Continued PT OT modalities patient's chart, labs, images were reviewed and discussed with RN 01/20/21 No acute events overnight. Pain is moderately controlled. Working with PT/OT with strict NWB status. Will need SNF placement. 01/21/2021 No acute events overnight. Patient not have hemoglobin of 6.9 this morning. Pending 1 unit PRBC transfusion. Patient still is refusing SNF placement and also wound VAC placement. Discussed with the patient about her options and strongly recommended her for her to go to a correction facility and also having a wound VAC placed as she is pumping her right lower extremity and foot in which she is supposed to be nonweightbearing status. Patient's chart, labs, images were reviewed and discussed with RN In addition to my E/M visit, advance care planning done with A total time of 20 minutes was spent from 1030 to 1050 face to face in discussion with the patient regarding their goals of care, CODE STATUS. 01/22/2021 No acute events overnight. Patient does report strikethrough through her dressings. Hemoglobin stable at 7.9. I still insist on patient going to a SNF. Unfortunately, patient is adamant about going home even without a wound VAC. Infectious disease cleared patient for outpatient IV antibiotics with Invanz and daptomycin. We will continue wound care for now and see if patient is willing to go home with home health for wound VAC. Unfortunately wound VAC cannot be placed at this time due to recent bleeding. We will continue to trend hemoglobin levels and see if her bleeding subsides. Patient's chart, labs, images were reviewed and discussed with RN Vitals/I&O Vitals/I&O: Vital Signs Date Time Temp Pulse Resp B/P (MAP) Pulse Ox O2 Delivery O2 Flow Rate FiO2 01/22/21 11:06 96 Room Air 01/22/21 10:28 97.9 74 18 162/78 (106) 2.0 97.9 I & O 01/21/21 01/21/2121 15:00 23:00 07:00 Intake Total 760 ml 400 ml 100 ml Output Total 200 ml 100 ml Balance 760 ml 200 ml 0 ml Physical Exam Physical Exam: GENERAL: Alert, oriented female, not in distress. HEENT: Both pupils are round and reacting. No conjunctival lesion, no lesion in the mouth. NECK: Supple, no JVP, no lymphadenopathy. LUNGS: Clear. HEART: S1, S2 regular. ABDOMEN: Soft, nontender, no organomegaly. EXTREMITIES: No edema, cyanosis. SKIN: Unremarkable. NEUROLOGIC: The patient is alert, awake, and appropriate. No focal neurologic deficit. FOOT: In particular foot examination, the patient has a plantar ulcer, looks chronic and it probes to the bone at around fourth and fifth metatarsal area. wound seen, rt lateral with some oozing blood General: Alert, Oriented X3, Cooperative, No acute distress Heart: Regular rate, No murmurs, Other (2/6 systolic murmur to LLS border) Lungs: Clear Abdomen: Normal bowel sounds, No tenderness, Other (obese) Extremities: No clubbing, Other (2+ bilateral LE pitting edema) Skin: No rashes, Other (right foot wound) Labs Labs: Laboratory Tests Test 01/21/21 20:15 01/22/21 07:38 01/22/21 08:04 01/22/21 11:25 Glucose (Fingerstick) 230 mg/dL (70-99) 62 mg/dL (70-99) 110 mg/dL (70-99) White Blood Count 6.9 x10^3/uL (4.0-11.0) Red Blood Count 2.90 x10^6/uL (3.50-5.40) Hemoglobin 7.9 g/dL (12.0-15.5) Hematocrit 24.0 % (36.0-47.0) Mean Corpuscular Volume 83 fL (79-100) Mean Corpuscular Hemoglobin 27 pg (25-35) Mean Corpuscular Hemoglobin Concent 33 g/dL (31-37) Red Cell Distribution Width 17.3 % (11.5-14.5) Platelet Count 371 x10^3/uL (140-400) Neutrophils (%) (Auto) 68 % (31-73) Lymphocytes (%) (Auto) 19 % (24-48) Monocytes (%) (Auto) 9 % (0-9) Eosinophils (%) (Auto) 3 % (0-3) Basophils (%) (Auto) 1 % (0-3) Neutrophils # (Auto) 4.7 x10^3/uL (1.8-7.7) Lymphocytes # (Auto) 1.3 x10^3/uL (1.0-4.8) Monocytes # (Auto) 0.6 x10^3/uL (0.0-1.1) Eosinophils # (Auto) 0.2 x10^3/uL (0.0-0.7) Basophils # (Auto) 0.0 x10^3/uL (0.0-0.2) Sodium Level 146 mmol/L (136-145) Potassium Level 3.9 mmol/L (3.5-5.1) Chloride Level 111 mmol/L (98-107) Carbon Dioxide Level 29 mmol/L (21-32) Anion Gap 6 (6-14) Blood Urea Nitrogen 19 mg/dL (7-20) Creatinine 0.9 mg/dL (0.6-1.0) Estimated GFR (Cockcroft-Gault) 63.0 Glucose Level 70 mg/dL (70-99) Calcium Level 8.9 mg/dL (8.5-10.1) Comment Review of Relevant I have reviewed the following items johan (where applicable) has been applied. Medications: Current Medications Medications (Trade) Dose Ordered Sig/Katiana Route PRN Reason Start Time Stop Time Status Last Admin Dose Admin Furosemide (Lasix) 40 mg [id number] PO 01/21/21 15:00 01/22/21 08:51 Justifications for Admission Other Justification sepsis and respiratory failure NARDA ANGEL MD Jan 22, 2021 13:41
[2021-01-22] MEDS: oxyCODONE/APAP 7.5/325 1 TAB TABLET PO PRN ×2 (14:46→20:33)
[2021-01-22 14:48] VITALS: BP 130/69
[2021-01-22 19:00] VITALS: BP 139/63
[2021-01-22] MEDS: ATORVASTATIN CALCIUM 40 MG TABLET. PO SCH (20:31)
[2021-01-22] MEDS: ZOLPIDEM 5 MG TABLET. PO PRN (20:33)
[2021-01-22] MEDS: INSULIN GLARGINE SYRINGE. SQ SCH (20:37)
[2021-01-22 23:00] VITALS: BP 127/59
[2021-01-23] MEDS: PIPERACILLIN/TAZOBACTAM 3.375 GM in IV NORMAL SALINE 50ML 50 ML IV SCH ×5 (01:19→23:37)
[2021-01-23 02:37] VITALS: BP 123/58
[2021-01-23 07:00] VITALS: BP 142/64
[2021-01-23] MEDS: IPRATRPIUM/ALBUTEROL 0.5/2.5MG 3 ML NEBU. NEB SCH ×4 (08:00→20:04)
[2021-01-23] MEDS: INSULIN LISPRO 300 UNITS/3 ML VIAL. SQ SCH ×4 (08:00→17:55)
[2021-01-23] MEDS: BUDESONIDE 0.5 MG/2 ML NEBU. NEB SCH ×2 (08:00→20:04)
[2021-01-23] MEDS: FLUCONAZOLE 100 MG TABLET. PO SCH (09:00)
[2021-01-23] MEDS: GABAPENTIN 300 MG CAPSULE. PO SCH ×3 (09:07→19:47)
[2021-01-23] MEDS: OMEGA-3 FATTY ACIDS/FISH OIL 1,000 MG CAPSULE. PO SCH (09:07)
[2021-01-23] MEDS: PANTOPRAZOLE 40 MG TABLET.DR. PO SCH (09:08)
[2021-01-23] MEDS: FUROSEMIDE 40 MG TABLET. PO SCH ×2 (09:08→12:51)
[2021-01-23] MEDS: CARVEDILOL 6.25 MG TABLET. PO SCH ×2 (09:09→17:53)
[2021-01-23] MEDS: ISOSORBIDE MONONITRATE ER 30 MG TAB.ER.24H PO SCH (09:09)
[2021-01-23] MEDS: RANOLAZINE 500 MG TAB.ER.12H PO SCH ×2 (09:10→19:47)
[2021-01-23] MEDS: APIXABAN 5 MG TABLET. PO SCH ×2 (09:11→19:47)
[2021-01-23] MEDS: ASPIRIN ENTERIC COATED 81 MG TABLET.DR. PO SCH (09:12)
[2021-01-23] MEDS: DAPTOmycin (GENERIC) IVPB 470 MG in IV NORMAL SALINE 50ML 50 ML IV SCH (09:12)
[2021-01-23] MEDS: LACTOBACILLUS RHAMNOSUS GG 1 CAPSULE. PO SCH ×2 (09:15→19:47)
[2021-01-23 10:25] LABS: BASO # 0.1 x10^3/uL (0.0-0.2); BASO % 1 % (0-3); EOS # 0.2 x10^3/uL (0.0-0.7); EOS % 3 % (0-3); HEMOGLOBIN 8.5 g/dL (12.0-15.5); LYMPH # 1.3 x10^3/uL (1.0-4.8); LYMPH % 22 % (24-48); MEAN CORPUSCULAR HEMOGLOBIN 27 pg (25-35); MEAN CORPUSCULAR HGB CONC 33 g/dL (31-37); MEAN CORPUSCULAR VOLUME 83 fL (79-100); MONO # 0.6 x10^3/uL (0.0-1.1); MONO % 10 % (0-9); NEUT # 3.9 x10^3/uL (1.8-7.7); NEUT % 64 % (31-73); PLATELET COUNT 416 x10^3/uL (140-400); RED BLOOD COUNT 3.15 x10^6/uL (3.50-5.40); RED CELL DISTRIBUTION WIDTH 17.6 % (11.5-14.5); WHITE BLOOD COUNT 6.1 x10^3/uL (4.0-11.0)
[2021-01-23 10:32] LABS: CALCIUM 8.9 mg/dL (8.5-10.1); CREATININE 0.9 mg/dL (0.6-1.0); MAGNESIUM 1.6 mg/dL (1.8-2.4); POTASSIUM 3.7 mmol/L (3.5-5.1)
[2021-01-23 11:00] VITALS: BP 162/72
--- NOTE | 2021-01-23 12:37 | PDOC ---
[facility] PROGRESS NOTE Date of Service DOS: DATE: 01/23/21 TIME: 12:33 Chief Complaint Chief Complaint Right foot osteomyelitis of the 5th metatarsal status post excisional d ebridement of skin subcu tissue and fascia and bone 01/19/2021 Diabetes Mellitus Type 2 Hypertension Dyslipidemia CDK Severe protein calorie malnutrition Acute anemia due to acute blood loss requiring 1 unit PRBC transfusion History of Present Illness History of Present Illness Ms Marks is a 65 yo female with PMHx RLE DVT (on eliquis), CAD s/p CABG, CVA, HTN, HLD, PAD s/p bilateral lower extremity bypass, and CKD, presents to the hospital as a direct admission from the outpatient wound clinic where she was noted to have exposed bone in her right fifth metatarsal and pain. She has been on outpatient Augmentin intermittently for the past few months. Discussed with wound care physician except for direct admission and consult infectious diseases and vascular surgery. 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 She has been trying to offload the foot but with some neuropathy has not been able to appropriately offload and has been compliant with meds and wound care f ollow up. Requires admission for failure of outpatient therapy. 01/13: Hb 7 and tachycardic this morning. Feeling more fatigued. Discussed with vascular surgery tentative plans for debridement 01/14/2021. Amenable to transfusion. Consulted cardiology for concern for mild acute CHF exacerbation Afebrile. Hb 9.3. Much more short of breath after transfusion despite 2 doses of 20 mg IV Lasix. Urine output was fairly minimal after this. Left lower extremity more swollen bibasilar crackles this morning. IV Lasix ordered. Stat stat rapid Covid swab ordered. I discussed with vascular surgery as likely acute CHF will need a little more management prior to surgery and will delay it by a couple hours. 01/17: Mrs. Marks was seen and evaluated this morning. she has discussed with vascular, amputation encouraged, she would liek to try to preserve the foot, I think she will only consent to debridement, I encouraged amputation to limit her mortality risk going forward and improve treatment options. again str better, not hypoxia, still weak, she has been symptom control of her back pain, she likes the Menthol/Methyl Salicylate PRN QID also voltaren PRN. 01/18/2021 No acute events overnight. Patient seen and examined bedside. No concerns nursing. Pain is well controlled. Plan for surgery tomorrow. Patient's chart, labs, images were reviewed and discussed with RN 01/19/2021 No acute events overnight. Patient status post surgery and pain is well tolerated. Patient does have sciatica pain on the left lower extremity. She also has some burning upon urination Diflucan started per ID. Continued PT OT modalities patient's chart, labs, images were reviewed and discussed with RN 01/20/21 No acute events overnight. Pain is moderately controlled. Working with PT/OT with strict NWB status. Will need SNF placement. 01/21/2021 No acute events overnight. Patient not have hemoglobin of 6.9 this morning. Pending 1 unit PRBC transfusion. Patient still is refusing SNF placement and also wound VAC placement. Discussed with the patient about her options and strongly recommended her for her to go to a penitentiary facility and also having a wound VAC placed as she is pumping her right lower extremity and foot in which she is supposed to be nonweightbearing status. Patient's chart, labs, images were reviewed and discussed with RN In addition to my E/M visit, advance care planning done with A total time of 20 minutes was spent from 1030 to 1050 face to face in discussion with the patient regarding their goals of care, CODE STATUS. 01/22/2021 No acute events overnight. Patient does report strikethrough through her dressings. Hemoglobin stable at 7.9. I still insist on patient going to a SNF. Unfortunately, patient is adamant about going home even without a wound VAC. Infectious disease cleared patient for outpatient IV antibiotics with Invanz and daptomycin. We will continue wound care for now and see if patient is willing to go home with home health for wound VAC. Unfortunately wound VAC cannot be placed at this time due to recent bleeding. We will continue to trend hemoglobin levels and see if her bleeding subsides. Patient's chart, labs, images were reviewed and discussed with RN 01/23/2021 No acute events overnight. No strikethrough overnight. Hemoglobin stable at 8.5. Will attempt to do a dressing change today and see if there is excessive bruising that may contradict for her to have a wound VAC placed. At this point she is fairly adamant about leaving and not wanting to do penitentiary facility or having a wound VAC placed. She is amenable to for home health. I will see how her wound looks and possibly discharge her within the next 24 to 48 hours after her Eliquis was restarted this morning. Magnesium 1.6 and I replaced with 2 g of IV magnesium sulfate. Patient's chart, labs, images were reviewed and discussed with RN Vitals/I&O Vitals/I&O: Vital Signs Date Time Temp Pulse Resp B/P (MAP) Pulse Ox O2 Delivery O2 Flow Rate FiO2 01/23/21 11:12 95 Nasal Cannula 2.0 01/23/21 11:00 98.1 72 19 162/72 (102) 98.1 I & O 01/22/21 01/22/21 01/23/21 15:00 23:00 07:00 Intake Total 525 ml 520 ml 0 ml Output Total 1300 ml 800 ml Balance -775 ml 520 ml -800 ml Physical Exam Physical Exam: GENERAL: Alert, oriented female, not in distress. HEENT: Both pupils are round and reacting. No conjunctival lesion, no lesion in the mouth. NECK: Supple, no JVP, no lymphadenopathy. LUNGS: Clear. HEART: S1, S2 regular. ABDOMEN: Soft, nontender, no organomegaly. EXTREMITIES: No edema, cyanosis. SKIN: Unremarkable. NEUROLOGIC: The patient is alert, awake, and appropriate. No focal neurologic deficit. FOOT: In particular foot examination, the patient has a plantar ulcer, looks chronic and it probes to the bone at around fourth and fifth metatarsal area. wound seen, rt lateral with some oozing blood General: Alert, Oriented X3, Cooperative, No acute distress Heart: Regular rate, No murmurs, Other (2/6 systolic murmur to LLS border) Lungs: Clear Abdomen: Normal bowel sounds, No tenderness, Other (obese) Extremities: No clubbing, Other (2+ bilateral LE pitting edema) Skin: No rashes, Other (right foot wound) Labs Labs: Laboratory Tests Test 01/22/21 16:18 01/22/21 20:18 01/23/21 09:10 01/23/21 10:15 Glucose (Fingerstick) 179 mg/dL (70-99) 266 mg/dL (70-99) 162 mg/dL (70-99) White Blood Count 6.1 x10^3/uL (4.0-11.0) Red Blood Count 3.15 x10^6/uL (3.50-5.40) Hemoglobin 8.5 g/dL (12.0-15.5) Hematocrit 26.0 % (36.0-47.0) Mean Corpuscular Volume 83 fL (79-100) Mean Corpuscular Hemoglobin 27 pg (25-35) Mean Corpuscular Hemoglobin Concent 33 g/dL (31-37) Red Cell Distribution Width 17.6 % (11.5-14.5) Platelet Count 416 x10^3/uL (140-400) Neutrophils (%) (Auto) 64 % (31-73) Lymphocytes (%) (Auto) 22 % (24-48) Monocytes (%) (Auto) 10 % (0-9) Eosinophils (%) (Auto) 3 % (0-3) Basophils (%) (Auto) 1 % (0-3) Neutrophils # (Auto) 3.9 x10^3/uL (1.8-7.7) Lymphocytes # (Auto) 1.3 x10^3/uL (1.0-4.8) Monocytes # (Auto) 0.6 x10^3/uL (0.0-1.1) Eosinophils # (Auto) 0.2 x10^3/uL (0.0-0.7) Basophils # (Auto) 0.1 x10^3/uL (0.0-0.2) Sodium Level 142 mmol/L (136-145) Potassium Level 3.7 mmol/L (3.5-5.1) Chloride Level 105 mmol/L (98-107) Carbon Dioxide Level 30 mmol/L (21-32) Anion Gap 7 (6-14) Blood Urea Nitrogen 16 mg/dL (7-20) Creatinine 0.9 mg/dL (0.6-1.0) Estimated GFR (Cockcroft-Gault) 63.0 Glucose Level 169 mg/dL (70-99) Calcium Level 8.9 mg/dL (8.5-10.1) Magnesium Level 1.6 mg/dL (1.8-2.4) Test 01/23/21 11:27 Glucose (Fingerstick) 128 mg/dL (70-99) Comment Review of Relevant I have reviewed the following items johan (where applicable) has been applied. Medications: Current Medications Medications (Trade) Dose Ordered Sig/Katiana Route PRN Reason Start Time Stop Time Status Last Admin Dose Admin Apixaban (Eliquis) 5 mg BID PO 01/23/21 09:00 01/23/21 09:11 Justifications for Admission Other Justification sepsis and respiratory failure NARDA ANGEL MD Jan 23, 2021 12:37
[2021-01-23] MEDS ORDERED: MAGNESIUM SULFATE 2GM 50 ML IV ONE (13:00)
--- NOTE | 2021-01-23 14:41 | PDOC ---
Infectious Disease Note Subjective Subjective pt is feeling good, has no complaints, ready to go home ROS ROS no n/v/d/sob Vital Sign Vital Signs Vital Signs Date Time Temp Pulse Resp B/P (MAP) Pulse Ox O2 Delivery O2 Flow Rate FiO2 01/23/21 11:12 95 Nasal Cannula 2.0 01/23/21 11:00 98.1 72 19 162/72 (102) 98.1 Physical Exam PHYSICAL EXAM GENERAL: Alert, oriented female, not in distress. HEENT: Both pupils are round and reacting. No conjunctival lesion, no lesion in the mouth. NECK: Supple, no JVP, no lymphadenopathy. LUNGS: Clear. HEART: S1, S2 regular. ABDOMEN: Soft, nontender, no organomegaly. EXTREMITIES: No edema, cyanosis. SKIN: Unremarkable. NEUROLOGIC: The patient is alert, awake, and appropriate. No focal neurologic deficit. FOOT: In particular foot examination, the patient has a plantar ulcer, looks chronic and it probes to the bone at around fourth and fifth metatarsal area. wound seen, rt lateral with some oozing blood Labs Lab Laboratory Tests Test 01/22/21 16:18 01/22/21 20:18 01/23/21 09:10 01/23/21 10:15 Glucose (Fingerstick) 179 mg/dL (70-99) 266 mg/dL (70-99) 162 mg/dL (70-99) White Blood Count 6.1 x10^3/uL (4.0-11.0) Red Blood Count 3.15 x10^6/uL (3.50-5.40) Hemoglobin 8.5 g/dL (12.0-15.5) Hematocrit 26.0 % (36.0-47.0) Mean Corpuscular Volume 83 fL (79-100) Mean Corpuscular Hemoglobin 27 pg (25-35) Mean Corpuscular Hemoglobin Concent 33 g/dL (31-37) Red Cell Distribution Width 17.6 % (11.5-14.5) Platelet Count 416 x10^3/uL (140-400) Neutrophils (%) (Auto) 64 % (31-73) Lymphocytes (%) (Auto) 22 % (24-48) Monocytes (%) (Auto) 10 % (0-9) Eosinophils (%) (Auto) 3 % (0-3) Basophils (%) (Auto) 1 % (0-3) Neutrophils # (Auto) 3.9 x10^3/uL (1.8-7.7) Lymphocytes # (Auto) 1.3 x10^3/uL (1.0-4.8) Monocytes # (Auto) 0.6 x10^3/uL (0.0-1.1) Eosinophils # (Auto) 0.2 x10^3/uL (0.0-0.7) Basophils # (Auto) 0.1 x10^3/uL (0.0-0.2) Sodium Level 142 mmol/L (136-145) Potassium Level 3.7 mmol/L (3.5-5.1) Chloride Level 105 mmol/L (98-107) Carbon Dioxide Level 30 mmol/L (21-32) Anion Gap 7 (6-14) Blood Urea Nitrogen 16 mg/dL (7-20) Creatinine 0.9 mg/dL (0.6-1.0) Estimated GFR (Cockcroft-Gault) 63.0 Glucose Level 169 mg/dL (70-99) Calcium Level 8.9 mg/dL (8.5-10.1) Magnesium Level 1.6 mg/dL (1.8-2.4) Test 01/23/21 11:27 Glucose (Fingerstick) 128 mg/dL (70-99) Micro RUN DATE: 01/22/21 [facility] *LIVE* PAGE 1 RUN TIME: 907 Specimen Inquiry PATIENT: FRAN AKERS ACCT: [id number] LOC: [address] [place] [address] U: [id number] AGE/SX: 65/F ROOM: 668 RE01/12/[address]: ADRIÁN PEOPLES MD : 1955 BED: 1 DIS: STATUS: ADM IN TLOC: SPEC #: [id number] ARIS: 01/19/21 STATUS: RES REQ #: [id number] RECD: 01/19/[address] [facility] [address]: ADRIÁN PEOPLES MD SOURCE: [facility] ENTR: 01/19/21 [facility] DR: ANNA GUZMAN MD SPDESC: RIGHT MICH MARK MD,ARELI GOODWIN,REJI Jose MD ORDERED: ANI/MORENO/NANCY COMMENTS: RT CUBOID(ELBOW) Procedure Result GRAM STAIN Final Final NO ORGANISMS SEEN. RBC:MANY SQUAMOUS EPI CELL:NONE SEEN PMN (WBCs):RARE Unless otherwise specified, Testing Performed by: [address] [address] For Inquires, the Physician may contact the Microbiology department at [phone] ANAEROBIC-AEROBIC CULTURE Preliminary Preliminary RARE [STAPHYLOCOCCUS AUREUS (MRSA)] on 01/21/21 at 0904 STAPHYLOCOCCUS AUREUS (MRSA) ANTIMICROBIAL SUSCEPTIBILITY Preliminary Comment POS JUANA TYPE 38 STAPHYLOCOCCUS AUREUS (MRSA) ANTIBIOTIC RESULT INTERPRETATION AZITHROMYCIN >4 R CLINDAMYCIN <=0.25 S CEFOXITIN SCREEN >4 POS CIPROFLOXACIN <=1 S CEFTAROLINE 1 S DAPTOMYCIN 1 S ERYTHROMYCIN >4 R GENTAMICIN <=4 S INDUCIBLE CLINDAMYCIN <=4/0.5 NEG LINEZOLID 2 S LEVOFLOXACIN <=1 S OXACILLIN >2 R PENICILLIN >2 R* RIFAMPIN <=1 S RUN DATE: 01/22/21 [facility] *LIVE* PAGE 2 RUN TIME: 907 Specimen Inquiry SPEC: [id number] PATIENT: FRAN AKERS [id number] (Continued) Procedure Result -- CONTINUED ON NEXT PAGE RUN DATE: 01/22/21 [facility] *LIVE* PAGE 3 RUN TIME: 09 Specimen Inquiry SPEC: [id number] PATIENT: FRAN AKERS [id number] (Continued) Procedure Result ANTIMICROBIAL SUSCEPTIBILITY Preliminary (continued) TRIMETHOPRIM/SULFAMETHOXAZOLE <=0.5/9.5 S TETRACYCLINE <=4 S VANCOMYCIN 2 S Unless otherwise specified, Testing Performed by: [address] [address] For Inquires, the Physician may contact the Microbiology department at [phone] END OF REPORT Objective Assessment 1. MRSA Right foot osteomyelitis. S/p I&D 2. Diabetes mellitus. 3. Hypertension. 4. Renal insufficiency. 5. Congestive heart failure. Plan Plan of Care Continue antibiotics,, patient can be discharged on IV Invanz and daptomycin cont supportive care Wound VAC care as directed CM to assist with dc antibiotics Off load f/u with me in 2 wks MICH MARK MD Jan 23, 2021 14:41
[2021-01-23 15:00] VITALS: BP 149/67
[2021-01-23] MEDS: oxyCODONE/APAP 7.5/325 1 TAB TABLET PO PRN (18:10)
[2021-01-23 19:08] VITALS: BP 136/63
[2021-01-23] MEDS: ZOLPIDEM 5 MG TABLET. PO PRN (19:47)
[2021-01-23] MEDS: ATORVASTATIN CALCIUM 40 MG TABLET. PO SCH (19:47)
[2021-01-23] MEDS: INSULIN GLARGINE SYRINGE. SQ SCH (19:48)
[2021-01-23 22:23] VITALS: BP 146/68
[2021-01-24 02:55] VITALS: BP 139/65
[2021-01-24] MEDS: PIPERACILLIN/TAZOBACTAM 3.375 GM in IV NORMAL SALINE 50ML 50 ML IV SCH (05:00)
[2021-01-24 06:02] VITALS: BP 140/63
[2021-01-24] MEDS: IPRATRPIUM/ALBUTEROL 0.5/2.5MG 3 ML NEBU. NEB SCH (09:06)
[2021-01-24] MEDS: BUDESONIDE 0.5 MG/2 ML NEBU. NEB SCH (09:06)
[2021-01-24] MEDS: PANTOPRAZOLE 40 MG TABLET.DR. PO SCH (09:35)
[2021-01-24] MEDS: LACTOBACILLUS RHAMNOSUS GG 1 CAPSULE. PO SCH (09:35)
[2021-01-24] MEDS: OMEGA-3 FATTY ACIDS/FISH OIL 1,000 MG CAPSULE. PO SCH (09:35)
[2021-01-24] MEDS: RANOLAZINE 500 MG TAB.ER.12H PO SCH (09:35)
[2021-01-24] MEDS: ASPIRIN ENTERIC COATED 81 MG TABLET.DR. PO SCH (09:35)
[2021-01-24] MEDS: CARVEDILOL 6.25 MG TABLET. PO SCH (09:36)
[2021-01-24] MEDS: FUROSEMIDE 40 MG TABLET. PO SCH (09:36)
[2021-01-24] MEDS: oxyCODONE/APAP 7.5/325 1 TAB TABLET PO PRN (09:36)
[2021-01-24] MEDS: GABAPENTIN 300 MG CAPSULE. PO SCH (09:36)
[2021-01-24] MEDS: ISOSORBIDE MONONITRATE ER 30 MG TAB.ER.24H PO SCH (09:37)
[2021-01-24] MEDS: APIXABAN 5 MG TABLET. PO SCH (09:37)
[2021-01-24] MEDS: FLUCONAZOLE 100 MG TABLET. PO SCH (09:37)
[2021-01-24] MEDS: INSULIN LISPRO 300 UNITS/3 ML VIAL. SQ SCH (09:42)
[2021-01-24] MEDS: DAPTOmycin (GENERIC) IVPB 470 MG in IV NORMAL SALINE 50ML 50 ML IV SCH (09:45)
[2021-01-24 10:50] VITALS: BP 158/73
--- NOTE | 2021-01-24 11:42 | PDOC ---
Infectious Disease Note Subjective Subjective pt is feeling good, has no complaints, ready to go home ROS ROS No nausea vomiting diarrhea Vital Sign Vital Signs Vital Signs Date Time Temp Pulse Resp B/P (MAP) Pulse Ox O2 Delivery O2 Flow Rate FiO2 01/24/21 10:07 100 Room Air 2.0 01/24/21 09:37 83 140/63 01/24/21 06:02 97.7 16 97.7 Physical Exam PHYSICAL EXAM GENERAL: Alert, oriented female, not in distress. HEENT: Both pupils are round and reacting. No conjunctival lesion, no lesion in the mouth. NECK: Supple, no JVP, no lymphadenopathy. LUNGS: Clear. HEART: S1, S2 regular. ABDOMEN: Soft, nontender, no organomegaly. EXTREMITIES: No edema, cyanosis. SKIN: Unremarkable. NEUROLOGIC: The patient is alert, awake, and appropriate. No focal neurologic deficit. FOOT: In particular foot examination, the patient has a plantar ulcer, looks chronic and it probes to the bone at around fourth and fifth metatarsal area. wound seen, rt lateral wound seen looking better Labs Lab Laboratory Tests Test 01/23/21 16:50 01/23/21 19:46 01/24/21 07:24 01/24/21 11:40 Glucose (Fingerstick) 189 mg/dL (70-99) 232 mg/dL (70-99) 169 mg/dL (70-99) 142 mg/dL (70-99) Micro RUN DATE: 01/22/21 [facility] *LIVE* PAGE 1 RUN TIME: 907 Specimen Inquiry PATIENT: FRAN AKERS ACCT: [id number] LOC: [address] [place] [address] U: [id number] AGE/SX: 65/F ROOM: 668 RE01/12/[address]: ADRIÁN PEOPLES MD : 1955 BED: 1 DIS: STATUS: ADM IN TLOC: SPEC #: [id number] ARIS: 01/19/21 STATUS: RES REQ #: [id number] RECD: 01/19/[address] [facility] [address]: ADRIÁN PEOPLES MD SOURCE: [facility] ENTR: 01/19/[address] [facility] DR: ANNA GUZMAN MD SPDESC: RIGHT DEEDEE,MICH DOSS,ARELI GOODWIN,REJI Jose MD ORDERED: ANI/MORENO/NANCY COMMENTS: RT CUBOID(ELBOW) Procedure Result GRAM STAIN Final Final NO ORGANISMS SEEN. RBC:MANY SQUAMOUS EPI CELL:NONE SEEN PMN (WBCs):RARE Unless otherwise specified, Testing Performed by: [address] [address] For Inquires, the Physician may contact the Microbiology department at [phone] ANAEROBIC-AEROBIC CULTURE Preliminary Preliminary RARE [STAPHYLOCOCCUS AUREUS (MRSA)] on 01/21/21 at 0904 STAPHYLOCOCCUS AUREUS (MRSA) ANTIMICROBIAL SUSCEPTIBILITY Preliminary Comment POS JUANA TYPE 38 STAPHYLOCOCCUS AUREUS (MRSA) ANTIBIOTIC RESULT INTERPRETATION AZITHROMYCIN >4 R CLINDAMYCIN <=0.25 S CEFOXITIN SCREEN >4 POS CIPROFLOXACIN <=1 S CEFTAROLINE 1 S DAPTOMYCIN 1 S ERYTHROMYCIN >4 R GENTAMICIN <=4 S INDUCIBLE CLINDAMYCIN <=4/0.5 NEG LINEZOLID 2 S LEVOFLOXACIN <=1 S OXACILLIN >2 R PENICILLIN >2 R* RIFAMPIN <=1 S RUN DATE: 01/22/21 [facility] *LIVE* PAGE 2 RUN TIME: 907 Specimen Inquiry SPEC: [id number] PATIENT: FRAN AKERS [id number] (Continued) Procedure Result CONTINUED ON NEXT PAGE RUN DATE: 01/22/21 [facility] *LIVE* PAGE 3 RUN TIME: 0908 Specimen Inquiry SPEC: [id number] PATIENT: FRAN AKERS [id number] (Continued) Procedure Result ANTIMICROBIAL SUSCEPTIBILITY Preliminary (continued) TRIMETHOPRIM/SULFAMETHOXAZOLE <=0.5/9.5 S TETRACYCLINE <=4 S VANCOMYCIN 2 S Unless otherwise specified, Testing Performed by: [address] [address] For Inquires, the Physician may contact the Microbiology department at [phone] END OF REPORT Objective Assessment 1. MRSA Right foot osteomyelitis. S/p I&D 2. Diabetes mellitus. 3. Hypertension. 4. Renal insufficiency. 5. Congestive heart failure. Plan Plan of Care Continue antibiotics,, patient can be discharged on IV Invanz and daptomycin cont supportive care Wound VAC care as directed CM to assist with dc antibiotics Off load f/u with me in 2 wks MICH MARK MD Jan 24, 2021 11:42
[2021-01-24] MEDS ORDERED: SENN1TAB99 PO (12:02)
[2021-01-24] MEDS ORDERED: ASPI-886 PO (12:02)
[2021-01-24] MEDS ORDERED: HYDR-2759 PO (12:02)
[2021-01-24] MEDS ORDERED: AMLO-186 PO (12:02)
[2021-01-24] MEDS ORDERED: APIX5TAB PO (12:02)
--- NOTE | 2021-01-24 12:05 | SNU/HH DC ---
DISCHARGE WITH HOME HEALTH DISCHARGE INFORMATION: Discharge Date: Jan 24, 2021 Condition on Discharge: Stable CODE STATUS: Code Status: Full HOME HEALTH: Face to Face: I certify this patient is under my care and that I, or a nurse practitioner or louann duarte[employer] assistant professor of history working with me, had a face to face encounter that meets the physician face to face encounter requirements with this patient on []. Medical Complications: DM, Falls, Other Mcfp For: Admin/Educate Injections, Assess & Educate Safety, Assess/Skilled Observatio, Diabetic Care, IV Infusion Therapy, Medication M anagement, Pain Management, Wound Care, Wound Vac RN For Eval/Treatment: Yes Physical Therapy For: Evalulation/Treatment Occupational Therapy For: Evaluation/Treatment Home Health Aide For: Self-care Pt Meets Homebound Status: Poor coordination w/ amb., Extreme weakness w/ amb., Frequent falls w/ injury, Limited distance walking, Unable to negotiate home POST DISCHARGE ORDERS: Activity Instructions for Disc: Activity as tolerated Weight Bearing Status after Di: Non weight bearing Bathing Instructions: Shower-keep dressing dry, No Tub Bath until see DIET AFTER DISCHARGE: Cardiac Wound/Incision Care: Ice to area for comfort CHECKS AFTER DISCHARGE: Checks after discharge: Check blood sugar, ac/hs FOLLOW-UP: Follow up with: PCP within 2 weeks of discharge Follow Up With: Vascular surgery and infectious disease and wound care clinic within 2 week TREATMENT/EQUIPMENT ORDERS: Adaptive Equipment Issued: None Infusion Equipment, home use: PICC Line CERTIFICATION STATEMENT: Certification Statement: Certification Statement: Based on the above finding, I certify that this patient is confined to the home and needs intermittent [facility] care, physical therapy and/or speech therapy, or continues to need occupational therapy.~ This patient is under my care, and I have initiated the establishment of the plan of care.~ This patient will be followed by myself or a community physician who will periodically review the plan of care. Home Meds Active Scripts Sennosides/Docusate Sodium (Senna-Docusate Sodium Tablet) 1 Each Tablet, 2 TAB PO BID PRN for CONSTIPATION for 5 Days, #20 TAB 0 Refills Prov:NARDA ANGEL MD 01/24/21 Hydrocodone/Acetaminophen (Hydrocodone-Acetamin 5-325 mg) 1 Each Tablet, 1 EACH PO Q6-8HRS PRN for PAIN for 5 Days, #20 TAB Prov:NARDA ANGEL MD 01/24/21 Aspirin (ASPIRIN EC) 81 Mg Tablet.dr, 81 MG PO DAILYWBKFT for heart disease for 60 Days, #60 TAB.SR 1 Refill Prov:NARDA ANGEL MD 01/24/21 Amlodipine Besylate (AMLODIPINE BESYLATE) 5 Mg Tablet, 10 MG PO DAILY for blood pressure for 30 Days, #60 TAB 1 Refill Prov:NARDA ANGEL MD 01/24/21 Apixaban (ELIQUIS) 5 Mg Tablet, 5 MG PO BID for afib for 30 Days, #60 TAB 1 R efill Prov:NARDA ANGEL MD 01/24/21 Oxycodone/Apap 7.5-325 (PERCOCET 7.5-325 MG TABLET ) 1 Each Tablet, 1 TAB PO QIDPRN PRN for PAIN MDD 4 Tablet(s) for 5 Days, #20 TAB 0 Refills Prov:CASTLE,NIAL K III DO 12/10/20 Carvedilol (CARVEDILOL ) 6.25 Mg Tablet, 6.25 MG PO BIDWMEALS for . for 90 Days, #180 TAB Prov:CASTLE,NIAL K III DO 12/10/20 Isosorbide Mononitrate (ISOSORBIDE MONONITRATE ER) 30 Mg Tab.er.24h, 30 MG PO DAILY for . for 90 Days, #90 TAB.SR Prov:CASTLE,NIAL K III DO 12/10/20 Hydrocodone Bit/Acetaminophen (HYDROCODONE-APAP 5-325 ) 1 Tab Tablet, 1 TAB PO PRN BID PRN for PAIN for 30 Days, #60 TAB 0 Refills Prov:ADRIÁN PEOPLES MD 07/01/20 Atorvastatin Calcium (ATORVASTATIN CALCIUM) 40 Mg Tablet, 40 MG PO QHS for HLD for 90 Days, #90 TAB 3 Refills Prov:ADRIÁN PEOPLES MD 07/01/20 Ranolazine (RANEXA) 500 Mg Tab.er.12h, 1 TAB PO BID, #60 TAB 3 Refills Prov:PATIENCE RAMIREZ MD 06/06/17 Reported Medications Furosemide (FUROSEMIDE) 40 Mg Tablet, 40 MG PO BIDWBKFT/NIKOLAY for diuretic, TAB 12/10/20 Cyanocobalamin (Vitamin B-12) (VITAMIN B-12) 5,000 Mcg Tab.rapdis, 5000 MCG PO DAILY for supplement, TAB 12/08/20 Apixaban (ELIQUIS) 5 Mg Tablet, 5 MG PO DAILY for ANTI-COAG 06/23/20 Insulin Glargine,Hum.rec.anlog (LANTUS SOLOSTAR) 100 Unit/1 Ml Insuln.pen, 26 UNIT SQ QHS for diabetes, #15 ML 3 Refills 06/23/20 Ascorbic Acid (VITAMIN C) 500 Mg Capsule.er, 1 CAP PO DAILY for supplement for 30 Days, #30 CAP 0 Refills 08/19/19 Lisinopril (LISINOPRIL) 40 Mg Tablet, 1 TAB PO DAILY for HTN, #30 TAB 5 Refills 08/19/19 Gabapentin (GABAPENTIN ) 100 Mg Capsule, 600 MG PO TID for neuropathy, CAP 12/25/17 Biotin (Biotin) 5,000 Mcg Tab.rapdis, 5000 MCG PO DAILY, TAB 12/25/17 Omeprazole (OMEPRAZOLE) 40 Mg Capsule.dr, 40 MG PO PRN DAILY PRN for INDIGESTION 08/12/17 Zolpidem Tartrate (ZOLPIDEM TARTRATE) 5 Mg Tablet, 5 MG PO PRN QHS PRN for INSOMNIA, TAB 0 Refills 03/13/15 Cholecalciferol (Vitamin D3) (VITAMIN D) 1,000 Unit Capsule, 1000 UNIT PO 03/13/15 Metformin Hcl (METFORMIN HCL) 1,000 Mg Tablet, 1 TAB PO BID, #60 TAB 5 Refills 03/13/15 Banquete-3/Dha/Epa/Fish Oil (FISH OIL 1,000 MG SOFTGEL) 1 Each Capsule, 1 EACH PO DAILY 03/13/15 Discontinued Reported Medications Amoxicillin/Potassium Clav (AUGMENTIN 875-125 TABLET) 1 Each Tablet, 1 TAB PO BID for covid pneumonia, TAB 0 Refills 12/10/20 Aspirin (ASPIRIN) 325 Mg Tablet, 1 TAB PO DAILY for heart health, #30 TAB 5 Refills 08/19/19 NARDA ANGEL MD Jan 24, 2021 12:05
--- NOTE | 2021-01-24 15:59 | NUR ---
Discharge Note: FRAN AKERS Discharge instructions and discharge home medications reviewed with Patient and a copy given. All questions have been answered and understanding verbalized. lines and drains: Right upper arm PICC in place; dressing changed prior to discharge Patient discharged to home with home health in stable condition with spouse
== END 2021-01-24 15:58 | disposition home health service (06) | DRG 628 ==
LOC: 4 NORTH 11:52 → 6 SOUTH 01-14 23:05
PROVIDERS: ADMIT Internal Medicine; ATTEND Internal Medicine
PROC: 30233N1 Transfusion of Nonautologous Red Blood Cells into Peripheral Vein, Percutaneous Approach (ICD-10-PCS; 2021-01-13)
PROC: 0QBL0ZZ Excision of Right Tarsal, Open Approach (ICD-10-PCS; principal; 2021-01-19 09:00)
PROC: 5A09357 Assistance with Respiratory Ventilation, Less than 24 Consecutive Hours, Continuous Positive Airway Pressure (ICD-10-PCS; 2021-01-21)
DX: E11.69 Type 2 diabetes mellitus with other specified complication (principal); E43 Unspecified severe protein-calorie malnutrition; I50.33 Acute on chronic diastolic (congestive) heart failure; J96.91 Respiratory failure, unspecified with hypoxia; M86.171 Other acute osteomyelitis, right ankle and foot; D62 Acute posthemorrhagic anemia; I13.0 Hypertensive heart and chronic kidney disease with heart failure and stage 1 through stage 4 chronic kidney disease, or unspecified chronic kidney disease; E11.621 Type 2 diabetes mellitus with foot ulcer; N17.9 Acute kidney failure, unspecified; E11.22 Type 2 diabetes mellitus with diabetic chronic kidney disease; E11.42 Type 2 diabetes mellitus with diabetic polyneuropathy; E11.51 Type 2 diabetes mellitus with diabetic peripheral angiopathy without gangrene; E11.649 Type 2 diabetes mellitus with hypoglycemia without coma; E11.65 Type 2 diabetes mellitus with hyperglycemia; E78.5 Hyperlipidemia, unspecified; E83.42 Hypomagnesemia; I25.10 Atherosclerotic heart disease of native coronary artery without angina pectoris; L29.9 Pruritus, unspecified; L97.519 Non-pressure chronic ulcer of other part of right foot with unspecified severity; M21.969 Unspecified acquired deformity of unspecified lower leg; M54.30 Sciatica, unspecified side; N18.30 Chronic kidney disease, stage 3 unspecified; Z53.20 Procedure and treatment not carried out because of patient's decision for unspecified reasons; Z86.711 Personal history of pulmonary embolism; Z83.3 Family history of diabetes mellitus; Z86.718 Personal history of other venous thrombosis and embolism; Z86.73 Personal history of transient ischemic attack (TIA), and cerebral infarction without residual deficits; Z90.710 Acquired absence of both cervix and uterus; Z95.1 Presence of aortocoronary bypass graft; K21.9 Gastro-esophageal reflux disease without esophagitis; F32.9 Major depressive disorder, single episode, unspecified; M19.90 Unspecified osteoarthritis, unspecified site; Z68.28 Body mass index [BMI] 28.0-28.9, adult; Z88.8 Allergy status to other drugs, medicaments and biological substances; Z20.822 Contact with and (suspected) exposure to COVID-19
CPT/HCPCS: 36415; 36430; 36569; 71045; 72100; 73630; 80048; 80053; 81001; 82550; 82962; 83036; 83735; 83880; 85025; 85610; 86850; 86900; 86901; 86920; 87040; 87071; 87075; 87077; 87086; 87186; 87426; 93005; 93325; 93926; 94640; 94660; 94760; 99215; A4930; A6253; A6402; A6449; J0878; J1650; J1815; J1940; J2370; J2405; J2543; J2704; J3010; J3475; J7120; P9016; U0003; U0005; 97110-GP; 97116-GP; 97530-GP; 97535-GO; G0378; G0463; J7626